=== PATIENT | male | born 1935 | race Caucasian/White ===

== ENCOUNTER 2016-09-10 20:57 | Inpatient (IN) | payer OTHER ==
[~2016-09-10] VITALS: Ht 172.7 cm; Wt 80.0 kg
[~2016-09-10 20:57] MED LIST: ASPI-435 PO; CRD2 PO; vitamin d3 PO
[2016-09-10] MEDS ORDERED: ACETAMINOPHEN 500 MG TAB PO ONE (21:04)
--- NOTE | 2016-09-10 21:45 | DIAGNOSTIC IMAGING REPORT ---
CHEST ONE VIEW PORTABLE HISTORY: flu like symptoms COMPARISON: None. FINDINGS: Linear densities at the left lung base. The lungs are otherwise clear. No pleural effusions. No pneumothorax. The heart is normal in size. IMPRESSION: Linear densities at the left lung base. This favors atelectasis. However, a pneumonia could also have a similar appearance. Electronically signed by: Quentin Mendoza M.D. 09/10/2016 9:44 PM Dictated Date/Time: 09/10/2016 9:42 PM
[2016-09-10] MEDS ORDERED: SODIUM CHLORIDE 0.9% 1000ML 1,000 ML IV STA (21:59)
[2016-09-10] MEDS ORDERED: LEVAQUIN 750MG / 150ML D5W IV STA (22:04)
[2016-09-10] MEDS ORDERED: OSELTAMIVIR PHOSPHATE 75 MG CAP PO STA (22:42)
[2016-09-10 22:44] LABS: COMPLETE YES; EOS % 0.5 %; HEMATOCRIT 34.6 % (42-52); IG% 0.3 %; LYMPH % 14.3 %; LYMPH ABS # 0.56 K/uL (1.2-3.4); MEAN CELL VOLUME 99.4 fL (80-100); MEAN CORPUSCULAR HEMOGLOBIN 34.8 pg (25-34); MEAN PLATELET VOLUME 11.2 fL (7.4-10.4); MONO % 13.3 %; NEUT % 71.6 %; PLATELET COUNT 117 K/uL (130-400); RED BLOOD COUNT 3.48 M/uL (4.7-6.1); WHITE BLOOD COUNT 3.91 K/uL (4.8-10.8)
[2016-09-10 23:00] LABS: BUN/CREATININE RATIO 14.7 (10-20); CALCIUM 7.7 mg/dl (8.5-10.1); CREATININE 1.3 mg/dl (0.60-1.40); POTASSIUM 3.8 mmol/L (3.5-5.1)
[2016-09-10 23:05] LABS: ALB/GLOB RATIO 1.1 (0.9-2)
[2016-09-10] MEDS ORDERED: DUTA0.5C PO (23:36)
[2016-09-10] MEDS ORDERED: ALFU10TA30 PO (23:36)
[2016-09-11] MEDS ORDERED: ALUMINUM/MAGNESIUM SUSP 30 ML UDC PO STA (01:12)
[2016-09-11] MEDS ORDERED: RANITIDINE HCL 150 MG TAB PO ONE ×2 (01:15→02:49)
[2016-09-11 01:59] LABS: PARTIAL THROMBOPLASTIN RATIO 1.2
[2016-09-11 02:01] LABS: MAGNESIUM 1.9 mg/dl (1.8-2.4); THYROID STIMULATING HORMONE 0.501 uIu/ml (0.300-4.500)
[2016-09-11] MEDS ORDERED: LACTATED RINGER'S 1000ML 1,000 ML IV ONE (02:30)
[2016-09-11] MEDS ORDERED: TRAMADOL HCL 50 MG TAB PO PRN (02:30)
[2016-09-11] MEDS ORDERED: BENZONATATE 100MG CAP PO PRN (02:30)
[2016-09-11] MEDS ORDERED: ALBUT/IPRATROP 3MG/0.5MG NEB 3 ML VIAL INH PRN (02:30)
[2016-09-11] MEDS ORDERED: ACETAMINOPHEN 325 MG TAB PO PRN (02:30)
[2016-09-11] MEDS ORDERED: ONDANSETRON INJ 2 MG/ML 2 ML VIAL IV PRN (02:30)
[2016-09-11] MEDS ORDERED: ALUMINUM/MAGNESIUM SUSP 30 ML UDC PO PRN (02:30)
[2016-09-11] MEDS ORDERED: PROMETHAZINE HCL INJ 12.5 MG in SODIUM CHLORIDE 0.9% 50ML 50 ML IV PRN (02:30)
[2016-09-11] MEDS ORDERED: MoRPHine SULFATE 4 MG/ML 1 ML CARP\\VIAL IV PRN (02:30)
--- NOTE | 2016-09-11 02:34 | EMERGENCY ROOM VISIT NOTE ---
History Report prepared by Josette: Reagan Melton Under the Supervision of: Dr. Ignacio Rawls M.D. First contact with patient: 21:22 Chief Complaint: FEVER Stated Complaint: FEVER,FEELING LOUSY History of Present Illness The patient is a 80 year old male who presents to the Emergency Room with complaints of a persistent dry cough starting 2 days ago. He reports muscle spasms in the back from coughing. He also complains of some difficulty breathing. The patient started having an intermittent fever yesterday. His highest temperature at home was 102 degrees Fahrenheit. He notes generalized body aches. About a week ago, the patient's brother in law was diagnosed with the flu. The patient has never been a smoker. He denies any history of pneumonia or lung disease. Pt denies LOC, headache, diaphoresis, visual changes , neck pain, chest pain, nausea, vomiting, abdominal pain, melena, hematochezia , urinary symptoms, numbness, weakness, lymphadenopathy, rash, or other complaints. Source of History: patient Onset: 2 days ago Position: other (global) Quality: other (dry cough) Timing: other (persistent) Associated Symptoms: + SOB, + fevers Review of Systems See HPI for pertinent positives and negatives. A total of ten systems were reviewed and were otherwise negative. Past Medical & Surgical Medical Problems: (1) Anemia (2) BPH (benign prostatic hyperplasia) (3) Laceration (4) MDS (myelodysplastic syndrome), low grade (5) Pneumonia Family History Patient reports no known family medical history. Social History Smoking Status: Never Smoker Marital Status: Occupation Status: retired Current/Historical Medications Scheduled Alfuzosin Hcl (Uroxatral), 10 MG PO QAM Aspirin (Aspirin 81), 81 MG PO QAM Doxazosin Mesylate (Doxazosin Mesylate), 2 MG PO QAM Dutasteride (Avodart), 0.5 MG PO QAM Allergies Coded Allergies: No Known Allergies (Unverified , 09/10/16) Physical Exam Vital Signs Date Time Temp Pulse Resp B/P Pulse Ox O2 Delivery O2 Flow Rate FiO2 09/11/16 02:16 64 09/11/16 01:14 65 20 146/79 94 Room Air 09/11/16 00:15 36.7 66 20 131/72 97 Nasal Cannula 3.0 09/10/16 22:41 37.8 76 128/66 96 Room Air 09/10/16 22:40 96 Room Air 09/10/16 22:24 77 09/10/16 22:15 95 Nasal Cannula 2.0 09/10/16 22:15 89 Room Air 09/10/16 21:00 38.7 83 20 145/73 93 Room Air Physical Exam GENERAL: Awake, alert, tired-appearing, in no distress HENT: Normocephalic, atraumatic. Oropharynx unremarkable. EYES: Normal conjunctiva. Sclera non-icteric. NECK: Supple. No nuchal rigidity. FROM. No JVD. RESPIRATORY: Clear to auscultation. CARDIAC: Regular rate, normal rhythm. Extremities warm and well perfused. Pulses equal. ABDOMEN: Soft, non-distended. No tenderness to palpation. No rebound or guarding. No masses. RECTAL: Deferred. MUSCULOSKELETAL: Chest examination reveals no tenderness. The back is symmetrical on inspection without obvious abnormality. There is no CVA tenderness to palpation. No joint edema. LOWER EXTREMITIES: Calves are equal size bilaterally and non-tender. No edema. No discoloration. NEURO: Normal sensorium. No sensory or motor deficits noted. SKIN: No rash or jaundice noted. Medical Decision & Procedures ER Provider Diagnostic Interpretation: X-ray: Per my interpretation, radiologist review. CHEST ONE VIEW PORTABLE HISTORY: flu like symptoms COMPARISON: None. FINDINGS: Linear densities at the left lung base. The lungs are otherwise clear. No pleural effusions. No pneumothorax. The heart is normal in size. IMPRESSION: Linear densities at the left lung base. This favors atelectasis. However, a pneumonia could also have a similar appearance. Electronically signed by: Quentin Mendoza M.D. 09/10/2016 9:44 PM Dictated Date/Time: 09/10/2016 9:42 PM Laboratory Results 09/10/16 22:15 Red Blood Count 3.48, Mean Corpuscular Volume 99.4, Mean Corpuscular Hemoglobin 34.8, Mean Corpuscular Hemoglobin Concent 35.0, Mean Platelet Volume 11.2, Neutrophils (%) (Auto) 71.6, Lymphocytes (%) (Auto) 14.3, Monocytes (%) (Auto) 13.3, Eosinophils (%) (Auto) 0.5, Basophils (%) (Auto) 0.0, Neutrophils # (Auto ) 2.80, Lymphocytes # (Auto) 0.56, Monocytes # (Auto) 0.52, Eosinophils # (Auto ) 0.02, Basophils # (Auto) 0.00 09/10/16 22:15 Test 09/10/16 21:34 09/10/16 22:15 09/11/16 01:47 Influenza Type A Antigen POS for Influ A (NEG) Influenza Type B Antigen Neg for Influ B (NEG) White Blood Count 3.91 K/uL (4.8-10.8) Red Blood Count 3.48 M/uL (4.7-6.1) Hemoglobin 12.1 g/dL (14.0-18.0) Hematocrit 34.6 % (42-52) Mean Corpuscular Volume 99.4 fL (80-100) Mean Corpuscular Hemoglobin 34.8 pg (25-34) Mean Corpuscular Hemoglobin Concent 35.0 g/dl (32-36) Platelet Count 117 K/uL (130-400) Mean Platelet Volume 11.2 fL (7.4-10.4) Neutrophils (%) (Auto) 71.6 % Lymphocytes (%) (Auto) 14.3 % Monocytes (%) (Auto) 13.3 % Eosinophils (%) (Auto) 0.5 % Basophils (%) (Auto) 0.0 % Neutrophils # (Auto) 2.80 K/uL (1.4-6.5) Lymphocytes # (Auto) 0.56 K/uL (1.2-3.4) Monocytes # (Auto) 0.52 K/uL (0.11-0.59) Eosinophils # (Auto) 0.02 K/uL (0-0.5) Basophils # (Auto) 0.00 K/uL (0-0.2) RDW Standard Deviation 47.3 fL (36.4-46.3) RDW Coefficient of Variation 13.1 % (11.5-14.5) Immature Granulocyte % (Auto) 0.3 % Immature Granulocyte # (Auto) 0.01 K/uL (0.00-0.02) Activated Partial Thromboplast Time 31.7 SECONDS (21.0-31.0) Partial Thromboplastin Ratio 1.2 Anion Gap 12.0 mmol/L (3-11) Est Creatinine Clear Calc Drug Dose 44.6 ml/min Estimated GFR () 60.1 Estimated GFR (Non- 51.9 BUN/Creatinine Ratio 14.7 (10-20) Calcium Level 7.7 mg/dl (8.5-10.1) Magnesium Level 1.9 mg/dl (1.8-2.4) Total Bilirubin 0.4 mg/dl (0.2-1) Aspartate Amino Transf (AST/SGOT) 37 U/L (15-37) Alanine Aminotransferase (ALT/SGPT) 35 U/L (12-78) Alkaline Phosphatase 144 U/L (45-117) Troponin I 0.022 ng/ml (0-0.045) Total Protein 6.0 gm/dl (6.4-8.2) Albumin 3.1 gm/dl (3.4-5.0) Globulin 2.9 gm/dl (2.5-4.0) Albumin/Globulin Ratio 1.1 (0.9-2) Thyroid Stimulating Hormone (TSH) 0.501 uIu/ml (0.300-4.500) Lactic Acid Level 0.9 mmol/L (0.4-2.0) Laboratory results reviewed by me Medications Administered Medications (Trade) Dose Ordered Sig/Jabier Route Start Time Stop Time Status Last Admin Dose Admin Acetaminophen 1000 mg 1,000 mg STK-MED ONCE PO 09/10/16 21:04 09/10/16 21:06 DC 09/10/16 21:04 1,000 MG Sodium Chloride (Nss 1000ml) 1,000 ml @ 125 mls/hr Q8H STAT IV 09/10/16 21:59 09/11/16 05:58 09/10/16 21:25 125 MLS/HR Levofloxacin (Levaquin / D5W) 750 mg NOW STAT IV 09/10/16 22:04 09/10/16 22:05 DC 09/10/16 22:33 750 MG Oseltamivir Phosphate (Tamiflu Cap) 75 mg NOW STAT PO 09/10/16 22:42 09/10/16 22:43 DC 09/10/16 22:42 75 MG Al Hydroxide/Mg Hydroxide (Maalox Susp) 30 ml NOW STAT PO 09/11/16 01:12 09/11/16 01:14 DC 09/11/16 01:12 30 ML Ranitidine HCl (zANTac TAB) 150 mg NOW ONCE PO 09/11/16 01:15 09/11/16 01:16 DC 09/11/16 01:15 150 MG ED Course 2121: The patient was evaluated in room A09B. A complete history and physical exam was performed. 2158: Sodium Chloride 1000 ml @ 125 mls/hr IV 2203: Levofloxacin 750 mg IV 2241: Tamiflu Cap 75 mg PO 2244: I reevaluated the patient who is resting comfortably. 0112: Maalox Susp 30 ml PO 0115: Ranitidine HCl 150 mg PO 0118: Upon reexamination, the patient was doing well. I discussed the test results and treatment plan with him. I discussed the patient's case with Dr. Javed, from [facility]. The patient will be evaluated for further management. Medical Decision Triage Nursing notes reviewed. The patient's presentation and history were concerning for respiratory symptoms. Etiologies such as influenza, pneumonia, COPD, reactive airway disease, CHF, cardiac ischemia, pulmonary embolism, pneumothorax, musculoskeletal, infections , gastrointestinal, as well as others were entertained. The patient was evaluated. He was mildly hypoxic on room air. He was doing better with supplemental oxygen and Tylenol. The patient had a chest x-ray was performed and there were some concerns about an early pneumonia in the left base. IV Levaquin was administered. His CBC revealed a mild anemia and leukopenia. Chemistry panel was unremarkable. Magnesium, LFTs were unremarkable. The patient had a positive influenza A screen. Tamiflu was ordered. Given the fact that he has a requirement for supplemental oxygen further evaluation and management was felt to be necessary in the hospital. Consultation was made with internal medicine. The patient was evaluated in the Emergency Room for further treatment. The chart was completed utilizing [employer] Speech voice recognition software. Grammatical errors, random word insertions, pronoun errors, and incomplete sentences are an occasional consequence of this system due to software limitations, ambient noise, and hardware issues. Any formal questions or concerns about the content, text, or information contained within the body of this dictation should be directly addressed to the physician for clarification. Consults Time Called: 0113 Consulting Physician: Dr. Javed, from [facility] Returned Call: 0118 I discussed the patient's case with Dr. Javed, from [facility]. Impression Primary Impression: Influenza Additional Impressions: Pneumonia Hypoxia Scribe Attestation The scribe's documentation has been prepared under my direction and personally reviewed by me in its entirety. I confirm that the note above accurately reflects all work, treatment, procedures, and medical decision making performed by me. Departure Information Dispostion Being Evaluated By Hospitalist Referrals Hilario Sigala M.D. (PCP) Patient Instructions My [facility] Problem Qualifiers
[2016-09-11 03:05] VITALS: O2SAT 95; Ht 172.7 cm; Wt 80.0 kg
--- NOTE | 2016-09-11 03:55 | HISTORY & PHYSICAL EXAMINATION ---
DATE OF ADMISSION: 09/11/2016 PRIMARY CARE DOCTOR: Dr. Hilario Sigala. CHIEF COMPLAINT: Feeling lousy and cough. HISTORY OF PRESENT ILLNESS: Medical history significant for myelodysplasia, chronic anemia (baseline hemoglobin 12-130, BPH Two days history of dry cough sx, feeling lousy. No chest pain, no shortness of breath. At the Emergency Room, transient hypoxemia 89% on room air. Px found to be flu positive. Patient received Tamiflu and Levaquin in the ER. MEDICAL HISTORY: As above. SURGERIES: Tonsillectomy and adenoidectomy. HOME MEDICATIONS: Include aspirin, Zantac prn, Avodart ALLERGIES: No known drug allergies. FAMILY HISTORY: Hypertension. PERSONAL SOCIAL HISTORY: Nonsmoker, no chronic intake. 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 REVIEW OF SYSTEMS: As per HPI, all other ROS negative. PHYSICAL EXAMINATION: VITAL SIGNS: Blood pressure was noted to be 128/60, pulse rate 76, RR 20 T 38 O2 sats 98% on room air. GENERAL: Noted to be comfortable, occasional coughing, no acute distress. SKIN: Pallor. HEENT: Pale palpebral conjunctivae. Dry mucosa. NECK: No JVD. supple CHEST: Clear to auscultation. HEART: Regular rate and rhythm. ABDOMEN: soft EXTREMITIES: No edema. no tenderness NEUROLOGIC: No gross focality. LABORATORIES: Hemoglobin 12.1, hematocrit 34.7, white cell count 2.9, platelets 117. Sodium 140, potassium 4 chloride 107, CO2 20 BUN 19, creatinine 1 glucose 108. IMAGING DATA: Chest x-ray showed a possible infiltrate L ASSESSMENT: 1. Community acquired pneumonia flu positive. No overt sepsis. 2. History of myelodysplasia. 3. Thrombocytopenia poss 2 to above/illness. PLAN: F Medical Levaquin. Tamiflu course. Follow platelets. Hold aspirin for now. PT/OT eval DVT prophylaxis, SCDs. RE Thrombocytopenia. Full code. MTDD
[2016-09-11 06:02] LABS: CALCIUM 7.7 mg/dl (8.5-10.1); CREATININE 1.1 mg/dl (0.60-1.40); POTASSIUM 3.7 mmol/L (3.5-5.1)
[2016-09-11 07:49] VITALS: BP 139/78; PULSE 67; TEMP 37.4; O2SAT 94
[2016-09-11 08:55] VITALS: O2SAT 94
[2016-09-11] MEDS ORDERED: LEVOFLOXACIN CONSULT ACTIVE PRN (09:00)
[2016-09-11] MEDS: DOXAZosin MESYLATE TAB 2 MG TAB PO SCH (09:48)
[2016-09-11] MEDS: ALFUZosin TAB 10 MG TAB PO SCH (09:49)
[2016-09-11] MEDS: GUAIFENESIN 600 MG TABCR PO SCH ×2 (09:49→20:10)
[2016-09-11] MEDS: OSELTAMIVIR PHOSPHATE SUSP 30 MG/5 ML UDP PO SCH ×2 (09:51→20:10)
--- NOTE | 2016-09-11 14:43 | Progress Note ---
Internal Med Progress Note Date of Service: Sep 11, 2016. Provider Documentation: SUBJECTIVE: Seen and examined at bedside. States feeling much better. Reports having dry cough which is improving. Denies any chest pain, SOB. Appetite has improved as well. OBJECTIVE: Vital Signs-as noted below Physical Exam: General Appearance:Moderately built and nourished, no apparent distress Head: normocephalic, Atraumatic Eyes: normal inspection, EOMI, PERRLA Neck: supple, Trachea midline Respiratory/Chest: Normal breath sounds, CTA, No accessory muscle use Cardiovascular: S1, S2, No murmur Abdomen/GI:Soft, Non tender, Bowel sounds present Extremities/Musculoskelatal:normal inspection, No edema Neurologic/Psych:AAOX3, grossly no focal neurological deficits Skin: normal color, warm Lab data as noted below. 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 Baseline platelets:115K Baseline Hb:12-13 Hold Aspirin for now DVT Px: SCDs CODE STATUS: FULL CODE DISPOSITION: Plan to discharge in next 48 hours if stable Vital Signs: Date Time Temp Pulse Resp B/P Pulse Ox O2 Delivery O2 Flow Rate FiO2 09/11/16 08:55 94 Room Air 09/11/16 07:49 37.4 67 18 139/78 94 Room Air 09/11/16 07:26 Room Air 09/11/16 03:05 95 Room Air 09/11/16 02:53 68 20 136/78 94 09/11/16 02:16 64 09/11/16 01:14 65 20 146/79 94 Room Air 09/11/16 00:15 36.7 66 20 131/72 97 Nasal Cannula 3.0 09/10/16 22:41 37.8 76 128/66 96 Room Air 09/10/16 22:40 96 Room Air 09/10/16 22:24 77 09/10/16 22:15 95 Nasal Cannula 2.0 09/10/16 22:15 89 Room Air 09/10/16 21:00 38.7 83 20 145/73 93 Room Air Lab Results: Results Past 24 Hours Test 09/10/16 21:34 09/10/16 22:15 09/11/16 01:47 09/11/16 04:50 Range/Units Influenza Type A Antigen POS for Influ A NEG Influenza Type B Antigen Neg for Influ B NEG White Blood Count 3.91 4.8-10.8 K/uL Red Blood Count 3.48 4.7-6.1 M/uL Hemoglobin 12.1 14.0-18.0 g/dL Hematocrit 34.6 42-52 % Mean Corpuscular Volume 99.4 80-100 fL Mean Corpuscular Hemoglobin 34.8 25-34 pg Mean Corpuscular Hemoglobin Concent 35.0 32-36 g/dl Platelet Count 117 130-400 K/uL Mean Platelet Volume 11.2 7.4-10.4 fL Neutrophils (%) (Auto) 71.6 % Lymphocytes (%) (Auto) 14.3 % Monocytes (%) (Auto) 13.3 % Eosinophils (%) (Auto) 0.5 % Basophils (%) (Auto) 0.0 % Neutrophils # (Auto) 2.80 1.4-6.5 K/uL Lymphocytes # (Auto) 0.56 1.2-3.4 K/uL Monocytes # (Auto) 0.52 0.11-0.59 K/uL Eosinophils # (Auto) 0.02 0-0.5 K/uL Basophils # (Auto) 0.00 0-0.2 K/uL RDW Standard Deviation 47.3 36.4-46.3 fL RDW Coefficient of Variation 13.1 11.5-14.5 % Immature Granulocyte % (Auto) 0.3 % Immature Granulocyte # (Auto) 0.01 0.00-0.02 K/uL Activated Partial Thromboplast Time 31.7 21.0-31.0 SECONDS Partial Thromboplastin Ratio 1.2 Sodium Level 142 142 136-145 mmol/L Potassium Level 3.8 3.7 3.5-5.1 mmol/L Chloride Level 107 107 98-107 mmol/L Carbon Dioxide Level 23 24 21-32 mmol/L Anion Gap 12.0 11.0 3-11 mmol/L Blood Urea Nitrogen 19 18 7-18 mg/dl Creatinine 1.30 1.10 0.60-1.40 mg/dl Est Creatinine Clear Calc Drug Dose 44.6 52.7 ml/min Estimated GFR () 60.1 73.6 Estimated GFR (Non- 51.9 63.5 BUN/Creatinine Ratio 14.7 16.0 10-20 Random Glucose 108 91 70-99 mg/dl Calcium Level 7.7 7.7 8.5-10.1 mg/dl Magnesium Level 1.9 1.8-2.4 mg/dl Total Bilirubin 0.4 0.2-1 mg/dl Aspartate Amino Transf (AST/SGOT) 37 15-37 U/L Alanine Aminotransferase (ALT/SGPT) 35 12-78 U/L Alkaline Phosphatase 144 45-117 U/L Troponin I 0.022 0-0.045 ng/ml Total Protein 6.0 6.4-8.2 gm/dl Albumin 3.1 3.4-5.0 gm/dl Globulin 2.9 2.5-4.0 gm/dl Albumin/Globulin Ratio 1.1 0.9-2 Thyroid Stimulating Hormone (TSH) 0.501 0.300-4.500 uIu/ml Lactic Acid Level 0.9 0.4-2.0 mmol/L Microbiology Results 09/10/16 Blood Culture, Received Pending 09/10/16 Blood Culture, Received Pending
[2016-09-11] MEDS ORDERED: SODIUM CHLORIDE 0.9% 1000ML 1,000 ML IV SCH (15:00)
[2016-09-11 16:00] VITALS: BP 129/68; PULSE 56; TEMP 37; O2SAT 95
[2016-09-11] MEDS ORDERED: LEVOFLOXACIN 750 MG TAB PO ONE (16:00)
[2016-09-11] MEDS: RANITIDINE HCL 150 MG TAB PO PRN (16:13)
[2016-09-11 23:02] VITALS: BP 159/75; PULSE 60; TEMP 37.2; O2SAT 95
[2016-09-12 06:30] LABS: BUN/CREATININE RATIO 18.4 (10-20); CALCIUM 7.9 mg/dl (8.5-10.1); POTASSIUM 3.6 mmol/L (3.5-5.1)
[2016-09-12 06:51] LABS: HEMATOCRIT 34.1 % (42-52); MEAN CELL VOLUME 98.6 fL (80-100); MEAN CORPUSCULAR HEMOGLOBIN 34.1 pg (25-34); MEAN CORPUSCULAR HGB CONC 34.6 g/dl (32-36); MEAN PLATELET VOLUME 11.8 fL (7.4-10.4); PLATELET COUNT 97 K/uL (130-400); RED BLOOD COUNT 3.46 M/uL (4.7-6.1)
[2016-09-12 07:01] LABS: BASO % 0.6 %; BASO ABS # 0.01 K/uL (0-0.2); COMPLETE YES; LARGE PLATELETS 1+; LYMPH % 32.8 %; LYMPH ABS # 0.59 K/uL (1.2-3.4); MONO % 26.1 %; NEUT % 40.5 %; PLT ESTIMATE DECREASED
[2016-09-12 08:10] VITALS: BP 137/74; PULSE 51; TEMP 36.6; O2SAT 92
[2016-09-12] MEDS: ALFUZosin TAB 10 MG TAB PO SCH (08:31)
[2016-09-12] MEDS: DOXAZosin MESYLATE TAB 2 MG TAB PO SCH (08:31)
[2016-09-12] MEDS: GUAIFENESIN 600 MG TABCR PO SCH ×2 (08:33→22:05)
[2016-09-12] MEDS: RANITIDINE HCL 150 MG TAB PO PRN (08:33)
[2016-09-12] MEDS: OSELTAMIVIR PHOSPHATE SUSP 30 MG/5 ML UDP PO SCH ×2 (08:35→22:05)
--- NOTE | 2016-09-12 10:16 | Progress Note ---
Internal Med Progress Note Date of Service: Sep 12, 2016. Provider Documentation: SUBJECTIVE: Seen and examined at bedside. Patient states he feels lot better. Denies any cough, SOB, chest pain. Appetite is back to baseline, denies nausea, vomiting. OBJECTIVE: Vital Signs-as noted below Physical Exam: General Appearance:Moderately built and nourished, no apparent distress Head: normocephalic, Atraumatic Eyes: normal inspection, EOMI, PERRLA Neck: supple, Trachea midline Respiratory/Chest: Normal breath sounds, CTA, No accessory muscle use Cardiovascular: S1, S2, No murmur Abdomen/GI:Soft, Non tender, Bowel sounds present Extremities/Musculoskelatal:normal inspection, No edema Neurologic/Psych:AAOX3, grossly no focal neurological deficits Skin: normal color, warm Lab data as noted below. ASSESSMENT & PLAN: COMMUNITY ACQUIRED PNEUMONIA INFLUENZA A POSITIVE Transient hypoxia while in ED, currently saturating well on RA CXR:Possible LLL pneumonia No signs of sepsis Continue PO Levaquin Blood cultures: no growth to date Continue Tamiflu Lactate levels:wnl Procalcitonin:pending Clinically improved H/O MYELODYSPLASIA: Pancytopenia secondary to infection and myelodysplasia Discussed with :Monitor for now Neutropenia precautions BPH: Stable Continue home meds CHRONIC ANEMIA/THROMBOCYTOPENIA: Secondary to myelodysplasia Baseline platelets:115K >> now 97K Baseline Hb:12-13 WBC: Decreased from 3.9 to 1.8 Hold Aspirin for now Discussed with :Monitor for now Neutropenia precautions DVT Px: SCDs CODE STATUS: FULL CODE DISPOSITION: Plan to discharge in next 24- 48 hours if stable Vital Signs: Date Time Temp Pulse Resp B/P Pulse Ox O2 Delivery O2 Flow Rate FiO2 09/12/16 08:30 Room Air 09/12/16 08:10 36.6 51 19 137/74 92 Room Air 09/11/16 23:50 Room Air 09/11/16 23:02 37.2 60 16 159/75 95 Room Air 09/11/16 20:00 Room Air 09/11/16 16:00 37.0 56 18 129/68 95 Room Air Lab Results: Results Past 24 Hours Test 09/12/16 05:10 09/12/16 08:54 Range/Units White Blood Count 1.80 4.8-10.8 K/uL Red Blood Count 3.46 4.7-6.1 M/uL Hemoglobin 11.8 14.0-18.0 g/dL Hematocrit 34.1 42-52 % Mean Corpuscular Volume 98.6 80-100 fL Mean Corpuscular Hemoglobin 34.1 25-34 pg Mean Corpuscular Hemoglobin Concent 34.6 32-36 g/dl Platelet Count 97 130-400 K/uL Mean Platelet Volume 11.8 7.4-10.4 fL Neutrophils (%) (Auto) 40.5 % Lymphocytes (%) (Auto) 32.8 % Monocytes (%) (Auto) 26.1 % Eosinophils (%) (Auto) 0.0 % Basophils (%) (Auto) 0.6 % Neutrophils # (Auto) 0.73 1.4-6.5 K/uL Lymphocytes # (Auto) 0.59 1.2-3.4 K/uL Monocytes # (Auto) 0.47 0.11-0.59 K/uL Eosinophils # (Auto) 0.00 0-0.5 K/uL Basophils # (Auto) 0.01 0-0.2 K/uL RDW Standard Deviation 46.1 36.4-46.3 fL RDW Coefficient of Variation 12.9 11.5-14.5 % Immature Granulocyte % (Auto) 0.0 % Immature Granulocyte # (Auto) 0.00 0.00-0.02 K/uL Platelet Estimate DECREASED Large Platelets 1+ Sodium Level 143 136-145 mmol/L Potassium Level 3.6 3.5-5.1 mmol/L Chloride Level 107 98-107 mmol/L Carbon Dioxide Level 25 21-32 mmol/L Anion Gap 11.0 3-11 mmol/L Blood Urea Nitrogen 18 7-18 mg/dl Creatinine 1.00 0.60-1.40 mg/dl Est Creatinine Clear Calc Drug Dose 57.9 ml/min Estimated GFR () 82.6 Estimated GFR (Non- 71.3 BUN/Creatinine Ratio 18.4 10-20 Random Glucose 80 70-99 mg/dl Calcium Level 7.9 8.5-10.1 mg/dl Lactic Acid Level 0.8 0.4-2.0 mmol/L Procalcitonin < 0.05 0-0.5 ng/mL
[2016-09-12] MEDS ORDERED: LEVOFLOXACIN 750 MG TAB PO SCH (11:00)
[2016-09-12] MEDS: LEVOFLOXACIN 750 MG TAB PO SCH (11:22)
[2016-09-12 15:44] VITALS: BP 147/67; PULSE 64; TEMP 36.9; O2SAT 96
[2016-09-12 23:12] VITALS: BP 127/63; PULSE 43; TEMP 36.9; O2SAT 97
[2016-09-13] MEDS: RANITIDINE HCL 150 MG TAB PO PRN (00:07)
[2016-09-13 07:15] LABS: HEMATOCRIT 35.1 % (42-52); MEAN CELL VOLUME 97.5 fL (80-100); MEAN CORPUSCULAR HEMOGLOBIN 34.4 pg (25-34); MEAN CORPUSCULAR HGB CONC 35.3 g/dl (32-36); MEAN PLATELET VOLUME 11.4 fL (7.4-10.4); PLATELET COUNT 102 K/uL (130-400)
[2016-09-13 07:27] LABS: BUN/CREATININE RATIO 15.5 (10-20); CALCIUM 8.1 mg/dl (8.5-10.1); CREATININE 1.2 mg/dl (0.60-1.40); POTASSIUM 3.7 mmol/L (3.5-5.1)
[2016-09-13 07:44] VITALS: BP 145/80; PULSE 50; TEMP 36.9; O2SAT 96
[2016-09-13 07:46] LABS: LARGE PLATELETS 1+; VACUOLIZATION 1+
[2016-09-13 07:48] LABS: COMPLETE YES; LYMPH ABS # 0.66 K/uL (1.2-3.4); LYMPHOCYTE % 34.5 %; NEUTROPHILS % 46.9 %
[2016-09-13 08:28] VITALS: O2SAT 96
[2016-09-13] MEDS: DOXAZosin MESYLATE TAB 2 MG TAB PO SCH (09:28)
[2016-09-13] MEDS: GUAIFENESIN 600 MG TABCR PO SCH (09:28)
[2016-09-13] MEDS: ALFUZosin TAB 10 MG TAB PO SCH (09:28)
[2016-09-13] MEDS: OSELTAMIVIR PHOSPHATE SUSP 30 MG/5 ML UDP PO SCH (09:32)
[2016-09-13] MEDS: LEVOFLOXACIN 750 MG TAB PO SCH (11:08)
[2016-09-13] MEDS ORDERED: LVQ750 PO (14:29)
[2016-09-13] MEDS ORDERED: TMFUDL30 PO (14:29)
--- NOTE | 2016-09-13 14:31 | Discharge Instructions ---
Discharge Instructions Admission Reason for Admission: Pneumonia Discharge Discharge Diagnosis / Problem: Influenza pneumonia Discharge Goals Goal(s): Improve disease control Activity Recommendations Activity Limitations: resume your previous activity . Instructions / Follow-Up Instructions / Follow-Up Please schedule follow up with your PCP and Geotechnical Intern. You should have a repeat CBC in [address] Suarez. Current Hospital Diet Patient's current hospital diet: AHA Diet (Heart Healthy) Discharge Diet Recommended Diet: AHA Diet (Heart Healthy) Pending Studies Studies pending at discharge: no Medical Emergencies . Who to Call and When: Medical Emergencies: If at any time you feel your situation is an emergency, please call 911 immediately. . Non-Emergent Contact Non-Emergency issues call your: Primary Care Provider, Oncologist . . "Provider Documentation" section prepared by Renae Avery. VTE Core Measure Inpt VTE Proph given/why not?: SCD's
[2016-09-13 14:48] VITALS: BP 145/80; PULSE 50; TEMP 36.9; O2SAT 96
--- NOTE | 2016-09-13 19:28 | Discharge Summary ---
Discharge Summary Admission Date: Sep 11, 2016 at 02:19 Discharge Date: Sep 13, 2016 Discharge Disposition: Home Principal Diagnosis: Influenza pneumonia Medication Reconciliation New Medications: Levofloxacin (Levofloxacin) 750 Mg Tab 750 MG PO DAILY@1100 for 2 Days, #2 TAB Oseltamivir Phosphate (Tamiflu) 6 Mg/Ml Delmy 30 MG PO BID for 3 Days Continued Medications: Alfuzosin Hcl (Uroxatral) 10 Mg Tab 10 MG PO QAM Aspirin (Aspirin 81) 81 Mg Tab 81 MG PO QAM Doxazosin Mesylate (Doxazosin Mesylate) 2 Mg Tab 2 MG PO QAM Dutasteride (Avodart) 0.5 Mg Cap 0.5 MG PO QAM Admission Information HPI (per Admitting provider): Medical history significant for myelodysplasia, chronic anemia (baseline hemoglobin 12-130, BPH Two days history of dry cough sx, feeling lousy. No chest pain, no shortness of breath. At the Emergency Room, transient hypoxemia 89% on room air. Px found to be flu positive. Patient received Tamiflu and Levaquin in the ER. Physical Exam (per Admitting): VITAL SIGNS: Blood pressure was noted to be 128/60, pulse rate 76, RR 20 T 38 O2 sats 98% on room air. GENERAL: Noted to be comfortable, occasional coughing, no acute distress. SKIN: Pallor. HEENT: Pale palpebral conjunctivae. Dry mucosa. NECK: No JVD. supple CHEST: Clear to auscultation. HEART: Regular rate and rhythm. ABDOMEN: soft EXTREMITIES: No edema. no tenderness NEUROLOGIC: No gross focality. Hospital Course Patient was admitted with influenza and possible pneumonia noted on CXR. Patient was started on levofloxacin and oseltamivir. Patient clinically improved. Patient was continued on his home medications. 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 Suarez. Patient deemed stable for discharge to follow up with PCP and Hematology. PE on discharge: General- awake; alert; NAD Eyes- EOMI; no scleral icterus Neck- no stridor; trachea midline Lungs- CTA bilaterally; no wheezes/crackles Heart- RRR; no m/r/g Abdomen- soft; NTND; nBS Back- no gross abnormalities Extremities- no c/c/e; no deformity Neuro- no gross focal deficits Skin- no appreciable rash . Total time spent on discharge = This includes examination of the patient, discharge planning, medication reconciliation, and communication with other providers. Discharge Instructions Discharge Instructions Admission Reason for Admission: Pneumonia Discharge Discharge Diagnosis / Problem: Influenza pneumonia Discharge Goals Goal(s): Improve disease control Activity Recommendations Activity Limitations: resume your previous activity . Instructions / Follow-Up Instructions / Follow-Up Please schedule follow up with your PCP and Concrete Paving Machine Operator. You should have a repeat CBC in [address] Suarez. Current Hospital Diet Patient's current hospital diet: AHA Diet (Heart Healthy) Discharge Diet Recommended Diet: AHA Diet (Heart Healthy) Pending Studies Studies pending at discharge: no Medical Emergencies . Who to Call and When: Medical Emergencies: If at any time you feel your situation is an emergency, please call 911 immediately. . Non-Emergent Contact Non-Emergency issues call your: Primary Care Provider, Oncologist Additional Copies To Hilario Sigala M.D.
[2017-01-05] MEDS ORDERED: RANI150T3 PO (08:18)
[2017-04-12] MEDS ORDERED: LEUP30IN3 IM (13:25)
[2017-04-12] MEDS ORDERED: MIRA1TAB3 PO (13:25)
[2017-04-12] MEDS ORDERED: lupron (13:25)
[2017-04-23] MEDS ORDERED: CIPR-255 PO (08:21)
[2017-04-23] MEDS ORDERED: PHEN-775 PO (08:21)
[2017-04-23] MEDS ORDERED: ACET-749 PO (08:21)
== END 2016-09-13 15:22 | disposition home or self-care (01) | DRG 195 ==
LOC: ENRESERVTM → ENRESERVDT → C.EDB 20:58 → C.MSW 09-11 02:19 → EDBEDREQ 09-11 02:48
PROVIDERS: ADMIT Internal Medicine; ATTEND Internal Medicine
DX: J11.00 Influenza due to unidentified influenza virus with unspecified type of pneumonia (principal); D46.9 Myelodysplastic syndrome, unspecified; R09.02 Hypoxemia; N40.0 Benign prostatic hyperplasia without lower urinary tract symptoms; D69.59 Other secondary thrombocytopenia; D63.8 Anemia in other chronic diseases classified elsewhere; Z79.82 Long term (current) use of aspirin; Z79.899 Other long term (current) drug therapy; Z82.49 Family history of ischemic heart disease and other diseases of the circulatory system

== ENCOUNTER → 2016-12-04 | Outpatient (CLI) | payer OTHER ==
[~2016-12-04] MED LIST changes: +ACET-749 PO; +ALFU10TA2 PO; +CIPR-255 PO; +DUTA0.5C PO; +LEUP30IN3 IM; +LVQ750 PO; +MIRA1TAB3 PO; +PHEN-775 PO; +RANI150T3 PO; +TMFUDL30 PO; +lupron; -vitamin d3 PO
== END | disposition home or self-care (01) ==
LOC: C.PATHSPEC 17:47
PROVIDERS: ATTEND Urology
DX: C61 Malignant neoplasm of prostate (principal)

== ENCOUNTER → 2016-12-21 | Outpatient (CLI) | payer OTHER ==
--- NOTE | 2016-12-21 11:04 | DIAGNOSTIC IMAGING REPORT ---
TESTICULAR ULTRASOUND CLINICAL HISTORY: Spermatocele COMPARISON STUDY: No previous studies for comparison. FINDINGS: The right testis measures 47 x 32 x 22 mm. The left testis measures 58 x 36 x 29 mm. No intratesticular masses are visualized. There is no evidence of testicular torsion. There are bilateral varicoceles. There is a large left-sided epididymal cyst/spermatocele measuring 8 cm in long axis. There is prominence of the left mediastinum testis. IMPRESSION: 1. No evidence of testicular torsion 2. No evidence of intratesticular mass 3. 8 x 4 x 5 cm left epididymal cyst/spermatocele 4. Bilateral varicoceles Electronically signed by: Thad Jeronimo M.D. 12/21/2016 11:02 AM Dictated Date/Time: 12/21/2016 11:01 AM
== END | disposition home or self-care (01) ==
LOC: C.ULTR 10:19
PROVIDERS: ATTEND Urology
DX: N43.41 Spermatocele of epididymis, single (principal); I86.1 Scrotal varices; N40.1 Benign prostatic hyperplasia with lower urinary tract symptoms; C61 Malignant neoplasm of prostate; R39.198 Other difficulties with micturition; Z85.828 Personal history of other malignant neoplasm of skin; Z82.49 Family history of ischemic heart disease and other diseases of the circulatory system; Z90.89 Acquired absence of other organs; Z79.82 Long term (current) use of aspirin; Z87.01 Personal history of pneumonia (recurrent)

== ENCOUNTER 2016-12-26 05:45 | Day surgery (SDC) | payer OTHER ==
[2016-12-21 11:14] VITALS: BMI 26.0
--- NOTE | 2016-12-21 11:51 | PAT Medication Instructions ---
Service Date December 21, 2016. Current Home Medication List Alfuzosin Hcl (Uroxatral), 10 MG PO QAM Doxazosin Mesylate (Doxazosin Mesylate), 2 MG PO QAM Dutasteride (Avodart), 0.5 MG PO QAM Medication Instructions For Your Scheduled Surgery - Take the following medications the morning of surgery with a sip of water: Alfuzosin Hcl (Uroxatral), 10 MG PO QAM Doxazosin Mesylate (Doxazosin Mesylate), 2 MG PO QAM Dutasteride (Avodart), 0.5 MG PO QAM If you have any questions please call us at [phone] or [phone] ( [place]) or [phone]
--- NOTE | 2016-12-21 12:32 | DIAGNOSTIC IMAGING REPORT ---
CHEST PREADMISSION(PA/LAT) CLINICAL HISTORY: Preoperative chest COMPARISON STUDY: 09/10/2016 FINDINGS: The cardiac and mediastinal contours are normal. There is no evidence of focal pulmonary consolidation. There is no evidence of failure. No pleural effusions are visualized.[ There is minor left basilar atelectasis/scarring. IMPRESSION: No active disease in the chest. Electronically signed by: Thad Jeronimo M.D. 12/21/2016 12:31 PM Dictated Date/Time: 12/21/2016 12:31 PM
[2016-12-21 12:39] LABS: URINE APPEARANCE CLEAR (CLEAR); URINE BILIRUBIN NEG (NEG); URINE COLOR YELLOW; URINE EPITHELIAL CELL AUTO 20-30 /lpf (0-5); URINE NITRITE NEG (NEG); URINE PH 6.5 (4.5-7.5); URINE SPECIFIC GRAVITY 1.018 (1.000-1.030); UROBILINOGEN NEG (NEG)
[2016-12-21 12:42] LABS: MANUAL MICROSCOPIC REQUIRED? NO; REVIEW REQ? NO
[2016-12-21 12:42] LABS: BASO % 0.9 %; BASO ABS # 0.04 K/uL (0-0.2); COMPLETE YES; EOS % 1.3 %; HEMATOCRIT 39.7 % (42-52); IG% 0.2 %; LYMPH % 18.7 %; LYMPH ABS # 0.83 K/uL (1.2-3.4); MEAN CELL VOLUME 100.5 fL (80-100); MEAN CORPUSCULAR HEMOGLOBIN 34.2 pg (25-34); MEAN PLATELET VOLUME 10.5 fL (7.4-10.4); MONO % 16.2 %; NEUT % 62.7 %; PLATELET COUNT 181 K/uL (130-400); RED BLOOD COUNT 3.95 M/uL (4.7-6.1); WHITE BLOOD COUNT 4.45 K/uL (4.8-10.8)
[2016-12-21 13:20] LABS: BUN/CREATININE RATIO 19.9 (10-20); CREATININE 0.99 mg/dl (0.60-1.40); POTASSIUM 4.1 mmol/L (3.5-5.1)
[2016-12-21 13:24] LABS: CALCIUM 9.1 mg/dl (8.5-10.1)
[~2016-12-26] VITALS: Ht 172.7 cm; Wt 79.6 kg
[~2016-12-26 05:45] MED LIST changes: -ACET-749 PO; -ASPI-435 PO; -CIPR-255 PO; -LEUP30IN3 IM; -LVQ750 PO; -MIRA1TAB3 PO; -PHEN-775 PO; -RANI150T3 PO; -TMFUDL30 PO; -lupron
[2016-12-26] MEDS ORDERED: LACTATED RINGER'S 1000ML 1,000 ML IV SCH (06:00)
[2016-12-26] MEDS ORDERED: CEFAZOLIN 2000 MG/60 ML D5W IV SCH (06:00)
[2016-12-26] MEDS ORDERED: DEXAMETHASONE SOD INJ 4 MG/ML VIAL ONE (06:17)
[2016-12-26] MEDS ORDERED: LIDOCAINE HCL 2% 2 ML VIAL (20MG/ML) ONE (06:17)
[2016-12-26] MEDS ORDERED: PROPOFOL IV EMULSION 10 MG/ML 20 ML VIAL IV ONE (06:17)
[2016-12-26] MEDS ORDERED: ONDANSETRON INJ 2 MG/ML 2 ML VIAL ONE (06:17)
[2016-12-26] MEDS ORDERED: FENTANYL CITRATE INJ 50 MCG/1 ML 2 ML VIAL ONE ×2 (06:18→06:19)
[2016-12-26 06:25] VITALS: BP 172/79; PULSE 59; TEMP 36.6; O2SAT 96; Ht 172.7 cm; Wt 79.6 kg
[2016-12-26] MEDS ORDERED: BUPIVACAINE 0.5 % 5 MG/1 ML MPF 30ML VIAL ONE (07:06)
--- NOTE | 2016-12-26 07:19 | History & Physical Bridge Note ---
H&P Re-Evaluation Bridge Note: I have examined the patient, reviewed the History & Physical and in the interval since the performance of the History & Physical I have noted the following changes of clinical significance: No changes noted
[2016-12-26] MEDS ORDERED: EpHEDrine SULFATE 50MG/5ML SYR ONE (07:52)
[2016-12-26] MEDS ORDERED: BACITRACIN OINT 15 GM TUBE ONE (08:13)
[2016-12-26] MEDS ORDERED: ATROPINE SULFATE 0.1 MG/ML 5ML SYR IV PRN (08:15)
[2016-12-26] MEDS ORDERED: NALOXONE HCL 0.4 MG/1 ML VIAL/CARP IV PRN (08:15)
[2016-12-26] MEDS ORDERED: FENTANYL CITRATE INJ 50 MCG/1 ML 2 ML VIAL IV PRN (08:15)
[2016-12-26] MEDS ORDERED: ONDANSETRON INJ 2 MG/ML 2 ML VIAL IV PRN (08:15)
[2016-12-26] MEDS ORDERED: HYDROmorphone INJ 2 MG/ML SYR/VIAL IV PRN (08:15)
[2016-12-26] MEDS ORDERED: EpHEDrine SULFATE INJ 50 MG/ML AMP IV PRN (08:15)
[2016-12-26] MEDS ORDERED: PHENYLEPHRINE 100MCG/ML 5ML SYR IV PRN (08:15)
[2016-12-26] MEDS ORDERED: MEPERIDINE HCL 25 MG/ML CARP IV PRN (08:15)
[2016-12-26] MEDS ORDERED: FLUMAZENIL 0.1 MG/1 ML 10 ML VIAL IV PRN (08:15)
[2016-12-26] MEDS ORDERED: LABETALOL HCL IV 5 MG/ML 20ML IV PRN (08:15)
--- NOTE | 2016-12-26 08:25 | [facility] Post Operative Brief Note ---
Immediate Operative Summary Operative Date December 26, 2016. Pre-Operative Diagnosis Left Spermatocele Post-Operative Diagnosis same Procedure(s) Performed Left Scrotal Spermatocelectomy Surgeon Dr. Demetrius Sebastian 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 Assistant Surgeon(s) none Estimated Blood Loss 5cc Findings Large left spermatocele. Specimens a. Left Spermatocele Drains brooks Anesthesia gen Complication(s) None Disposition Recovery Room / PACU (stable)
--- NOTE | 2016-12-26 08:26 | Discharge Instructions ---
Discharge Instructions Date of Service December 26, 2016. Admission Reason for Admission: Left Spermatocele Discharge Discharge Diagnosis / Problem: Left spermatocele Discharge Goals Goal(s): Decrease discomfort, Improve function, Increase independence, Improve disease control, Prevent Disease Progression Activity Recommendations Activity Limitations: per Instructions/Follow-up section Lifting Limitations: gradually increase as tolerated Exercise/Sports Limitations: gradually increase as tolerated May Resume Sexual Activity: when tolerated Shower/Bathe: tomorrow Driving or Machine Use: resume 1 day after discharge . Instructions / Follow-Up Instructions / Follow-Up Please come to Dr. Sebastian's office tomorrow to have your drain removed. Discharge Diet Recommended Diet: Regular Diet Procedures Procedures Performed: Left Scrotal Spermatocelectomy Pending Studies Studies pending at discharge: no Medical Emergencies . Who to Call and When: Medical Emergencies: If at any time you feel your situation is an emergency, please call 911 immediately. . Non-Emergent Contact Non-Emergency issues call your: Urologist Call Non-Emergent contact if: you have a fever, temperature is above 101.5, your pain is not controlled, your pain is worsening . . "Provider Documentation" section prepared by Quique Agustin. . VTE Core Measure Inpt VTE Proph given/why not?: Treatment not indicated
[2016-12-26] MEDS ORDERED: SODIUM CHLORIDE 0.9% 1000ML 1,000 ML IV SCH (08:27)
[2016-12-26] MEDS ORDERED: ACETAMINOPHEN 325 MG TAB PO PRN (08:30)
[2016-12-26] MEDS ORDERED: HYDROCODONE/ACETAMOPHEN 5/325MG TAB PO PRN ×2 (08:30)
--- NOTE | 2016-12-26 08:37 | Anesthesiology Progress Note ---
Anesthesia Post Op Note Date & Time December 26, 2016 at 08:37 Vital Signs Pain Intensity: 1 Vital Signs Past 12 Hours Date Time Temp Pulse Resp B/P Pulse Ox O2 Delivery O2 Flow Rate FiO2 12/26/16 08:31 59 16 12/26/16 08:31 59 16 147/74 100 12/26/16 08:28 150/76 12/26/16 08:21 36.2 63 16 148/79 100 Mask 10 12/26/16 06:25 36.6 59 18 172/79 96 Room Air Notes Mental Status: alert / awake / arousable, participated in evaluation Pt Amnestic to Procedure: Yes Nausea / Vomiting: adequately controlled Pain: adequately controlled Airway Patency, RR, SpO2: stable & adequate BP & HR: stable & adequate Hydration State: stable & adequate Anesthetic Complications: no major complications apparent
[2016-12-26 09:05] VITALS: BP 158/77; PULSE 61; TEMP 36.5; O2SAT 94
[2016-12-26 09:40] VITALS: BP 181/81; PULSE 68; O2SAT 95
[2016-12-26 10:10] VITALS: BP 139/71; PULSE 74; TEMP 36.6; O2SAT 96
--- NOTE | 2016-12-26 11:39 | OPERATIVE REPORT ---
DATE OF OPERATION: 12/26/2016 PREOPERATIVE DIAGNOSIS: Left spermatocele. POSTOPERATIVE DIAGNOSIS: Left spermatocele. PROCEDURE PERFORMED: Left spermatocelectomy. ANESTHESIA: General. ESTIMATED BLOOD LOSS: 5 mL. URINE OUTPUT: Not recorded. SPECIMENS: Left spermatocele for routine pathology. DRAINS: [place]. DESCRIPTION OF THE PROCEDURE: Steve Patel was identified in the preoperative holding area. Appropriate informed consents were reviewed and completed and the patient was transported to the operating suite. Upon arrival, he received appropriate preoperative antibiotics in the form of Ancef. Adequate general anesthesia was achieved and the patient was placed in supine position. Following sterile prep and drape, a midline incision was made in the scrotum. This extended for approximately 4 cm. I skeletonized through the dartos fascia until I exposed the tunica vaginalis. I split the tunica vaginalis without difficulty. There was essentially no hydrocele. I was then able to deliver the testis with the spermatocele through this incision. Inspection revealed a large clear appearing spermatocele with some of the cord structures splayed over the top of this including the epididymis. I was able to anatomically identify all the structures and preserve them. I skeletonized the spermatocele completely until I identified a small neck connecting it to the epididymis itself. At that area, I was able to ligate the communication utilizing a 3-0 Vicryl tie. I ligated the specimen side as well and divided between the 2 using Bovie electrocautery. The specimen was able to be extracted without drainage. I inspected the resection site and the full cord for hemostasis, which was excellent. I inspected dartos fascia and the internal aspect of the scrotum as well and this was also excellent. I placed a [place] drain through the most dependent portion of the scrotum and sutured in place utilizing a 3-0 chromic stitch. I then reapproximated dartos fascia after returning the testis to its normal position. I used 3-0 Chromic in vertical mattress fashion to reapproximate the midline rhaphe of our skin incision. I infiltrated the skin and the cord with 0.5% and the case was concluded. I dressed the wound with bacitracin, fluffs and a scrotal support. The patient was extubated and taken to the PACU in stable condition. I attest to the content of the Intraoperative Record and any orders documented therein. Any exceptio ns are noted below.
[2016-12-26] MEDS ORDERED: TAMSULOSIN HCL 0.4 MG CAP PO SCH (21:00)
[2017-01-05] MEDS ORDERED: RANI150T3 PO (08:18)
[2017-04-12] MEDS ORDERED: LEUP30IN3 IM (13:25)
[2017-04-12] MEDS ORDERED: MIRA1TAB3 PO (13:25)
[2017-04-12] MEDS ORDERED: lupron (13:25)
== END 2016-12-26 10:32 | disposition home or self-care (01) ==
LOC: C.ACU 05:45
PROVIDERS: ATTEND Urology
DX: N43.41 Spermatocele of epididymis, single (principal); N40.1 Benign prostatic hyperplasia with lower urinary tract symptoms; C61 Malignant neoplasm of prostate; R39.198 Other difficulties with micturition; Z85.828 Personal history of other malignant neoplasm of skin; Z82.49 Family history of ischemic heart disease and other diseases of the circulatory system; Z90.89 Acquired absence of other organs; Z79.82 Long term (current) use of aspirin; Z87.01 Personal history of pneumonia (recurrent)

== ENCOUNTER → 2017-01-15 | Outpatient (CLI) | payer OTHER ==
[~2017-01-15] MED LIST changes: +ACET-749 PO; +CIPR-255 PO; +LEUP30IN3 IM; +MIRA1TAB3 PO; +OPTIRAY 320 IV PRN; +PHEN-775 PO; +RANI150T3 PO; +lupron
--- NOTE | 2017-01-15 14:51 | DIAGNOSTIC IMAGING REPORT ---
ABDOMEN AND PELVIS CT WITH IV AND ORAL CONTRAST CT DOSE: 649.74 mGycm HISTORY: Prostate carcinoma PROSTATE CA TECHNIQUE: Multiaxial CT images of the abdomen and pelvis were performed following the use of intravenous and oral contrast. COMPARISON STUDY: None. FINDINGS: Interstitial infiltrative change left base. Right base is clear. Liver spleen and pancreas are uniform throughout. Minimal hyperplastic change of the adrenal glands. There is a 3 mm nonobstructing calcification upper pole right kidney. Mild renal cortical scarring is present bilaterally. Bowel pattern is nonobstructive. There is no significant abdominal pelvic or inguinal adenopathy. There is a calcification contained diverticulum of the right posterior lateral aspect of the bladder. Inguinal regions are unremarkable. No findings of mild chronic colonic diverticulosis. Bony structures show moderate degenerative change throughout. IMPRESSION: 1. Nonspecific infiltrative change left lung base. 2. Nonobstructing right renal calcification. 3. Bladder diverticulum. 4. 6.5 cm benign lipoma of the anterior left thigh 5. No evidence for metastatic change Electronically signed by: Nirav Irby M.D. 01/15/2017 2:50 PM Dictated Date/Time: 01/15/2017 2:42 PM
--- NOTE | 2017-01-15 15:30 | DIAGNOSTIC IMAGING REPORT ---
BONE SCAN WHOLE BODY CLINICAL HISTORY: Prostate carcinoma COMPARISON STUDY: CT scan dated 01/15/2017 FINDINGS: The patient was injected with 26.1 mCi of technetium 99m MDP. Three-hour delayed whole body images were acquired. There are foci of increased activity within the left wrist and both feet consistent with degenerative/arthritic etiology. There are no foci of increased activity viewed as suspicious for metastatic disease. IMPRESSION: No scintigraphic evidence of skeletal metastasis Electronically signed by: Thad Jeronimo M.D. 01/15/2017 3:29 PM Dictated Date/Time: 01/15/2017 3:28 PM
== END | disposition home or self-care (01) ==
LOC: C.NUCL 11:43
PROVIDERS: ATTEND Radiology Radiation Oncology
DX: C61 Malignant neoplasm of prostate (principal); R91.8 Other nonspecific abnormal finding of lung field; N20.0 Calculus of kidney; N32.3 Diverticulum of bladder; D17.24 Benign lipomatous neoplasm of skin and subcutaneous tissue of left leg

== ENCOUNTER → 2017-04-06 | Outpatient (CLI) | payer OTHER ==
[~2017-04-06] MED LIST changes: -ALFU10TA2 PO; +ALFU10TA30 PO; -OPTIRAY 320 IV PRN
== END | disposition home or self-care (01) ==
LOC: C.LABSPEC 14:32
PROVIDERS: ATTEND Urology
DX: N40.1 Benign prostatic hyperplasia with lower urinary tract symptoms (principal); C61 Malignant neoplasm of prostate

== ENCOUNTER → 2017-04-12 | Outpatient (CLI) | payer OTHER ==
[2017-04-12 14:52] LABS: ALT/SGPT 39 U/L (12-78); AST/SGOT 30 U/L (15-37); BLOOD UREA NITROGEN 20 mg/dl (7-18); BUN/CREATININE RATIO 16.8 (10-20); CALCIUM 8.8 mg/dl (8.5-10.1); CARBON DIOXIDE 29 mmol/L (21-32); CHLORIDE 108 mmol/L (98-107); GLUCOSE 85 mg/dl (70-99); SODIUM 142 mmol/L (136-145)
[2017-04-12 14:55] LABS: ALKALINE PHOSPHATASE 163 U/L (45-117)
== END | disposition home or self-care (01) ==
LOC: C.LAB 13:50
PROVIDERS: ATTEND Internal Medicine Hematology & Oncology
DX: D53.1 Other megaloblastic anemias, not elsewhere classified (principal); C61 Malignant neoplasm of prostate

== ENCOUNTER 2017-04-23 06:25 | Day surgery (SDC) | payer OTHER ==
[2017-04-12 13:03] VITALS: BMI 26.0
--- NOTE | 2017-04-12 13:43 | PAT Medication Instructions ---
Service Date Apr 12, 2017. Current Home Medication List Alfuzosin Hcl (Uroxatral), 10 MG PO QAM Leuprolide Acetate (Lupron Depot), 45 MG IM Q6MO Mirabegron (Myrbetriq Er), 50 MG PO QAM Ranitidine Hcl (Zantac), 1 TAB PO BID [lupron] Medication Instructions For Your Scheduled Surgery - Continue as directed: Leuprolide Acetate (Lupron Depot), 45 MG IM Q6MO (next dose not scheduled until after surgery) - Hold the following medications the morning of surgery: Alfuzosin Hcl (Uroxatral), 10 MG PO QAM Mirabegron (Myrbetriq Er), 50 MG PO QAM - Take the following medications the morning of surgery with a sip of water: Ranitidine Hcl (Zantac), 1 TAB PO BID - Take the following medications as scheduled the night before surgery: Ranitidine Hcl (Zantac), 1 TAB PO BID If you have any questions please call us at [phone] or [phone] or [phone]
[2017-04-12 14:46] LABS: BASO % 0.7 %; BASO ABS # 0.03 K/uL (0-0.2); COMPLETE YES; EOS % 1.5 %; HEMATOCRIT 38.4 % (42-52); IG% 0.2 %; LYMPH % 17.1 %; LYMPH ABS # 0.79 K/uL (1.2-3.4); MEAN CELL VOLUME 98.7 fL (80-100); MEAN CORPUSCULAR HEMOGLOBIN 33.7 pg (25-34); MEAN CORPUSCULAR HGB CONC 34.1 g/dl (32-36); MEAN PLATELET VOLUME 11.1 fL (7.4-10.4); MONO % 15.2 %; NEUT % 65.3 %; PLATELET COUNT 175 K/uL (130-400); RED BLOOD COUNT 3.89 M/uL (4.7-6.1); WHITE BLOOD COUNT 4.61 K/uL (4.8-10.8)
[~2017-04-23] VITALS: Ht 172.7 cm; Wt 79.5 kg
[~2017-04-23 06:25] MED LIST changes: -ACET-749 PO; -CIPR-255 PO; +CIPROFLOXACIN / D5W 400 MG IV SCH; -CRD2 PO; -DUTA0.5C PO; +LACTATED RINGER'S 1000ML 1,000 ML IV SCH; -PHEN-775 PO
[2017-04-23 06:51] VITALS: BP 171/89; PULSE 57; TEMP 36.8; O2SAT 95; Ht 172.7 cm; Wt 79.5 kg
[2017-04-23] MEDS ORDERED: FENTANYL CITRATE INJ 50 MCG/1 ML 2 ML VIAL ONE (06:51)
[2017-04-23] MEDS ORDERED: LIDOCAINE HCL 2% 2 ML VIAL (20MG/ML) ONE ×2 (06:51→09:46)
[2017-04-23] MEDS ORDERED: PROPOFOL IV EMULSION 10 MG/ML 20 ML VIAL IV ONE (06:51)
[2017-04-23] MEDS ORDERED: FENTANYL CITRATE INJ 50 MCG/1 ML 2 ML VIAL IV PRN (07:45)
[2017-04-23] MEDS ORDERED: ATROPINE SULFATE 0.1 MG/ML 5ML SYR IV PRN (07:45)
[2017-04-23] MEDS ORDERED: EpHEDrine SULFATE INJ 50 MG/ML AMP IV PRN (07:45)
[2017-04-23] MEDS ORDERED: ONDANSETRON INJ 2 MG/ML 2 ML VIAL IV PRN (07:45)
[2017-04-23] MEDS ORDERED: ACET-749 PO (08:21)
[2017-04-23] MEDS ORDERED: PHEN-775 PO (08:21)
[2017-04-23] MEDS ORDERED: CIPR-255 PO (08:21)
--- NOTE | 2017-04-23 08:24 | Discharge Instructions ---
Discharge Instructions Date of Service Apr 23, 2017. Admission Reason for Admission: Benign Prostatic Hyperplasia and Prostate Cancer Discharge Discharge Diagnosis / Problem: voiding dysfunction and prostate cancer Discharge Goals Goal(s): Decrease discomfort, Improve function, Increase independence, Improve disease control, Prevent Disease Progression Activity Recommendations Activity Limitations: resume your previous activity Exercise/Sports Limitations: gradually increase as tolerated May Resume Sexual Activity: when tolerated Shower/Bathe: no limitations Driving or Machine Use: resume 1 day after discharge . Instructions / Follow-Up Instructions / Follow-Up Please come to Dr. Sebastian's office tomorrow morning to have your catheter removed. Discharge Diet Recommended Diet: Regular Diet Pending Studies Studies pending at discharge: no Medical Emergencies . Who to Call and When: Medical Emergencies: If at any time you feel your situation is an emergency, please call 911 immediately. . Non-Emergent Contact Non-Emergency issues call your: Urologist Call Non-Emergent contact if: you have a fever, temperature is above 101.5, your pain is not controlled, your pain is worsening . . "Provider Documentation" section prepared by Quique Agustin. . VTE Core Measure Inpt VTE Proph given/why not?: Treatment not indicated [place] Drug Monitoring Program Search Results: patient reviewed within database, no issues identified
[2017-04-23] MEDS ORDERED: DEXAMETHASONE SOD INJ 4 MG/ML VIAL ONE (09:46)
[2017-04-23] MEDS ORDERED: ONDANSETRON INJ 2 MG/ML 2 ML VIAL ONE (09:46)
[2017-04-23] MEDS ORDERED: SODIUM CHLORIDE 0.9% 1000ML 1,000 ML IV SCH (10:11)
[2017-04-23] MEDS ORDERED: OXYCODONE/ACETAMINOPHEN 5-325 TAB PO PRN ×2 (10:15)
--- NOTE | 2017-04-23 10:18 | [facility] Operative Report ---
Operative Report Operative Date Apr 23, 2017. Pre-Operative Diagnosis Urinary stream slowing Neoplasm of prostate, malignant Post-Operative Diagnosis Urinary stream slowing Neoplasm of prostate, malignant Procedure(s) Performed Transuretheral Resection of the Prostate, Transrectal US; Placement of Gold Fiducial Markers Surgeon Dr. Demetrius Sebastian Health Care Analyst Surgeon(s) None Estimated Blood Loss 5 cc Findings Large, pedunculated intravesical median lobe Specimens None Drains 20 Liberian Sellers catheter Anesthesia Gen. Complication(s) None Disposition Recovery Room / PACU (stable) Indications The patient was identified in the preoperative holding area, appropriate informed consent reviewed and completed, and the patient was transported to the operating suite. Upon arrival, he received appropriate preoperative antibiotics in the form of ciprofloxacin. Adequate general anesthesia was achieved, and the patient was placed in dorsal lithotomy position where he was sterilely prepped and draped in standard fashion. I began the case by passing a 24 Liberian resectoscope with 30 lens and visual obturator. There was no evidence of stricture disease. Inspection of the prostate revealed notable lateral lobe hypertrophy and an impressive intravesical median lobe. Full inspection of the bladder was carried out utilizing a 30 and 70 lens. He was noted to have a posterior wall diverticulum just to the right of midline. Inspection of the diverticulum revealed no evidence of tumors, however he did have a small stone within the tic. Remainder of his bladder was free of tumors as well, but was moderately trabeculated. Ureteral orifices were identified posteriorly to the intravesical median lobe. Following my inspection, I exchanged the visual obturator for resecting element and button electrode. I begin by incising the bladder neck at 5 and 7:00 with care to avoid encroachment upon the ureteral orifices. I then proceeded to resect the intravesical median lobe entirely. I continually observed the UO was to ensure again no encroachment. After flattening intravesical median lobe and the bladder neck, I proceeded to slightly resect the lateral lobes. I used extreme caution to avoid over resection at the apex, as the patient is due to begin radiation treatments for prostate cancer in the near future and I would like him to maintain his continence. I ensured excellent hemostasis for concluding the cystoscopic portion of the case. I placed a 22 Liberian catheter without incident. Before reversing the patient from anesthesia, I passed a transrectal ultrasound probe. Inspection was carried out- but I did not perform a measurement. His intravesical median lobe was noted to be completely treated, and the Sellers balloon was easily visualized at the bladder neck. Following my inspection, I placed a single gold seed in the lateral portion of the right side of the prostate. I then proceeded to place 2 additional gold seeds on the left side of the prostate at the lateral most aspect, 1 near the base and one near the apex. After confirming excellent hemostasis and withdrew the transrectal ultrasound probe. The patient was subsequently extubated and taken to the PACU in stable condition. There were no complications. I attest to the content of the Intraoperative Record and any orders documented therein. Any exceptions are noted below.
--- NOTE | 2017-04-23 11:02 | Anesthesiology Progress Note ---
Anesthesia Post Op Note Date & Time Apr 23, 2017 at 11:02 Vital Signs Pain Intensity: 2 Vital Signs Past 12 Hours Date Time Temp Pulse Resp B/P (MAP) Pulse Ox O2 Delivery O2 Flow Rate FiO2 04/23/17 10:41 36.2 04/23/17 10:40 65 16 04/23/17 10:40 66 16 96 04/23/17 10:36 157/74 04/23/17 10:35 66 13 04/23/17 10:35 66 13 100 04/23/17 10:31 151/73 04/23/17 10:30 60 13 04/23/17 10:30 59 13 100 04/23/17 10:26 152/69 04/23/17 10:25 56 11 04/23/17 10:25 57 11 100 04/23/17 10:21 155/76 04/23/17 10:20 56 10 100 04/23/17 10:20 Room Air 04/23/17 10:20 56 10 04/23/17 10:16 157/75 04/23/17 10:15 64 13 04/23/17 10:15 65 13 100 04/23/17 10:05 36.7 77 16 181/96 100 Oxymask 10 04/23/17 06:51 36.8 57 18 171/89 (116) 95 Room Air Notes Mental Status: alert / awake / arousable, participated in evaluation Pt Amnestic to Procedure: Yes Nausea / Vomiting: adequately controlled Pain: adequately controlled Airway Patency, RR, SpO2: stable & adequate BP & HR: stable & adequate Hydration State: stable & adequate Anesthetic Complications: no major complications apparent
[2017-04-23 11:05] VITALS: BP 89/66; PULSE 72; TEMP 36.5; O2SAT 96
[2017-04-23 11:35] VITALS: BP 155/86; PULSE 67; O2SAT 95
[2017-04-23 12:05] VITALS: BP 160/88; PULSE 68; TEMP 36.6; O2SAT 96
== END 2017-04-23 12:08 | disposition home or self-care (01) ==
LOC: C.ACU 06:25
PROVIDERS: ATTEND Urology
DX: C61 Malignant neoplasm of prostate (principal); N40.1 Benign prostatic hyperplasia with lower urinary tract symptoms; N13.8 Other obstructive and reflux uropathy

== ENCOUNTER → 2017-06-25 | Outpatient (CLI) | payer OTHER ==
[~2017-06-25] MED LIST changes: +ACET-749 PO; -ALFU10TA30 PO; +CIPR-255 PO; -CIPROFLOXACIN / D5W 400 MG IV SCH; +GADAVIST IV PRN; -LACTATED RINGER'S 1000ML 1,000 ML IV SCH; -MIRA1TAB3 PO
--- NOTE | 2017-06-25 14:49 | DIAGNOSTIC IMAGING REPORT ---
PROSTATE MRI COMBO CLINICAL HISTORY: 81 years-old Male presenting with PROSTATE CA. PSA ng/mL. TECHNIQUE: Multisequence, multiplanar MR imaging of the prostate was performed before and after the administration of intravenous contrast. Additional postprocessing was performed on a separate [employer] workstation by the radiologist for 3-D volumetric segmentation of the prostate and contouring of region(s) of interest (JAKE) for targeting. IV contrast: None. COMPARISON: None. FINDINGS: Prostate: The prostate measures 3.9 x 3.8 x 5.6 cm (DynaCAD prostate boundary segmentation volume 34.87 mL). Mild changes of benign prostatic hyperplasia. Precontrast T1 weighted imaging demonstrates Seminal vesicles normal. No suspicious lesion is apparent in the transition or peripheral zones. Bladder: There is a 4.3 cm right-sided bladder diverticulum. Mild bladder wall thickening likely due to chronic outlet obstruction. Bowel: Visualized portion of the rectum normal. Peritoneum: Hydrogel is identified and located centrally between the prostate and rectum. This demonstrates a uniform AP diameter of 1.4 cm. This does not appear to extend into the wall of the rectum. Lymph nodes: No lymphadenopathy in the visualized portion of the pelvis. Vasculature: Iliac vessels patent. Osseous structures: There are few subcentimeter T2 hypointense foci within the visualized pubic and ischial bones. These demonstrate enhancement on the postcontrast sequences. The largest lesion is seen on axial T2 image 19 of 37 and measures 8 mm. These are suspicious for metastatic disease. IMPRESSION: 1. No suspicious lesions identified within the prostate gland. 2. There are few subcentimeter hypointense enhancing lesions within the visualized osseous structures. This is concerning for metastatic disease. 3. The Hydrogel is identified between the prostate and rectum with a uniform AP diameter of 1.4 cm. Electronically signed by: Quentin Mendoza M.D. 06/25/2017 2:48 PM Dictated Date/Time: 06/25/2017 2:18 PM
== END | disposition home or self-care (01) ==
LOC: C.MRIBC 09:40
PROVIDERS: ATTEND Physician Assistant Medical
DX: C61 Malignant neoplasm of prostate (principal)

== ENCOUNTER → 2017-07-16 | Outpatient (CLI) | payer OTHER ==
[~2017-07-16] MED LIST changes: +ASPI81TA28 PO; +COEN30CA8 PO; +DOCU-94 PO; -GADAVIST IV PRN; +VITA400C3 PO
[2017-07-16 11:03] LABS: ALT/SGPT 47 U/L (12-78); BASO % 1.5 %; BASO ABS # 0.05 K/uL (0-0.2); BLOOD UREA NITROGEN 22 mg/dl (7-18); BUN/CREATININE RATIO 20.9 (10-20); CALCIUM 8.9 mg/dl (8.5-10.1); CARBON DIOXIDE 28 mmol/L (21-32); CHLORIDE 107 mmol/L (98-107); COMPLETE YES; CREATININE 1.03 mg/dl (0.60-1.40); EOS % 6.9 %; GLUCOSE 91 mg/dl (70-99); LYMPH % 29.6 %; LYMPH ABS # 0.99 K/uL (1.2-3.4); MEAN CORPUSCULAR HEMOGLOBIN 34.1 pg (25-34); MEAN CORPUSCULAR HGB CONC 34.1 g/dl (32-36); MEAN PLATELET VOLUME 11.1 fL (7.4-10.4); MONO % 12.9 %; NEUT % 49.1 %; PLATELET COUNT 171 K/uL (130-400); POTASSIUM 3.5 mmol/L (3.5-5.1); SODIUM 141 mmol/L (136-145); WHITE BLOOD COUNT 3.34 K/uL (4.8-10.8)
[2017-07-16 11:06] LABS: ALB/GLOB RATIO 1.1 (0.9-2); ALKALINE PHOSPHATASE 181 U/L (45-117); AST/SGOT 37 U/L (15-37)
== END | disposition home or self-care (01) ==
LOC: C.LABBC 08:29
PROVIDERS: ATTEND Nurse Practitioner Family
DX: D53.1 Other megaloblastic anemias, not elsewhere classified (principal)

== ENCOUNTER → 2017-10-03 | Outpatient (CLI) | payer OTHER ==
[~2017-10-03] MED LIST changes: -ACET-749 PO; +ATEN-173 PO; -CIPR-255 PO; -lupron
[2017-10-03 10:39] LABS: BASO % 1.3 %; BASO ABS # 0.05 K/uL (0-0.2); EOS % 13.6 %; EOS ABS # 0.52 K/uL (0-0.5); HEMATOCRIT 36.4 % (42-52); HEMOGLOBIN 12.8 g/dL (14.0-18.0); IG# 0.01 K/uL (0.00-0.02); LYMPH % 12.3 %; LYMPH ABS # 0.47 K/uL (1.2-3.4); MEAN CELL VOLUME 99.5 fL (80-100); MEAN CORPUSCULAR HGB CONC 35.2 g/dl (32-36); MEAN PLATELET VOLUME 10.6 fL (7.4-10.4); MONO % 14.4 %; MONO ABS # 0.55 K/uL (0.11-0.59); NEUT % 58.1 %; NEUT ABS # 2.22 K/uL (1.4-6.5); PLATELET COUNT 156 K/uL (130-400); RED CELL DISTRIBUTION WIDTH SD 47.4 fL (36.4-46.3); WHITE BLOOD COUNT 3.82 K/uL (4.8-10.8)
[2017-10-03 10:56] LABS: ALBUMIN 3.3 gm/dl (3.4-5.0); ALT/SGPT 30 U/L (12-78); AST/SGOT 22 U/L (15-37); BLOOD UREA NITROGEN 17 mg/dl (7-18); CALCIUM 9.1 mg/dl (8.5-10.1); CARBON DIOXIDE 30 mmol/L (21-32); GLUCOSE 89 mg/dl (70-99); POTASSIUM 3.4 mmol/L (3.5-5.1); SODIUM 141 mmol/L (136-145)
[2017-10-03 10:58] LABS: ALKALINE PHOSPHATASE 131 U/L (45-117); TOTAL PROTEIN 6.3 gm/dl (6.4-8.2)
== END | disposition home or self-care (01) ==
LOC: C.LABBC 08:58
PROVIDERS: ATTEND Internal Medicine Hematology & Oncology
DX: D53.1 Other megaloblastic anemias, not elsewhere classified (principal); C61 Malignant neoplasm of prostate

== ENCOUNTER → 2017-10-10 | Outpatient (CLI) | payer OTHER ==
[2017-10-10 14:32] VITALS: BP 147/68; PULSE 93; TEMP 37; O2SAT 92
--- NOTE | 2017-10-10 16:01 | Radiation Oncology Follow-Up ---
Radiation Oncology Follow-Up Date of Visit Oct 10, 2017. Reason For Visit One-month follow-up Radiation Completion Date 09/12/17 Diagnosis (1) Prostate cancer Status: Acute Onset Date: 12/04/2016 Location: Left lobe of the prostate Histology Subtype: Adenocarcinoma Stage: IV Permanent Comment: Rising PSA. Pretreatment PSA 7.06 adjusted for finasteride Status post ultrasound-guided biopsies 12/04/2016 Adenocarcinoma of the prostate Dolores 4+3 and 4+4 Prostate volume 53.3 Prostate density 0.132 Hormonal suppression Status post TURP and placement of gold fiducial markers Status post placement of Space OAR Treatment planning MRI revealed suspicious lesions in the pubic and ischial bones. These areas were included in the treatment area. Status post completion of radiation therapy September 12, 2017. 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 Patient was ultimately referred to Dr. Sebastian from urology due to his urinary obstructive symptoms and palpable nodule on prostate examination. Dr. Sebastian repeated a rectal examination which revealed a well demarcated small hard nodule in the left mid prostate gland. Prior to this, the patient's most recent PSA was 3.53 on 07/[address]. Dr. Sebastian recommended a transrectal ultrasound-guided biopsy of the prostate gland. The patient underwent a transrectal ultrasound-guided biopsy of the prostate gland on 12/04/2016 which revealed a 53.3 cc prostate gland. Pathology revealed prostate cancer in 6/14 cores; the highest prostate score was Dolores 4+4 which was identified in 1 core. Perineural invasion was also identified in the pathology specimen. As an aside, the patient did undergo a spermatocelectomy by Dr. Sebastian on 12/26/2016 which revealed a benign cyst with spermatocele. Dr. Sebastian discuss treatment options including surgery, radiation therapy observation. Ultimately, the patient has elected to undergo radiation therapy. The patient spoke with his close friend, Dr. Óscar Bailon from radiation oncology in [place], [place]. Dr. Bailon referred the patient to us for consideration of treatment closer to his home and [place], [place]. We are now seeing the patient in consultation. Overall, the patient is doing relatively okay. He is currently on Avodart. His IPSS score today is 9/35. His EPIC QoL score is 8/60. He denies any history of inflammatory bowel disease, rectal hemorrhoids or TURP. Due to his urinary difficulties he elected to undergo a TURP. At the time of the procedure goal fiducial markers were placed. He then returned to our office and had placement of a Space OAR. He underwent radiation therapy with volumetric modulated arc therapy. He received 7740 cGy. This was completed September 12, 2017. Interim History He has been doing well over the past month. He has had steady improvement in his urinary symptoms. He is happy to report nocturia occurs only 3 times per night now. He completed an AUA score sheet and gave a score of 9. At the end of treatment is score has been 18. He also had dysuria and this has steadily improved and is nearly gone. He is having no difficulty with bowel habits. He completed and expanded prostate cancer index composite for clinical practice and gave a score of 0 of 12 and urinary incontinence symptoms. He gave a score of 5 of 12 and urinary irritation symptoms. He gave a score of 0 of 12 and bowel symptoms. He gave a score of 8 of 12 and sexual symptoms. He gives a score of 3 of 12 and hormonal vitality symptoms. His total was 16 of 60. He had a recheck PSA October 03, 2017. That was found to be 0.114. Allergies Coded Allergies: No Known Allergies (Unverified , 04/23/17) Home Medications Scheduled Aspirin (Aspirin Ec), 81 MG PO DAILY Atenolol (Tenormin), 25 MG PO DAILY Coenzyme Q10 (Ubidecarenone) (Coq-10), 1 CAP PO DAILY Docusate Sodium (Colace), 1 CAP PO BID Leuprolide Acetate (Lupron Depot), 45 MG IM Q6MO Ranitidine Hcl (Zantac), 1 TAB PO BID Vitamin E (Vitamin E 400 Iu), 400 INTER.UNIT PO DAILY Review of Systems Gastrointestinal: Symptoms: WNL Oral: Symptoms: No Problems Respiratory: Symptoms: WNL Urinary: Symptoms: Nocturia, Frequency Comments: Nocturia x 3-4, Dysuria improved, imcomplete bladder emptying, freq, see AU Skin: Symptoms: No Problems Physical Exam Vital Signs Date Time Temp Pulse Resp B/P (MAP) Pulse Ox O2 Delivery O2 Flow Rate FiO2 10/10/17 14:32 37.0 93 16 147/68 92 Fatigue: None General Appearance: no apparent distress Eyes: normal inspection, EOMI ENT: normal ENT inspection, hearing grossly normal Respiratory/Chest: lungs clear, no respiratory distress, no accessory muscle use Cardiovascular: regular rate, rhythm, no gallop, no murmur Abdomen: non tender, soft, no organomegaly Extremities: no pedal edema Neurologic/Psychiatric: no motor/sensory deficits, alert, normal mood/affect Skin: warm/dry Pain Management Patient Reports Pain: Yes Pain Management Plan He has chronic low back pain. He did not give his pain a level. Laboratory Laboratory Results: were reviewed Laboratory Comments: Reviewed in the interim history. Pathology Pathology Results: were reviewed, and pertinent findings noted in HPI Imaging Imaging Studies: were reviewed, and pertinent findings noted in HPI Assessment & Plan Plan: He was also seen by Dr. Pradhan. He will be seeing Dr. Sebastian on January. His PSA was reviewed. He will have a PSA prior to seeing Dr. Sebastian in January. He has been receiving Lupron 45 mg IM every 6 months. He was scheduled for a bone scan as well as pelvic MRI prior to his visit with our office in 6 months. An order was given for PSA prior to that visit also. He will continue follow-up with his primary care physician. We asked him to return to our office in 6 months. He may call our office if he has any questions or concerns in the interim. Assessment & Plan (Attending) I agree with note created by Yamilet Lincoln PA-C. I reviewed the patient's chart and information with her. I have examined and evaluated the patient. I reviewed relevant clinical information and answered the patient's and/or family' s questions. [employer] SAL[employer] REPRESENTATIVE Total Time In Follow-Up I spent 20 minutes speaking to the patient performing examination. I spent 15 minutes reviewing information and completing this note. [place] Total Time (Attending) In Follow-Up I spent 15 minutes examining and counseling the patient. [employer] REPRESENTATIVE Copy To Hilario Sigala M.D.; Demetrius Sebastian M.D.
== END | disposition home or self-care (01) ==
LOC: C.ONC 14:17
PROVIDERS: ATTEND Physician Assistant Medical
DX: Z08 Encounter for follow-up examination after completed treatment for malignant neoplasm (principal); Z92.3 Personal history of irradiation; Z85.46 Personal history of malignant neoplasm of prostate

== ENCOUNTER → 2017-12-13 | Outpatient (CLI) | payer OTHER ==
[~2017-12-13] MED LIST changes: -COEN30CA8 PO; +COEN75CA PO; -DOCU-94 PO; +LPT40 PO; +LSN5 PO; +OPTIRAY 320 IV PRN; +PLV75 PO
--- NOTE | 2017-12-13 17:01 | DIAGNOSTIC IMAGING REPORT ---
ABDOMEN AND PELVIS CT WITH IV AND ORAL CONTRAST CT DOSE: 392.70 mGy.cm HISTORY: Acute epigastric abdominal pain with history of prostate cancer. TECHNIQUE: Multiaxial CT images of the abdomen and pelvis were performed following the use of intravenous and oral contrast. A dose lowering technique was utilized adhering to the principles of ALARA. COMPARISON STUDY: CT abdomen and pelvis 01/15/2017, bone scan 01/15/2017. FINDINGS: The imaged inferior cardiac chambers are mildly enlarged with coronary arterial calcifications. Mild dependent subsegmental bibasilar atelectasis. Parenchymal calcifications are seen within the basal left lower lobe. There is no pneumatosis or pneumoperitoneum identified. The liver, spleen, and right adrenal gland are unremarkable. 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 There is moderate generalized pancreatic atrophy with calcification seen within the region of the mid pancreatic body. Gallbladder is mildly contracted. Mild cortical scarring and parenchymal thinning about the bilateral kidneys. Nonobstructing bilateral nephrolithiasis, most of which measure in the 3 mm range. Ill-defined 8 mm lesion of the medial aspect interpolar right kidney may reflect a renal cyst. No ureteral calculi on the left. There is mild right-sided hydroureteronephrosis secondary to a 6 x 4 x 5 mm calculus of the right ureterovesicular junction. Layering calculi are seen within a moderate sized right lateral bladder diverticulum measuring up to 4.2 x 3.4 cm. brachytherapy seeds of the prostate are noted with multiple phleboliths of the pelvis. Small fat filled left inguinal hernia. Moderate atherosclerosis of the aorta. No bulky adenopathy. No bowel obstruction or focal bowel wall thickening. Colonic diverticulosis without diverticulitis. Moderate stool volume suggests constipation. 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 Soft tissues are otherwise unremarkable. The bones appear intact and are moderately demineralized. Multilevel degenerative changes about the spine. IMPRESSION: 1. Mild right-sided hydroureteronephrosis secondary to an obstructing calculus of the right ureterovesicular junction measuring up to 6 mm. Multiple additional nonobstructing bilateral nephrolithiasis. Layering calculi are also noted within a moderate-sized urinary bladder diverticulum. 2. Suggested constipation. No bowel obstruction. 3. Additional findings as above. Electronically signed by: Eliud Linares M.D. 12/13/2017 5:00 PM Dictated Date/Time: 12/13/2017 4:49 PM
== END | disposition home or self-care (01) ==
LOC: C.CTS 14:11
PROVIDERS: ATTEND Internal Medicine Pulmonary Disease
DX: R10.13 Epigastric pain (principal); C61 Malignant neoplasm of prostate

== ENCOUNTER → 2017-12-25 | Outpatient (CLI) | payer OTHER ==
[~2017-12-25] MED LIST changes: +ATOR-26 PO; +CLOP1TAB15 PO; +COAL TAR TOP; +LISI10TA PO; +NAPR1TAB9 PO; -OPTIRAY 320 IV PRN; +SENNTAB23 PO; +VITA400C28 PO
--- NOTE | 2017-12-25 09:01 | DIAGNOSTIC IMAGING REPORT ---
[facility] CLINICAL HISTORY: Nephrolithiasis. FINDINGS: An AP supine abdominal radiograph is correlated with abdominal CT dated 12/13/2017. There is a nonobstructed abdominal bowel gas pattern. Moderate colonic fecal retention is observed. No evidence of intraperitoneal free air is seen on this supine image. There is no radiographic evidence of nephrolithiasis. Numerous phleboliths are seen in the pelvis. The skeletal structures are osteopenic. Moderate lumbosacral spondylosis is observed. Surgical clips are noted in the region of the prostate gland. IMPRESSION: 1. There is no radiographic evidence of nephrolithiasis. 2. Nonobstructed abdominal bowel gas pattern. Electronically signed by: Frantz Bloom M.D. 12/25/2017 8:59 AM Dictated Date/Time: 12/25/2017 8:58 AM
== END | disposition home or self-care (01) ==
LOC: C.RADBC 08:28
PROVIDERS: ATTEND Nurse Practitioner Family
DX: N20.0 Calculus of kidney (principal)

== ENCOUNTER 2019-05-16 10:14 | Inpatient (IN) ==
--- NOTE | 2019-05-16 11:20 | Emergency Department Note ---
Entered by Obdulio Young acting as a scribe for Zenon Kim DO History of Present Illness General Chief complaint: Hematuria Stated complaint: HEMATURIA Time Seen by Provider: 05/16/19 10:19 Source: patient Mode of arrival: ambulatory Limitations: no limitations History of Present Illness Onset (ago): hour(s) greater than 10 (16) Location: pelvis Pain Consistency: + other (episode) Maximum Pain Intensity: 7 Quality: + other (episode) Associated symptoms: + denies other symptoms (fever, chills, nausea, or diarrh ea) The patient is a 83 year old male who presents to the Emergency Room with co mplaints of an episode of hematuria that started yesterday evening 16 hours ago. The patient rates the pain as a 7/10. The patient states that he first noticed his symptoms when he was urinating and saw bright red blood. The patient reports that following this first instant, he woke up 15 times in the middle of the night where he had gross hematuria. The patient notes that the blood was discharged at 2ml at a time. The patient states that he has seen some improvements after urinating. The patient denies any fever, chills, nausea, or diarrhea. He reports that he has discomfort in his pelvis, and has a history of mini-strokes and prostate cancer. The patient also notes that he takes Plavix. Home Medications Home Medications Medication Instructions Recorded Confirmed Type hydrochlorothiazide 25 mg tablet 25 mg PO QAM 10/16/18 05/16/19 History lisinopril 40 mg tablet 40 mg PO QAM 10/16/18 05/16/19 History clopidogrel 75 mg PO QAM 05/16/19 05/16/19 History coal tar 1 applic TOPICAL TID 05/16/19 05/16/19 History leuprolide (6 month) [Lupron Depot 45 mg IM Q6M 05/16/19 05/16/19 History (6 Month)] ranitidine HCl [Zantac] 150 mg PO BID 05/16/19 05/16/19 History sulfamethoxazole-trimethoprim 1 tab PO Q12H #14 tab NS 05/16/19 Rx [Bactrim DS] vitamin E 400 unit PO QAM 05/16/19 05/16/19 History Allergies Allergy/AdvReac Type Severity Reaction Status Date / Time Beta-Blockers Allergy Unknown LOW HEART Verified 05/16/19 12:30 (Beta-Adrenergic Bloc RATE "FELT LOUSY" atorvastatin [From Lipitor] AdvReac Abdominal Verified 10/16/18 13:33 Pain Past Med/Surg History Medical History BPH (benign prostatic hyperplasia) (Chronic) MDS (myelodysplastic syndrome), low grade (Chronic) Prostate cancer (Chronic 12/04/16) "Status post TURP in 04/22, radiation in 09/23, Lupron Q6 months" On 10/10/17 15:55 Yamilet Lincoln wrote "Rising PSA. Pretreatment PSA 7.06 adjusted for finasteride Status post ultrasound-guided biopsies 12/04/2016 Adenocarcinoma of the prostate Dolores 4+3 and 4+4 Prostate volume 53.3 Prostate density 0.132 Hormonal suppression Status post TURP and placement of gold fiducial markers Status post placement of Space OAR Treatment planning MRI revealed suspicious lesions in the pubic and ischial bones. These areas were included in the treatment area. Status post completion of radiation therapy September 12, 2017. He received 7740 cGy" On 09/21/17 13:55 Yamilet Lincoln wrote "Rising PSA. Pretreatment PSA 7.06 adjusted for finasteride Status post ultrasound-guided biopsies 12/04/2016 Adenocarcinoma of the prostate Fowler 4+3 and 4+4 Prostate volume 53.3 Prostate density 0.132 Status post TURP and placement of gold fiducial markers Status post placement of Space OAR Status post completion of radiation therapy September 12, 2017. He received 7740 cGy" On 01/05/17 10:04 Yamilet Lincoln wrote "Rising PSA. Pretreatment PSA 7.06 adjusted for finasteride Status post ultrasound-guided biopsies 12/04/2016 Adenocarcinoma of the prostate Fowler 4+3 and 4+4 Prostate volume 53.3 Prostate density 0.132" On 01/05/17 10:01 Yamilet Lincoln wrote "Rising PSA. Pretreatment PSA 7.06 adjusted for finasteride Status post ultrasound-guided biopsies 12/26/2016 Adenocarcinoma of the prostate Dolores 4+3 and 4+4 Prostate volume 53.3 Prostate density 0.132" LUE weakness (Acute) Psoriasis (Chronic) GERD (gastroesophageal reflux disease) (Chronic) Kidney stone Hematuria (Acute) Right flank pain (Acute) Urethral spasm (Acute) Surgical History S/P tonsillectomy and adenoidectomy (Chronic) S/P orchiectomy (Chronic) S/P Mohs surgery for basal cell carcinoma (Chronic) Family History Other No significant family history Social History Preferred Language: Welsh Beliefs That Will Affect Care: None Feels Safe at Home: Yes Smoking Status: Never smoker Review of Systems See HPI for pertinent positives & negatives. and A total of 10 systems reviewed and were otherwise negative Physical Exam Vital Signs Vital Signs - 24 hr 05/16/19 10:19 05/16/19 11:47 Temperature 36.3 C L Temperature Source Oral Sepsis Recent Fever Within 48 Hours No Sepsis New/Unexplained Change in Mental Status No Sepsis Action Taken by Nursing No Action Required Pulse Rate 114 H Pulse Rate [Finger] 73 Respiratory Rate 18 20 Respiratory Effort / Characteristics Non-Labored Spontaneous Respiratory Depth Normal Respiratory Pattern Regular Blood Pressure 137/82 Blood Pressure [Right Arm] 115/63 Blood Pressure Mean 100 Blood Pressure Mean [Right Arm] 80 Blood Pressure Position Sitting Pulse Oximetry 99 96 Oxygen Delivery Method Room Air Room Air CONSTITUTIONAL/VITAL SIGNS: Reviewed / noted above. GENERAL: Non-toxic in appearance. INTEGUMENTARY: Warm, dry, and [place]. HEAD: Normocephalic. EYES: without scleral icterus or trauma. ENT/OROPHARYNX: clear and moist. LYMPHADENOPATHY/NECK: Is supple without lymphadenopathy or meningismus. RESPIRATORY: Lungs clear and equal. CARDIOVASCULAR: Regular rate and rhythm. GI/ABDOMEN: Tenderness over suprapubic area. EXTREMITIES: Warm and well perfused. BACK: No CVA tenderness. NEUROLOGICAL: Intact without focal deficits. PSYCHIATRIC: normal affect. MUSCULOSKELETAL: Normally developed with good muscle tone. Course 1039: The patient was evaluated in room A10. A complete history and physical exam was performed. 1213: Discussed the patient's case with Dr. Sebastian, [facility]. The patient will be evaluated for further treatment and disposition. 1236: Upon reevaluation, the patient was resting comfortably. I discussed findings and results with him. He verbalized agreement of the treatment plan. The patient was discharged home. Administered Medications Discontinued Medications Ceftriaxone Sodium (Rocephin) 1,000 mg in 50 mls @ 100 mls/hr IV NOW STA Stop: 05/16/19 12:41 Last Admin: 05/16/19 12:34 Dose: 100 mls/hr Documented by: [id number] Sodium Chloride (Nss 1000ml) 500 mls @ 999 mls/hr IV .Q31M ONE Stop: 05/16/19 12:44 Last Admin: 05/16/19 12:34 Dose: 999 mls/hr Documented by: [id number] Medical Decision Making Differential Diagnosis Differential diagnosis: Etiologies such as biliary colic, cholecystitis, hepatitis, pancreatitis, cardiac disease, pancreatitis, gastritis, peptic ulcer disease, appendicitis, cystitis, diverticulitis, mesenteric ischemia, inflammatory bowel disease, ileus, bowel obstruction, testicular torsion, aortic pathology, shingles, as well as others were considered. Medical Records Attestation: I reviewed the patient's medical records. Home Medications Current Medication List: was personally reviewed by me Laboratory Data Attestation: I reviewed the patient's lab results. Result diagrams: 05/16/19 11:19 05/16/19 11:19 Lab Results 05/16/19 05/16/19 05/16/19 Range/Units 11: 11:19 11:44 WBC 5.10 (4.8-10.8) K/uL RBC 3.42 L (4.7-6.1) M/uL Hgb 11.8 L (14.0-18.0) g/dL Hct 34.1 L (42-52) % MCV 99.7 (80-100) fL MCH 34.5 H (25-34) pg MCHC 34.6 (32-36) g/dL RDW Std Deviation 46.2 (36.4-46.3) fL RDW Coeff of Alyssa 12.6 (11.5-14.5) % Plt Count 163 (130-400) K/uL MPV 10.1 (7.4-10.4) fL Immature Gran % (Auto) 0.2 % Neut % (Auto) 75.1 % Lymph % (Auto) 10.4 % [place] % (Auto) 12.5 % Eos % (Auto) 1.4 % Baso % (Auto) 0.4 % Immature Gran # (Auto) 0.01 (0.00-0.02) K/uL Neut # (Auto) 3.83 (1.4-6.5) K/uL Lymph # (Auto) 0.53 L (1.2-3.4) K/uL [place] # (Auto) 0.64 H (0.11-0.59) K/uL Eos # (Auto) 0.07 (0-0.5) K/uL Baso # (Auto) 0.02 (0-0.2) K/uL Sodium 142 (136-145) mmol/L Potassium 3.4 L (3.5-5.1) mmol/L Chloride 108 H (98-107) mmol/L Carbon Dioxide 27 (21-32) mmol/L Anion Gap 7.0 (3-11) BUN 29 H (7-18) mg/dl Creatinine 1.30 (0.6-1.4) mg/dl Est Cr Clr Drug Dosing 42.4 ml/min Est GFR ( Amer) 58.9 Est GFR (Non-Af Amer) 50.8 BUN/Creatinine Ratio 22.2 H (10-20) Glucose 143 H (70-99) mg/dl Calcium 9.1 (8.5-10.1) mg/dl Total Bilirubin 0.5 (0.2-1) mg/dl AST 24 (15-37) U/L ALT 26 (12-78) U/L Alkaline Phosphatase 143 H (45-117) U/L Total Protein 6.6 (6.4-8.2) gm/dl Albumin 3.5 (3.4-5.0) gm/dl Globulin 3.1 (2.5-4.0) gm/dl Albumin/Globulin Ratio 1.1 (0.9-2) Urine Color Red Urine Appearance Cloudy A (Clear) Urine pH 7.0 (4.5-7.5) Ur Specific [place] 1.020 (1.000-1.030) Urine Protein 3+ H (Negative) Urine Glucose (UA) 1+ H (Negative) Urine Ketones Negative (Negative) Urine Blood 3+ H (Negative) Urine Nitrite Positive A (Negative) Urine Bilirubin 1+ H (Negative) Urine Urobilinogen Positive H (Negative) Ur Leukocyte Esterase Negative (Negative) Urine RBC >30 H (0-4) /hpf Urine WBC 5-10 H (0-5) /hpf Ur Epithelial Cells 0-5 (0-5) /lpf Urine Bacteria Negative (Negative) Imaging Data Radiologist's Impression: Radiology results as stated below per my review and the radiologist's interpretation: CT abd pelvis wo con CLINICAL HISTORY: 83 years-old Male presenting with Hematuria. TECHNIQUE: Multidetector CT of the abdomen and pelvis was performed without the use of intravenous contrast. IV contrast: None. One or more dose lowering techniques were used consistent with the principles of ALARA (as low as reasonably achievable), including automatic exposure control, mA or kV adjustment to individual patient size, and/or use of iterative reconstruction. COMPARISON: 12/13/2017. CT DOSE (mGy.cm): The estimated cumulative dose is 406.65 mGy.cm. FINDINGS: Safe Deposit Clerk topogram: Unremarkable. Lung bases: Normal heart size. Coronary artery and aortic valve calcification. No pericardial or pleural effusion. Minimal dependent changes likely atelectasis. Liver: Normal morphology. Normal density. Mildly nodular contour of the liver. Biliary: No gross biliary ductal dilatation allowing for noncontrast technique. Normal gallbladder. Pancreas: Moderate parenchymal atrophy. Spleen: Normal noncontrast appearance. Adrenal glands: Normal noncontrast appearance. Kidneys and ureters: Mild cortical atrophy may be present. Otherwise normal noncontrast appearance of the renal parenchyma. Nonobstructing 3 mm calculus at the lower pole the left kidney. No hydroureteronephrosis. Ureters nondistended. Bladder: Bladder contains high density material without a recorded recent history of contrast administration. This may represent blood products. Intraluminal gas is also noted. Prominent duodenal diverticulum in the region of the right ureterovesical junction. A Sellers catheter is in place with only partial decompression of the bladder lumen. Pelvic organs: Normal noncontrast appearance. Fiducial markers noted in the prostate, which may indicate prior radiation treatment. Bowel: Mild diverticulosis of the proximal to mid sigmoid colon without wall thickening or pericolonic inflammatory change. The appendix is normal. No bowel obstruction. Peritoneal cavity: No free fluid or intraperitoneal gas. Trace fat infiltration in the region of the rectal prostatic recess may also relate to prior radiation treatment. Lymph nodes: No gross lymphadenopathy allowing for noncontrast technique. Vasculature: Atherosclerosis of the normal caliber abdominal aorta. Abdominal wall: Changes in the inguinal regions may relate to prior bilateral inguinal hernia repairs. Musculoskeletal: Degenerative changes of the spine. 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 No destructive osseous lesion. IMPRESSION: 1. Extensive presumably blood products in the urinary bladder, which is only partially decompressed despite the presence of the Sellers catheter. Underlying lo wer abnormality may be present, incompletely assessed on this noncontrast exam. Cystoscopy could be considered as an underlying neoplasm cannot be excluded. 2. Nonobstructing 3 mm left renal calculus. No evidence of a recently passed calculus. 3. Suspected post radiation changes of the prostate, which may indicate a history of prostate cancer. 4. Additional chronic findings as above. Electronically signed by: Gautam Sanchez M.D. 05/16/2019 11:52 AM Blood Pressure Blood Pressure Findings: Elevated blood pressure Blood Pressure Disposition: did not require urgent referral MDM Narrative This is a 83-year-old male who presents to the ED with a chief complaint of suprapubic abdominal discomfort that started around 5:30 PM yesterday. He also noticed hematuria at that time. He has had increasing pain since then. He feels like his pain is relieved when he urinates a small amount. 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 He reports a history of prostate adenocarcinoma. He is taking Lupron for this. The patient has not had hematuria in the past. He denies any lightheadedness or dizziness or other symptoms. He is requesting a Sellers catheter to alleviate his symptoms. His blood pressure is normal. His heart rate was 114. He is afebrile. Exam reveals some suprapubic tenderness. A Sellers catheter was placed and this improved the patient's symptoms. He did d rain hematuria. A CBC was unremarkable as was a complete metabolic panel. BUN is 29. Urine reveals some findings suggesting of possible urinary tract infection. A CT scan of the abdomen pelvis reveals extensive blood products in the bladder only partially decompressed despite Sellers catheter. I spoke with Elena from Dr. Sebastian's office. She is the nurse practitioner. She advised they will follow-up with the patient on Sunday of next week. We will start antibiotics and leave the Sellers catheter in place. The patient will return for any issues. He will be discharged on Bactrim. A dose of IV Rocephin and 500 cc normal saline bolus was administered here. Impression & Plan Gross hematuria, Prostate cancer, Abdominal pain, suprapubic Discharge Plan Visit Data Chief Complaint: Hematuria Stated Complaint: HEMATURIA ED Provider: Zenon Kim ED Midlevel Provider: Pk Borrero Discharge Problem: Gross hematuria, Prostate cancer, Abdominal pain, suprapubic Patient Disposition: Home - Self-Care Condition: Good Discharge Instructions Uvaldo/Other Patient Handouts: Catheter Indwelling Urinary Dc Activity Restrictions/Additional Instructions: Follow-up with Dr. Sebastian's office next week. If they do not contact you by Sunday, call their office. Sellers catheter to remain in place. Bactrim as prescribed. Return for any concerns or worsening. Forms Stand Alone Forms: My [facility], Important Visit Information Prescriptions Prescriptions: New sulfamethoxazole-trimethoprim [Bactrim DS] 800-160 mg tablet 1 tab PO Q12H Qty: 14 RF: 0 No Action lisinopril 40 mg tablet 40 mg PO QAM RF: 0 hydrochlorothiazide 25 mg tablet 25 mg PO QAM RF: 0 clopidogrel 75 mg tablet 75 mg PO QAM RF: 0 ranitidine HCl [Zantac] 150 mg Tablet 150 mg PO BID RF: 0 vitamin E 400 unit Capsule 400 unit PO QAM RF: 0 coal tar 2 % Ointment 1 applic TOPICAL TID RF: 0 Lupron Depot (6 Month) 45 mg Syringe Kit 45 mg IM Q6M RF: 0 Referrals Referrals: Hilario Sigala MD [Primary Care Provider] - The scribe's documentation has been prepared under my direction and personally reviewed by me in its entirety. I confirm that the note above accurately reflects all work, treatment, procedures, and medical decision making performed by me.
--- NOTE | 2019-05-16 11:21 | Emergency Department Note ---
ED Visit Note This patient was seen in concert with Dr. Kim and we discussed and agreed upon the history, physical, assessment, and plan. See attending's note for details. . Resident Activity Tracking Resident Involvement: Resident Care Provided Care Provided: Adult ED
[2019-05-16 11:29] LABS: Basophils # (auto) 0.02 K/uL (0-0.2); Basophils % (auto) 0.4 %; Eosinophils # (auto) 0.07 K/uL (0-0.5); Eosinophils % (auto) 1.4 %; Hematocrit (blood only) 34.1 % (42-52); Hemoglobin 11.8 g/dL (14.0-18.0); Immature Granulocytes # (auto) 0.01 K/uL (0.00-0.02); Immature Granulocytes % (auto) 0.2 %; Lymphocytes # (auto) 0.53 K/uL (1.2-3.4); Lymphocytes % (auto) 10.4 %; Mean Corpuscular Hemoglobin 34.5 pg (25-34); Mean Corpuscular Hgb Conc 34.6 g/dL (32-36); Mean Corpuscular Volume 99.7 fL (80-100); Mean Platelet Volume 10.1 fL (7.4-10.4); Monocytes # (auto) 0.64 K/uL (0.11-0.59); Monocytes % (auto) 12.5 %; Neutrophils # (auto) 3.83 K/uL (1.4-6.5); Neutrophils % (auto) 75.1 %; Platelet Count 163 K/uL (130-400); RDW Coefficient of Variation 12.6 % (11.5-14.5); RDW Standard Deviation 46.2 fL (36.4-46.3); Red Blood Count 3.42 M/uL (4.7-6.1)
[2019-05-16 11:52] LABS: Albumin Level 3.5 gm/dl (3.4-5.0); BUN Creatinine Ratio 22.2 (10-20); Calcium 9.1 mg/dl (8.5-10.1); Creatinine Clr Calc Pharmacy 42.4 ml/min; Est GFR (African American) 58.9; Est GFR (Non-African American) 50.8; Potassium 3.4 mmol/L (3.5-5.1)
--- NOTE | 2019-05-16 11:53 | CT Scan Report ---
CT abd pelvis wo con CLINICAL HISTORY: 83 years-old Male presenting with Hematuria. TECHNIQUE: Multidetector CT of the abdomen and pelvis was performed without the use of intravenous co ntrast. IV contrast: None. One or more dose lowering techniques were used consistent with the princip les of ALARA (as low as reasonably achievable), including automatic exposure control, mA or kV adjust ment to individual patient size, and/or use of iterative reconstruction. COMPARISON: 12/13/2017. CT DOSE (mGy.cm): The estimated cumulative dose is 406.65 mGy.cm. FINDINGS: Cloth Examiner Machine topogram: Unremarkable. Lung bases: Normal heart size. Coronary artery and aortic valve calcification. No pericardial or pleu ral effusion. Minimal dependent changes likely atelectasis. Liver: Normal morphology. Normal density. Mildly nodular contour of the liver. Biliary: No gross biliary ductal dilatation allowing for noncontrast technique. Normal gallbladder. Pancreas: Moderate parenchymal atrophy. Spleen: Normal noncontrast appearance. Adrenal glands: Normal noncontrast appearance. Kidneys and ureters: Mild cortical atrophy may be present. Otherwise normal noncontrast appearance of the renal parenchyma. Nonobstructing 3 mm calculus at the lower pole the left kidney. No hydroureter onephrosis. Ureters nondistended. Bladder: Bladder contains high density material without a recorded recent history of contrast adminis tration. This may represent blood products. Intraluminal gas is also noted. Prominent duodenal divert iculum in the region of the right ureterovesical junction. A Sellers catheter is in place with only par tial decompression of the bladder lumen. Pelvic organs: Normal noncontrast appearance. Fiducial markers noted in the prostate, which may indic ate prior radiation treatment. Bowel: Mild diverticulosis of the proximal to mid sigmoid colon without wall thickening or pericoloni c inflammatory change. The appendix is normal. No bowel obstruction. Peritoneal cavity: No free fluid or intraperitoneal gas. Trace fat infiltration in the region of the rectal prostatic recess may also relate to prior radiation treatment. Lymph nodes: No gross lymphadenopathy allowing for noncontrast technique. Vasculature: Atherosclerosis of the normal caliber abdominal aorta. Abdominal wall: Changes in the inguinal regions may relate to prior bilateral inguinal hernia repairs . Musculoskeletal: Degenerative changes of the spine. Incidental note made of an intramuscular lipoma i n the left iliopsoas. No destructive osseous lesion. IMPRESSION: 1. Extensive presumably blood products in the urinary bladder, which is only partially decompressed despite the presence of the Sellers catheter. Underlying lower abnormality may be present, incompletely assessed on this noncontrast exam. Cystoscopy could be considered as an underlying neoplasm cannot b e excluded. 2. Nonobstructing 3 mm left renal calculus. No evidence of a recently passed calculus. 3. Suspected post radiation changes of the prostate, which may indicate a history of prostate cancer . 4. Additional chronic findings as above. Electronically signed by: Gautam Sanchez M.D. 05/16/2019 11:52 AM
[2019-05-16 11:54] LABS: Albumin Globulin Ratio 1.1 (0.9-2); Bilirubin,Total 0.5 mg/dl (0.2-1); Globulin 3.1 gm/dl (2.5-4.0); Total Protein 6.6 gm/dl (6.4-8.2)
[2019-05-16 11:59] LABS: Appearance Urine Cloudy (Clear); Blood Urine 3+ (Negative); Color Urine Red; Glucose Urine UA 1+ (Negative); Ketones Urine Negative (Negative); Leukocyte Esterase Urine Negative (Negative); Nitrite Urine Positive (Negative); Protein Urine 3+ (Negative); Urobilinogen Urine Positive (Negative)
[2019-05-16 12:00] LABS: Bilirubin Urine 1+ (Negative)
[2019-05-16 12:01] LABS: Ictotest Urine Positive (Negative)
[2019-05-16 12:06] LABS: Bacteria Urine Negative (Negative); Epithelial Cell Urine 0-5 /lpf (0-5); RBC Urine >30 /hpf (0-4)
[2019-05-16] MEDS ORDERED: cefTRIAXone SODIUM 1,000 MG/50 ML BAG IV STA (12:12)
[2019-05-16] MEDS ORDERED: SODIUM CHLORIDE 0.9% 1000ML 500 ML IV ONE (12:14)
--- NOTE | 2019-05-16 12:51 | Pharmacy Report ---
ED Pharmacist Progress Note - ED Pharmacist Progress Note Date of Service:: May 16, 2019 Notes:: Received call from [facility] about prescription transmitted from Dr Lezama- it was transmitted as no substitution for Bactrim DS tablets. Discussed with Dr. Lezama- this was in error, medication can be substituted with generic. Gave this information verbally to pharmacist.
--- NOTE | 2019-05-16 16:20 | Urology Consultation ---
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 He does not have hydronephrosis He is hemodynamically stable and comfortable at present Allergies Allergy/AdvReac Type Severity Reaction Status Date / Time Beta-Blockers Allergy Unknown LOW HEART Verified 05/16/19 12:30 (Beta-Adrenergic Bloc RATE "FELT LOUSY" atorvastatin [From Lipitor] AdvReac Abdominal Verified 10/16/18 13:33 Pain Home Medications Home Medications Medication Instructions Recorded Confirmed Type hydrochlorothiazide 25 mg tablet 25 mg PO QAM 10/16/18 05/16/19 History lisinopril 40 mg tablet 40 mg PO QAM 10/16/18 05/16/19 History clopidogrel 75 mg PO QAM 05/16/19 05/16/19 History coal tar 1 applic TOPICAL TID 05/16/19 05/16/19 History leuprolide (6 month) [Lupron Depot 45 mg IM Q6M 05/16/19 05/16/19 History (6 Month)] ranitidine HCl [Zantac] 150 mg PO BID 05/16/19 05/16/19 History vitamin E 400 unit PO QAM 05/16/19 05/16/19 History Patient History Medical History HTN (hypertension) (Chronic) History of CVA (cerebrovascular accident) (Chronic) BPH (benign prostatic hyperplasia) (Chronic) MDS (myelodysplastic syndrome), low grade (Chronic) Prostate cancer (Chronic 12/04/16) "Status post TURP in 04/22, radiation in 09/23, Lupron Q6 months" On 10/10/17 15:55 Yamilet Lincoln wrote "Rising PSA. Pretreatment PSA 7.06 adjusted for finasteride Status post ultrasound-guided biopsies 12/04/2016 Adenocarcinoma of the prostate [place] 4+3 and 4+4 Prostate volume 53.3 Prostate density 0.132 Hormonal suppression Status post TURP and placement of gold fiducial markers Status post placement of Space OAR Treatment planning MRI revealed suspicious lesions in the pubic and ischial bones. These areas were included in the treatment area. Status post completion of radiation therapy September 12, 2017. He received 7740 cGy" On 09/21/17 13:55 Yamilet iLncoln wrote "Rising PSA. Pretreatment PSA 7.06 adjusted for finasteride Status post ultrasound-guided biopsies 12/04/2016 Adenocarcinoma of the prostate [place] 4+3 and 4+4 Prostate volume 53.3 Prostate density 0.132 Status post TURP and placement of gold fiducial markers Status post placement of Space OAR Status post completion of radiation therapy September 12, 2017. He received 7740 cGy" On 01/05/17 10:04 Yamilet Lincoln wrote "Rising PSA. Pretreatment PSA 7.06 adjusted for finasteride Status post ultrasound-guided biopsies 12/04/2016 Adenocarcinoma of the prostate [place] 4+3 and 4+4 Prostate volume 53.3 Prostate density 0.132" On 01/05/17 10:01 Yamilet Lincoln wrote "Rising PSA. Pretreatment PSA 7.06 adjusted for finasteride Status post ultrasound-guided biopsies 12/26/2016 Adenocarcinoma of the prostate [place] 4+3 and 4+4 Prostate volume 53.3 Prostate density 0.132" Psoriasis (Chronic) GERD (gastroesophageal reflux disease) (Chronic) Kidney stone (Resolved) Surgical History S/P tonsillectomy and adenoidectomy (Chronic) S/P orchiectomy (Chronic) S/P Mohs surgery for basal cell carcinoma (Chronic) Family History Other No significant family history Social History Preferred Language: Macedonian Beliefs That Will Affect Care: None Feels Safe at Home: Yes Smoking Status: Never smoker Review of Systems Review of Systems: All systems reviewed & are unremarkable except as noted in HPI & below Physical Exam Physical Exam: Sellers catheter in placesignificant blood within the urine and some clot within the catheter tubing and bag Constitutional: well developed and well nourished Neck: neck nontender Respiratory: normal respiratory effort; no respiratory distress and does not use accessory muscles Cardiovascular: Rate/Rhythm: regular rate Vessels: radial pulses present Extremities: no edema Gastrointestinal (Abdomen): Inspection/Auscultation: abdomen normal to inspection Percussion/Palpation: abdomen soft; abdomen nontender and no guarding Musculoskeletal: Head/Neck/Chest: normocephalic and head atraumatic Extremities: extremities normal to inspection Skin: no rashes and no lesions Trauma: no evidence of skin trauma Neurologic: awake; not obtunded Speech / Cognition: normal speech Motor/Sensory: no tremor Psychiatric: Orientation: alert and oriented x 3 Genitourinary: no CVA tenderness Lymphatic: no lymphadenopathy Results & Data Vital Signs (Past 12 Hours) Vital Signs Temp Pulse Pulse Resp BP BP Pulse Ox 05/16/19 14:05 78 20 122/68 98 05/16/19 11:47 73 20 115/63 96 05/16/19 10:19 36.3 C L 114 H 18 137/82 99 PG Care Time/CCT Total # of Minutes Spent Total Time Spent with Patient: Total time spent is greater than 50% in coordination of care (as documented) at patient's floor/unit and/or counseling patient:
--- NOTE | 2019-05-16 16:29 | History & Physical Report ---
Date of Service May 16, 2019 Assessment & Plan (1) Hematuria: (2) Possible urinary tract infection: (3) Prostate cancer: -Admit to [facility] -Patient presenting from home with reports of hematuria, difficulty urinating, and suprapubic pain -History of prostate cancer S/P TURP and radiation -Sellers catheter placed in the ED draining grossly bloody urine and requiring manual irrigation -CT ABD/pelvis showing extensive blood product within the bladder -On Plavix for history of CVA 10/2017 -Hgb stable at 11.8; will recheck later this evening -UA suggest possible UTI, received IV ceftriaxone the ED, will continue; does not appear septic -IVF -Urology consulted, patient will be going to OR for cystoscopy and clot removal this evening (4) History of CVA (cerebrovascular accident): -10/2017, on Plavix -Holding Plavix as above -Patient requesting neurology consult for long-term plan of antiplatelet (5) HTN (hypertension): -BP controlled, continue lisinopril -will hold HCTZ while receiving IVF for hematuria/possible UTI (6) GERD (gastroesophageal reflux disease): -Continue H2 anuel (7) DVT prophylaxis: -SCDs due to hematuria History of Present Illness Chief Complaint: Hematuria, suprapubic pain Primary Care Provider: Hilario Sigala MD 83-year-old male who presents the ED for evaluation of hematuria and suprapubic pain. Patient reports that last evening he developed painless hematuria. It progressively got worse throughout the night and he started to pass clots. He then developed difficulty urinating and suprapubic pain. Patient reports he otherwise has been feeling well recently. No urinary symptoms leading up to the hematuria last evening. Denies fevers and chills. No chest pain or shortness of breath. Denies lightheadedness, dizziness, diaphoresis, syncopal events. No abdominal pain, nausea, vomiting, diarrhea. In the ED, Sellers catheter was placed and began draining grossly bloody urine with clots which required manual irrigation. UA suggest possible UTI. Hgb is stable at 11.8. Patient is hemodynamically stable. Patient was given IVF and IV ceftriaxone. Allergies Allergy/AdvReac Type Severity Reaction Status Date / Time Beta-Blockers Allergy Unknown LOW HEART Verified 05/16/19 12:30 (Beta-Adrenergic Bloc RATE "FELT LOUSY" atorvastatin [From Lipitor] AdvReac Abdominal Verified 10/16/18 13:33 Pain Home Medications Home Medications Medication Instructions Recorded Confirmed Type hydrochlorothiazide 25 mg tablet 25 mg PO QAM 10/16/18 05/16/19 History lisinopril 40 mg tablet 40 mg PO QAM 10/16/18 05/16/19 History clopidogrel 75 mg PO QAM 05/16/19 05/16/19 History coal tar 1 applic TOPICAL TID 05/16/19 05/16/19 History leuprolide (6 month) [Lupron Depot 45 mg IM Q6M 05/16/19 05/16/19 History (6 Month)] ranitidine HCl [Zantac] 150 mg PO BID 05/16/19 05/16/19 History vitamin E 400 unit PO QAM 05/16/19 05/16/19 History Past Med/Surg History Medical History HTN (hypertension) (Chronic) History of CVA (cerebrovascular accident) (Chronic) BPH (benign prostatic hyperplasia) (Chronic) MDS (myelodysplastic syndrome), low grade (Chronic) Prostate cancer (Chronic 12/04/16) "Status post TURP in 04/22, radiation in 09/23, Lupron Q6 months" On 10/10/17 15:55 Yamilet Lincoln wrote "Rising PSA. Pretreatment PSA 7.06 adjusted for finasteride Status post ultrasound-guided biopsies 12/04/2016 Adenocarcinoma of the prostate [place] 4+3 and 4+4 Prostate volume 53.3 Prostate density 0.132 Hormonal suppression Status post TURP and placement of gold fiducial markers Status post placement of Space OAR Treatment planning MRI revealed suspicious lesions in the pubic and ischial bones. These areas were included in the treatment area. Status post completion of radiation therapy September 12, 2017. He received 7740 cGy" On 09/21/17 13:55 Yamilet Lincoln wrote "Rising PSA. Pretreatment PSA 7.06 adjusted for finasteride Status post ultrasound-guided biopsies 12/04/2016 Adenocarcinoma of the prostate [place] 4+3 and 4+4 Prostate volume 53.3 Prostate density 0.132 Status post TURP and placement of gold fiducial markers Status post placement of Space OAR Status post completion of radiation therapy September 12, 2017. He received 7740 cGy" On 01/05/17 10:04 Yamilet Lincoln wrote "Rising PSA. Pretreatment PSA 7.06 adjusted for finasteride Status post ultrasound-guided biopsies 12/04/2016 Adenocarcinoma of the prostate [place] 4+3 and 4+4 Prostate volume 53.3 Prostate density 0.132" On 01/05/17 10:01 Yamilet Lincoln wrote "Rising PSA. Pretreatment PSA 7.06 adjusted for finasteride Status post ultrasound-guided biopsies 12/26/2016 Adenocarcinoma of the prostate [place] 4+3 and 4+4 Prostate volume 53.3 Prostate density 0.132" Psoriasis (Chronic) GERD (gastroesophageal reflux disease) (Chronic) Kidney stone (Resolved) Surgical History S/P TURP (Chronic) S/P tonsillectomy and adenoidectomy (Chronic) S/P orchiectomy (Chronic) S/P Mohs surgery for basal cell carcinoma (Chronic) H/O hernia repair Family History Other Heart disease Hypertension Stroke Social History Preferred Language: Gibraltarian 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 Ability: Effective 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 Beliefs That Will Affect Care: None Current Living Situation: Spouse Feels Safe at Home: Yes Smoking Status: Never smoker Hx Alcohol Use: Yes Alcohol Intake Frequency: Rarely Hx Substance Use: No Review of Systems Review of Systems: ROS per HPI, all other systems reviewed and negative Physical Exam Constitutional: WD/WN, vitals as above Eyes: PERRL, conjunctivae normal, anicteric sclerae ENMT: external ear and nose normal, oropharynx normal Respiratory: normal respiratory effort, lungs clear to auscultation Cardiovascular: Rate/Rhythm: regular rate and regular rhythm Vessels: normal peripheral pulses Extremities: no edema Gastrointestinal (Abdomen): normal bowel sounds, soft, nontender, no hepatosplenomegaly Musculoskeletal: no cyanosis or clubbing, extremities motor strength 5/5 Skin: no rashes, warm and dry Neurologic: PERRL, EOMI, accommodation nl, no face palsy, no dysarthria Genitourinary: Sellers in place draining grossly bloody urine Results & Data Vital Signs (Past 12 Hours) Vital Signs Temp Pulse Pulse Resp BP BP Pulse Ox 05/16/19 14:05 78 20 122/68 98 05/16/19 11:47 73 20 115/63 96 05/16/19 10: 36.3 C L 114 H 18 137/82 99 Laboratory Results Short CBC 05/16/19 05/16/19 Range/Units 11:19 11:19 WBC 5.10 (4.8-10.8) K/uL Hgb 11.8 L (14.0-18.0) g/dL Hct 34.1 L (42-52) % Plt Count 163 (130-400) K/uL Creatinine 1.30 (0.6-1.4) mg/dl BMP 05/16/19 11:19 Sodium 142 Potassium 3.4 L Chloride 108 H Carbon Dioxide 27 BUN 29 H Creatinine 1.30 Glucose 143 H Calcium 9.1 Liver Function 05/16/19 Range/Units 11:19 Total Bilirubin 0.5 (0.2-1) mg/dl AST 24 (15-37) U/L ALT 26 (12-78) U/L Alkaline Phosphatase 143 H (45-117) U/L Albumin 3.5 (3.4-5.0) gm/dl Urine 05/16/19 Range/Units 11:44 Urine Color Red Urine Appearance Cloudy A (Clear) Urine pH 7.0 (4.5-7.5) Ur Specific [place] 1.020 (1.000-1.030) Urine Protein 3+ H (Negative) Urine Glucose (UA) 1+ H (Negative) Diagnostic Findings CT ABD/PELVIS IMPRESSION: 1. Extensive presumably blood products in the urinary bladder, which is only partially decompressed despite the presence of the Sellers catheter. Underlying lower abnormality may be present, incompletely assessed on this noncontrast exam. Cystoscopy could be considered as an underlying neoplasm cannot be excluded. 2. Nonobstructing 3 mm left renal calculus. No evidence of a recently passed calculus. 3. Suspected post radiation changes of the prostate, which may indicate a history of prostate cancer. 4. Additional chronic findings as above. Code Status & VTE Plan Code Status Patient is a full code as per my discussion with him. VTE Prophylaxis Plan VTE Prophylaxis will be ordered: Yes Supervising Physician Co-Signing Physician Notes Pending addendum The patient was seen and examined in the emergency room He has history of prostate cancer status post TURP and finished an ongoing chemo treatment in September 2017 and has been on Lupron Has been complaining of painless hematuria with passage of clot for the last 2 to Denies any fever and/or chills. No abdominal pain nausea and vomiting Denies any chest pain and/or palpitation On examination No apparent distress at rest Chest-clear to auscultate bilaterall Heart-S1-S2, regular, no murmur appreciated Abdomen-soft, mildly tender in the epigastrium. 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
[2019-05-16] MEDS ORDERED: POTASSIUM CHLORIDE 20 MEQ TABCR PO STA (16:54)
[2019-05-16] MEDS ORDERED: MoRPHine SULFATE 4 MG/ML 1 ML CARP\\VIAL IV PRN (16:54)
[2019-05-16] MEDS ORDERED: ACETAMINOPHEN 325 MG TAB PO PRN (16:54)
[2019-05-16] MEDS: SODIUM CHLORIDE 0.9% 1000ML 1,000 ML IV SCH (18:08)
[2019-05-16 19:19] LABS: Hematocrit (blood only) 32.2 % (42-52); Hemoglobin 11.1 g/dL (14.0-18.0)
--- NOTE | 2019-05-16 20:00 | Anesthesiology Consultation ---
Date of Service May 16, 2019 Assessment & Plan (1) Encounter for pre-operative examination: Chart Review Chart Review: Acceptable Risk for Surgery and Patient NOT seen in Pre Admission Testing Consults Requested none Proposed Anesthesia Risk / Benefits Reviewed With: PT / POA / Parent / Guardian, Accepts Plan and Informed Consent Obtained Additional Notes Hx of prostate cancer and stroke back in 10/2017 for which patient is taking plavix, presented with hematuria and difficulty urinating and scheduled for cysto and clot evacuation in operating room. History Surgery Operation Date: 05/16/19 14:35 Proposed Procedures p Cystoscopy Clot Evacuation - Quique Sebastian MD Height/Weight Height: 5 ft 8 in Weight: 77.9 kg Allergies Allergy/AdvReac Type Severity Reaction Status Date / Time Beta-Blockers Allergy Unknown LOW HEART Verified 05/16/19 12:30 (Beta-Adrenergic Bloc RATE "FELT LOUSY" atorvastatin [From Lipitor] AdvReac Abdominal Verified 10/16/18 13:33 Pain Medications Home Medications Medication Instructions Recorded Confirmed Last Taken hydrochlorothiazide 25 mg tablet 25 mg PO QAM 10/16/18 05/16/19 05/16/19 lisinopril 40 mg tablet 40 mg PO QAM 10/16/18 05/16/19 05/16/19 clopidogrel 75 mg PO QAM 05/16/19 05/16/19 05/15/19 coal tar 1 applic TOPICAL TID 05/16/19 05/16/19 05/16/19 leuprolide (6 month) [Lupron Depot 45 mg IM Q6M 05/16/19 05/16/19 Unknown (6 Month)] ranitidine HCl [Zantac] 150 mg PO BID 05/16/19 05/16/19 05/16/19 vitamin E 400 unit PO QAM 05/16/19 05/16/19 05/16/19 Active Medications Generic Name Dose Route Start Last Admin Trade Name Freq PRN Reason Stop Dose Admin Sodium Chloride 1,000 mls @ 80 mls/hr 05/16/19 16:54 05/16/19 18:08 Nss 1000ml IV 06/15/19 16:53 80 mls/hr .[id number] NICK Administration Ranitidine HCl 150 mg 05/16/19 21:00 05/16/19 20:10 Zantac PO 06/15/19 20:59 150 mg BID NICK Administration NPO Date Last Intake of Fluids: 05/16/19 Time Last Intake of Fluids: 12:00 Date Last Intake of Solids: 05/16/19 Time Last Intake of Solids: 12:00 Past Medical History Medical History HTN (hypertension) (Chronic) 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 Pretreatment PSA 7.06 adjusted for finasteride Status post ultrasound-guided biopsies 12/04/2016 Adenocarcinoma of the prostate [place] 4+3 and 4+4 Prostate volume 53.3 Prostate density 0.132 Hormonal suppression Status post TURP and placement of gold fiducial markers Status post placement of Space OAR Treatment planning MRI revealed suspicious lesions in the pubic and ischial bones. These areas were included in the treatment area. Status post completion of radiation therapy September 12, 2017. He received 7740 cGy" On 09/21/17 13:55 Yamilet Lincoln wrote "Rising PSA. Pretreatment PSA 7.06 adjusted for finasteride Status post ultrasound-guided biopsies 12/04/2016 Adenocarcinoma of the prostate [place] 4+3 and 4+4 Prostate volume 53.3 Prostate density 0.132 Status post TURP and placement of gold fiducial markers Status post placement of Space OAR Status post completion of radiation therapy September 12, 2017. He received 7740 cGy" On 01/05/17 10:04 Yamilet Lincoln wrote "Rising PSA. Pretreatment PSA 7.06 adjusted for finasteride Status post ultrasound-guided biopsies 12/04/2016 Adenocarcinoma of the prostate [place] 4+3 and 4+4 Prostate volume 53.3 Prostate density 0.132" On 01/05/17 10:01 Yamilet Lincoln wrote "Rising PSA. Pretreatment PSA 7.06 adjusted for finasteride Status post ultrasound-guided biopsies 12/26/2016 Adenocarcinoma of the prostate [place] 4+3 and 4+4 Prostate volume 53.3 Prostate density 0.132" Psoriasis (Chronic) GERD (gastroesophageal reflux disease) (Chronic) Kidney stone (Resolved) Past Family History Family History Other Heart disease Hypertension Stroke Past Surgical History Surgical History S/P TURP (Chronic) S/P tonsillectomy and adenoidectomy (Chronic) S/P orchiectomy (Chronic) S/P Mohs surgery for basal cell carcinoma (Chronic) H/O hernia repair Social History Smoking Status: Never smoker Do You Dip or Chew Tobacco: No Hx Alcohol Use: Yes alcohol intake frequency: holidays/special occasions only Hx Substance Use: No substance use type: does not use Physical Exam Vital Signs Last Vital Signs Temp 36.7 C 05/16/19 16:40 Pulse 66 05/16/19 16:40 Resp 15 05/16/19 16:40 BP 157/78 H 05/16/19 16:40 Pulse Ox 97 05/16/19 16:40 Testing Laboratory Results 05/16/19 18:56 05/16/19 11:19 Urine Color Red 05/16/19 11:44 Urine Appearance Cloudy (Clear) A 05/16/19 11:44 Urine pH 7.0 (4.5-7.5) 05/16/19 11:44 Ur Specific [place] 1.020 (1.000-1.030) 05/16/19 11:44 Urine Protein 3+ (Negative) H 05/16/19 11:44 Urine Glucose (UA) 1+ (Negative) H 05/16/19 11:44 Urine Ketones Negative (Negative) 05/16/19 11:44 Urine Nitrite Positive (Negative) A 05/16/19 11:44 Ur Leukocyte Esterase Negative (Negative) 05/16/19 11:44 Urine RBC >30 /hpf (0-4) H 05/16/19 11:44 Urine WBC 5-10 /hpf (0-5) H 05/16/19 11:44 Ur Epithelial Cells 0-5 /lpf (0-5) 05/16/19 11:44 Electrocardiogram Date: 05/16/19 Findings: + NSR @ (72) Left axis deviation, Incomplete right bundle branch block, Prolonged QT, When compared with ECG of 26-OCT-2017 09:50, No significant change was found Echocardiogram Date: 10/29/17 EF: 60-65% LV Function: normal RWMA: + none Other Findings: + LVH (mild, concentric) Valvular Disease: + no significant valvular disease
[2019-05-16] MEDS ORDERED: LIDOCAINE HCL 2% 2 ML VIAL/AMP(20MG/ML) INFIL ONE (20:24)
[2019-05-16] MEDS ORDERED: ONDANSETRON INJ 2 MG/ML 2 ML VIAL ONE (20:24)
[2019-05-16] MEDS ORDERED: fentaNYL citrate 100 MCG/2 ML VIAL ONE ×2 (20:24→21:19)
[2019-05-16] MEDS ORDERED: PROPOFOL IV EMULSION 10 MG/ML 20 ML VIAL IV ONE (20:24)
[2019-05-16] MEDS ORDERED: MIDAZOLAM HCL 1 MG/ML 2ML VIAL ONE (20:24)
[2019-05-16] MEDS ORDERED: fentaNYL citrate 100 MCG/2 ML VIAL IV PRN (20:48)
[2019-05-16] MEDS ORDERED: MoRPHine SULFATE 10 MG/ML CARP/VIAL IV PRN (20:48)
[2019-05-16] MEDS ORDERED: ONDANSETRON INJ 2 MG/ML 2 ML VIAL IV PRN (20:48)
[2019-05-16] MEDS ORDERED: ePHEDrine sulfate 50 MG/ML AMP IV PRN (20:48)
[2019-05-16] MEDS ORDERED: MEPERIDINE HCL 25 MG/ML CARP IV PRN (20:48)
[2019-05-16] MEDS ORDERED: ATROPINE SULFATE 0.1 MG/ML 10ML SYR IV PRN (20:48)
[2019-05-16] MEDS ORDERED: PHENYLEPHRINE HCL 10 MG/ML VIAL ONE (21:19)
[2019-05-16] MEDS ORDERED: ePHEDrine sulfate 50 MG/ML AMP ONE (21:33)
--- NOTE | 2019-05-16 22:10 | Operative Report ---
PG Post Operative Report Pre & Post Diagnosis Operation Date: 05/16/19 14:35 Pre-Op Diagnosis: HEMATURIA Post-Op Diagnosis: HEMATURIA I identified the patient and participated in the time-out.: Yes Procedure Operation Date: 05/16/19 14:35 Actual Procedures p Cystoscopy, Clot Evacuation, Fulguration. - Quique Sebastian MD Surgeon Demetrius Sebastian MD [employer] Book Author none Estimated Blood Loss 0 Findings Consistent with Post-Op Diagnosis Specimens none Description of Procedure The patient was identified in the preopertive holding area, appropriate informed consents were reviewed and completed and the patient was transferred to the operative suite. Upon arrival, appropriate antibiotics and anesthesia were administered and the patient was placed in dorsal lithotomy position and prepped and draped in sterile fashion. To begin the case I passed a 27 Maltese resectoscope with 30 degree lens and visual obturator. Inspection of the urethra revealed no abnormalities. His prostate is status post TURP and has a white firm appearance consistent with radiation. There was no active bleeding from the prostate. His bladder neck and prostatic fossa were open and patent. Inspection of the bladder medially revealed clot filling the entire lumen of the bladder. After advancing the scope into the bladder I withdrew the visual obturator and lens and attached and instrument Alee syringe. I was able to irrigate about 500 cc of formed clot out of the bladder at that time. I then reinserted the scope and inspected. There is still some residual clot in the dependent portion of the bladder. I additionally could identify irritated areas of the bladder wall. I continued to irrigate the remainder of the clot out of the bladder until I could fully inspect. Inspection of the irritated areas revealed mild irritation at most, most consistent with prior radiation and catheter related irritation now. There is no significant active bleeding from large vessels. There were numerous small capillary vessels bruising around the bladder neck. I passed a loop electrode and cauterized these areas. There was excellent hemostasis at that point. Before concluding the cystoscopy, I turned my attention to the right sided diverticulum. I inspected the diverticulum and found that it was filled with clot. I cautiously and gradually irrigated all of the clot out of the diverticulum. There was approximately 100 cc of clot within this tic. Inspection of the mucosa of the tic revealed mild irritation and edema of the posterior wall of the diverticular neck, but no tumors or other abnormalities within the diverticulum. Continued observation at that time to ensure excellent hemostasis. I felt very comfortable concluding the case at that point. I withdrew my scope and inserted a three-way Sellers catheter. Urine was draining clear, but I did begin slow CBI as a precaution against re-formation of clot in the event of any additional bleeding that occurs overnight. He was extubated and taken to the PACU in stable condition. There were no complications. I attest to the content of the Intraoperative Record and any orders documented therein. Any exceptions are noted below.
[2019-05-16] MEDS ORDERED: BELLADONNA/OPIUM SUPP 60 MG SUPP PR ONE ×2 (22:38)
--- NOTE | 2019-05-16 22:43 | Anesthesiology Progress Note ---
Date of Service May 16, 2019 Anesthesia Post Procedure Vital Signs Vital Signs: Temp Pulse Pulse Pulse Resp BP BP 05/16/19 22:15 35.9 C L 91 H 24 168/73 H 05/16/19 22:05 35.9 C L 95 H 13 169/85 H 05/16/19 21:56 35.9 C L 98 H 18 179/89 H 05/16/19 16:40 36.7 C 66 15 157/78 H 05/16/19 16:25 71 20 145/79 H 05/16/19 14:05 78 20 122/68 05/16/19 11:47 73 20 115/63 05/16/19 10:19 36.3 C L 114 H 18 137/82 Pulse Ox 05/16/19 22:15 100 05/16/19 22:05 100 05/16/19 21:56 100 05/16/19 16:40 97 05/16/19 16:25 98 05/16/19 14:05 98 05/16/19 11:47 96 05/16/19 10:19 99 Pain Intensity Penis: Pain Intensity: 2 Lower Abdomen: Pain Intensity: 2 Transfer of Care Handoff Completed per policy Notes Mental Status: alert / awake / arousable and participated in evaluation Patient Amnestic to Procedure: Yes Nausea / Vomiting: adequately controlled Pain: adequately controlled Airway Patency, RR, SpO2: stable & adequate BP & HR: stable & adequate Hydration State: stable & adequate Anesthetic Complications: no major complications apparent and Pt Satisfied with anesthetic care Notes: Pt with significant bladder spasm/irritation. Given belladona suppository prior to leaving PACU.
[2019-05-16] MEDS ORDERED: BELLADONNA/OPIUM SUPP 60 MG SUPP PR PRN (22:48)
[2019-05-16] MEDS ORDERED: PHENAZOPYRIDINE HCL 200 MG TAB PO STA (22:48)
[2019-05-17] MEDS: SODIUM CHLORIDE 0.9% 1000ML 1,000 ML IV SCH (04:28)
[2019-05-17 05:24] LABS: Hematocrit (blood only) 30.5 % (42-52); Hemoglobin 10.3 g/dL (14.0-18.0); Mean Corpuscular Hemoglobin 34.2 pg (25-34); Mean Corpuscular Hgb Conc 33.8 g/dL (32-36); Mean Corpuscular Volume 101.3 fL (80-100); Mean Platelet Volume 10.2 fL (7.4-10.4); Platelet Count 141 K/uL (130-400); RDW Coefficient of Variation 12.7 % (11.5-14.5); RDW Standard Deviation 46.7 fL (36.4-46.3); Red Blood Count 3.01 M/uL (4.7-6.1)
[2019-05-17 05:50] LABS: BUN Creatinine Ratio 18.7 (10-20); Est GFR (African American) 75.4; Potassium 3.9 mmol/L (3.5-5.1)
[2019-05-17] MEDS ORDERED: lisinopriL 40 MG TAB PO SCH (09:00)
[2019-05-17] MEDS ORDERED: TOCOPHERYL, DL-ALPHA 400 UNITS CAP PO SCH (09:00)
--- NOTE | 2019-05-17 09:25 | Neurology Consultation ---
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 Neurology consulted for recommendations regarding antiplatelet agent for secondary stroke prevention. Discussed with patient this morning. Recommend holding PLavix for 7- days then restarting. If hematuria persist may considering switching PLavix to A SA 81 mg daily. Patient agreed to plan of care and had no further questions or concerns at this time. (2) Hematuria: History of Present Illness Attending Physician: Gallo Brown MD Allergies Allergy/AdvReac Type Severity Reaction Status Date / Time Beta-Blockers Allergy Unknown LOW HEART Verified 05/16/19 12:30 (Beta-Adrenergic Bloc RATE "FELT LOUSY" atorvastatin [From Lipitor] AdvReac Abdominal Verified 10/16/18 13:33 Pain Home Medications Home Medications Medication Instructions Recorded Confirmed Type hydrochlorothiazide 25 mg tablet 25 mg PO QAM 10/16/18 05/16/19 History lisinopril 40 mg tablet 40 mg PO QAM 10/16/18 05/16/19 History clopidogrel 75 mg PO QAM 05/16/19 05/16/19 History coal tar 1 applic TOPICAL TID 05/16/19 05/16/19 History leuprolide (6 month) [Lupron Depot 45 mg IM Q6M 05/16/19 05/16/19 History (6 Month)] ranitidine HCl [Zantac] 150 mg PO BID 05/16/19 05/16/19 History vitamin E 400 unit PO QAM 05/16/19 05/16/19 History cefdinir 300 mg PO BID 5 Days #10 cap 05/17/19 Rx Patient History Medical History HTN (hypertension) (Chronic) 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 Pretreatment PSA 7.06 adjusted for finasteride Status post ultrasound-guided biopsies 12/04/2016 Adenocarcinoma of the prostate [place] 4+3 and 4+4 Prostate volume 53.3 Prostate density 0.132 Hormonal suppression Status post TURP and placement of gold fiducial markers Status post placement of Space OAR Treatment planning MRI revealed suspicious lesions in the pubic and ischial bones. These areas were included in the treatment area. Status post completion of radiation therapy September 12, 2017. He received 7740 cGy" On 09/21/17 13:55 Yamilet Lincoln wrote "Rising PSA. Pretreatment PSA 7.06 adjusted for finasteride Status post ultrasound-guided biopsies 12/04/2016 Adenocarcinoma of the prostate [place] 4+3 and 4+4 Prostate volume 53.3 Prostate density 0.132 Status post TURP and placement of gold fiducial markers Status post placement of Space OAR Status post completion of radiation therapy September 12, 2017. He received 7740 cGy" On 01/05/17 10:04 Yamilet Lincoln wrote "Rising PSA. Pretreatment PSA 7.06 adjusted for finasteride Status post ultrasound-guided biopsies 12/04/2016 Adenocarcinoma of the prostate [place] 4+3 and 4+4 Prostate volume 53.3 Prostate density 0.132" On 01/05/17 10:01 Yamilet Lincoln wrote "Rising PSA. Pretreatment PSA 7.06 adjusted for finasteride Status post ultrasound-guided biopsies 12/26/2016 Adenocarcinoma of the prostate [place] 4+3 and 4+4 Prostate volume 53.3 Prostate density 0.132" Psoriasis (Chronic) GERD (gastroesophageal reflux disease) (Chronic) Kidney stone (Resolved) Surgical History S/P TURP (Chronic) S/P tonsillectomy and adenoidectomy (Chronic) S/P orchiectomy (Chronic) S/P Mohs surgery for basal cell carcinoma (Chronic) H/O hernia repair Family History Other Heart disease Hypertension Stroke Social History Preferred Language: [place] Irish 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 Ability: Effective Sled Maker Required: No Beliefs That Will Affect Care: None Current Living Situation: Spouse Feels Safe at Home: Yes Smoking Status: Never smoker Hx Alcohol Use: Yes Alcohol Intake Frequency: Rarely Hx Substance Use: No Physical Exam Physical Exam: EXAM: Constitutional: appearance normally developed, well nourished and non-obese Head and Face: normocephalic and atraumatic Eyes: normal lids, normal conjunctiva Neck: supple Respiratory: normal effort Abdomen: non distended Skin: no rashes, lesions, or ulcers noted Psychiatric: normal judgement and insight, normal mood and normal affect NEUROLOGIC EXAMINATION: Appearance: no acute distress Orientation: awake, alert and oriented x 3 Mental Status: alert Memory: Good Attention: normal Knowledge: appropriate Language: no aphasia Speech: no dysarthria Cranial Nerves: CN 2 - no visual defect on confrontation and pupils round, equal CN 3, 4, 6 - extra-ocular movements intact CN 5 - facial sensation intact CN 7 - no facial asymmetry CN 8 - intact hearing CN 9, 10 - palate symmetric CN 11 - good shoulder shrug CN 12 - tongue midline Gait: stable, no ataxia Coordination: no tremor or dyskinesias Sensory: intact to light touch Muscle Tone: normal Muscle exam: Moving all 4 extremities symmetrically against gravity Results & Data Vital Signs (Past 12 Hours) Vital Signs Temp Pulse Pulse Pulse Pulse Resp BP 05/17/19 07:39 36.7 C 60 17 115/67 05/17/19 05:31 37.0 C 72 16 125/71 05/17/19 01:50 36.9 C 83 16 113/60 05/17/19 00:50 36.7 C 77 16 149/80 H 05/16/19 23:50 36.7 C 86 16 156/79 H 05/16/19 23:20 36.7 C 84 16 144/80 H 05/16/19 22:51 36.9 C 97 H 14 161/79 H 05/16/19 22:45 36.4 C L 96 H 15 05/16/19 22:35 35.9 C L 95 H 13 05/16/19 22:25 35.9 C L 95 H 20 05/16/19 22:15 35.9 C L 91 H 24 05/16/19 22:05 35.9 C L 95 H 13 05/16/19 21:56 35.9 C L 98 H 18 BP Pulse Ox 05/17/19 07:39 99 05/17/19 05:31 94 05/17/19 01:50 98 05/17/19 00:50 99 05/16/19 23:50 97 05/16/19 23:20 94 05/16/19 22:51 96 05/16/19 22:45 167/92 H 96 05/16/19 22:35 173/83 H 93 05/16/19 22:25 167/81 H 94 05/16/19 22:15 168/73 H 100 05/16/19 22:05 169/85 H 100 05/16/19 21:56 179/89 H 100
--- NOTE | 2019-05-17 09:41 | Urology Progress Note ---
Date of Service May 17, 2019 Assessment & Plan (1) Hematuria: POD #1 s/p clot evac and fulguration urine clear CBI clamped prior to my arrival today d/c oseguera if urine remains clear, start plavix again tomorrow ok for DC home from a standpoint (presuming resumption of normal voiding a fter cath pull) will need abx coverage for presumed UTI Subjective expected bladder discomfort overnight, no other subjective complaints no hematuria no issues with extremely slow CBI (clamped when I arrived this AM) tolerating a diet Physical Exam Physical Exam: NAD AAOx3 no resp distress urine clear CBI clamped Results & Data Vital Signs (Past 12 Hours) Vital Signs Temp Pulse Pulse Pulse Pulse Resp BP 05/17/19 07:39 36.7 C 60 17 115/67 05/17/19 05:31 37.0 C 72 16 125/71 05/17/19 01:50 36.9 C 83 16 113/60 05/17/19 00:50 36.7 C 77 16 149/80 H 05/16/19 23:50 36.7 C 86 16 156/79 H 05/16/19 23:20 36.7 C 84 16 144/80 H 05/16/19 22:51 36.9 C 97 H 14 161/79 H 05/16/19 22:45 36.4 C L 96 H 15 05/16/19 22:35 35.9 C L 95 H 13 05/16/19 22:25 35.9 C L 95 H 20 05/16/19 22:15 35.9 C L 91 H 24 05/16/19 22:05 35.9 C L 95 H 13 05/16/19 21:56 35.9 C L 98 H 18 BP Pulse Ox 05/17/19 07:39 99 05/17/19 05:31 94 05/17/19 01:50 98 05/17/19 00:50 99 05/16/19 23:50 97 05/16/19 23:20 94 05/16/19 22:51 96 05/16/19 22:45 167/92 H 96 05/16/19 22:35 173/83 H 93 05/16/19 22:25 167/81 H 94 05/16/19 22:15 168/73 H 100 05/16/19 22:05 169/85 H 100 05/16/19 21:56 179/89 H 100 PG Care Time/CCT Total # of Minutes Spent Total Time Spent with Patient: Total time spent is greater than 50% in coordination of care (as documented) at patient's floor/unit and/or counseling patient:
--- NOTE | 2019-05-17 09:42 | Anesthesiology Progress Note ---
Date of Service May 17, 2019 Anesthesia Post Procedure Vital Signs Vital Signs: Temp Pulse Pulse Pulse Pulse Pulse Resp 05/17/19 07:39 36.7 C 60 17 05/17/19 05:31 37.0 C 72 16 05/17/19 01:50 36.9 C 83 16 05/17/19 00:50 36.7 C 77 16 05/16/19 23:50 36.7 C 86 16 05/16/19 23:20 36.7 C 84 16 05/16/19 22:51 36.9 C 97 H 14 05/16/19 22:45 36.4 C L 96 H 15 05/16/19 22:35 35.9 C L 95 H 13 05/16/19 22:25 35.9 C L 95 H 20 05/16/19 22:15 35.9 C L 91 H 24 05/16/19 22:05 35.9 C L 95 H 13 05/16/19 21:56 35.9 C L 98 H 18 05/16/19 16:40 36.7 C 66 15 05/16/19 16:25 71 20 05/16/19 14:05 78 20 05/16/19 11:47 73 20 05/16/19 10:19 36.3 C L 114 H 18 BP BP BP Pulse Ox 05/17/19 07:39 115/67 99 05/17/19 05:31 125/71 94 05/17/19 01:50 113/60 98 05/17/19 00:50 149/80 H 99 05/16/19 23:50 156/79 H 97 05/16/19 23:20 144/80 H 94 05/16/19 22:51 161/79 H 96 05/16/19 22:45 167/92 H 96 05/16/19 22:35 173/83 H 93 05/16/19 22:25 167/81 H 94 05/16/19 22:15 168/73 H 100 05/16/19 22:05 169/85 H 100 05/16/19 21:56 179/89 H 100 05/16/19 16:40 157/78 H 97 05/16/19 16:25 145/79 H 98 05/16/19 14:05 122/68 98 05/16/19 11:47 115/63 96 05/16/19 10:19 137/82 99 Pain Intensity Penis: Pain Intensity: 0 Lower Abdomen: Pain Intensity: 0 Notes Mental Status: alert / awake / arousable and participated in evaluation Patient Amnestic to Procedure: Yes Nausea / Vomiting: adequately controlled Pain: adequately controlled Airway Patency, RR, SpO2: stable & adequate BP & HR: stable & adequate Hydration State: stable & adequate Anesthetic Complications: no major complications apparent
--- NOTE | 2019-05-17 10:56 | Hospitalist Progress Note ---
Date of Service May 17, 2019 Assessment & Plan (1) Hematuria: (2) Possible urinary tract infection: (3) Prostate cancer: Hematuria DD: Possible Radiation cystitis Possible UTI H/O Prostate Cancer S/P TURP & Radiation in 2018 --CT ABD:Extensive presumably blood products in the urinary bladder, which is only partially decompressed despite the presence of the Sellers catheter. Underlying lower abnormality may be present, incompletely assessed on this noncontrast exam. Cystoscopy could be considered as an underlying neoplasm cannot be excluded. Nonobstructing 3 mm left renal calculus. No evidence of a recently passed calculus. Suspected post radiation changes of the prostate, wh ich may indicate a history of prostate cancer. --S/P cystoscopy, clot evacuation, fulguration POD # 1 --Continuous bladder irrigation clamped --Urine Cx:pending --Received IV fluids --Continue IV Ceftriaxone Day #2 -- Plan to resume Plavix tomorrow if no recurrence of bleeding --Plan to discharge on oral antibiotic for presumed UTI --Needs follow up with Urology upon discharge --Voiding trial prior to discharge --Appreciate Urology help --Continue Lupron (4) History of CVA (cerebrovascular accident): -10/2017, on Plavix -Plan to resume Plavix tomorrow if no recurrence of bleeding --Neurology consulted for Input (5) HTN (hypertension): -Stable -continue lisinopril -Hold HCTZ today (6) GERD (gastroesophageal reflux disease): -Continue Ranitidine (7) DVT prophylaxis: -SCDs Re:hematuria Disposition: Plan to discharge home today Subjective Patient is seen and examined at bedside Doing much better today Denies any hematuria Discontinued Sellers catheter Patient is eager to get discharged Denies any chest pain, shortness of breath, dizziness, nausea, abdominal pain No other complaints Review of Systems Review of Systems: All systems reviewed & are unremarkable except as noted in HPI & below Physical Exam Physical Exam: Physical Exam: Vitals signs as noted above General Appearance:Moderately built and nourished, no apparent distress Head: normocephalic, Atraumatic Eyes: normal inspection, EOMI Neck: supple, Trachea midline Respiratory/Chest: Normal breath sounds, CTA Cardiovascular: S1, S2, No murmur Abdomen/GI:Soft, Non tender, Bowel sounds present Extremities/Musculoskelatal:normal inspection, no edema Neurologic/Psych:AAOX3, grossly no focal neurological deficits Skin: normal color, warm Results & Data Vital Signs (Past 12 Hours) Vital Signs Temp Pulse Pulse Resp BP Pulse Ox 05/17/19 07:39 36.7 C 60 17 115/67 99 05/17/19 05:31 37.0 C 72 16 125/71 94 05/17/19 01:50 36.9 C 83 16 113/60 98 05/17/19 00:50 36.7 C 77 16 149/80 H 99 05/16/19 23:50 36.7 C 86 16 156/79 H 97 05/16/19 23:20 36.7 C 84 16 144/80 H 94 Laboratory Results Short CBC 05/16/19 05/16/19 05/17/19 Range/Units 11:19 18:56 04:49 WBC 5.10 6.30 (4.8-10.8) K/uL Hgb 11.8 L 11.1 L 10.3 L (14.0-18.0) g/dL Hct 34.1 L 32.2 L 30.5 L (42-52) % Plt Count 163 141 (130-400) K/uL BMP 05/16/19 05/17/19 11:19 04:49 Sodium 142 143 Potassium 3.4 L 3.9 Chloride 108 H 111 H Carbon Dioxide 27 29 BUN 29 H 20 H Creatinine 1.30 1.06 Glucose 143 H 99 Calcium 9.1 8.0 L Liver Function 05/16/19 Range/Units 11:19 Total Bilirubin 0.5 (0.2-1) mg/dl AST 24 (15-37) U/L ALT 26 (12-78) U/L Alkaline Phosphatase 143 H (45-117) U/L Albumin 3.5 (3.4-5.0) gm/dl Urine 05/16/19 Range/Units 11:44 Urine Color Red Urine Appearance Cloudy A (Clear) Urine pH 7.0 (4.5-7.5) Ur Specific [place] 1.020 (1.000-1.030) Urine Protein 3+ H (Negative) Urine Glucose (UA) 1+ H (Negative)
[2019-05-17] MEDS ORDERED: cefTRIAXone SODIUM 1,000 MG in DEXTROSE 5% 50 ML IV SCH (12:00)
--- NOTE | 2019-05-17 13:27 | Discharge Summary ---
Date of Service May 17, 2019 Admission HPI Per Admitting Provider 83-year-old male who presents the ED for evaluation of hematuria and suprapubic pain. Patient reports that last evening he developed painless hematuria. It progressively got worse throughout the night and he started to pass clots. He then developed difficulty urinating and suprapubic pain. Patient reports he otherwise has been feeling well recently. No urinary symptoms leading up to the hematuria last evening. Denies fevers and chills. No chest pain or shortness of breath. Denies lightheadedness, dizziness, diaphoresis, syncopal events. No abdominal pain, nausea, vomiting, diarrhea. In the ED, Sellers catheter was placed and began draining grossly bloody urine with clots which required manual irrigation. UA suggest possible UTI. Hgb is stable at 11.8. Patient is hemodynamically stable. Patient was given IVF and IV ceftriaxone. Admission Exam Per Admitting Provider Constitutional: WD/WN, vitals as above Eyes: PERRL, conjunctivae normal, anicteric sclerae ENMT: external ear and nose normal, oropharynx normal Respiratory: normal respiratory effort, lungs clear to auscultation Cardiovascular: Rate/Rhythm: regular rate and regular rhythm Vessels: normal peripheral pulses Extremities: no edema Gastrointestinal (Abdomen): normal bowel sounds, soft, nontender, no hepatosplenomegaly Musculoskeletal: no cyanosis or clubbing, extremities motor strength 5/5 Skin: no rashes, warm and dry Neurologic: PERRL, EOMI, accommodation nl, no face palsy, no dysarthria Genitourinary: Sellers in place draining grossly bloody urine Principal Diagnosis Hematuria Presumed urinary tract infection Discharge Data Allergies Allergy/AdvReac Type Severity Reaction Status Date / Time Beta-Blockers Allergy Unknown LOW HEART Verified 05/16/19 12:30 (Beta-Adrenergic Bloc RATE "FELT LOUSY" atorvastatin [From Lipitor] AdvReac Abdominal Verified 10/16/18 13:33 Pain Consultations 05/16/19 14:57 ED Decision to Admit Stat 05/16/19 16:54 Consult Neurology Routine Consult Urology Routine Procedures Performed Operation Date: 05/16/19 14:35 Actual Procedures p Cystoscopy, Clot Evacuation, Fulguration. - Quique Sebastian MD CT ABD: 1. Extensive presumably blood products in the urinary bladder, which is only partially decompressed despite the presence of the Sellers catheter. Underlying lower abnormality may be present, incompletely assessed on this noncontrast exam. Cystoscopy could be considered as an underlying neoplasm cannot be excluded. 2. Nonobstructing 3 mm left renal calculus. No evidence of a recently passed calculus. 3. Suspected post radiation changes of the prostate, which may indicate a history of prostate cancer. 4. Additional chronic findings as above. Ordered Studies 05/16/19 11:04 CT abd pelvis wo con Stat Hospital Course (1) Hematuria: (2) Possible urinary tract infection: (3) Prostate cancer: Hematuria DD: Possible Radiation cystitis Possible UTI H/O Prostate Cancer S/P TURP & Radiation in 2018 --CT ABD:Extensive presumably blood products in the urinary bladder, which is only partially decompressed despite the presence of the Sellers catheter. Underlying lower abnormality may be present, incompletely assessed on this noncontrast exam. Cystoscopy could be considered as an underlying neoplasm cannot be excluded. Nonobstructing 3 mm left renal calculus. No evidence of a recently passed calculus. Suspected post radiation changes of the prostate, which may indicate a history of prostate cancer. --S/P cystoscopy, clot evacuation, fulguration POD # 1 --Continuous bladder irrigation clamped --Urine Cx:pending --Received IV fluids --Continue IV Ceftriaxone Day #2 -- Plan to resume Plavix tomorrow if no recurrence of bleeding --Plan to discharge on oral antibiotic for presumed UTI --Needs follow up with Urology upon discharge --Voiding trial prior to discharge --Appreciate Urology help --Continue Lupron (4) History of CVA (cerebrovascular accident): -10/2017, on Plavix -Plan to resume Plavix tomorrow if no recurrence of bleeding --Neurology consulted for Input (5) HTN (hypertension): -Stable -continue lisinopril -Hold HCTZ today (6) GERD (gastroesophageal reflux disease): -Continue Ranitidine (7) DVT prophylaxis: -SCDs Re:hematuria Disposition: Plan to discharge home today Total Time Total Time Spent Total Time Spent (In Minutes): 39 minutes Total Time Includes: Examination of the Patient, Discharge Planning, Medication Reconciliation, 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 With Other Providers and Other Discharge Plan Discharge Items Patient Disposition: Home - Self-Care Reason For Visit: HEMATURIA Discharge Diagnosis: Hematuria Presumed urinary tract infection Condition on Discharge: Good Activity: Resume your previous activity Exercise/Sports: Gradually increase as tolerated Non-emergency contact: Primary Care Provider and Urologist Call non-emergency contact if: you have any medication questions, your symptoms worsen, your pain is not controlled, your pain is worsening, your pain is unusual for you, your pain is concerning for you and you have a fever Follow-up/Referrals: Hilario Sigala MD [Primary Care Provider] - Diet: Heart Healthy Addtl Attending Provider Instructions: Follow-up with your primary care physician Dr. Hilario Sigala in 1 week as advised Follow-up with your urologist Dr. Sebastian as recommended by your urologist Continue antibiotic as prescribed--further recommendations as per your primary care physician based on your urine cultures Your urine culture is currently pending at the time of discharge. Please follow-up with your primary care physician for results. Start taking Plavix on May 18, 2019 if no recurrence of bleeding. Seek immediate medical attention if your symptoms reoccur or worsen Pending Studies at Discharge: Yes (Urine culture) Stand-Alone Forms: My [facility] Medications and DC Order Prescriptions: New cefdinir 300 mg capsule 300 mg PO BID 5 Days Qty: 10 RF: 0 Continued lisinopril 40 mg tablet 40 mg PO QAM RF: 0 hydrochlorothiazide 25 mg tablet 25 mg PO QAM RF: 0 clopidogrel 75 mg tablet 75 mg PO QAM RF: 0 ranitidine HCl [Zantac] 150 mg Tablet 150 mg PO BID RF: 0 vitamin E 400 unit Capsule 400 unit PO QAM RF: 0 coal tar 2 % Ointment 1 applic TOPICAL TID RF: 0 Lupron Depot (6 Month) 45 mg Syringe Kit 45 mg IM Q6M RF: 0 Discharge Orders: Discharge Order (Routine); Ordered 05/17/19 Ordered By: Gallo Bailon/Other Patient Handouts: Hematuria Admission Data Admit Date/Time: 05/16/19 15:33 Attending Provider: Gallo Brown Admit Provider: Yareli Villegas Primary Care Provider: Hilario Sigala Other Providers: Yareli Villegas ; Dangelo Woodard ; Quique Sebastian Other Interventions: Discharge Summary Assessment (RN) Last Done: 05/17/19 14:13 DC Date/Time DO NOT enter until pt leaves facility: 05/17/19 15:06
== END 2019-05-17 15:06 | disposition home or self-care (01) | DRG 670 ==
LOC: ED 10:14 → 3W 15:33 → SUATTDRO 15:33 → 3W 16:20

== ENCOUNTER 2024-07-24 10:16 | Inpatient (IN) ==
--- NOTE | 2024-07-24 10:50 | Emergency Department Note ---
Impression & Plan Closed hip fracture, Fall, Acute hypokalemia ED Provider Note NAME: CHRISTY STOREY AGE: 88 SEX: M : 1935 ARRIVES VIA: Walk-In INFORMANT: Patient ED PROVIDER(S): Cj Lorenzana DO CHIEF COMPLAINT: Fall HPI: Patient is an 88-year-old male who presents to the ER with a past medical history of CKD, hematuria, BPH, CVA, GERD on Plavix who presents to the ER as he was walking up the steps and lost his balance and fell onto his left hip. He is complaining of left hip pain. He denies hitting his head. No head or neck pain. No chest pain or shortness of breath. No belly pain. No weakness or numbness in the arms or legs. who is present at bedside provides additional history and notes that he does take Plavix but no other blood thinners. He has been unable to walk following the fall. ADDITIONAL HISTORY OBTAINED: Per HPI Chronic Medical/Social Conditions Affecting Care: Per HPI PAST MEDICAL HISTORY:See Below PAST SURGICAL HISTORY:See Below FAMILY HISTORY:See Below SOCIAL HISTORY:See Below HOME MEDICATIONS:See Below ALLERGIES:See Below VITALS:See Below PHYSICAL EXAMINATION: GENERAL: alert, well appearing, well nourished, no distress, non-toxic HEAD: normal cephalic, atraumatic EYE EXAM: normal conjunctiva, PERRL and EOM's grossly intact OROPHARYNX: no exudate, no erythema, lips, buccal mucosa, and tongue normal and mucous membranes are moist NECK: supple, no nuchal rigidity, no adenopathy, non-tender CHEST: stable to compression anteriorly and posteriorly LUNGS: clear to auscultation. Normal chest wall mechanics HEART: no murmurs, S1 normal and S2 normal ABDOMEN: abdomen soft, non-tender, normo-active bowel sounds, no masses, no rebound or guarding. PELVIS: stable to compression anteriorly and posteriorly BACK: Back is symmetrical on inspection and there is no deformity, no midline tenderness, no CVA tenderness. UPPER EXTREMITIES: full active and passive range of motion of all joints without tenderness to palpation LOWER EXTREMITIES: full active and passive range of motion of all joints without tenderness to palpation NEURO EXAM: Normal sensorium, cranial nerves II-XII grossly intact, normal speech, no gross weakness of arms, no gross weakness of legs. GCS: 15. MEDICAL DECISION MAKING: Patient is an 88-year-old male who presents ER for the below stated complaint. IV was established and blood work was obtained. Labs show mild leukopenia at 4000. No significant anemia. BMP with mild hypokalemia 3.3. LFTs bilirubin was unremarkable. X-ray of the hip and pelvis shows a left hip fracture. Patient was updated bedside. Given IV morphine. Discussed case with the hospitalist for further evaluation management treatment. Consults/Care Managements Discussions: Per MDM Triage Nursing notes reviewed. Limited review of prior medical records performed Vital Signs: reviewed and remarkable for no significant abnormalities Differential diagnosis: Differential diagnoses include major intracranial, cervical, spinal, thoracic, abdominal, pelvic and neurologic injury. Fracture, contusion, sprain, strain, laceration, abrasions included as well. ER treatment provided: See below Diagnostics interpreted by me include EKG and cardiac monitoring as listed below: -Cardiac Monitoring: An order was placed for continuous cardiac monitoring. The monitor shows a rate of 70 with sinus rhythm. -ECG: none -Laboratory studies:Interpreted by me as stated above in MDM and shown below. Imaging studies: Xrays: As interpreted by me: X-rays of the hip and pelvis showed left hip fracture. CTs show: none Procedures:none Critical Care: None Past Med/Surg History Problem List Acute hypokalemia (Acute) Fall (Acute) Closed hip fracture (Acute) Elevated alkaline phosphatase level Anemia Hip fracture Hypokalemia Hypothyroidism Prostate cancer (Chronic) Pain of right hip Tear of right gluteus medius tendon Chronic kidney disease (CKD), stage III (moderate) Dyslipidemia Fatigue Basal cell carcinoma of face (Acute) Benign prostatic hyperplasia with urinary obstruction (Acute) Nocturia (Acute) Nodular prostate with urinary obstruction (Acute) Urinary stream slowing (Acute) Hematuria DVT prophylaxis Possible urinary tract infection S/P TURP (Chronic) HTN (hypertension) (Chronic) History of CVA (cerebrovascular accident) (Chronic) 2018 - residual left hand weakness BPH (benign prostatic hyperplasia) (Chronic) MDS (myelodysplastic syndrome), low grade (Chronic) Prostate cancer (Chronic 12/04/16) Psoriasis (Chronic) GERD (gastroesophageal reflux disease) (Chronic) S/P Mohs surgery for basal cell carcinoma (Chronic) Surgical History H/O hernia repair S/P tonsillectomy and adenoidectomy Family History Father Myocardial infarction Heart disease Sister Heart disease Grandfather (Paternal) Prostate cancer Other Hypertension Stroke Denies family history of Ovarian cancer Breast cancer Colorectal cancer Social History Smoking Status: Never smoker Second Hand Exposure: No; Do You Dip or Chew Tobacco: No; Hx Alcohol Use: Yes Hx Substance Use: No Preferred Language: Danish 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 Ability: Effective Adon Required: No Beliefs That Will Affect Care: None marital status: Current Living Situation: Spouse current occupational status: retired How many Children do You have: 0 Feels Safe at Home: Yes Childhood Exposure to Second-Hand Smoke: No Diet: regular during the past year weight has: remained stable Dental Care, Regularly: Yes Physical Activity Frequency: Daily Physical Activity Frequency Comment: walking Seatbelt Use: always Sunscreen Use: No Assistive Devices: None Allergies Allergies Allergy/AdvReac Type Severity Reaction Status Date / Time Beta-Blockers Allergy Unknown LOW HEART Verified 06/03/24 13:15 (Beta-Adrenergic Bloc RATE "FELT LOUSY" atorvastatin [From Lipitor] AdvReac Abdominal Verified 06/03/24 13:15 Pain Home Meds Home Medications Medication Instructions Recorded Confirmed vitamin E 268 mg (400 unit) capsule 400 unit PO DAILY 01/14/20 07/24/24 coal tar 2 % topical ointment 1 applic topical TID 11/09/22 07/24/24 famotidine 20 mg tablet 20 mg PO BID 11/09/22 07/24/24 Previous Rx's Medication Instructions Recorded cholecalciferol (vitamin D3) 50 50 mcg PO DAILY #30 caps 11/01/21 mcg (2,000 unit) capsule cyanocobalamin (vitamin B-12) 1,000 mcg PO DAILY #30 caps 11/01/21 1,000 mcg capsule clopidogrel 75 mg tablet (Plavix) 75 mg PO DAILY #90 tabs 11/05/23 levothyroxine 75 mcg tablet 75 mcg PO DAILY 90 days #90 tabs 11/16/23 hydrochlorothiazide 25 mg tablet 25 mg PO DAILY #90 tabs 01/01/24 potassium citrate 10 mEq (1,080 10 meq PO DAILY #90 tabs 04/21/24 mg) tablet,extended release Results & Data (ED) Vital Signs Vital Signs - 24 hr 07/24/24 10:21 07/24/24 11:00 07/24/24 11:04 Temperature 36.4 C L Temperature Source Temporal Artery Scan Pulse Rate 72 80 72 Pulse Rate [Right Finger] Pulse Rhythm Regular Respiratory Rate 20 14 12 Respiratory Effort / Characteristics Non-Labored Spontaneous Respiratory Depth Normal Respiratory Pattern Regular Blood Pressure 118/66 130/76 Blood Pressure [Right Arm] Blood Pressure Mean 83 87 Blood Pressure Mean [Right Arm] Pulse Oximetry 97 96 98 Oxygen Delivery Method Room Air Room Air Sepsis Recent Fever Within 48 Hours No Sepsis New/Unexplained Change in Mental Status N/A Sepsis Action Taken by Nursing No Action Required 07/24/24 11:30 07/24/24 12:03 07/24/24 12:04 Temperature Temperature Source Pulse Rate 68 78 Pulse Rate [Right Finger] 78 Pulse Rhythm Respiratory Rate 15 20 Respiratory Effort / Characteristics Non-Labored Spontaneous Respiratory Depth Normal Respiratory Pattern Regular Blood Pressure 124/76 Blood Pressure [Right Arm] 144/83 H Blood Pressure Mean 92 Blood Pressure Mean [Right Arm] 103 Pulse Oximetry 90 95 Oxygen Delivery Method Room Air Sepsis Recent Fever Within 48 Hours Sepsis New/Unexplained Change in Mental Status Sepsis Action Taken by Nursing Laboratory Data 07/24/24 11:07 07/24/24 11:07 Lab Results 07/24/24 Range/Units 11:07 WBC 4.03 L (4.8-10.8) K/ul RBC 3.69 L (4.70-6.10) M/uL Hgb 13.0 L (14.0-18.0) g/dl Hct 37.7 L (42.0-52.0) % MCV 102.2 H (80.0-100.0) fL MCH 35.2 H (25.0-34.0) pg MCHC 34.5 (32.0-36.0) g/dL RDW Std Deviation 46.3 (36.4-46.3) fL RDW Coeff of Alyssa 12.2 (11.5-14.5) % Plt Count 185 (130-400) K/uL MPV 10.5 (9.4-12.4) fL Immature Gran % (Auto) 0.5 % Neut % (Auto) 77.2 % Lymph % (Auto) 7.7 % T[place]air % (Auto) 10.4 % Eos % (Auto) 3.2 % Baso % (Auto) 1.0 % Neut # (Auto) 3.11 (1.40-6.50) K/uL Lymph # (Auto) 0.31 L (1.20-3.40) K/uL [place] # (Auto) 0.42 (0.11-0.59) K/uL Eos # (Auto) 0.13 (0.00-0.50) K/uL Baso # (Auto) 0.04 (0.00-0.20) K/uL Immature Gran # (Auto) 0.02 (0.01-0.20) K/uL Sodium 142 (136-145) mmol/L Potassium 3.3 L (3.5-5.1) mmol/L Chloride 105 (98-107) mmol/L Carbon Dioxide 30 (21-32) mmol/L Anion Gap 7 (3-11) BUN 30 H (6-23) mg/dl Creatinine 1.25 (0.6-1.4) mg/dl Est Cr Clr Drug Dosing 42.3 ml/min eGFR 55.73 BUN/Creatinine Ratio 24.0 H (10-20) Glucose 116 H (70-99(Fasting)) mg/dl Calcium 9.2 (8.6-10.3) mg/dl Total Bilirubin 0.7 (0.2-1.0) mg/dl AST 23 (13-39) U/L ALT 22 (7-52) U/L Alkaline Phosphatase 125 H (34-104) U/L Total Protein 6.2 (6.0-8.3) gm/dl Albumin 4.1 (3.4-5.0) gm/dl Globulin 2.1 L (2.5-4.0) gm/dl Albumin/Globulin Ratio 2.0 (0.9-2) Administered Medications Discontinued Medications Morphine Sulfate (Morphine Sulfate 2 Mg/Ml Carp) 2 mg IV NOW STA Stop: 07/24/24 11:46 Last Admin: 07/24/24 12:06 Dose: 2 mg Documented By: NRB Imaging Data Radiologist's Impression: Hip/Pelvis X-Ray 07/24/24 10:47 XR hip LT 2V w pelvis HISTORY: 88 years-old Male l hip pain cant walk s/p fall acute left hip pain status post fall COMPARISON: CT abdomen and pelvis 01/26/2024 TECHNIQUE: AP view of the pelvis with 2 views of the left hip FINDINGS: Demineralized appearance of the bones. Moderate osteoarthritis of the hips. Brachytherapy seeds of the prostate. Pelvic basin phleboliths. There is an acute impacted transcervical/basicervical left femoral neck fracture without significant displacement. No dislocation. Mild lateral hip soft tissue swelling. IMPRESSION: Acute and impacted left femoral neck fracture. ACT 112: Negative or not required by law. The above report was generated using voice recognition software. It may contain grammatical, syntax or spelling errors. Electronically signed by: Talib Linares M.D. 07/24/2024 11:29 AM Discharge Plan Visit Data Chief Complaint: Fall Stated Complaint: FALL, L HIP PAIN ED Provider: Cj Lorenzana Discharge Problem: Closed hip fracture, Fall, Acute hypokalemia Discharge Instructions Interventions: ED Discharge Assessment Last Done: 07/24/24 13:52 Discharge Problem: Closed hip fracture Qualifiers: Encounter type: initial encounter Laterality: left Qualified Code(s): S72.002A - Fracture of unspecified part of neck of left femur, initial encounter for closed fracture Fall Qualifiers: Encounter type: initial encounter Qualified Code(s): W19.XXXA - Unspecified fall, initial encounter
--- NOTE | 2024-07-24 11:30 | XRay Report ---
XR hip LT 2V w pelvis HISTORY: 88 years-old Male l hip pain cant walk s/p fall acute left hip pain status post fall COMPARISON: CT abdomen and pelvis 01/26/2024 TECHNIQUE: AP view of the pelvis with 2 views of the left hip FINDINGS: Demineralized appearance of the bones. Moderate osteoarthritis of the hips. Brachytherapy seeds of th e prostate. Pelvic basin phleboliths. There is an acute impacted transcervical/basicervical left femo ral neck fracture without significant displacement. No dislocation. Mild lateral hip soft tissue swel ling. IMPRESSION: Acute and impacted left femoral neck fracture. ACT 112: Negative or not required by law. The above report was generated using voice recognition software. It may contain grammatical, syntax o r spelling errors. Electronically signed by: Talib Linares M.D. 07/24/2024 11:29 AM
[2024-07-24 11:36] LABS: Basophils # (auto) 0.04 K/uL (0.00-0.20); Eosinophils # (auto) 0.13 K/uL (0.00-0.50); Eosinophils % (auto) 3.2 %; Hematocrit (blood only) 37.7 % (42.0-52.0); Immature Granulocytes # (auto) 0.02 K/uL (0.01-0.20); Immature Granulocytes % (auto) 0.5 %; Lymphocytes # (auto) 0.31 K/uL (1.20-3.40); Lymphocytes % (auto) 7.7 %; Mean Corpuscular Hemoglobin 35.2 pg (25.0-34.0); Mean Corpuscular Hgb Conc 34.5 g/dL (32.0-36.0); Mean Corpuscular Volume 102.2 fL (80.0-100.0); Mean Platelet Volume 10.5 fL (9.4-12.4); Monocytes # (auto) 0.42 K/uL (0.11-0.59); Monocytes % (auto) 10.4 %; Neutrophils # (auto) 3.11 K/uL (1.40-6.50); Neutrophils % (auto) 77.2 %; Platelet Count 185 K/uL (130-400); RDW Coefficient of Variation 12.2 % (11.5-14.5); RDW Standard Deviation 46.3 fL (36.4-46.3); Red Blood Count 3.69 M/uL (4.70-6.10); White Blood Count 4.03 K/ul (4.8-10.8)
[2024-07-24 11:45] LABS: Albumin Level 4.1 gm/dl (3.4-5.0); Bilirubin,Total 0.7 mg/dl (0.2-1.0); Calcium 9.2 mg/dl (8.6-10.3); Creatinine Clr Calc Pharmacy 42.3 ml/min; Globulin 2.1 gm/dl (2.5-4.0); Potassium 3.3 mmol/L (3.5-5.1); Total Protein 6.2 gm/dl (6.0-8.3)
--- NOTE | 2024-07-24 12:00 | History & Physical Report ---
Date of Service July 24, 2024 Assessment & Plan (1) Hip fracture: Plan: s/p mechanical fall at home Hip and pelvis XR showing acute and impacted left femoral neck fracture hemodynamically and neurovascularly intact Pain adequately controlled patient is on Plavix for history of CVA without visual deficits, took this a.m. 07/24; will hold Plavix, defer to orthopedics team for when to resume orthopedics consulted Patient had breakfast morning of 07/24 at 0930, will keep n.p.o. for now until evaluated by orthopedics Sellers ordered Tylenol + morphine for breakthrough pain control likely to need PT/OT evals postoperatively fall precautions Pre-op: Patient is medically cleared for surgery from Hospitalist standpoint type and screen ordered EKG ordered - personally reviewed, sinus rhythm with first-degree AV block, RBBB Revised cardiac risk index = 6% - No history of CHF or NH, denies history of stent placement - typically able to play up to 15 minutes at 100 steps per minute without chest pain or limiting symptoms - CVA as above, chronic balance issues (2) Hypokalemia: Plan: known history of hypokalemia on hydrochlorothiazide Takes 10 mEq of potassium daily, took this a.m. 07/24 K+ 3.3 on admission With n.p.o. status, will defer p.o. potassium repletion at 60 mEq p.o. until this evening if surgery completed today if no surgical intervention today 07/24, will order p.o. supplement Continue home supplement of 10 mEq daily add MG to am labs and trend BMP (3) History of CVA (cerebrovascular accident): Plan: history of CVA in 2018 on Plavix, without residual deficits Holding Plavix as above Did take Plavix a.m. of 07/24 (4) MDS (myelodysplastic syndrome), low grade: Plan: known history of MDS, low-grade Hgb 13.0, stable platelet count is not suppressed trend CBC with operative management (5) Benign prostatic hyperplasia with urinary obstruction: Plan: History of BPH Sellers catheter as above with hip fracture and likely to have operative management (6) Elevated alkaline phosphatase level: Plan: Known and documented chronically elevated alkaline phosphatase level Currently 125, appears baseline Stable Plan Chronic stable diagnoses: GERDcontinue famotidine Hypothyroidismcontinue levothyroxine HTNcontinue hydrochlorothiazide B12 deficiencycontinue home supplement VTE ppx: SCDs, defer chemical PPx at this time given likely operative management, defer to orthopedics team Diet: NPO, If no surgical intervention 07/24, can advance diet to regular and n.p.o. 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 He presents today after a fall resulting in a left femoral neck fracture. He stated he was on his porch getting his milk that was delivered and believes he tripped over a step. He does remember falling. He stated he has chronic balance issues. He denies loss of consciousness or head strike. He denies dizziness, lightheadedness, chest pain prior to the fall. His at bedside noted that he has fallen 5 times this year. He had home PT services over the summer which seemed to help, but he has not been doing his exercises for the past few days. He did take his Plavix this morning, along with all his other home medications. He last ate breakfast at 930 this morning, no oral intake since. He states that his pain is currently a 3/10, was receiving morphine on exam. He denies past history of DVT, PE, NH, heart failure, stent placement. He does not have any residual deficits after his CVA in 2018. He does not use nicotine products for frequently drink alcohol. He wishes to be full code at this time. He was on 2 L O2 via nasal cannula on exam, stated he sometimes gets hypoxic when sleeping, denies history of sleep apnea or snoring. Has never had a formal sleep study. May benefit from this in the outpatient setting. Denies shortness of breath. Does not use oxygen at baseline. Allergies Allergy/AdvReac Type Severity Reaction Status Date / Time Beta-Blockers Allergy Unknown LOW HEART Verified 06/03/24 13:15 (Beta-Adrenergic Bloc RATE "FELT LOUSY" atorvastatin [From Lipitor] AdvReac Abdominal Verified 06/03/24 13:15 Pain Home Medications Medication Instructions Recorded Confirmed Type vitamin E 268 mg (400 unit) capsule 400 unit PO DAILY 01/14/20 07/24/24 History cholecalciferol (vitamin D3) 50 50 mcg PO DAILY #30 caps 11/01/21 07/24/24 Rx mcg (2,000 unit) capsule cyanocobalamin (vitamin B-12) 1,000 mcg PO DAILY #30 caps 11/01/21 07/24/24 Rx 1,000 mcg capsule coal tar 2 % topical ointment 1 applic topical TID 11/09/22 07/24/24 History famotidine 20 mg tablet 20 mg PO BID 11/09/22 07/24/24 History clopidogrel 75 mg tablet (Plavix) 75 mg PO DAILY #90 tabs 11/05/23 07/24/24 Rx levothyroxine 75 mcg tablet 75 mcg PO DAILY 90 days #90 tabs 11/16/23 07/24/24 Rx hydrochlorothiazide 25 mg tablet 25 mg PO DAILY #90 tabs 01/01/24 07/24/24 Rx potassium citrate 10 mEq (1,080 10 meq PO DAILY #90 tabs 04/21/24 07/24/24 Rx mg) tablet,extended release Past Med/Surg History Problem List Elevated alkaline phosphatase level Anemia Hip fracture Hypokalemia Hypothyroidism Prostate cancer (Chronic) Pain of right hip Tear of right gluteus medius tendon Chronic kidney disease (CKD), stage III (moderate) Dyslipidemia Fatigue Basal cell carcinoma of face (Acute) Benign prostatic hyperplasia with urinary obstruction (Acute) Nocturia (Acute) Nodular prostate with urinary obstruction (Acute) Urinary stream slowing (Acute) Hematuria DVT prophylaxis Possible urinary tract infection S/P TURP (Chronic) HTN (hypertension) (Chronic) History of CVA (cerebrovascular accident) (Chronic) 2018 - residual left hand weakness BPH (benign prostatic hyperplasia) (Chronic) MDS (myelodysplastic syndrome), low grade (Chronic) Prostate cancer (Chronic 12/04/16) Psoriasis (Chronic) GERD (gastroesophageal reflux disease) (Chronic) S/P Mohs surgery for basal cell carcinoma (Chronic) Surgical History H/O hernia repair S/P tonsillectomy and adenoidectomy Family History Father Myocardial infarction Heart disease Sister Heart disease Grandfather (Paternal) Prostate cancer Other Hypertension Stroke Denies family history of Ovarian cancer Breast cancer Colorectal cancer Social History Smoking Status: Never smoker Second Hand Exposure: No; Do You Dip or Chew Tobacco: No; Hx Alcohol Use: Yes Hx Substance Use: No Preferred Language: Yi 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 Ability: Effective Treasury Consultant Required: No Beliefs That Will Affect Care: None marital status: Current Living Situation: Spouse current occupational status: retired How many Children do You have: 0 Feels Safe at Home: Yes Childhood Exposure to Second-Hand Smoke: No Diet: regular during the past year weight has: remained stable Dental Care, Regularly: Yes Physical Activity Frequency: Daily Physical Activity Frequency Comment: walking Seatbelt Use: always Sunscreen Use: No Assistive Devices: None Review of Systems Review of Systems: see HPI Physical Exam Physical Exam: The patient is awake, alert and oriented 3, well developed and well nourished, normocephalic and atraumatic, in no acute distress. Non-toxic appearing. HEENT- EOMI, mucous membranes moist. Hearing grossly intact. Heart-normal S1 and S2. No murmurs, rubs or gallops. Lungs-clear bilaterally, no respiratory distress, no accessory muscle use. 2L O2 via NC. Abdomen-normal bowel sounds and soft. No ascites noted. Non-tender. Extremities- no clubbing, cyanosis, or edema. Rheumatologic-decreased range of motion. Psychiatric-normal affect. Cardiovascular: Vessels: posterior tibial pulses present and dorsalis pedis pulses present Musculoskeletal: no cyanosis or clubbing, extremities motor strength 5/5 Neurologic: Motor/Sensory: no sensory deficit Results & Data Results & Data Vital Signs (Past 12 Hours) Vital Signs Temp Pulse Resp BP Pulse Ox O2 Del Method 07/24/24 11:04 72 12 98 Room Air 07/24/24 11:00 80 14 130/76 96 07/24/24 10:21 36.4 C L 72 20 118/66 97 Room Air Laboratory Results Reviewed CBC and CMP Diagnostic Findings reviewed hip/pelvis XR Medications Administered 2 Mg morphine IV ECG Additional Comments: ordered on admission Code Status & VTE Plan Code Status full code VTE Prophylaxis Plan VTE Prophylaxis will be ordered: Yes Supervising Physician Co-Signing Physician Notes Patient seen and examined, chart reviewed, case discussed with Ciera Rios PA-C and I agree with the assessment and plan as above except as otherwise noted Labs and images reviewed 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 Subsequently found to have a left hip fracture on imaging. Patient is not on anticoagulants. He does take Plavix. Hemoglobin is 13. Creatinine is with a baseline of around 1.21.4, creatinine on admission is 1.25. No head strike. He is normotensive and is not tachycardic. Fall mechani cecille in nature. He was recommended for admission. Ortho consulted at time of admission. At bedside Steve is seen with his present. He reports he was carrying milk in and fell suddenly due to poor balance. He reports he did not lose consciousness, did not have any lightheadedness or dizziness, and did not hit his head but immediately fell and landed on his left hip and had pain and inability to bear weight after this. He did have some breakfast shortly after this but due to continued severe pain then came to the ER. Pain is 3/10 at bedside assessment, received morphine just shortly prior to this. Left hip is internally rotated, knee in the flexed position. PT pulses intact bilaterally. Ankle dorsiflexion/plantarflexion is intact bilaterally without asymmetry. Sensation of soft touch is intact bilaterally. Hip x-ray confirms an acute impacted transcervical/basocervical femoral neck fracture without displacement. Left hip fracture Mechanical fall Orthopedics consulted. Patient had breakfast morning of 07/21 @ N.p.o., if no intervention anticipated today --> NPO at 0000. Patient is on Plavix for history of CVA without focal residual deficits. This is held in anticipation of operative repair - Sellers ordered - Type and screen ordered - Tylenol + breakthrough morphine for pain control. Pain adequately controlled at time of admission Perioperative risk review: No history of CHF or history of cardiac ischemia. Patient is typically able to complete 10-15 minutes at a 100 step per minute paced on the treadmill with no anginal or limiting symptoms prior to this. Patient does have a history of CVA without focal strength or sensory deficits. Does have some chronic balance issues. No preoperative treatment with diabetes Patient does not have a preoperative creatinine greater than 2 RCRI 1 additional point, approximate 6% risk of perioperative cardiac event. No further modifiable risk factors at time of admission. Recommend proceeding to surgery if/as indicated is a RCRI 6% risk. EKG ordered History of MDS Hemoglobin stable and at upper limits of his normal baseline, 13.0 on admission. Platelet count is not suppressed, 185. With management of chronic medical issues as above. PG Care Time/CCT Total # of Minutes Spent Total Time Spent with Patient: Total time spent is greater than 50% in coordination of care (as documented) at patient's floor/unit and/or counseling patient: Coding Level of Care Code 39262 INT INP/OBS CARE MIN Diagnoses Hip fracture S72.009A Hypokalemia E87.6 History of CVA (cerebrovascular accident) Z86.73 MDS (myelodysplastic syndrome), low grade D46.20 Benign prostatic hyperplasia with urinary obstruction N40.1; N13.8 Elevated alkaline phosphatase level R74.8
[2024-07-24] MEDS: MoRPHine SULFATE 2 MG/ML CARP IV STA (12:06)
[2024-07-24] MEDS ORDERED: TRANEXAMIC ACID / 0.7% NACL 1,000 MG/100 ML BAG IV ONE (13:00)
[2024-07-24] MEDS ORDERED: ceFAZolin 2000MG 2,000 MG/15 ML SYR IV ONE (13:00)
[2024-07-24] MEDS ORDERED: ACETAMINOPHEN 1,000 MG/100 ML VIAL IV PRN (13:51)
[2024-07-24] MEDS ORDERED: MoRPHine SULFATE 2 MG/ML CARP IV PRN (13:51)
[2024-07-24] MEDS ORDERED: ONDANSETRON INJ 2 MG/ML 2 ML VIAL IV PRN ×3 (13:51→19:34)
--- NOTE | 2024-07-24 16:22 | Anesthesiology Consultation ---
Date of Service July 24, 2024 Assessment & Plan (1) Encounter for pre-operative examination: Chart Review Chart Review: Acceptable Risk for Surgery and Patient NOT seen in Pre Admission Testing Consults Requested none History Surgery Operation Date: 07/24/24 08:20 Proposed Procedures p Left Hip Pinning and Cannulated Screws - Alvaro Marley Hansen MD Height/Weight Height: 5 ft 7 in Weight: 80.4 kg Allergies Allergy/AdvReac Type Severity Reaction Status Date / Time Beta-Blockers Allergy Unknown LOW HEART Verified 06/03/24 13:15 (Beta-Adrenergic Bloc RATE "FELT LOUSY" atorvastatin [From Lipitor] AdvReac Abdominal Verified 06/03/24 13:15 Pain Medications Home Medications Medication Instructions Recorded Confirmed Last Taken vitamin E 268 mg (400 unit) capsule 400 unit PO DAILY 01/14/20 07/24/24 Unknown cholecalciferol (vitamin D3) 50 50 mcg PO DAILY #30 caps 11/01/21 07/24/24 Unknown mcg (2,000 unit) capsule cyanocobalamin (vitamin B-12) 1,000 mcg PO DAILY #30 caps 11/01/21 07/24/24 Unknown 1,000 mcg capsule coal tar 2 % topical ointment 1 applic topical TID 11/09/22 07/24/24 Unknown famotidine 20 mg tablet 20 mg PO BID 11/09/22 07/24/24 Unknown clopidogrel 75 mg tablet (Plavix) 75 mg PO DAILY #90 tabs 11/05/23 07/24/24 Unknown levothyroxine 75 mcg tablet 75 mcg PO DAILY 90 days #90 tabs 11/16/23 07/24/24 Unknown hydrochlorothiazide 25 mg tablet 25 mg PO DAILY #90 tabs 01/01/24 07/24/24 Unknown potassium citrate 10 mEq (1,080 10 meq PO DAILY #90 tabs 04/21/24 07/24/24 Unknown mg) tablet,extended release Past Medical History Medical History (Updated 07/24/24 @ 16:51 by Hernán Mai MD) Encounter for pre-operative examination Acute hypokalemia Fall Closed hip fracture Elevated alkaline phosphatase level Anemia Hypothyroidism Prostate cancer Chronic kidney disease (CKD), stage III (moderate) HTN (hypertension) 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 GERD (gastroesophageal reflux disease) MDS (myelodysplastic syndrome), low grade Past Family History Family History Father Myocardial infarction Heart disease Sister Heart disease Grandfather (Paternal) Prostate cancer Other Hypertension Stroke Denies family history of Ovarian cancer Breast cancer Colorectal cancer Past Surgical History Surgical History (Updated 07/24/24 @ 16:51 by Hernán Mai MD) S/P TURP S/P Mohs surgery for basal cell carcinoma H/O hernia repair S/P tonsillectomy and adenoidectomy Social History Smoking Status: Never smoker Do You Dip or Chew Tobacco: No Hx Alcohol Use: Yes alcohol intake frequency: holidays/special occasions only Hx Substance Use: No substance use type: does not use Physical Exam Vital Signs Last Vital Signs Temp 36.4 C L 07/24/24 10:21 Pulse 67 07/24/24 14:56 Resp 15 07/24/24 14:30 BP 120/65 07/24/24 14:30 Pulse Ox 95 07/24/24 12:04 O2 Del Method Room Air 07/24/24 12:04 Testing Laboratory Results 07/24/24 11:07 07/24/24 11:07 Blood Type O Positive 07/24/24 12:58 Antibody Screen NEGATIVE 07/24/24 12:58 Electrocardiogram Date: 07/24/24 Findings: + NSR @ and + RBBB septal infarct, first degree AV block
--- NOTE | 2024-07-24 16:26 | Orthopedic Consultation ---
Date of Consultation July 24, 2024 Assessment & Plan (1) Closed hip fracture: IMPRESSION: Left femoral neck fracture, closed, nondisplaced, valgus impacted. PLAN: The patient is a 88 year old male who sustained a Traumatic Osteoporotic fracture of left femoral neck in setting of ground level fall. After orthopedic consult discussing the patients treatment options of conservative versus surgical intervention, the patient agreed for a planned hemiarthroplasty. Since the patient was ambulatory prior to the injury and to avoid the risks of bed sores, pulmonary complications, and to give the patient the best chance for ambulation, I recommended surgery. The patient understands the risks of reid rgery, which include but are not limited to: bleeding, infection, re-operation, damage to nerves and arteries, continued pain, failure of the hardware, fracture, DVT, OR, stroke, and . In addition, the patient is aware of the 20-30% morbidity associated with hip fracture for up to 1 year following a hip fracture. The patient understands all of these instructions and explanations, all of their questions have been satisfactorily addressed. The patient has elected to proceed with surgery and the informed consent was signed. Continue pain control. Has been n.p.o. since 930 this a.m. The patient will be admitted to the Hospitalist service and placed on the add-on list for later today and plan to proceed with surgery as he is medically cleared. Present on Admission?: Yes History of Present Illness Reason for Consultation: Left hip fracture Requesting Physician: Abrahan Hansen MD Attending Physician: Gautam Licona MD History of Present Illness Steve is an 88-year-old male retired [employer] with a past medical history of hypertension, CVA, BPH, low-grade MDS, BCC s/p Mohs surgery, CKD 3, hypothyroidism who sustained a ground-level fall after loosing his balance earlier today and presented with left hip pain and inability to bear weight. Subsequently found to have a left hip fracture on imaging. Patient is an a mbulator. Patient is on Plavix. I was consulted for further evaluation and treatment of his left hip fracture. Denies any other injuries or LOC. Allergies Allergy/AdvReac Type Severity Reaction Status Date / Time Beta-Blockers Allergy Unknown LOW HEART Verified 06/03/24 13:15 (Beta-Adrenergic Bloc RATE "FELT LOUSY" atorvastatin [From Lipitor] AdvReac Abdominal Verified 06/03/24 13:15 Pain Home Medications Medication Instructions Recorded Confirmed Type vitamin E 268 mg (400 unit) capsule 400 unit PO DAILY 01/14/20 07/24/24 History cholecalciferol (vitamin D3) 50 50 mcg PO DAILY #30 caps 11/01/21 07/24/24 Rx mcg (2,000 unit) capsule cyanocobalamin (vitamin B-12) 1,000 mcg PO DAILY #30 caps 11/01/21 07/24/24 Rx 1,000 mcg capsule coal tar 2 % topical ointment 1 applic topical TID 11/09/22 07/24/24 History famotidine 20 mg tablet 20 mg PO BID 11/09/22 07/24/24 History clopidogrel 75 mg tablet (Plavix) 75 mg PO DAILY #90 tabs 11/05/23 07/24/24 Rx levothyroxine 75 mcg tablet 75 mcg PO DAILY 90 days #90 tabs 11/16/23 07/24/24 Rx hydrochlorothiazide 25 mg tablet 25 mg PO DAILY #90 tabs 01/01/24 07/24/24 Rx potassium citrate 10 mEq (1,080 10 meq PO DAILY #90 tabs 04/21/24 07/24/24 Rx mg) tablet,extended release Patient History Surgical History H/O hernia repair S/P tonsillectomy and adenoidectomy Family History Father Myocardial infarction Heart disease Sister Heart disease Grandfather (Paternal) Prostate cancer Other Hypertension Stroke Denies family history of Ovarian cancer Breast cancer Colorectal cancer Social History Smoking Status: Never smoker Second Hand Exposure: No; Do You Dip or Chew Tobacco: No; Hx Alcohol Use: Yes Hx Substance Use: No Preferred Language: Spanish 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 Ability: Effective Bushwalking Guide Required: No Beliefs That Will Affect Care: None marital status: Current Living Situation: Spouse current occupational status: retired How many Children do You have: 0 Feels Safe at Home: Yes Childhood Exposure to Second-Hand Smoke: No Diet: regular during the past year weight has: remained stable Dental Care, Regularly: Yes Physical Activity Frequency: Daily Physical Activity Frequency Comment: walking Seatbelt Use: always Sunscreen Use: No Assistive Devices: None Review of Systems Review of Systems: All systems reviewed & are unremarkable except as noted in HPI & below Physical Exam Physical Exam: LLE: Sensation to light touch intact distally. 2+ DP pulse. able to wiggle toes and ankle up and down. ++ pain with log roll hip. + tenderness to palpation lateral aspect of his hip. No significant shortening. Results & Data Vital Signs (Past 12 Hours) Vital Signs Temp Pulse Pulse Resp BP BP Pulse Ox 07/24/24 14:56 67 07/24/24 14:30 66 15 120/65 07/24/24 14:00 79 21 114/67 07/24/24 13:30 77 15 140/84 07/24/24 12:04 78 20 144/83 H 95 07/24/24 12:03 78 07/24/24 11:30 68 15 124/76 90 07/24/24 11:04 72 12 98 07/24/24 11:00 80 14 130/76 96 07/24/24 10:21 36.4 C L 72 20 118/66 97 O2 Del Method 07/24/24 14:56 07/24/24 14:30 07/24/24 14:00 07/24/24 13:30 07/24/24 12:04 Room Air 07/24/24 12:03 07/24/24 11:30 07/24/24 11:04 Room Air 07/24/24 11:00 07/24/24 10:21 Room Air Laboratory Results Laboratory Results WBC 4.03 K/ul (4.8-10.8) L 07/24/24 11:07 RBC 3.69 M/uL (4.70-6.10) L 07/24/24 11:07 Hgb 13.0 g/dl (14.0-18.0) L 07/24/24 11:07 Hct 37.7 % (42.0-52.0) L 07/24/24 11:07 MCV 102.2 fL (80.0-100.0) H 07/24/24 11:07 MCH 35.2 pg (25.0-34.0) H 07/24/24 11:07 MCHC 34.5 g/dL (32.0-36.0) 07/24/24 11:07 RDW Std Deviation 46.3 fL (36.4-46.3) 07/24/24 11:07 RDW Coeff of Alyssa 12.2 % (11.5-14.5) 07/24/24 11:07 Plt Count 185 K/uL (130-400) 07/24/24 11:07 MPV 10.5 fL (9.4-12.4) 07/24/24 11:07 Immature Gran % (Auto) 0.5 % 07/24/24 11:07 Neut % (Auto) 77.2 % 07/24/24 11:07 Lymph % (Auto) 7.7 % 07/24/24 11:07 [place] % (Auto) 10.4 % 07/24/24 11:07 Eos % (Auto) 3.2 % 07/24/24 11:07 Baso % (Auto) 1.0 % 07/24/24 11:07 Neut # (Auto) 3.11 K/uL (1.40-6.50) 07/24/24 11:07 Lymph # (Auto) 0.31 K/uL (1.20-3.40) L 07/24/24 11:07 [place] # (Auto) 0.42 K/uL (0.11-0.59) 07/24/24 11:07 Eos # (Auto) 0.13 K/uL (0.00-0.50) 07/24/24 11:07 Baso # (Auto) 0.04 K/uL (0.00-0.20) 07/24/24 11:07 Immature Gran # (Auto) 0.02 K/uL (0.01-0.20) 07/24/24 11:07 Sodium 142 mmol/L (136-145) 07/24/24 11:07 Potassium 3.3 mmol/L (3.5-5.1) L 07/24/24 11:07 Chloride 105 mmol/L (98-107) 07/24/24 11:07 Carbon Dioxide 30 mmol/L (21-32) 07/24/24 11:07 Anion Gap 7 (3-11) 07/24/24 11:07 BUN 30 mg/dl (6-23) H 07/24/24 11:07 Creatinine 1.25 mg/dl (0.6-1.4) 07/24/24 11:07 Est Cr Clr Drug Dosing 42.3 ml/min 07/24/24 11:07 eGFR 55.73 07/24/24 11:07 BUN/Creatinine Ratio 24.0 (10-20) H 07/24/24 11:07 Glucose 116 mg/dl (70-99(Fasting)) H 07/24/24 11:07 Calcium 9.2 mg/dl (8.6-10.3) 07/24/24 11:07 Total Bilirubin 0.7 mg/dl (0.2-1.0) 07/24/24 11:07 AST 23 U/L (13-39) 07/24/24 11:07 ALT 22 U/L (7-52) 07/24/24 11:07 Alkaline Phosphatase 125 U/L (34-104) H 07/24/24 11:07 Total Protein 6.2 gm/dl (6.0-8.3) 07/24/24 11:07 Albumin 4.1 gm/dl (3.4-5.0) 07/24/24 11:07 Globulin 2.1 gm/dl (2.5-4.0) L 07/24/24 11:07 Albumin/Globulin Ratio 2.0 (0.9-2) 07/24/24 11:07 Blood Type O Positive 07/24/24 12:58 Antibody Screen NEGATIVE 07/24/24 12:58 Impressions Hip/Pelvis X-Ray 07/24/24 10:47 XR hip LT 2V w pelvis HISTORY: 88 years-old Male l hip pain cant walk s/p fall acute left hip pain status post fall COMPARISON: CT abdomen and pelvis 01/26/2024 TECHNIQUE: AP view of the pelvis with 2 views of the left hip FINDINGS: Demineralized appearance of the bones. Moderate osteoarthritis of the hips. Brachytherapy seeds of the prostate. Pelvic basin phleboliths. There is an acute impacted transcervical/basicervical left femoral neck fracture without significant displacement. No dislocation. Mild lateral hip soft tissue swelling. IMPRESSION: Acute and impacted left femoral neck fracture. ACT 112: Negative or not required by law. The above report was generated using voice recognition software. It may contain grammatical, syntax or spelling errors. Electronically signed by: Talib Linares M.D. 07/24/2024 11:29 AM (1) Closed hip fracture Encounter type: initial encounter Laterality: left Qualified Code(s): S72.002A - Fracture of unspecified part of neck of left femur, initial encounter for closed fracture
[2024-07-24] MEDS ORDERED: ePHEDrine sulfate 50 MG/ML AMP IV PRN (16:51)
[2024-07-24] MEDS ORDERED: ATROPINE SULFATE 0.1 MG/ML 10ML SYR IV PRN (16:51)
[2024-07-24] MEDS ORDERED: fentaNYL citrate PF 100 MCG/2 ML VIAL IV PRN (16:51)
[2024-07-24] MEDS ORDERED: LIDOCAINE 2% 20 MG/ML 5 ML SYR IV ONE (16:59)
[2024-07-24] MEDS ORDERED: ROCURONIUM BROMIDE 10 MG/ML 5 ML VIAL IV ONE (16:59)
[2024-07-24] MEDS ORDERED: PROPOFOL IV EMULSION 10 MG/ML 20 ML VIAL IV ONE ×2 (16:59→17:00)
[2024-07-24] MEDS ORDERED: ONDANSETRON INJ 2 MG/ML 2 ML VIAL ONE (16:59)
[2024-07-24] MEDS ORDERED: DEXAMETHASONE SOD INJ 4 MG/ML VIAL ONE (16:59)
[2024-07-24] MEDS ORDERED: fentaNYL citrate PF 100 MCG/2 ML VIAL ONE ×2 (17:00→18:20)
[2024-07-24] MEDS ORDERED: ePHEDrine sulfate 50 MG/ML AMP ONE ×2 (17:06)
[2024-07-24] MEDS: ceFAZolin 2000MG 2,000 MG/15 ML SYR IV SCH (17:25)
[2024-07-24] MEDS: TRANEXAMIC ACID / 0.7% NACL 1,000 MG/100 ML BAG IV SCH (17:40)
[2024-07-24] MEDS ORDERED: PHENYLEPHRINE HCL 10 MG/ML VIAL ONE (18:28)
[2024-07-24] MEDS ORDERED: SUGAMMADEX SODIUM 200 MG/2 ML VIAL IV ONE (18:58)
--- NOTE | 2024-07-24 19:03 | Post Operative Brief Note ---
Immediate Post Op Note Date of Surgery July 24, 2024 Pre & Post Diagnosis Operation Date: 07/24/24 08:20 Pre-Op Diagnosis: Left femoral neck fracture Post-Op Diagnosis: Left femoral neck fracture I identified the patient and participated in the time-out.: Yes Procedure Operation Date: 07/24/24 08:20 Actual Procedures p ORIF Left Hip fracture (Left) - Alvaro Hansen MD Surgeon Alvaro Hansen MD Plaster Mixer Sophie Gaspar DO Estimated Blood Loss 40 Findings Consistent with Post-Op Diagnosis Fluids 500 cc Drains Sellers Catheter (patient had prior to entry into operating room) Anesthesia Type General Complications none
[2024-07-24] MEDS: LIDOCAINE 1%/EPINEPHRINE 1:100,000 50 ML VIAL ONE (19:04)
[2024-07-24] MEDS: BUPIVACAINE/EPINEPHRINE 0.25% 1:200,000 30 ML VIAL ONE (19:06)
--- NOTE | 2024-07-24 19:08 | Operative Report ---
Post Operative Report Pre & Post Diagnosis Operation Date: 07/24/24 08:20 Pre-Op Diagnosis: Left femoral neck fracture Post-Op Diagnosis: Left femoral neck fracture I identified the patient and participated in the time-out.: Yes Procedure Operation Date: 07/24/24 08:20 Actual Procedures p Open reduction internal fixation left hip(Left) - Alvaro Hansen MD Surgeon Alvaro Hansen MD Culinary Arts Instructor Sophie Gaspar DO Estimated Blood Loss 40 Findings See Below Valgus impacted left femoral neck fracture Fluids 500 cc Specimens n/a Drains Sellers Anesthesia Type General Complications none Indications The patient is a 88 year old male who sustained a left hip fracture following a ground level fall. Their treatment options of conservative versus surgical intervention were discussed. Since the patient was an ambulatory prior to their injury and to avoid the risks of bed sores, pulmonary complications, and to give them the best chance for ambulation, I recommended surgery. The patient and their family understands the risks of surgery, which include but are not limited to: bleeding, infection, re-operation, damage to nerves and arteries, continued pain, failure of the hardware, mal-union, non-union, DVT, and . Due to their medical problems the patient and their family understand that the patient is a high risk candidate for surgery. In addition the patient is aware of the 20-30% morbidity associated with hip fracture for up to 1 year following a hip fracture. The patient understands all of these instructions and explanations, all of their questions have been satisfactorily addressed. The patient has elected to proceed with surgery and the informed consent was signed. Description of Procedure IMPLANTS: 1) FNS Plate 1 hole (SYNTHES). 2) [place] FNS 90 mm (SYNTHES) 3) Anti-rotation screw 90 mm (SYNTHES) 4) 5.0 Ti Locking screw 48 mm (SYNTHES) Procedure The patient was taken to the Operating Room and placed in the supine position on the fracture table after general anesthesia was administered. A multidisciplinary time-out was performed identifying my initials on the left lower limb as the correct and operative limb. Prior to the incision being made, 2 g intravenous Ancef was given. Fluoroscopy was brought in to ensure adequate x-rays images could be obtained. No reduction was necessary as the femoral neck fracture was non-displaced and remained in its alignment with placement of the patient on the fracture table. Once this was confirmed with Fluro, the left lower extremity was prepped in the standard fashion. The trochanter was marked as was the planned incision. The incision was injected with a 50:50 mixture of 1% Lidocaine with epinephrine and 0.5% Marcaine plain for a total of 15cc. The planned incision was carried down through the Tensor Fascia Barbara to expose the greater trochanter and the starting position. Using Fluro a starting guide wire was placed proximal to the lesser trochanter a nd centered along the femoral neck. This was measured and the cannulated drill was used in the standard fashion. The [place] and plate were then inserted over the guide wire in the standard fashion. The anti-rotation screw was prepped with the aiming guide using the appropriate drill in the standard fashion followed by placement of the anti-rotation screw. Then using the aiming guide the distal locking screw was prepped with the aiming guide using the appropriate drill in the standard fashion followed by placement of the locking screw. Final x-rays were obtained showing anatomic alignment with fracture and hardware in good position, TAD less than 25 mm. The wounds were copiously irrigated. The Tensor Fascia Barbara was closed with 0 Vicryl. The subcutaneous tissue was closed with 3-0 Vicryl. The skin was closed with ZipLine and shield. The incision was covered with 4x4s, ABD, and foam tape. The patient was transfer to their hospital bed and taken to the PACU in stable condition. The sponge and needle counts were correct. Post-op Instructions: The patient was re-admitted to Hospitalist service. The patient will be WBAT with a walker. The patient will be seen by PT/OT. Their labs will be checked in the am. Will re-start Plavix. DVT prophylaxis will include 81 mg ASA BID for 6 weeks, TEDs for 3 weeks, SCDs while in the hospital. I attest to the content of the Intraoperative Record and any orders documented therein. Any exceptions are noted below.
[2024-07-24] MEDS ORDERED: oxyCODONE HCL IR 5 MG TAB (IMMEDIATE RELEASE) PO PRN (19:34)
[2024-07-24] MEDS ORDERED: NALOXONE HCL 0.4 MG/1 ML VIAL/CARP IV PRN (19:34)
[2024-07-24] MEDS ORDERED: MAGNESIUM HYDROXIDE SUSP 30 ML UDC PO PRN (19:34)
[2024-07-24] MEDS ORDERED: bisacodyL 10 MG SUPP PR PRN (19:34)
--- NOTE | 2024-07-24 19:42 | Operative Report ---
Post Operative Report Pre & Post Diagnosis Operation Date: 07/24/24 08:20 Pre-Op Diagnosis: Left femoral neck fracture Post-Op Diagnosis: Left femoral neck fracture I identified the patient and participated in the time-out.: Yes Procedure Operation Date: 07/24/24 08:20 Actual Procedures p Open reduction internal fixation left hip(Left) - Alvaro Hansen MD Surgeon Alvaro Hansen MD Armature Tester Sophie Gaspar DO Estimated Blood Loss 40 Findings Consistent with Post-Op Diagnosis Specimens None Description of Procedure Patient was brought to the operative suite where he underwent anesthesia. The left lower extremity was prepped and draped in the usual sterile fashion. A surgical timeout was performed. The patient underwent a left femoral neck fracture open reduction internal fixation, please see Dr. Hansen's operative report for full details. I was present and assisted with surgical approach, hemostasis, soft tissue handling, limb positioning, patient positioning, hardware placement, wound closure, postoperative dressing placement. The patient was awakened and taken to the recovery room in satisfactory condition. I attest to the content of the Intraoperative Record and any orders documented therein. Any exceptions are noted below.
[2024-07-24] MEDS: POTASSIUM CHLORIDE CRTAB 20 MEQ TABCR PO ONE (20:45)
--- NOTE | 2024-07-24 22:14 | Anesthesiology Progress Note ---
Date of Service July 24, 2024 Anesthesia Post Procedure Vital Signs Vital Signs: Temp Pulse Pulse Pulse Resp BP BP 07/24/24 21:20 36.7 C 86 16 111/64 07/24/24 20:57 36.5 C 87 16 122/76 07/24/24 20:23 36.6 C 22 133/80 07/24/24 20:00 36.7 C 80 22 132/65 07/24/24 19:50 85 19 110/63 07/24/24 19:40 82 15 93/64 L 07/24/24 19:33 36.0 C L 84 15 113/56 L 07/24/24 16:41 37.0 C 85 17 139/70 07/24/24 14:56 67 07/24/24 14:30 66 15 120/65 07/24/24 14:00 79 21 114/67 07/24/24 13:30 77 15 140/84 07/24/24 12:04 78 20 144/83 H 07/24/24 12:03 78 07/24/24 11:30 68 15 124/76 07/24/24 11:04 72 12 07/24/24 11:00 80 14 130/76 07/24/24 10:21 36.4 C L 72 20 118/66 Pulse Ox O2 Del Method O2 Flow Rate 07/24/24 21:20 93 Nasal Cannula 2 07/24/24 20:57 91 Nasal Cannula 2 07/24/24 20:23 92 Nasal Cannula 2 07/24/24 20:00 94 Nasal Cannula 4 07/24/24 19:50 93 Nasal Cannula 4 07/24/24 19:40 92 Nasal Cannula 4 07/24/24 19:33 98 Oxymask 10 07/24/24 16:41 94 Nasal Cannula 2 07/24/24 14:56 07/24/24 14:30 07/24/24 14:00 07/24/24 13:30 07/24/24 12:04 95 Room Air 07/24/24 12:03 07/24/24 11:30 90 07/24/24 11:04 98 Room Air 07/24/24 11:00 96 07/24/24 10:21 97 Room Air Pain Intensity Left Hip: Pain Intensity: 4 Transfer of Care Handoff Completed per policy Notes Mental Status: alert / awake / arousable and participated in evaluation Patient Amnestic to Procedure: Yes Nausea / Vomiting: adequately controlled Pain: adequately controlled Airway Patency, RR, SpO2: stable & adequate BP & HR: stable & adequate Hydration State: stable & adequate Anesthetic Complications: no major complications apparent and Pt Satisfied with anesthetic care
[2024-07-24] MEDS: ACETAMINOPHEN 500 MG TAB PO SCH (22:28)
[2024-07-24] MEDS: FAMOTIDINE 20 MG TAB PO SCH (22:29)
[2024-07-25] MEDS: ceFAZolin 2000MG 2,000 MG/15 ML SYR IV SCH (00:51)
--- NOTE | 2024-07-25 01:56 | XRay Report ---
Exam(s): XR LEFT HIP EXAM: XR Left Hip , 2 Views CLINICAL HISTORY: Reason for exam: Post-Operative implant position. TECHNIQUE: Two views of the left hip COMPARISON: No relevant prior studies available. FINDINGS: Bones/joints: There are postoperative changes involving the proximal femur. No acute fracture. No dislocation. Soft tissues: There is subcutaneous emphysema. IMPRESSION: Postoperative changes. Subcutaneous emphysema. Electronically signed by: Dalton Cintron MD 07/25/24 01:55 AM
--- NOTE | 2024-07-25 02:44 | Electrocardiogram Report ---
Test Reason : Blood Pressure : */* mmHG Vent. Rate : 77 BPM Atrial Rate : 77 BPM P-R Int : 226 ms QRS Dur : 108 ms QT Int : 404 ms P-R-T Axes : 52 217 70 degrees QTcB Int : 457 ms Sinus rhythm with 1st degree A-V block Incomplete right bundle branch block Septal infarct , age undetermined Abnormal ECG When compared with ECG of 14-Jan-2020 15:58, Incomplete right bundle branch block is now Present Septal infarct is now Present Confirmed by Sarabjit Yepez ([id number]) on 07/25/2024 2:44:10 AM Referred By: REFERRED SELF Confirmed By: Sarabjit Yepez
[2024-07-25] MEDS: LEVOTHYROXINE SODIUM 75 MCG TABLET PO SCH (05:34)
--- NOTE | 2024-07-25 07:45 | Fluoroscopy Report ---
FL hip LT 2-3V CLINICAL HISTORY: LEFT HIP TECHNIQUE: 2 views were obtained with the C-arm in the OR with the above procedure. Total fluoroscopy time was 43.9 seconds. Radiation dose was 20 point mGy. Comparison: Comparison is made to hip radiograph 07/24/2024 FINDINGS/IMPRESSION: Intraoperative images were obtained of left hip pinning and cannulated screw tanya cement. Please correlate with intraoperative fluoroscopy and operative report. ACT 112: Negative or not required by law. Electronically signed by: Juan Hernandez M.D. 07/25/2024 7:42 AM
[2024-07-25 08:21] LABS: Calcium 8.5 mg/dl (8.6-10.3); Magnesium 1.7 mg/dl (1.7-2.4); Potassium 4.3 mmol/L (3.5-5.1)
[2024-07-25 08:35] LABS: Basophils # (auto) 0.02 K/uL (0.00-0.20); Basophils % (auto) 0.2 %; Eosinophils # (auto) 0.01 K/uL (0.00-0.50); Eosinophils % (auto) 0.1 %; Hematocrit (blood only) 32.7 % (42.0-52.0); Hemoglobin 11.4 g/dl (14.0-18.0); Immature Granulocytes # (auto) 0.03 K/uL (0.01-0.20); Immature Granulocytes % (auto) 0.3 %; Lymphocytes # (auto) 0.37 K/uL (1.20-3.40); Lymphocytes % (auto) 4.1 %; Mean Corpuscular Hemoglobin 35.2 pg (25.0-34.0); Mean Corpuscular Hgb Conc 34.9 g/dL (32.0-36.0); Mean Corpuscular Volume 100.9 fL (80.0-100.0); Mean Platelet Volume 10.8 fL (9.4-12.4); Monocytes # (auto) 0.84 K/uL (0.11-0.59); Monocytes % (auto) 9.3 %; Neutrophils # (auto) 7.72 K/uL (1.40-6.50); Platelet Count 176 K/uL (130-400); RDW Standard Deviation 44.9 fL (36.4-46.3); Red Blood Count 3.24 M/uL (4.70-6.10); White Blood Count 8.99 K/ul (4.8-10.8)
[2024-07-25] MEDS: CYANOCOBALAMIN (B-12) 500 MCG TABLET PO SCH (09:39)
[2024-07-25] MEDS: hydroCHLOROthiazide 25 MG TAB PO SCH (09:40)
--- NOTE | 2024-07-25 09:45 | Orthopedic Progress Note ---
Date of Service July 25, 2024 Assessment & Plan (1) Status post open reduction and internal fixation (ORIF) of fracture: Plan: Post op day #1 s/p ORIF left femoral neck fracture Doing very well today. Neurovascularly intact. Mild anemia hemoglobin 11.4 secondary to acute blood loss from surgery yesterday. Postop x-ray shows expected findings. Patient will participate with PT and OT today. He can be weightbearing as tolerated with a walker. Discharge planning Case management reviewed - likely home health services Pain management DVT prophylaxis with TEDs, foot pumps, aspirin and plavix Follow up appointment listed in discharge tab (2) Closed hip fracture: Admission and Anticipated Discharge Date Admission Date: July 24, 2024 Subjective Patient seen in bed this morning. He is doing well. He does not have any pain in the left hip or leg at rest. Enjoyed his breakfast. Denies any numbness or tingling in his toes and can move his toes and ankle. He has not been up with PT or OT yet. He is hopeful to get things moving today. Lives at home with his capable . Denies any chest pain, shortness of breath, nausea, vomiting, calf pain. Physical Exam Constitutional: Resting comfortably in bed no distress. Pleasant Cardiovascular: DP pulses 1+ bilaterally. PT pulses 2+ bilaterally Musculoskeletal: Left lower extremity: Dressing in place over the left lateral hip. Underlying dressing is dry. Minimal ecchymosis posterior to the left hip incision. Soft tissue without induration. Strength 5/5 with ankle plantarflexion dorsiflexion, inversion and eversion. Moves all toes without difficulty. Passive range of motion of the hip and knee without tenderness. No calf tenderness or swelling. Neurologic: No sensory deficits in bilateral toes to light touch. Results & Data Vital Signs (Past 12 Hours) Vital Signs Temp Pulse Pulse Resp BP Pulse Ox O2 Del Method 07/25/24 08:00 97.9 F 82 18 112/64 94 Room Air 07/25/24 07:40 Room Air 07/25/24 07:15 98.1 F 76 16 107/66 94 Room Air 07/25/24 05:31 98.6 F 86 18 109/61 94 Nasal Cannula 07/24/24 23:15 98.1 F 90 15 107/64 92 Nasal Cannula 07/24/24 22:17 98.1 F 89 16 109/64 94 Room Air O2 Flow Rate 07/25/24 08:00 07/25/24 07:40 07/25/24 07:15 07/25/24 05:31 2 07/24/24 23:15 2 07/24/24 22:17 2 Diagnostic Findings Hip X-Ray 07/24/24 19:31 Exam(s): XR LEFT HIP EXAM: XR Left Hip , 2 Views CLINICAL HISTORY: Reason for exam: Post-Operative implant position. TECHNIQUE: Two views of the left hip COMPARISON: No relevant prior studies available. FINDINGS: Bones/joints: There are postoperative changes involving the proximal femur. No acute fracture. No dislocation. Soft tissues: There is subcutaneous emphysema. IMPRESSION: Postoperative changes. Subcutaneous emphysema. Electronically signed by: Dalton Cintron MD 07/25/24 01:55 AM (2) Closed hip fracture Encounter type: initial encounter Laterality: left Qualified Code(s): S72.002A - Fracture of unspecified part of neck of left femur, initial encounter for closed fracture
[2024-07-25] MEDS: ASPIRIN 81 MG ECTAB PO SCH (10:55)
[2024-07-25] MEDS: POTASSIUM CITRATE 10 MEQ TAB PO SCH (10:55)
[2024-07-25] MEDS: CLOPIDOGREL BISULFATE 75 MG TAB PO SCH (10:55)
--- NOTE | 2024-07-25 12:13 | Hospitalist Progress Note ---
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 Hansen 07/24 - ASA BID x 6 weeks for DVT proh, TEDs - okay to resume plavix PT/OT - pending, pt hoping to go home with home health (2) Hypokalemia: Plan: known history of hypokalemia on hydrochlorothiazide K 3.3 on admission Recieved PO supplementation, now replete (3) History of CVA (cerebrovascular accident): Plan: history of CVA in 2018 on Plavix, without residual deficits okay to continue plavix (4) Elevated alkaline phosphatase level: Plan: Known and documented chronically elevated alkaline phosphatase level Currently 125, appears baseline Stable Plan Chronic stable diagnoses: GERDcontinue famotidine Hypothyroidismcontinue levothyroxine HTNcontinue hydrochlorothiazide B12 deficiencycontinue home supplement MDS VTE ppx: SCDs, TEDs, ASA BID per ortho Dispo: continued inpatient stay, hopeful for discharge tomorrow if pt able to tolerate stairs Admission and Anticipated Discharge Date Admission Date: July 24, 2024 Supervising Physician Co-Signing Physician Notes Attending Attestation - Chart reviewed, care plan d/w SARA Espinosa. I agree w/ the taylor components of her documentation. Dionicio Bundy MD Subjective Patient seen sitting up in the chair. worked with therapy and did well. Hoping that he will be able to go home and not need rehab pain is well controlled passing gas since surgery lives with - one stair to entry Review of Systems Review of Systems: All systems reviewed & are unremarkable except as noted in Subjective Physical Exam Physical Exam: .General: NAD, VS as above, sitting up in the chair, pleasant Resp: normal respiratory effort, lungs clear to auscultation CV: RRR, no murmur, Abd: normal bowel sounds, non tender, no hepatosplenomegaly Extremities: Moves all extremities, justin hose in place. left hip dressing c/d/i Neuro: A&O x3, Skin: intact, no lesions noted Results & Data Results & Data Vital Signs (Past 12 Hours) Vital Signs Temp Pulse Pulse Resp BP Pulse Ox O2 Del Method 07/25/24 11:16 98.4 F 78 17 105/64 95 Room Air 07/25/24 08:00 97.9 F 82 18 112/64 94 Room Air 07/25/24 07:40 Room Air 07/25/24 07:15 98.1 F 76 16 107/66 94 Room Air 07/25/24 05:31 98.6 F 86 18 109/61 94 Nasal Cannula O2 Flow Rate 07/25/24 11:16 07/25/24 08:00 07/25/24 07:40 07/25/24 07:15 07/25/24 05:31 2 Laboratory Results Cbc and chemistry reviewed Diagnostic Findings xray reviewed PG Care Time/CCT Total # of Minutes Spent Total Time Spent with Patient: Total time spent is greater than 50% in coordination of care (as documented) at patient's floor/unit and/or counseling patient: Coding Level of Care Code 62217 SUB INP/OBS CARE 3/50MIN Diagnoses Hip fracture S72.009A Hypokalemia E87.6 History of CVA (cerebrovascular accident) Z86.73 Elevated alkaline phosphatase level R74.8
[2024-07-25] MEDS: DOCUSATE SODIUM 100 MG CAP PO PRN (20:07)
[2024-07-26 07:20] VITALS: BP 123/73; PULSE 76; RESP 16; TEMP 98.4; O2SAT 93
--- NOTE | 2024-07-26 09:23 | Orthopedic Progress Note ---
Date of Service July 26, 2024 Assessment & Plan (1) Status post open reduction and internal fixation (ORIF) of fracture: Plan: Post op day #2 s/p ORIF left femoral neck fracture Dressing was changed to a Silverlon dressing. This may remain in place. He may shower over it. Doing very well today. Neurovascularly intact. Patient will participate with PT and OT today. He is weightbearing as tolerated with a walker. Discharge to home today after PT/OT, with home health starting on Sunday Prescription for oxycodone was sent to his pharmacy. DVT prophylaxis with TEDs, baby aspirin and continue his plavix Weight-bear as tolerated using his walker. Follow up appointment listed in discharge tab The patient was seen in conjunction with Dr. Hansen, who also evaluated the patient. Admission and Anticipated Discharge Date Admission Date: July 24, 2024 Subjective This 88-year-old male is seen today in his room. He is 2 days status post left hip ORIF with cannulated screws. He states he is doing well. He would like to go home today. He feels he can manage at home. He denies any chest pain, shortness of breath, nausea, vomiting, or abdominal pain. He states he did not sleep well because of the disturbances in the hallway. Home health has already been set up for Sunday. He states he has no pain when sitting. His only discomfort is when standing or moving. Lives with his - one stair to entry Physical Exam Physical Exam: General: Well-developed, well-nourished, elderly male, in no acute distress. Sitting on the side of his bed. Alert and oriented. Skin: Warm dry with good turgor. No rashes. Mild ecchymosis has developed over the left hip. Postsurgical dressings are in place. Upon removal, Zipline is in place. There is no drainage on his dressings. No active drainage from the wound. Musculoskeletal: Left knee evaluation reveals intact motor function to the hip, knee, ankle, and toes. He was able to actively flex his hip. He stands at bedside without assistance or difficulty. Neurologic: Gross sensation is intact across the left leg by soft touch. Peripheral pulses are 2+. Results & Data Vital Signs (Past 12 Hours) Vital Signs Temp Pulse Resp BP Pulse Ox O2 Del Method 07/26/24 07:17 36.9 C 76 16 123/73 93 Room Air
--- NOTE | 2024-07-26 10:16 | Discharge Summary ---
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 Hansen 07/24 - ASA BID x4 weeks for DVT proh, TEDs - okay to resume plavix PPI added for GI proh with increase in ASA for 4 weeks PT/OT -recommend home with home health, arranged for start date 07/28 (2) Hypokalemia: known history of hypokalemia on hydrochlorothiazide K 3.3 on admission Received PO supplementation, now replete rx given for 20meq x 5 days - defer manager terminal change in management to PCP (3) History of CVA (cerebrovascular accident): history of CVA in 2018 on Plavix, without residual deficits okay to continue plavix (4) Elevated alkaline phosphatase level: Known and documented chronically elevated alkaline phosphatase level Currently 125, appears baseline Stable Plan Chronic stable diagnoses: GERDcontinue famotidine Hypothyroidismcontinue levothyroxine HTNcontinue hydrochlorothiazide B12 deficiencycontinue home supplement MDS Dispo: discharge to home with home health Notes For Next Care Provider pt worried about potassium levels and believes he needs higher daily supplementation Medication Changes From Visit PPI x 4 weeks while ASA is increased Admission HPI Per Admitting Provider 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 He presents today after a fall resulting in a left femoral neck fracture. He stated he was on his porch getting his milk that was delivered and believes he tripped over a step. He does remember falling. He stated he has chronic balance issues. He denies loss of consciousness or head strike. He denies dizziness, lightheadedness, chest pain prior to the fall. His at bedside noted that he has fallen 5 times this year. He had home PT services over the summer which seemed to help, but he has not been doing his exercises for the past few days. He did take his Plavix this morning, along with all his other home medications. He last ate breakfast at 930 this morning, no oral intake since. He states that his pain is currently a 3/10, was receiving morphine on exam. He denies past history of DVT, PE, [place], heart failure, stent placement. He does not have any residual deficits after his CVA in 2018. He does not use nicotine products for frequently drink alcohol. He wishes to be full code at this time. He was on 2 L O2 via nasal cannula on exam, stated he sometimes gets hypoxic when sleeping, denies history of sleep apnea or snoring. Has never had a formal sleep study. May benefit from this in the outpatient setting. Denies shortness of breath. Does not use oxygen at baseline. Discharge Exam .General: NAD, VS as above, sitting up in the chair, pleasant Resp: normal respiratory effort, lungs clear to auscultation CV: RRR, no murmur, Abd: normal bowel sounds, non tender, no hepatosplenomegaly Extremities: Moves all extremities, justin hose in place. left hip dressing c/d/i Neuro: A&O x3, Skin: intact, no lesions noted Discharge Plan Discharge Items Patient Disposition: Home - Home Health Services Reason For Visit: FALL, L HIP PAIN Discharge Diagnosis: Left hip status post open reduction and internal fixation Condition on Discharge: Good Activity: Per Instructions section Lifting: Wait until after follow-up appointment Bathing: Keep incision dry Sexual Activity: Wait until after follow-up appointment Exercise/Sports: Wait until after follow-up appointment Driving/Machine Use: No driving until cleared by Dr. Hansen Weightbearing: Full weightbearing Non-emergency contact: Surgeon Call non-emergency contact if: you have any medication questions, your pain is not controlled, your temperature is above 101, your wound has increased redness, your wound has increased drainage and your wound pain has increased Follow-up/Referrals: Pro,Kyle Kothari MD [Primary Care Provider] - Brisa Lagunas PA-C [Physician Wire Bound Box Machine Operator] - 08/08/24 11:15 am Diet: Regular Addtl Attending Provider Instructions: Mr. Patel, You were hospitalized after a fall resulting in a hip fracture. This was repaired by Dr. Hansen and you have done quite well. Home health will be coming to your house to assist, the first visit is schedule for Sunday. Your potassium was 4.3 on 07/25, but the chronically low potassium is likely attributed to the hydrochlorothiazide use. You can discuss this with your PCP in the future. protonix added for 4 weeks while aspirin is doubled. Instructions from orthopedics are below. Please follow up with you PCP in on week. Activity: You can do normal everyday activities as your body allows. Take rest breaks if you feel tired. Do not overexert. Stop activity if you have pain, shortness of breath or feel dizzy. Follow-up appointments: Make an appointment with your primary care physician within one week of discharge. A copy of this summary will be sent to them. Every time you see your primary care physician, or any other doctor, bring your medication list, and a list of questions. CONTACT YOUR PRIMARY CARE PROVIDER if you experience any of the following: Shortness of breath or difficulty breathing Fevers or chills Feeling tired with normal activity or experiencing dizziness or fainting Difficulty following your treatment plan, or difficulty taking medications CALL 911 OR GO TO THE EMERGENCY DEPARTMENT if you experience any of the following: Severe abdominal pain or nausea/vomiting Severe chest pain, or chest pain that radiates (moves) to your jaw or arm Sudden, severe shortness of breath or difficulty breathing Thank you for allowing us to participate in your care. Addtl Table Runner Provider Instructions: Weightbearing as tolerated with walker No hip precautions needed Ice to surgical site Patient can shower. do not submerge under water continue aspirin 81 mg twice daily for 4 weeks (07/25 - 08/23/2024) Use oxycodone 1 to 2 tablets every 6 hours as needed for severe pain. Use Tylenol 650 mg every 6 hours as needed for mild pain. Home PT exercises following protocol Knee high TEDs bilaterally for 4 weeks 2 week office follow up appointment is scheduled, listed in discharge tab Call [facility] at [phone] with any questions or concerns DIET: * Resume previous diet. MEDICATIONS: * Please take your prescriptions as instructed at your pre-op appointment and/or see medication discharge instructions listed above. * If concerns develop, call your physician's office at . SPECIAL CARE INSTRUCTIONS: * Ice/Elevate as instructed. * Keep dressing clean, dry, intact. * Your surgical extremity may be discolored due to prepping agents used on the skin. A bluish-green tint is a normal variant and should not cause alarm. Call your doctor at [phone] if: * Temperature above 101 degrees * Pain not relieved by pain medicine ordered * There is increased drainage or redness from any incision * You have any unanswered questions, problems or concerns. FOLLOW UP VISIT: * If not already scheduled, please call the office at to schedule a follow-up appointment. Pending Studies at Discharge: No Stand-Alone Forms: My [facility], Smoking Cessation Medications and DC Order Prescriptions: New oxycodone 5 mg tablet 5 mg PO Q4H PRN (Reason: pain) Qty: 15 0RF Rx Instructions: initial script aspirin 81 mg Tablet,Delayed Release (Dr/Ec) 81 mg PO BID 28 Days Qty: 56 0RF pantoprazole [Protonix] 40 mg tablet,delayed release (DR/EC) 40 mg PO DAILY 28 Days Qty: 28 0RF Continued clopidogrel [Plavix] 75 mg tablet 75 mg PO DAILY Qty: 90 3RF hydrochlorothiazide 25 mg tablet 25 mg PO DAILY Qty: 90 3RF potassium citrate 10 mEq (1,080 mg) tablet extended release 10 meq PO DAILY Qty: 90 3RF coal tar 2 % ointment 1 applic topical TID famotidine 20 mg tablet 20 mg PO BID cholecalciferol (vitamin D3) 50 mcg (2,000 unit) capsule 50 mcg PO DAILY Qty: 30 0RF cyanocobalamin (vitamin B-12) 1,000 mcg capsule 1,000 mcg PO DAILY Qty: 30 0RF levothyroxine 75 mcg tablet 75 mcg PO DAILY 90 Days Qty: 90 3RF vitamin E 400 unit Capsule 400 unit PO DAILY Discharge Orders: Discharge Order (Routine); Ordered 07/26/24 Ordered By: Kristine Bailon/Other Patient Handouts: Femur ORIF Admission Data Admit Date/Time: 07/24/24 12:56 Attending Provider: Dionicio Bundy Admit Provider: Gautam Licona Primary Care Provider: Kyle Clemens Other Providers: Gautam Licona; Alvaro Hansen; [facility] Fax Other Interventions: Discharge Summary Assessment (RN) Last Done: 07/26/24 11:31 Hospital Stay Data Consultations 07/24/24 11:45 ED Decision to Admit Stat 07/24/24 12:03 Consult Orthopedic Surgery Routine Procedures Performed Operation Date: 07/24/24 08:20 Actual Procedures p Open reduction internal fixation left hip(Left) - Alvaro Marley Hansen MD Diagnostic Imagining Performed Hip X-Ray 07/24/24 00:00 FL hip LT 2-3V CLINICAL HISTORY: LEFT HIP TECHNIQUE: 2 views were obtained with the C-arm in the OR with the above procedure. Total fluoroscopy time was 43.9 seconds. Radiation dose was 20 point mGy. Comparison: Comparison is made to hip radiograph 07/24/2024 FINDINGS/IMPRESSION: Intraoperative images were obtained of left hip pinning and cannulated screw placement. Please correlate with intraoperative fluoroscopy and operative report. ACT 112: Negative or not required by law. Electronically signed by: Juan Hernandez M.D. 07/25/2024 7:42 AM Hip/Pelvis X-Ray 07/24/24 10:47 XR hip LT 2V w pelvis HISTORY: 88 years-old Male l hip pain cant walk s/p fall acute left hip pain status post fall COMPARISON: CT abdomen and pelvis 01/26/2024 TECHNIQUE: AP view of the pelvis with 2 views of the left hip FINDINGS: Demineralized appearance of the bones. Moderate osteoarthritis of the hips. Brachytherapy seeds of the prostate. Pelvic basin phleboliths. There is an acute impacted transcervical/basicervical left femoral neck fracture without significant displacement. No dislocation. Mild lateral hip soft tissue swelling. IMPRESSION: Acute and impacted left femoral neck fracture. ACT 112: Negative or not required by law. The above report was generated using voice recognition software. It may contain grammatical, syntax or spelling errors. Electronically signed by: Talib Linares M.D. 07/24/2024 11:29 AM Hip X-Ray 07/24/24 19:31 Exam(s): XR LEFT HIP EXAM: XR Left Hip , 2 Views CLINICAL HISTORY: Reason for exam: Post-Operative implant position. TECHNIQUE: Two views of the left hip COMPARISON: No relevant prior studies available. FINDINGS: Bones/joints: There are postoperative changes involving the proximal femur. No acute fracture. No dislocation. Soft tissues: There is subcutaneous emphysema. IMPRESSION: Postoperative changes. Subcutaneous emphysema. Electronically signed by: Dalton Cintron MD 07/25/24 01:55 AM Pending Results Patient Have Any Pending Studies at Discharge: No Discharge Instructions Given to Patient (Per Discharging Provider) Mr. Patel, You were hospitalized after a fall resulting in a hip fracture. This was repaired by Dr. Hansen and you have done quite well. Home health will be coming to your house to assist, the first visit is schedule for Sunday. Your potassium was 4.3 on 07/25, but the chronically low potassium is likely attributed to the hydrochlorothiazide use. You can discuss this with your PCP in the future. protonix added for 4 weeks while aspirin is doubled. Instructions from orthopedics are below. Please follow up with you PCP in on week. Activity: You can do normal everyday activities as your body allows. Take rest breaks if you feel tired. Do not overexert. Stop activity if you have pain, shortness of breath or feel dizzy. Follow-up appointments: Make an appointment with your primary care physician within one week of discharge. A copy of this summary will be sent to them. Every time you see your primary care physician, or any other doctor, bring your medication list, and a list of questions. CONTACT YOUR PRIMARY CARE PROVIDER if you experience any of the following: Shortness of breath or difficulty breathing Fevers or chills Feeling tired with normal activity or experiencing dizziness or fainting Difficulty following your treatment plan, or difficulty taking medications CALL 911 OR GO TO THE EMERGENCY DEPARTMENT if you experience any of the following: Severe abdominal pain or nausea/vomiting Severe chest pain, or chest pain that radiates (moves) to your jaw or arm Sudden, severe shortness of breath or difficulty breathing Thank you for allowing us to participate in your care. Total Time Total Time Spent Total Time Spent (In Minutes): Time spent day of discharge 40 minutes including direct patient care, medication reconciliation, documentation, review of labs and images, and coordination of care. Coding Level of Care Code 34459 INP/OBS DISCH >30 MIN Diagnoses Hip fracture S72.009A Hypokalemia E87.6 History of CVA (cerebrovascular accident) Z86.73 Elevated alkaline phosphatase level R74.8
== END 2024-07-26 13:40 | disposition home health service (06) | DRG 482 ==
LOC: ED 10:16 → SUATTDRO 12:56 → EDINP 12:56 → 3N 13:52

== ENCOUNTER 2025-01-19 15:09 | Inpatient (IN) ==
--- NOTE | 2025-01-19 15:20 | Emergency Department Note ---
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 The patient had a hip fracture in July and was waiting on repeat surgical intervention. The patient states that he called orthopedics and they were unable to get him in any sooner for surgery. His pain is getting progressively worse each day. He is having trouble ambulating and his is concerned he will fall. His has noticed increased redness and swelling around the surgical site and is concerned for possible infection. No discharge from the area of redness. No fevers. He denies any chest pain or shortness of breath. Denies any abdominal pain, nausea, or vomiting. No new falls since 01/10/25 as described below. He is on Plavix for a history of stroke. I reviewed the patient's last orthopedic office visit note from [facility] on 01/12/2025. The patient had a left hip ORIF on 07/06/[address] Hansen. He has had progressively worsening left hip pain and difficulty with ambulation since September. He has been having to use his wheelchair more than the walker due to trouble with ambulation. The patient then fell backwards due to loss of balance on 01/10/2025 and thinks he may have fallen onto his left side. X-rays of the left hip at orthopedics on 01/12/2025 show nonunion of the femoral neck fracture and failed hardware with fracture screw. Leg length shortening by about 2 inches. The recommendation was to remain in a wheelchair and stay off of the hip is much as possible prior to surgery. Surgical plan by Dr. Mccormick per the office visit note "requires hardware removal, cemented total hip replacement with femoral stem, and probable acetabular cup based on 4- month history of nonweightbearing." He is scheduled for surgery 02/17/25. The patient states that they could not get him in any sooner. However, after discussion with the on-call orthopedic doctor, he needs to be medically cleared before they can try moving up his surgery. The patient saw Dr. Torres of cardiology today and echo is pending. REVIEW OF SYSTEMS: See HPI for pertinent positives and pertinent negatives. ALLERGIES: Beta blockers, Lipitor MEDICATIONS: See below PAST MEDICAL HISTORY: See below PHYSICAL EXAM: VITALS: Vitals are noted on the nurse's note and reviewed by myself. GENERAL: The patient is wincing in pain with any attempt of moving the left hip. Non toxic, in no acute distress, non-diaphoretic. SKIN: The patient has a healing incision over the left hip without evidence for wound dehiscence or discharge. No fluctuance or induration. There is mild surrounding erythema. The left lower extremity is edematous throughout including around his ankles and calf. No obvious cording felt. Capillary refill <2 sec. EYES: PERRLA. EOMI. Conjunctivae without injection, sclerae without icterus. NOSE: Patent without discharge. MOUTH: Mucous membranes moist. Uvula midline. Airway patent. NECK: Supple without nuchal rigidity. HEART: Regular rate and rhythm without murmurs gallops or rubs. LUNGS: Clear to auscultation bilaterally without wheezes, rales or rhonchi. No retractions or accessory muscle use. ABDOMEN: Positive bowel sounds x 4. Normal tympanic percussion. Soft, nontender to palpation. No masses or hepatosplenomegaly. Abebe sign negative. No CVA tenderness. No guarding, rigidity, or rebound tenderness. No focal RLQ or LLQ tenderness. MUSCULOSKELETAL: The left leg is shortened compared to the right. He has significant difficulty trying to do range of motion of the left hip due to pain and immobility. The patient is tender to palpation maximally over the lateral and medial aspect of the left hip. Normal sensation to light and sharp touch of the left lower extremity. Dorsalis pedis and posterior tibial pulses 2+. NEURO: Patient was alert and oriented. No focal neurological deficits. DIFFERENTIAL DIAGNOSIS: Differential diagnosis includes fracture, subluxation, dislocation, contusion, ligamentous injury, neurovascular, compartment syndrome, rhabdomyolysis, DVT, SVT, cellulitis, abscess, septic arthritis, osteomyelitis, ambulatory dysfunction, as well as other pathologies. ED COURSE AND MEDICAL DECISION MAKING: HISTORY FROM INDEPENDENT HISTORIAN: Additional history obtained from the patient's . MEDICATIONS GIVEN: 250 mL normal saline solution bolus, morphine 4 mg IV and Zofran 4 mg IV. Tylenol 1000 mg IV. Tramadol 50 mg p.o. Ancef 2 g IV. MONITOR: Continuous night monitor: Order was placed for continuous night monitor. Patient was placed on the night monitor and continuous pulse ox. Patient was noted to be in normal sinus rhythm at an initial rate of 90 bpm per my interpretation. EKG: EKG was interpreted by myself as sinus rhythm at 81 bpm with no acute ST or T wave changes or concerns for STEMI. INTERPRETATION OF LABS: I interpreted the labs with full lab results as below in the lab section of this note. Laboratory results pertinent to the emergent complaint are discussed in the MDM section below. The patient was advised to follow up with their PCP and/or specialist(s) for further outpatient monitoring and management of any abnormal results. INTERPRETATION OF IMAGING: Imaging studies were interpreted by myself and read by radiology as per the imaging section of this note. The patient was advised to follow up with their PCP and/or specialist(s) for further outpatient management of any non-emergent abnormal findings. Chest x-ray negative for acute cardiopulmonary etiology. Venous Doppler of the left lower extremity shows a DVT in the left calf within one of the [address] scan of the left hip with and without contrast shows interval displacement of the prior left femoral neck fracture with interval partial outward migration of the prior fixing hip screws with lowermost screw. There is marked intra and periarticular soft tissue and muscular thickening with fluid streaks and small locules noted at the iliopsoas muscle. Scattered intramuscular hyperdense streaks are also noted suggesting hematomas. Findings are likely hemarthrosis with surrounding intramuscular contusions and hematomas. Superadded infection cannot be ruled out and should be laboratory correlated. Stable large iliopsoas intramuscular lipoma. EXTERNAL RECORDS REVIEWED: I reviewed the patient's outpatient orthopedic office visit note as summarized above. CHRONIC MEDICAL/SOCIAL CONDITIONS AFFECTING CARE: On Plavix, myelodysplastic syndrome. CONSULTATIONS: Dr. Weinberg of [facility]. On-call hospitalist. MDM SUMMARY: I examined the patient. The patient sustained a left hip fracture in July 2020 for and is status post ORIF on 07/06/[address] Hansen. The patient was having progressively worsening pain and difficulty with ambulation since September. He then fell on 01/10/2025 injuring his left hip again. He saw [facility] orth[facility] on 01/12/2025 with an x-ray that showed nonunion of the femoral neck fracture and failed hardware with fracture screw and leg length shortening by about 2 inches. The patient is scheduled for revisional surgery on 02/17/2025. However, the patient states that the pain is becoming unbearable at home and he is having difficulty with ambulation and his is concerned that he will fall. His is also concerned because there is increased redness and swelling around the incision site of his left hip and also swelling down his left leg. On exam, the patient does have swelling of the left lower extremity compared to the right. There is mild erythema surrounding the incision site of the left hip. However, no evidence for abscess or discharge at this time and no evidence for warmth. The patient has not had any fevers. The patient's left leg is shortened compared to the right and he is in significant pain with any attempt at range of motion of the left hip. The patient has been following up with [facility] for his left hip. I contacted [facility] before the end of the business day. I spoke with Dr. Weinberg of [facility] in regards to the patient. He stated that the patient's surgery was so far out because the patient still needed to be medically cleared including his outpatient echo. He stated that the patient would need to be fully medically cleared before they can discuss moving up his surgery date. He stated that we could attempt to discharge the patient home on stronger pain medications if the patient felt he would be able to manage at home. However, the patient and his do not feel that he can manage safely at home anymore due to his decreased ambulation, difficulty transferring positions, and severe pain. I discussed with Dr. Weinberg that I would be obtaining an ultrasound and CT scan of the hip to rule out blood clot and infection based on his exam. He stated that if the patient would be admitted medically for these findings, orthopedics could be consulted in the morning for further evaluation. An IV lock was placed and labs were drawn. The patient was given morphine 4 mg IV, Zofran 4 mg IV, and Tylenol 1000 mg IV. He was given 250 mL normal saline solution bolus. He was then given tramadol 50 mg p.o. for additional pain relief. White blood cell count normal at 7.32. Hemoglobin stable at 11.8. Platelet count normal at 253. Coags are normal. BUN stable at 36 and alk phos stable at 295. CMP otherwise without concerning abnormalities. High- sensitivity troponin normal. Procalcitonin normal. ESR elevated at 56 and CRP 2.31. Urinalysis without evidence for UTI. Blood cultures are pending. Chest x-ray negative for acute cardiopulmonary etiology. CT scan of the left hip with and without contrast shows interval displacement of the prior left femoral neck fracture with interval partial outward migration of the prior fixing hip screws with lowermost screw. There is marked intra and periarticular soft tissue and muscular thickening with fluid streaks and small locules noted at the iliopsoas muscle. Scattered intramuscular hyperdense streaks are also noted suggesting hematomas. Findings are likely hemarthrosis with surrounding intramuscular contusions and hematomas. Superadded infection cannot be ruled out and should be laboratory correlated. Stable large iliopsoas intramuscular lipoma. Venous Doppler of the left lower extremity shows a DVT in the left calf within one of the 2 posterior tibial veins. Will hold off on starting anticoagulation in the ER due to the patient's Plavix use as well as the CT scan findings with the hematomas and hemarthrosis. Treatment of DVT will be deferred to the hospitalist. I have a low suspicion for infection at this time given the patient's history, exam, normal white blood cell count, normal procalcitonin, and lack of fever. However, the patient's is concerned for developing infection due to the patient's history of myelodysplastic syndrome. Therefore, blood cultures were drawn and the patient was given Ancef 2 g IV. Sed rate and CRP were ordered and are still pending. I had a meaningful discussion about this patient with Dr. Warren who agrees with my assessment and the treatment plan. The patient is having difficulty ambulating at home and his is having trouble taking care of him at home. He is also having increased pain from his left hip at home and does not feel that he can wait until surgery. He was also found to have the DVT in the left lower extremity on imaging as well as the findings on the CT scan. Therefore, we feel the patient requires admission for further management of his symptoms. I spoke with the on-call hospitalist who agreed to admit the patient for further evaluation and treatment. The patient was admitted in stable condition. 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 (Acute) Left hip pain (Acute) CKD stage 3a, GFR 45-59 ml/min Pain of right hip Tear of right gluteus medius tendon Dyslipidemia Fatigue Basal cell carcinoma of face (Acute) Nocturia (Acute) Nodular prostate with urinary obstruction (Acute) Urinary stream slowing (Acute) Hematuria DVT prophylaxis Possible urinary tract infection BPH (benign prostatic hyperplasia) (Chronic) Prostate cancer (Chronic 12/04/16) Psoriasis (Chronic) Medical History Hypokalemia Benign prostatic hyperplasia with urinary obstruction Encounter for pre-operative examination Acute hypokalemia Fall Closed hip fracture Elevated alkaline phosphatase level Anemia Hypothyroidism Prostate cancer Chronic kidney disease (CKD), stage III (moderate) HTN (hypertension) History of CVA (cerebrovascular accident) GERD (gastroesophageal reflux disease) MDS (myelodysplastic syndrome), low grade Surgical History Status post open reduction and internal fixation (ORIF) of fracture S/P TURP S/P Mohs surgery for basal cell carcinoma H/O hernia repair S/P tonsillectomy and adenoidectomy Family History Father Myocardial infarction Heart disease Sister Heart disease Grandfather (Paternal) Prostate cancer Other Hypertension Stroke Denies family history of Ovarian cancer Breast cancer Colorectal cancer Social History Smoking Status: Never smoker Second Hand Exposure: No; Do You Dip or Chew Tobacco: No; Hx Alcohol Use: No Hx Substance Use: No Preferred Language: Malay 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: Effective 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 Beliefs That Will Affect Care: None marital status: Current Living Situation: Spouse current occupational status: retired How many Children do You have: 0 Feels Safe at Home: Yes Childhood Exposure to Second-Hand Smoke: No Diet: regular during the past year weight has: remained stable Dental Care, Regularly: Yes Physical Activity Frequency: Daily Physical Activity Frequency Comment: walking Seatbelt Use: always Sunscreen Use: No Assistive Devices: Walker Allergies Allergies Allergy/AdvReac Type Severity Reaction Status Date / Time Beta-Blockers Allergy Unknown LOW HEART Verified 01/19/25 18:08 (Beta-Adrenergic Bloc RATE "FELT LOUSY" atorvastatin [From Lipitor] AdvReac Abdominal Verified 01/19/25 18:08 Pain Home Meds Home Medications Medication Instructions Recorded Confirmed vitamin E 268 mg (400 unit) capsule 400 unit PO QAM 01/14/20 01/19/25 coal tar 2 % topical ointment 1 applic topical TID 11/09/22 01/19/25 famotidine 20 mg tablet 20 mg PO BID 11/09/22 01/19/25 cholecalciferol (vitamin D3) 50 50 mcg PO QAM 08/20/24 01/19/25 mcg (2,000 unit) capsule clopidogrel 75 mg tablet (Plavix) 75 mg PO QAM 01/19/25 01/19/25 cyanocobalamin (vitamin B-12) 1,000 mcg PO QAM 01/19/25 01/19/25 1,000 mcg capsule levothyroxine 75 mcg tablet 75 mcg PO HS 01/19/25 01/19/25 spironolactone 25 mg tablet 25 mg PO QAM 01/19/25 01/19/25 tramadol 50 mg tablet 50 mg PO Q4 PRN Pain 01/19/25 01/19/25 Results & Data (ED) Vital Signs Vital Signs - 24 hr 01/19/25 15:13 01/19/25 15:54 01/19/25 15:57 Temperature 36.9 C Temperature Source Temporal Artery Scan Pulse Rate 86 75 Pulse Rate [Apical] Pulse Rhythm Regular Pulse Rhythm [Apical] Pulse Strength [Apical] Respiratory Rate 19 19 Respiratory Effort / Characteristics Non-Labored Spontaneous Respiratory Depth Normal Respiratory Pattern Blood Pressure 113/72 122/78 Blood Pressure [Right Arm] Blood Pressure Mean 85 91 Blood Pressure Mean [Right Arm] Blood Pressure Position [Right Arm] Pulse Oximetry 97 97 Oxygen Delivery Method Room Air Room Air Sepsis Recent Fever Within 48 Hours No Sepsis New/Unexplained Change in Mental Status N/A Sepsis Action Taken by Nursing No Action Required 01/19/25 16:00 01/19/25 16:02 01/19/25 17:54 Temperature Temperature Source Pulse Rate 75 92 H Pulse Rate [Apical] 78 Pulse Rhythm Pulse Rhythm [Apical] Regular Pulse Strength [Apical] Respiratory Rate 18 16 Respiratory Effort / Characteristics Non-Labored Respiratory Depth Normal Respiratory Pattern Regular Blood Pressure 133/67 Blood Pressure [Right Arm] 122/78 Blood Pressure Mean 89 Blood Pressure Mean [Right Arm] 92 Blood Pressure Position [Right Arm] Pulse Oximetry 95 96 Oxygen Delivery Method Room Air Room Air Sepsis Recent Fever Within 48 Hours Sepsis New/Unexplained Change in Mental Status Sepsis Action Taken by Nursing 01/19/25 20:00 01/19/25 20:03 Temperature Temperature Source Pulse Rate 74 Pulse Rate [Apical] 83 Pulse Rhythm Pulse Rhythm [Apical] Regular Pulse Strength [Apical] Normal Respiratory Rate 17 Respiratory Effort / Characteristics Non-Labored Spontaneous Respiratory Depth Normal Respiratory Pattern Regular Blood Pressure Blood Pressure [Right Arm] 127/75 Blood Pressure Mean Blood Pressure Mean [Right Arm] 92 Blood Pressure Position [Right Arm] Lying Pulse Oximetry 96 Oxygen Delivery Method Room Air Sepsis Recent Fever Within 48 Hours Sepsis New/Unexplained Change in Mental Status Sepsis Action Taken by Nursing Laboratory Data 01/19/25 16:00 01/19/25 16:00 Lab Results 01/19/25 01/19/25 01/19/25 Range/Units 16:00 19:51 20:00 WBC 7.32 (4.8-10.8) K/ul RBC 3.28 L (4.70-6.10) M/uL Hgb 11.8 L (14.0-18.0) g/dl Hct 34.5 L (42.0-52.0) % MCV 105.2 H (80.0-100.0) fL MCH 36.0 H (25.0-34.0) pg MCHC 34.2 (32.0-36.0) g/dL RDW Std Deviation 45.8 (36.4-46.3) fL RDW Coeff of Alyssa 11.8 (11.5-14.5) % Plt Count 253 (130-400) K/uL MPV 10.1 (9.4-12.4) fL Immature Gran % (Auto) 0.1 % Neut % (Auto) 78.6 % Lymph % (Auto) 7.7 % [place]corn % (Auto) 11.3 % Eos % (Auto) 1.8 % Baso % (Auto) 0.5 % Neut # (Auto) 5.75 (1.40-6.50) K/uL Lymph # (Auto) 0.56 L (1.20-3.40) K/uL [place] # (Auto) 0.83 H (0.11-0.59) K/uL Eos # (Auto) 0.13 (0.00-0.50) K/uL Baso # (Auto) 0.04 (0.00-0.20) K/uL Immature Gran # (Auto) 0.01 (0.01-0.20) K/uL ESR 56 H (0-20) mm/hr PT 10.3 (9.0-12.0) Seconds INR 0.9 (0.9-1.1) APTT 31 (21-31) Seconds PTT Ratio 1.2 Sodium 139 (136-145) mmol/L Potassium 3.7 (3.5-5.1) mmol/L Chloride 105 (98-107) mmol/L Carbon Dioxide 26 (21-32) mmol/L Anion Gap 8 (3-11) BUN 36 H (6-23) mg/dl Creatinine 1.22 (0.6-1.4) mg/dl Est Cr Clr Drug Dosing Not Reportable eGFR 57.02 BUN/Creatinine Ratio 29.5 H (10-20) Glucose 89 (70-99(Fasting)) mg/dl Calcium 9.3 (8.6-10.3) mg/dl Total Bilirubin 0.5 (0.2-1.0) mg/dl AST 23 (13-39) U/L ALT 24 (7-52) U/L Alkaline Phosphatase 295 H (34-104) U/L Troponin I High Sens 8.8 (0-20) pg/ml C-Reactive Protein 2.31 H (0-0.5) mg/dl Total Protein 6.4 (6.0-8.3) gm/dl Albumin 3.5 (3.4-5.0) gm/dl Globulin 2.9 (2.5-4.0) gm/dl Albumin/Globulin Ratio 1.2 (0.9-2) Lipase 5 L (11-82) U/L Procalcitonin 0.04 (0-0.5) ng/ml Urine Color Yellow Urine Appearance Clear (Clear) Urine pH 5.5 (4.5-7.5) Ur Specific [place] 1.043 H (1.000-1.030) Urine Protein Negative (Negative) Urine Glucose (UA) Negative (Negative) Urine Ketones Negative (Negative) Urine Blood Negative (Negative) Urine Nitrite Negative (Negative) Urine Bilirubin Negative (Negative) Urine Urobilinogen Negative (Negative) Ur Leukocyte Esterase Negative (Negative) Urine Comment Administered Medications Discontinued Medications Sodium Chloride (Nss) 250 mls @ 999 mls/hr IV .Q16M ONE Stop: 01/19/25 15:51 Last Infusion: 01/19/25 16:49 Dose: Infused Documented By: Admin: 01/19/25 15:58 Dose: 999 mls/hr Documented By: DILLAN Acetaminophen (Ofirmev) 1,000 mg in 100 mls @ 400 mls/hr IV NOW STA Stop: 01/19/25 18:01 Last Infusion: 01/19/25 18:10 Dose: Infused Documented By: Admin: 01/19/25 17:53 Dose: 400 mls/hr Documented By: DILLAN Cefazolin Sodium (Ancef 2000mg) 2,000 mg in 15 mls @ 3.75 mls/min IV NOW STA Stop: 01/19/25 19:54 Last Admin: 01/19/25 20:25 Dose: 3.75 mls/min Documented By: KAMALJIT Ioversol (Optiray 320 100ml) 93 ml IV ONCE ONE Stop: 01/19/25 17:41 Last Admin: 01/19/25 17:41 Dose: 93 ml Documented By: ANGELITA Morphine Sulfate (Morphine Sulfate 4 Mg/Ml 1 Ml Carp\\Vial) 4 mg IV NOW STA Stop: 01/19/25 15:37 Last Admin: 01/19/25 15:59 Dose: 4 mg Documented By: DILLAN Ondansetron HCl (Ondansetron Inj 2 Mg/Ml 2 Ml Vial) 4 mg IV NOW STA Stop: 01/19/25 15:37 Last Admin: 01/19/25 15:59 Dose: 4 mg Documented By: DILLAN Tramadol HCl (Tramadol Hcl 50 Mg Tablet) 50 mg PO NOW STA Stop: 01/19/25 21:13 Last Admin: 01/19/25 21:17 Dose: 50 mg Documented By: KAMALJIT Imaging Data Radiologist's Impression: Chest X-Ray 01/19/25 15:35 XR chest 1V portable CLINICAL HISTORY: Chest pain, nonspecific COMPARISON STUDY: 01/14/2020 FINDINGS: Stable mild cardiomegaly without pulmonary vascular congestion. No effusion, consolidation, or pneumothorax. IMPRESSION: No acute findings. ACT 112: Negative or not required by law. Electronically signed by: Dewayne France M.D. 01/19/2025 3:51 PM Venous Doppler Study 01/19/25 15:35 Clinical History: Pain and swelling Technique: Venous ultrasound evaluation was performed utilizing grayscale, color Doppler and wave form evaluation. Images were also obtained with and without compression Findings: The common femoral, superficial femoral, and popliteal veins demonstrate normal anechoic lumens with full compressibility. 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 There is apparent thrombus within 1 of the 2 posterior tibial veins Impression: Apparent DVT in the left calf ACT 112: Positive. There are findings on this exam that require communication between the performing entity and the patient following Patient Test Result Information Act ([place] ACT 112) guidelines. Electronically signed by Dean Valdez 01-19-2025 4:[address] 01/19/25 15:53 EXAM: CT hip LT wo/w con CLINICAL HISTORY: Eval anatomy fxr for surgery eval for infection. TECHNIQUE: A CT scan of the left hip joint was performed without and with 93ml Opitray-320mg/ml IV contrast. Coronal and sagittal reconstructive images were also obtained. One of the following dose reduction techniques was utilized for this exam: Automated exposure control, adjustment of the mA and/or kV according to patient size, and use of iterative reconstruction. COMPARISON: Prior CT dated 11/03/2024, CR 01/12/2025 was also reviewed. FINDINGS: Bones: Interval displacement of the prior left femoral neck fracture. Interval partial outward migration of the prior fixing hip screws with lowermost screw. No dislocation. No lytic, or sclerotic lesions. No evidence of avascular necrosis of the femoral heads. Joints: Normal joint space of the hip joint. Moderate joint effusion. Soft Tissues: [id number] Marked intra/OBX.[id number] soft tissue and muscular thickening with fluid streaks and small locules noted at the iliopsoas muscle (new on interval). 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 Vascular Structures: Normal opacification of the visualized arteries and veins. No evidence of aneurysm, thrombosis, or significant vascular abnormalities. IMPRESSION: 1. Interval displacement of the prior left femoral neck fracture. Interval partial outward migration of the prior fixing hip screws with lowermost screw. 2. Marked intra and periarticular soft tissue and muscular thickening with fluid streaks and small locules noted at the iliopsoas muscle (new on interval). Scattered intramuscular hyperdense streaks are also noticed suggesting hematomas. Findings likely denote hemarthrosis with surrounding intramuscular contusions and hematomas. Superadded infection can`t be ruled out and should be laboratory correlated. 3. Stable large iliopsoas intramuscular lipoma. 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, Hemarthrosis involving hip joint, Acute deep vein thrombosis (DVT) of left lower extremity Patient Disposition: Admitted As Inpatient Condition: Fair Forms Stand Alone Forms: [facility] [employer] Prescriptions Prescriptions: No Action coal tar 2 % ointment 1 applic topical TID Rx Instructions: HAS BEEN USING BID famotidine 20 mg tablet 20 mg PO BID cholecalciferol (vitamin D3) 50 mcg (2,000 unit) capsule 50 mcg PO QAM vitamin E 400 unit Capsule 400 unit PO QAM tramadol 50 mg tablet 50 mg PO Q4 PRN (Reason: Pain) spironolactone 25 mg tablet 25 mg PO QAM levothyroxine 75 mcg tablet 75 mcg PO HS clopidogrel [Plavix] 75 mg tablet 75 mg PO QAM cyanocobalamin (vitamin B-12) 1,000 mcg capsule 1,000 mcg PO QAM Referrals Referrals: Kyle Clemens MD [Primary Care Provider] - Discharge Problem: Hemarthrosis involving hip joint Qualifiers: Laterality: left Qualified Code(s): M25.052 - Hemarthrosis, left hip Acute deep vein thrombosis (DVT) of left lower extremity Qualifiers: Affected thrombotic vein of extremity: tibial Qualified Code(s): I82.442 - Acute embolism and thrombosis of left tibial vein
--- NOTE | 2025-01-19 15:52 | XRay Report ---
XR chest 1V portable CLINICAL HISTORY: Chest pain, nonspecific COMPARISON STUDY: 01/14/2020 FINDINGS: Stable mild cardiomegaly without pulmonary vascular congestion. No effusion, consolidation, or pneumothorax. IMPRESSION: No acute findings. ACT 112: Negative or not required by law. Electronically signed by: Dewayne France M.D. 01/19/2025 3:51 PM
[2025-01-19] MEDS: SODIUM CHLORIDE 0.9% 250 ML IV ONE (15:58)
[2025-01-19] MEDS: MoRPHine SULFATE 4 MG/ML 1 ML CARP\\VIAL IV STA (15:59)
[2025-01-19] MEDS: ONDANSETRON INJ 2 MG/ML 2 ML VIAL IV STA (15:59)
[2025-01-19 16:12] LABS: Basophils # (auto) 0.04 K/uL (0.00-0.20); Basophils % (auto) 0.5 %; Eosinophils # (auto) 0.13 K/uL (0.00-0.50); Eosinophils % (auto) 1.8 %; Hematocrit (blood only) 34.5 % (42.0-52.0); Hemoglobin 11.8 g/dl (14.0-18.0); Immature Granulocytes # (auto) 0.01 K/uL (0.01-0.20); Immature Granulocytes % (auto) 0.1 %; Lymphocytes # (auto) 0.56 K/uL (1.20-3.40); Lymphocytes % (auto) 7.7 %; Mean Corpuscular Hgb Conc 34.2 g/dL (32.0-36.0); Mean Corpuscular Volume 105.2 fL (80.0-100.0); Mean Platelet Volume 10.1 fL (9.4-12.4); Monocytes # (auto) 0.83 K/uL (0.11-0.59); Monocytes % (auto) 11.3 %; Neutrophils # (auto) 5.75 K/uL (1.40-6.50); Neutrophils % (auto) 78.6 %; Platelet Count 253 K/uL (130-400); RDW Coefficient of Variation 11.8 % (11.5-14.5); RDW Standard Deviation 45.8 fL (36.4-46.3); Red Blood Count 3.28 M/uL (4.70-6.10); White Blood Count 7.32 K/ul (4.8-10.8)
[2025-01-19 16:32] LABS: Alanine Aminotransferase 24 U/L (7-52); Albumin Globulin Ratio 1.2 (0.9-2); Albumin Level 3.5 gm/dl (3.4-5.0); Alkaline Phosphatase 295 U/L (34-104); Anion Gap 8 (3-11); Aspartate Aminotransferase 23 U/L (13-39); BUN Creatinine Ratio 29.5 (10-20); Bilirubin,Total 0.5 mg/dl (0.2-1.0); Blood Urea Nitrogen 36 mg/dl (6-23); Calcium 9.3 mg/dl (8.6-10.3); Carbon Dioxide 26 mmol/L (21-32); Chloride 105 mmol/L (98-107); Globulin 2.9 gm/dl (2.5-4.0); Glucose 89 mg/dl (70-99(Fasting)); Lipase 5 U/L (11-82); Potassium 3.7 mmol/L (3.5-5.1); Sodium 139 mmol/L (136-145); Total Protein 6.4 gm/dl (6.0-8.3)
[2025-01-19 16:39] LABS: Troponin I High Sensitivity 8.8 pg/ml (0-20)
[2025-01-19 16:42] LABS: INR 0.9 (0.9-1.1); Partial Thromboplastin Ratio 1.2; Partial Thromboplastin Time 31 Seconds (21-31); Prothrombin Time 10.3 Seconds (9.0-12.0)
--- NOTE | 2025-01-19 16:57 | Ultrasound Report ---
Clinical History: Pain and swelling Technique: Venous ultrasound evaluation was performed utilizing grayscale, color Doppler and wave form evaluation. Images were also obtained with and without compression Findings: The common femoral, superficial femoral, and popliteal veins demonstrate normal anechoic lumens with full compressibility. 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 There is apparent thrombus within 1 of the 2 posterior tibial veins Impression: Apparent DVT in the left calf ACT 112: Positive. There are findings on this exam that require communication between the performing entity and the patient following Patient Test Result Information Act ([place] ACT 112) guidelines. Electronically signed by Dean Valdez 01-19-2025 4:57 PM
[2025-01-19] MEDS: OPTIRAY 320 100ml IV ONE (17:41)
[2025-01-19] MEDS: ACETAMINOPHEN 1,000 MG/100 ML VIAL IV STA (17:53)
--- NOTE | 2025-01-19 19:40 | Emergency Department Note ---
ED Visit Note I was consulted by the Advanced Practice Provider. I approved the management plan and take responsibility for the patient management. This includes the aspects of: -History/Physical -MDM -I independently interpreted the following studies:Studies and results .
--- NOTE | 2025-01-19 19:43 | CT Scan Report ---
EXAM: CT hip LT wo/w con CLINICAL HISTORY: Eval anatomy fxr for surgery eval for infection. TECHNIQUE: A CT scan of the left hip joint was performed without and with 93ml Opitray-320mg/ml IV contrast. Coronal and sagittal reconstructive images were also obtained. One of the following dose reduction techniques was utilized for this exam: Automated exposure control, adjustment of the mA and/or kV according to patient size, and use of iterative reconstruction. COMPARISON: Prior CT dated 11/03/2024, CR 01/12/2025 was also reviewed. FINDINGS: Bones: Interval displacement of the prior left femoral neck fracture. Interval partial outward migration of the prior fixing hip screws with lowermost screw. No dislocation. No lytic, or sclerotic lesions. No evidence of avascular necrosis of the femoral heads. Joints: Normal joint space of the hip joint. Moderate joint effusion. Soft Tissues: [id number].5.1.1 Marked intra/OBX.5.1.1OBX.5.1.2periarticular soft tissue and muscular thickening with fluid streaks and small locules noted at the iliopsoas muscle (new on interval). 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 Vascular Structures: Normal opacification of the visualized arteries and veins. No evidence of aneurysm, thrombosis, or significant vascular abnormalities. IMPRESSION: 1. Interval displacement of the prior left femoral neck fracture. Interval partial outward migration of the prior fixing hip screws with lowermost screw. 2. Marked intra and periarticular soft tissue and muscular thickening with fluid streaks and small locules noted at the iliopsoas muscle (new on interval). Scattered intramuscular hyperdense streaks are also noticed suggesting hematomas. Findings likely denote hemarthrosis with surrounding intramuscular contusions and hematomas. Superadded infection can`t be ruled out and should be laboratory correlated. 3. Stable large iliopsoas intramuscular lipoma. Electronically signed by Juan C Newsome 01-19-2025 7:43 PM
[2025-01-19 20:20] LABS: Appearance Urine Clear (Clear); Bilirubin Urine Negative (Negative); Blood Urine Negative (Negative); Color Urine Yellow; Glucose Urine UA Negative (Negative); Ketones Urine Negative (Negative); Leukocyte Esterase Urine Negative (Negative); Nitrite Urine Negative (Negative); Protein Urine Negative (Negative); Specific Gravity Urine 1.043 (1.000-1.030); Urobilinogen Urine Negative (Negative); pH Urine 5.5 (4.5-7.5)
[2025-01-19] MEDS: ceFAZolin 2000MG 2,000 MG/15 ML SYR IV STA (20:25)
[2025-01-19] MEDS: traMADol HCL 50 MG TABLET PO STA (21:17)
[2025-01-19 21:32] LABS: C Reactive Protein 2.31 mg/dl (0-0.5)
--- NOTE | 2025-01-19 22:12 | History & Physical Report ---
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 Patient had a fall resulting in hip fracture requiring left ORIF 07/24/2024. Since then patient has had worsening pain and difficulty ambulating since September 2024. Patient had a fall 01/10 and x-ray outpatient with his orthopedic surgeon 01/12 which showed displacement of screws. Patient presented today due to concern for worsening ambulation, poor appetite, swelling of the lump around incision, and left lower extremity swelling for several days. Patient was found to have a left tibial DVT and hip CT showed no hemarthrosis with surrounding intramuscular contusions and hematomas is being admitted on IV heparin for DVT, close monitoring of hematomas, and hopeful surgical fixation of displaced ORIF. #left tibial DVT suspect 2/2 decrease in ambulation. Left venous Doppler showed small tibial DVT. Will start on standard heparin drip, no bolus given potential surgical management and hematomas noted below Would recommend treatment with heparin for several days prior to surgical management, however risk of deterioration due to decrease in ambulation is high while DVT is rather small and distal - low concern for PE at time of admission, denies dyspnea, chest pain, VSS - monitor on telemetry #left ORIF screw displacement/ambulatory dysfunction/hematoma ORIF 07/24/2024, found to be displaced 01/12/2025. Patient with worsening pain and decreased ambulation since September. hip CT showed likely hemarthrosis, contusions, hematomas of left lower extremity. Infection cannot be ruled out, however given no leukocytosis, Pro-Wild negative, VSS and afebrilewill defer further antibiotic treatment (treated with Ancef x 1 in ED). ESR 56, CRP 2.31. Concern for deterioration with decrease in ambulation, consider fixation during this admission (scheduled for procedure 02/17/[address] Mccormick) - revised cardiac risks index 1 - Dr. Mccormick with [facility] consulted - holding Plavix with heparin and potential surgical management - Tylenol and morphine as needed for pain control Lidoderm patch as needed - trend CBC if patient becomes febrile, or white count develops consider restarting antibiotics - blood cultures ordered in ED, follow - warm compresses for hematoma - H&H stable at time of admission, trend q6h #history of [id number], without residual deficits Holding Plavix as above #MDSCBC WNL #BPHstable, bladder scan as needed #GERDcontinue famotidine #Hypothyroidismcontinue levothyroxine #HTNcontinue spironolactone #stage III CKDrenal function stable VTE ppx: heparin drip Dispo: med/telemetry Admission and Anticipated Discharge Date Admission Date: 01/19/25 History of Present Illness Chief Complaint: hip pain Primary Care Provider: Kyle Clemens MD Patient is an 81 male with past medical history of MDS, hypothyroidism, GERD, HLD, CVA in 2018 on Plavix, prostate CA, BPH, stage III CKD, left inguinal lipoma. Patient had a fall resulting in hip fracture requiring left ORIF 07/24/2024. Since then patient has had worsening pain and difficulty ambulating since September 2024. Patient had a fall 01/10 and x-ray outpatient with his orthopedic surgeon 01/12 which showed displacement of screws. Patient presented today due to concern for worsening ambulation, poor appetite, swelling of the lump around incision, and left lower extremity swelling for several days. Patient was found to have a left tibial DVT and hip CT showed no hemarthrosis with surrounding intramuscular contusions and hematomas is being admitted on IV heparin for DVT, close monitoring of hematomas, and hopeful surgical fixation of displaced ORIF. Patient seen at bedside with his present. 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 He stated that since September he has had worsening ambulation and went from using a cane, tall walker, to now mainly a wheelchair. He also has had worsening pain of his left hip. He stated he fell 01/10 due to being imbalanced and had x-rays with orthopedics which showed displaced screws, he was scheduled for surgical repair 02/17/[address] Jean-Claude Burrell. Patient stated for the past few days he has had poor appetite, his noticed a lump around his incision which has been spreading, and lower extremity edema which has been present for months however worsening for the past few days. He stated he has always had lower extremity swelling which he pertain to his lipoma. He denies any fevers, no leukocytosis however he notes he has MDS and typically has leukopenia. Denies any chest pain, shortness of breath. He denies any alcohol or nicotine use. He does not use any oxygen at baseline. His pain is well- controlled at bedside after 4 mg IV morphine in the ED and his home tramadol. stay for his evening medications. He wishes to be full code however within reasonable approach, would not want prolonged CPR. Discussed with patient and his at bedside that there is low concern for infection given previous surgical site without any erythema or swelling, no erythema or warmth to his left upper extremity. Suspect that the inflammation is likely hematomas and contusions after the fall. He is agreeable to heparin and hopeful for surgical fixation during this admission. Allergies Allergy/AdvReac Type Severity Reaction Status Date / Time Beta-Blockers Allergy Unknown LOW HEART Verified 01/19/25 18:08 (Beta-Adrenergic Bloc RATE "FELT LOUSY" atorvastatin [From Lipitor] AdvReac Abdominal Verified 01/19/25 18:08 Pain Home Medications Medication Instructions Recorded Confirmed Type vitamin E 268 mg (400 unit) capsule 400 unit PO QAM 01/14/20 01/19/25 History coal tar 2 % topical ointment 1 applic topical TID 11/09/22 01/19/25 History famotidine 20 mg tablet 20 mg PO BID 11/09/22 01/19/25 History cholecalciferol (vitamin D3) 50 50 mcg PO QAM 08/20/24 01/19/25 History mcg (2,000 unit) capsule clopidogrel 75 mg tablet (Plavix) 75 mg PO QAM 01/19/25 01/19/25 History cyanocobalamin (vitamin B-12) 1,000 mcg PO QAM 01/19/25 01/19/25 History 1,000 mcg capsule levothyroxine 75 mcg tablet 75 mcg PO HS 01/19/25 01/19/25 History spironolactone 25 mg tablet 25 mg PO QAM 01/19/25 01/19/25 History tramadol 50 mg tablet 50 mg PO Q4 PRN Pain 01/19/25 01/19/25 History Past Med/Surg History Problem List (Updated 01/19/25 @ 22:42 by Ciera Rios PA-C) Hematoma of left lower extremity Acute deep vein thrombosis (DVT) of left lower extremity (Acute) Hemarthrosis involving hip joint (Acute) 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 (Acute) Left hip pain (Acute) CKD stage 3a, GFR 45-59 ml/min Pain of right hip Tear of right gluteus medius tendon Dyslipidemia Fatigue Basal cell carcinoma of face (Acute) Nocturia (Acute) Nodular prostate with urinary obstruction (Acute) Urinary stream slowing (Acute) Hematuria DVT prophylaxis Possible urinary tract infection BPH (benign prostatic hyperplasia) (Chronic) Prostate cancer (Chronic 12/04/16) Psoriasis (Chronic) Medical History Hypokalemia Benign prostatic hyperplasia with urinary obstruction Encounter for pre-operative examination Acute hypokalemia Fall Closed hip fracture Elevated alkaline phosphatase level Anemia Hypothyroidism Prostate cancer Chronic kidney disease (CKD), stage III (moderate) HTN (hypertension) History of CVA (cerebrovascular accident) GERD (gastroesophageal reflux disease) MDS (myelodysplastic syndrome), low grade Surgical History Status post open reduction and internal fixation (ORIF) of fracture S/P TURP S/P Mohs surgery for basal cell carcinoma H/O hernia repair S/P tonsillectomy and adenoidectomy Family History Father Myocardial infarction Heart disease Sister Heart disease Grandfather (Paternal) Prostate cancer Other Hypertension Stroke Denies family history of Ovarian cancer Breast cancer Colorectal cancer Social History Smoking Status: Never smoker Second Hand Exposure: No; Do You Dip or Chew Tobacco: No; Hx Alcohol Use: No Hx Substance Use: No Preferred Language: Cymraes 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 Ability: Effective [employer] Required: No Beliefs That Will Affect Care: None marital status: Current Living Situation: Spouse current occupational status: retired How many Children do You have: 0 Other Information That Helps Us Care for You: No Feels Safe at Home: Yes Safety Concerns: Feels Safe At This Time Childhood Exposure to Second-Hand Smoke: No Diet: regular during the past year weight has: remained stable Dental Care, Regularly: Yes Physical Activity Frequency: Daily Physical Activity Frequency Comment: walking Seatbelt Use: always Sunscreen Use: No Assistive Devices: Glasses, Hearing Aid - Bilateral, Walker and Wheelchair Review of Systems Review of Systems: see HPI Physical Exam Physical Exam: The patient is awake, alert and oriented 3, well developed and well nourished, normocephalic and atraumatic, in no acute distress. Non-toxic appearing. HEENT- EOMI, mucous membranes moist. Hearing grossly intact. Heart-normal S1 and S2. No murmurs, rubs or gallops. Lungs-clear bilaterally, no respiratory distress, no accessory muscle use. Abdomen-normal bowel sounds and soft. No ascites noted. Non-tender. Extremities- no clubbing, cyanosis, or edema. Left lateral hip surgical wound without surrounding erythema or inflammation, mild tenderness to palpation of hematomas. No erythema or warmth noted to left lower extremity. Mild +1 pitting edema to left lower extremity. Psychiatric-normal affect. Results & Data Results & Data Vital Signs (Past 12 Hours) Vital Signs Temp Pulse Pulse Resp BP BP Pulse Ox 01/19/25 20:03 83 17 127/75 96 01/19/25 20:00 74 01/19/25 17:54 92 H 16 133/67 96 01/19/25 16:02 75 01/19/25 16:00 78 18 122/78 95 01/19/25 15:57 122/78 01/19/25 15:54 75 19 97 01/19/25 15:13 36.9 C 86 19 113/72 97 O2 Del Method 01/19/25 20:03 Room Air 01/19/25 20:00 01/19/25 17:54 Room Air 01/19/25 16:02 01/19/25 16:00 Room Air 01/19/25 15:57 01/19/25 15:54 Room Air 01/19/25 15:13 Room Air Laboratory Results Reviewed CBC, CMP, PT/INR, ESR, troponin, CRP, procalcitonin, UA Diagnostic Findings reviewed head CT, left venous Doppler study, CXR Medications Administered EDmorphine 4 Mg IV, Zofran 4 Mg IV, 250 mL NSS bolus, Tylenol 1G IV, Ancef 2G IV, home tramadol ECG Additional Comments: Sinus rhythm with first-degree AV block, rate 81 QTc 446 Code Status & VTE Plan Code Status full code VTE Prophylaxis Plan VTE Prophylaxis will be ordered: Yes Supervising Physician Co-Signing Physician Notes I personally saw and examined the patient. I independently reviewed the labs, EKG, imaging, problem list, medication list, past medical history and family history. I verified all taylor points and agree with Ciera Rios PA-C with the following exceptions and/or additions: 89 year old male presents to the ER due to left hip pain. Outpatient XR shows fracture around the prior nails with shortening and he is unable to weight bear on this therefore adivsed to come to the ER by his orthopedic sugeon. O/E HS RRR, no murmurs, Chest CTAB, Ando SNT, cap refil left toes < 2seconds A/P Left hip fracture - unclear plan at time of admission but recommend treating DVT for 24 hours initially therefore no need to keep NPO after midnight. Awaiting plan from his orthopedic surgeon Dr Mccormick in the morning. Acute DVT - this is small and I don't think treatment for this should delay his operation in any measurable timescale. 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
[2025-01-19] MEDS: HEPARIN 25000 UNIT/500 ML D5W 25,000 UNITS/500 ML BAG IV SCH (22:39)
[2025-01-19] MEDS: Heparin IV Adult Wt-Based Standard *NO* INITIAL Bolus Protocol IV STA (22:45)
[2025-01-19] MEDS: MoRPHine SULFATE 2 MG/ML CARP IV STA (23:43)
[2025-01-20] MEDS ORDERED: ACETAMINOPHEN 325 MG TAB PO PRN (01:02)
[2025-01-20] MEDS ORDERED: MELATONIN 3 MG TAB PO PRN (01:02)
[2025-01-20] MEDS ORDERED: ONDANSETRON INJ 2 MG/ML 2 ML VIAL IV PRN (01:02)
[2025-01-20] MEDS: LEVOTHYROXINE SODIUM 75 MCG TABLET PO SCH (02:54)
[2025-01-20] MEDS: FAMOTIDINE 20 MG TAB PO SCH (02:54)
--- NOTE | 2025-01-20 06:41 | Orthopedic Consultation ---
Date of Consultation January 20, 2025 Orthopedic Consult Patient known to me from office visit last week. Previously had open reduction internal fixation of femoral neck fracture by Dr. Hansen. Unfortunately patient has had multiple falls and is injured himself and is displaced the fracture and has had hardware failure. This point in time he has significant pain and deformity. His leg is shortened. He has been worked up by Dr. Villegas and has cleared him for surgery with elevated risk of cardiac event being somewhere around 5 to 7%. His workup here reveals a small calf DVT and has been placed on some heparin. This needs to be stopped [address] scan reveals acetabular to be relatively well-preserved with no penetration of hardware into the joint. At this point in time patient needs to be prepared for cemented bipolar hip replacement with hardware removal. Calcar replacements need to be on standby. Trochanteric fixation needs to be on standby. Will need to have [employer] rep to get the previous hardware out need to have appropriate adult reconstructive representation present. This was discussed with my PA. Formal consult will be also generated. At this point I will need to be n.p.o. after midnight will need appropriate preoperative consent and skin preparation with wipes need to verify that all hardware will be available for tomorrow. Placed on schedule to follow my elective cases tomorrow.
[2025-01-20 06:51] LABS: Basophils # (auto) 0.05 K/uL (0.00-0.20); Basophils % (auto) 0.7 %; Eosinophils # (auto) 0.16 K/uL (0.00-0.50); Eosinophils % (auto) 2.4 %; Hematocrit (blood only) 34.1 % (42.0-52.0); Hemoglobin 11.7 g/dl (14.0-18.0); Immature Granulocytes # (auto) 0.03 K/uL (0.01-0.20); Immature Granulocytes % (auto) 0.4 %; Lymphocytes # (auto) 0.55 K/uL (1.20-3.40); Lymphocytes % (auto) 8.2 %; Mean Corpuscular Hemoglobin 36.1 pg (25.0-34.0); Mean Corpuscular Hgb Conc 34.3 g/dL (32.0-36.0); Mean Corpuscular Volume 105.2 fL (80.0-100.0); Mean Platelet Volume 10.1 fL (9.4-12.4); Neutrophils # (auto) 5.08 K/uL (1.40-6.50); Neutrophils % (auto) 76.3 %; Platelet Count 240 K/uL (130-400); RDW Coefficient of Variation 11.7 % (11.5-14.5); RDW Standard Deviation 45.2 fL (36.4-46.3); Red Blood Count 3.24 M/uL (4.70-6.10); White Blood Count 6.67 K/ul (4.8-10.8)
[2025-01-20 07:13] LABS: Albumin Globulin Ratio 1.3 (0.9-2); Albumin Level 3.5 gm/dl (3.4-5.0); BUN Creatinine Ratio 23.1 (10-20); Bilirubin,Total 0.7 mg/dl (0.2-1.0); Calcium 9.4 mg/dl (8.6-10.3); Creatinine Clr Calc Pharmacy 39.5 ml/min; Globulin 2.8 gm/dl (2.5-4.0); Magnesium 1.8 mg/dl (1.7-2.4); Potassium 3.7 mmol/L (3.5-5.1); Total Protein 6.3 gm/dl (6.0-8.3)
[2025-01-20 07:42] LABS: ANTI-Xa, UFH(UnfractionatedHep 0.89 IU/ml (0.3-0.7)
[2025-01-20] MEDS: MoRPHine SULFATE 4 MG/ML 1 ML CARP\\VIAL IV PRN (09:34)
--- NOTE | 2025-01-20 10:41 | Hospitalist Progress Note ---
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 Patient had a fall resulting in hip fracture requiring left ORIF 07/24/2024. Since then patient has had worsening pain and difficulty ambulating since September 2024. Patient had a fall 01/10 and x-ray outpatient with his orthopedic surgeon 01/12 which showed displacement of screws. Patient presented today due to concern for worsening ambulation, poor appetite, swelling of the lump around incision, and left lower extremity swelling for several days. Patient was found to have a left tibial DVT and hip CT showed hemarthrosis with surrounding intramuscular contusions and hematomas is being admitted on IV heparin for DVT, close monitoring of hematomas, and surgical fixation of displaced ORIF. #left tibial DVT suspect 2/2 decrease in ambulation. Left venous Doppler showed small tibial DVT. Continue heparin infusion: Discussed with orthopedic surgeon Dr. Mccormick: I spoke to him via [facility] and he has recommended holding heparin infusion at 2 AM, 8 hours prior to surgery. His team has placed hold parameters for heparin at this point - Will need orthopedic recommendations postoperatively regarding resuming heparin #left ORIF screw displacement/ambulatory dysfunction/hematoma ORIF 07/24/2024, found to be displaced 01/12/2025. Patient with worsening pain and decreased ambulation since September. hip CT showed likely hemarthrosis, contusions, hematomas of left lower extremity. Infection cannot be ruled out, however given no leukocytosis, Pro-Wild negative, VSS and afebrilewill defer further antibiotic treatment (treated with Ancef x 1 in ED). ESR 56, CRP 2.31. Concern for deterioration with decrease in ambulation, consider fixation during this admission (scheduled for procedure 02/17/[address] Mccormick) - revised cardiac risks index 1 - Dr. Mccormick with [facility] saw the patient and have scheduled him for surgery on 01/21/2025 - holding Plavix - Tylenol and morphine as needed for pain control Lidoderm patch as needed - H&H is stable - Blood culture sent from ED: Results pending - Patient is afebrile, UA is negative, chest x-ray is negative, white count is normal: Hold off on antibiotics at this point and follow-up blood culture report #history of CVA #Essential hypertension Outpatient csr Dr. Villegas Patient was seen by Dr. Villegas for cardiac optimization for surgery as outpatient on 01/19/2025 as per -Orthopedic team has ordered 2D echo prior to surgery: Results pending In 2018 Holding Plavix for orthopedic surgery scheduled on 01/21/2025 - Continue spironolactone, monitor vital signs #MDS - Monitor CBC #GERD continue famotidine #Hypothyroidism continue levothyroxine #stage III CKD renal function stable and at baseline - Avoid nephrotoxic agents including NSAIDs - Monitor renal function and electrolytes CODE STATUS: Full code DVT prophylaxis: Patient on heparin infusion Disposition: Unclear at this time, will depend on postop course, postop PT/OT recommendations Care plan discussed with patient, nursing staff and updated at bedside Admission and Anticipated Discharge Date Admission Date: January 19, 2025 Subjective Patient seen and examined H&P reviewed Labs reviewed Radiology reviewed Telemetry reviewed: Shows sinus rhythm at bedside Patient states 4 mg of IV morphine has helped with the pain which is under better control Patient denies any chest pain or shortness of breath. Appetite has been down for over a week Denies any nausea, vomiting or abdominal pain Denies any fever or chills Patient lives at home with his . 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6 C 76 18 137/76 96 01/19/25 23:10 77 16 123/77 97 01/19/25 22:44 88 19 127/68 97 O2 Del Method 01/20/25 08:21 01/20/25 07:52 Room Air 01/20/25 03:56 Room Air 01/20/25 01:00 Room Air 01/20/25 01:00 01/20/25 01:00 Room Air 01/19/25 23:10 Room Air 01/19/25 22:44 Room Air Laboratory Results 01/19/25 21:23 Aerobic Blood Culture - Pending Blood Anaerobic Blood Culture - Pending 01/19/25 20:19 Aerobic Blood Culture - Pending Blood Anaerobic Blood Culture - Pending 01/20/25 01/20/25 01/19/25 08:45 06:14 20:00 WBC 6.67 RBC 3.24 L Hgb 11.7 L Hct 34.1 L MCV 105.2 H MCH 36.1 H MCHC 34.3 RDW Std Deviation 45.2 RDW Coeff of Alyssa 11.7 Plt Count 240 MPV 10.1 Immature Gran % (Auto) 0.4 Neut % (Auto) 76.3 Lymph % (Auto) 8.2 Robertson % (Auto) 12.0 Eos % (Auto) 2.4 Baso % (Auto) 0.7 Neut # (Auto) 5.08 Lymph # (Auto) 0.55 L Robertson # (Auto) 0.80 H Eos # (Auto) 0.16 Baso # (Auto) 0.05 Immature Gran # (Auto) 0.03 ESR PT INR APTT PTT Ratio Heparin Anti-Xa, Unfract 0.89 H* Sodium 138 Potassium 3.7 Chloride 104 Carbon Dioxide 26 Anion Gap 8 BUN 28 H Creatinine 1.21 Est Cr Clr Drug Dosing 39.5 eGFR 57.59 BUN/Creatinine Ratio 23.1 H Glucose 102 H Calcium 9.4 Magnesium 1.8 Total Bilirubin 0.7 AST 20 ALT 18 Alkaline Phosphatase 266 H Troponin I High Sens C-Reactive Protein Total Protein 6.3 Albumin 3.5 Globulin 2.8 Albumin/Globulin Ratio 1.3 Lipase Procalcitonin Urine Color Yellow Urine Appearance Clear Urine pH 5.5 Ur Specific [place] 1.043 H Urine Protein Negative Urine Glucose (UA) Negative Urine Ketones Negative Urine Blood Negative Urine Nitrite Negative Urine Bilirubin Negative Urine Urobilinogen Negative Ur Leukocyte Esterase Negative Urine Comment Blood Type O Positive Antibody Screen NEGATIVE 01/19/25 01/19/25 19:51 16:00 WBC 7.32 RBC 3.28 L Hgb 11.8 L Hct 34.5 L MCV 105.2 H MCH 36.0 H MCHC 34.2 RDW Std Deviation 45.8 RDW Coeff of Alyssa 11.8 Plt Count 253 MPV 10.1 Immature Gran % (Auto) 0.1 Neut % (Auto) 78.6 Lymph % (Auto) 7.7 Robertson % (Auto) 11.3 Eos % (Auto) 1.8 Baso % (Auto) 0.5 Neut # (Auto) 5.75 Lymph # (Auto) 0.56 L Robertson # (Auto) 0.83 H Eos # (Auto) 0.13 Baso # (Auto) 0.04 Immature Gran # (Auto) 0.01 ESR 56 H PT 10.3 INR 0.9 APTT 31 PTT Ratio 1.2 Heparin Anti-Xa, Unfract Sodium 139 Potassium 3.7 Chloride 105 Carbon Dioxide 26 Anion Gap 8 BUN 36 H Creatinine 1.22 Est Cr Clr Drug Dosing Not Reportable eGFR 57.02 BUN/Creatinine Ratio 29.5 H Glucose 89 Calcium 9.3 Magnesium Total Bilirubin 0.5 AST 23 ALT 24 Alkaline Phosphatase 295 H Troponin I High Sens 8.8 C-Reactive Protein 2.31 H Total Protein 6.4 Albumin 3.5 Globulin 2.9 Albumin/Globulin Ratio 1.2 Lipase 5 L Procalcitonin 0.04 Urine Color Urine Appearance Urine pH Ur Specific [place] Urine Protein Urine Glucose (UA) Urine Ketones Urine Blood Urine Nitrite Urine Bilirubin Urine Urobilinogen Ur Leukocyte Esterase Urine Comment Blood Type Antibody Screen Diagnostic Findings Chest X-Ray 01/19/25 15:35 XR chest 1V portable CLINICAL HISTORY: Chest pain, nonspecific COMPARISON STUDY: 01/14/2020 FINDINGS: Stable mild cardiomegaly without pulmonary vascular congestion. No effusion, consolidation, or pneumothorax. IMPRESSION: No acute findings. ACT 112: Negative or not required by law. Electronically signed by: Dewayne France M.D. 01/19/2025 3:51 PM Venous Doppler Study 01/19/25 15:35 Clinical History: Pain and swelling Technique: Venous ultrasound evaluation was performed utilizing grayscale, color Doppler and wave form evaluation. Images were also obtained with and without compression Findings: The common femoral, superficial femoral, and popliteal veins demonstrate normal anechoic lumens with full compressibility. 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 There is apparent thrombus within 1 of the 2 posterior tibial veins Impression: Apparent DVT in the left calf ACT 112: Positive. There are findings on this exam that require communication between the performing entity and the patient following Patient Test Result Information Act ([place] ACT 112) guidelines. Electronically signed by Dean Valdez 01-19-2025 4:[address] 01/19/25 15:53 EXAM: CT hip LT wo/w con CLINICAL HISTORY: Eval anatomy fxr for surgery eval for infection. TECHNIQUE: A CT scan of the left hip joint was performed without and with 93ml Opitray-320mg/ml IV contrast. Coronal and sagittal reconstructive images were also obtained. One of the following dose reduction techniques was utilized for this exam: Automated exposure control, adjustment of the mA and/or kV according to patient size, and use of iterative reconstruction. COMPARISON: Prior CT dated 11/03/2024, CR 01/12/2025 was also reviewed. FINDINGS: Bones: Interval displacement of the prior left femoral neck fracture. Interval partial outward migration of the prior fixing hip screws with lowermost screw. No dislocation. No lytic, or sclerotic lesions. No evidence of avascular necrosis of the femoral heads. Joints: Normal joint space of the hip joint. Moderate joint effusion. Soft Tissues: [id number] Marked intra/OBX.[id number].5.1.2periarticular soft tissue and muscular thickening with fluid streaks and small locules noted at the iliopsoas muscle (new on interval). 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 Vascular Structures: Normal opacification of the visualized arteries and veins. No evidence of aneurysm, thrombosis, or significant vascular abnormalities. IMPRESSION: 1. Interval displacement of the prior left femoral neck fracture. Interval partial outward migration of the prior fixing hip screws with lowermost screw. 2. Marked intra and periarticular soft tissue and muscular thickening with fluid streaks and small locules noted at the iliopsoas muscle (new on interval). Scattered intramuscular hyperdense streaks are also noticed suggesting hematomas. Findings likely denote hemarthrosis with surrounding intramuscular contusions and hematomas. Superadded infection can`t be ruled out and should be laboratory correlated. 3. Stable large iliopsoas intramuscular lipoma. 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
--- NOTE | 2025-01-20 11:36 | Orthopedic Consultation ---
Date of Consultation January 20, 2025 Patient seen and examined. All studies have been reviewed. Medical decision making is 100% mine. She he has been evaluated by cardiology. Awaiting echo. High risk patient with complex problem. Will require hardware removal which would complicate the procedure may require calcar replacement. Will attempt to salvage acetabulum since there is no major destruction noted on the CT scan. He also had no major arthritic complaints prefracture of his femoral neck. Additionally, he has not been ambulating for some time so his bone will be quite soft on the acetabular side so I do not feel that reaming would be appropriate at this point in time. His femoral stem will need to be cemented. Will try to salvage his trochanter and prevent any type of metal fixation for that. All risks and benefits described. They wish to proceed with surgery. 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 Mccormick this morning. Plan will be for left hip hardware removal, left cemented bipolar hip versus cemented bipolar calcar replacement with Dr. Mccormick on 01/21/2025. Risks and benefits of surgery reviewed with patient. Consent for surgery was reviewed in detail with patient, form signed. Available on chart. We have coordinated with approprate reps for hardward removal and hardware placement. Cardiac echo ordered for today to complete preoperative cardiac workup Preop orders have been placed. Bedrest Heparin will be held tonight in preparation for surgery. N.p.o. after midnight Ice to left hip for pain (2) Acute deep vein thrombosis (DVT) of left lower extremity: Hold heparin tonight, resume after surgery (3) Hemarthrosis involving hip joint: Warm or cool compresses to hip, whichever is more helpful. 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 Hansen, who presented to the emergency department yesterday with progressive left hip pain, swelling, immobility, decreased p.o. intake. Patient has been experiencing progressively worsening left hip pain and difficulty with ambulation since September. He then had a fall potentially onto the left side on 01/10/2025 and underwent x-rays in our orthopedic office on 2024 which showed a nonunion of the femoral neck fracture and failed hardware with screw fracture. Surgery was planned for February, but patient did not feel that he could wait that long. In the emergency department, the patient had labs drawn, blood cultures, EKG obtained, chest x-ray. CT scan of the left hip showed displacement of the prior fracture with hardware disruption. Suspected hemarthrosis with surrounding suspected contusions and hematomas. Patient also underwent left lower extremity Doppler showing a DVT in the left calf and one of the 2 posterior tibial veins. Heparin drip was initiated by the hospitalist. He was given Ancef due to possible infection however this was felt to be less likely. Patient was subsequently admitted by the hospitalist team due to the above findings and plan for more urgent surgery given his decline. Patient has been following with cardiology on an outpatient basis for cardiac clearance for this upcoming surgery. He was preliminary cleared for surgery with an intermediate risk of cardiac complications, 4 to 5%. An echocardiogram had been ordered, but stress testing was not felt to be indicated. Allergies Allergy/AdvReac Type Severity Reaction Status Date / Time Beta-Blockers Allergy Unknown LOW HEART Verified 01/19/25 18:08 (Beta-Adrenergic Bloc RATE "FELT LOUSY" atorvastatin [From Lipitor] AdvReac Abdominal Verified 01/19/25 18:08 Pain Home Medications Medication Instructions Recorded Confirmed Type vitamin E 268 mg (400 unit) capsule 400 unit PO QAM 01/14/20 01/19/25 History coal tar 2 % topical ointment 1 applic topical TID 11/09/22 01/19/25 History famotidine 20 mg tablet 20 mg PO BID 11/09/22 01/19/25 History cholecalciferol (vitamin D3) 50 50 mcg PO QAM 08/20/24 01/19/25 History mcg (2,000 unit) capsule clopidogrel 75 mg tablet (Plavix) 75 mg PO QAM 01/19/25 01/19/25 History cyanocobalamin (vitamin B-12) 1,000 mcg PO QAM 01/19/25 01/19/25 History 1,000 mcg capsule levothyroxine 75 mcg tablet 75 mcg PO HS 01/19/25 01/19/25 History spironolactone 25 mg tablet 25 mg PO QAM 01/19/25 01/19/25 History tramadol 50 mg tablet 50 mg PO Q4 PRN Pain 01/19/25 01/19/25 History Patient History Medical History Hypokalemia Benign prostatic hyperplasia with urinary obstruction Encounter for pre-operative examination Acute hypokalemia Fall Closed hip fracture Elevated alkaline phosphatase level Anemia Hypothyroidism Prostate cancer Chronic kidney disease (CKD), stage III (moderate) HTN (hypertension) 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 GERD (gastroesophageal reflux disease) MDS (myelodysplastic syndrome), low grade Surgical History Status post open reduction and internal fixation (ORIF) of fracture S/P TURP S/P Mohs surgery for basal cell carcinoma H/O hernia repair S/P tonsillectomy and adenoidectomy Family History Father Myocardial infarction Heart disease Sister Heart disease Grandfather (Paternal) Prostate cancer Other Hypertension Stroke Denies family history of Ovarian cancer Breast cancer Colorectal cancer Social History Smoking Status: Never smoker Second Hand Exposure: No; Do You Dip or Chew Tobacco: No; Hx Alcohol Use: No Hx Substance Use: No Preferred Language: Mohawk 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 Ability: Effective Gas Analyst Required: No Beliefs That Will Affect Care: None marital status: Current Living Situation: Spouse current occupational status: retired How many Children do You have: 0 Other Information That Helps Us Care for You: No Feels Safe at Home: Yes Safety Concerns: Feels Safe At This Time Childhood Exposure to Second-Hand Smoke: No Diet: regular during the past year weight has: remained stable Dental Care, Regularly: Yes Physical Activity Frequency: Daily Physical Activity Frequency Comment: walking Seatbelt Use: always Sunscreen Use: No Assistive Devices: Glasses, Hearing Aid - Bilateral, Walker and Wheelchair Physical Exam Constitutional: Laying in bed. at the bedside initially appears very uncomfortable. Pain improves after nursing administers pain medication. Patient able to converse more easily after pain medication. Cardiovascular: Left PT pulse 2+ Musculoskeletal: Left lower extremity: Holding left hip and knee in flexion. Unwilling to move the left lower extremity due to pain. Mild soft tissue swelling in the left hip region with no erythema or induration. There is tenderness in this area to palpation. Surgical incision appears to be well-healed with no surrounding erythema or dehiscence. No drainage. Left leg does appear to be somewhat shortened compared to contralateral however difficult to assess due to patient positioning. Strength 5/5 with left ankle plantarflexion, dorsiflexion, eversion. Skin: [place], warm, dry Neurologic: No sensory deficits in left lower extremity to light touch L3-S1 distribution Results & Data Vital Signs (Past 12 Hours) Vital Signs Temp Pulse Pulse Resp BP Pulse Ox O2 Del Method 01/20/25 11:20 97.9 F 77 17 135/77 97 Room Air 01/20/25 08:21 80 01/20/25 07:52 97.7 F 88 17 160/81 H 95 Room Air 01/20/25 03:56 98.1 F 79 20 136/75 93 Room Air 01/20/25 01:00 Room Air 01/20/25 01:00 78 01/20/25 01:00 97.9 F 76 18 137/76 96 Room Air Laboratory Results 01/19/25 21:23 Aerobic Blood Culture - Pending Blood Anaerobic Blood Culture - Pending 01/19/25 20:19 Aerobic Blood Culture - Pending Blood Anaerobic Blood Culture - Pending 01/20/25 01/20/25 01/19/25 08:45 06:14 20:00 WBC 6.67 RBC 3.24 L Hgb 11.7 L Hct 34.1 L MCV 105.2 H MCH 36.1 H MCHC 34.3 RDW Std Deviation 45.2 RDW Coeff of Alyssa 11.7 Plt Count 240 MPV 10.1 Immature Gran % (Auto) 0.4 Neut % (Auto) 76.3 Lymph % (Auto) 8.2 [place] % (Auto) 12.0 Eos % (Auto) 2.4 Baso % (Auto) 0.7 Neut # (Auto) 5.08 Lymph # (Auto) 0.55 L [place] # (Auto) 0.80 H Eos # (Auto) 0.16 Baso # (Auto) 0.05 Immature Gran # (Auto) 0.03 ESR PT INR APTT PTT Ratio Heparin Anti-Xa, Unfract 0.89 H* Sodium 138 Potassium 3.7 Chloride 104 Carbon Dioxide 26 Anion Gap 8 BUN 28 H Creatinine 1.21 Est Cr Clr Drug Dosing 39.5 eGFR 57.59 BUN/Creatinine Ratio 23.1 H Glucose 102 H Calcium 9.4 Magnesium 1.8 Total Bilirubin 0.7 AST 20 ALT 18 Alkaline Phosphatase 266 H Troponin I High Sens C-Reactive Protein Total Protein 6.3 Albumin 3.5 Globulin 2.8 Albumin/Globulin Ratio 1.3 Lipase Procalcitonin Urine Color Yellow Urine Appearance Clear Urine pH 5.5 Ur Specific [place] 1.043 H Urine Protein Negative Urine Glucose (UA) Negative Urine Ketones Negative Urine Blood Negative Urine Nitrite Negative Urine Bilirubin Negative Urine Urobilinogen Negative Ur Leukocyte Esterase Negative Urine Comment Blood Type O Positive Antibody Screen NEGATIVE 01/19/25 01/19/25 19:51 16:00 WBC 7.32 RBC 3.28 L Hgb 11.8 L Hct 34.5 L MCV 105.2 H MCH 36.0 H MCHC 34.2 RDW Std Deviation 45.8 RDW Coeff of Alyssa 11.8 Plt Count 253 MPV 10.1 Immature Gran % (Auto) 0.1 Neut % (Auto) 78.6 Lymph % (Auto) 7.7 [place] % (Auto) 11.3 Eos % (Auto) 1.8 Baso % (Auto) 0.5 Neut # (Auto) 5.75 Lymph # (Auto) 0.56 L [place] # (Auto) 0.83 H Eos # (Auto) 0.13 Baso # (Auto) 0.04 Immature Gran # (Auto) 0.01 ESR 56 H PT 10.3 INR 0.9 APTT 31 PTT Ratio 1.2 Heparin Anti-Xa, Unfract Sodium 139 Potassium 3.7 Chloride 105 Carbon Dioxide 26 Anion Gap 8 BUN 36 H Creatinine 1.22 Est Cr Clr Drug Dosing Not Reportable eGFR 57.02 BUN/Creatinine Ratio 29.5 H Glucose 89 Calcium 9.3 Magnesium Total Bilirubin 0.5 AST 23 ALT 24 Alkaline Phosphatase 295 H Troponin I High Sens 8.8 C-Reactive Protein 2.31 H Total Protein 6.4 Albumin 3.5 Globulin 2.9 Albumin/Globulin Ratio 1.2 Lipase 5 L Procalcitonin 0.04 Urine Color Urine Appearance Urine pH Ur Specific [place] Urine Protein Urine Glucose (UA) Urine Ketones Urine Blood Urine Nitrite Urine Bilirubin Urine Urobilinogen Ur Leukocyte Esterase Urine Comment Blood Type Antibody Screen Diagnostic Findings Chest X-Ray 01/19/25 15:35 XR chest 1V portable CLINICAL HISTORY: Chest pain, nonspecific COMPARISON STUDY: 01/14/2020 FINDINGS: Stable mild cardiomegaly without pulmonary vascular congestion. No effusion, consolidation, or pneumothorax. IMPRESSION: No acute findings. ACT 112: Negative or not required by law. Electronically signed by: Dewayne France M.D. 01/19/2025 3:51 PM Venous Doppler Study 01/19/25 15:35 Clinical History: Pain and swelling Technique: Venous ultrasound evaluation was performed utilizing grayscale, color Doppler and wave form evaluation. Images were also obtained with and without compression Findings: The common femoral, superficial femoral, and popliteal veins demonstrate normal anechoic lumens with full compressibility. 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 There is apparent thrombus within 1 of the 2 posterior tibial veins Impression: Apparent DVT in the left calf ACT 112: Positive. There are findings on this exam that require communication between the performing entity and the patient following Patient Test Result Information Act ([place] ACT 112) guidelines. Electronically signed by Dean Valdez 01-19-2025 4:[address] 01/19/25 15:53 EXAM: CT hip LT wo/w con CLINICAL HISTORY: Eval anatomy fxr for surgery eval for infection. TECHNIQUE: A CT scan of the left hip joint was performed without and with 93ml Opitray-320mg/ml IV contrast. Coronal and sagittal reconstructive images were also obtained. One of the following dose reduction techniques was utilized for this exam: Automated exposure control, adjustment of the mA and/or kV according to patient size, and use of iterative reconstruction. COMPARISON: Prior CT dated 11/03/2024, CR 01/12/2025 was also reviewed. FINDINGS: Bones: Interval displacement of the prior left femoral neck fracture. Interval partial outward migration of the prior fixing hip screws with lowermost screw. No dislocation. No lytic, or sclerotic lesions. No evidence of avascular necrosis of the femoral heads. Joints: Normal joint space of the hip joint. Moderate joint effusion. Soft Tissues: [id number] Marked intra/OBX.5.1.1OBX.5.1.2periarticular soft tissue and muscular thickening with fluid streaks and small locules noted at the iliopsoas muscle (new on interval). 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 Vascular Structures: Normal opacification of the visualized arteries and veins. No evidence of aneurysm, thrombosis, or significant vascular abnormalities. IMPRESSION: 1. Interval displacement of the prior left femoral neck fracture. Interval partial outward migration of the prior fixing hip screws with lowermost screw. 2. Marked intra and periarticular soft tissue and muscular thickening with fluid streaks and small locules noted at the iliopsoas muscle (new on interval). Scattered intramuscular hyperdense streaks are also noticed suggesting hematomas. Findings likely denote hemarthrosis with surrounding intramuscular contusions and hematomas. Superadded infection can`t be ruled out and should be laboratory correlated. 3. Stable large iliopsoas intramuscular lipoma. Electronically signed by Juan C Newsome 01-19-2025 7:43 PM (2) Acute deep vein thrombosis (DVT) of left lower extremity Affected thrombotic vein of extremity: tibial Qualified Code(s): I82.442 - Acute embolism and thrombosis of left tibial vein (3) Hemarthrosis involving hip joint Laterality: left Qualified Code(s): M25.052 - Hemarthrosis, left hip
[2025-01-20] MEDS: SPIRONOLACTONE 25 MG TAB PO SCH (13:04)
[2025-01-20] MEDS: DOCUSATE SODIUM 100 MG CAP PO PRN (13:04)
--- NOTE | 2025-01-20 13:19 | Anesthesiology Consultation ---
Date of Service January 20, 2025 Assessment & Plan (1) Encounter for pre-operative examination: Chart Review Chart Review: Acceptable Risk for Surgery (due to plavix / heparin etc pt will need to be done under [place] - tolerated in July) History Surgery Operation Date: 01/21/25 10:40 Proposed Procedures p Left Hip Hardware Removal, Left Cemented Bipolar Hip Versus Cemented Bioplar Calcar Replacement - Myron Mccormick MD Height/Weight Height: 5 ft 7 in Weight: 77.2 kg Allergies Allergy/AdvReac Type Severity Reaction Status Date / Time Beta-Blockers Allergy Unknown LOW HEART Verified 01/19/25 18:08 (Beta-Adrenergic Bloc RATE "FELT LOUSY" atorvastatin [From Lipitor] AdvReac Abdominal Verified 01/19/25 18:08 Pain Medications Home Medications Medication Instructions Recorded Confirmed Last Taken vitamin E 268 mg (400 unit) capsule 400 unit PO QAM 01/14/20 01/19/25 01/19/25 coal tar 2 % topical ointment 1 applic topical TID 11/09/22 01/19/25 01/19/25 famotidine 20 mg tablet 20 mg PO BID 11/09/22 01/19/25 01/19/25 AM DOSE cholecalciferol (vitamin D3) 50 50 mcg PO QAM 08/20/24 01/19/25 01/19/25 mcg (2,000 unit) capsule clopidogrel 75 mg tablet (Plavix) 75 mg PO QAM 01/19/25 01/19/25 01/19/25 cyanocobalamin (vitamin B-12) 1,000 mcg PO QAM 01/19/25 01/19/25 01/19/25 1,000 mcg capsule levothyroxine 75 mcg tablet 75 mcg PO HS 01/19/25 01/19/25 01/18/25 spironolactone 25 mg tablet 25 mg PO QAM 01/19/25 01/19/25 01/19/25 tramadol 50 mg tablet 50 mg PO Q4 PRN Pain 01/19/25 01/19/25 Unknown Active Medications Generic Name Dose Route Start Last Admin Trade Name Freq PRN Reason Stop Dose Admin Docusate Sodium 100 mg 01/20/25 01:02 01/20/25 13:04 Docusate Sodium 100 Mg Cap PO 02/19/25 01:01 100 mg BID PRN Administration Constipation Famotidine 20 mg 01/20/25 01:02 01/20/25 13:03 Famotidine 20 Mg Tab PO 02/19/25 01:01 20 mg BID NICK Administration Heparin Sodium/Dextrose 25,000 units in 500 mls @ 0 mls/hr 01/19/25 22:30 01/20/25 07:55 Heparin 88609 Unit/500 Ml D5w IV 02/18/25 22:29 0 units/hr .Q0M NICK 0 mls/hr Titration Protocol 0 UNITS/HR Levothyroxine Sodium 75 mcg 01/20/25 01:02 01/20/25 02:54 Levothyroxine Sodium 75 Mcg Tablet PO 02/19/25 01:01 75 mcg HS NICK Administration Morphine Sulfate 4 mg 01/20/25 01:02 01/20/25 09:34 Morphine Sulfate 4 Mg/Ml 1 Ml Carp\\Vial IV 02/03/25 01:01 4 mg Q6H PRN Administration Severe Pain (Scale 7, 8, 9,10) Spironolactone 25 mg 01/20/25 09:00 01/20/25 13:04 Spironolactone 25 Mg Tab PO 02/19/25 08:59 25 mg QAM NICK Administration Past Medical History Medical History (Updated 01/20/25 @ 13:18 by Tom Aguilar MD) Hypokalemia Benign prostatic hyperplasia with urinary obstruction Acute hypokalemia Fall Closed hip fracture Elevated alkaline phosphatase level Anemia Hypothyroidism Prostate cancer Chronic kidney disease (CKD), stage III (moderate) HTN (hypertension) 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 GERD (gastroesophageal reflux disease) MDS (myelodysplastic syndrome), low grade Past Family History Family History Father Myocardial infarction Heart disease Sister Heart disease Grandfather (Paternal) Prostate cancer Other Hypertension Stroke Denies family history of Ovarian cancer Breast cancer Colorectal cancer Past Surgical History Surgical History Status post open reduction and internal fixation (ORIF) of fracture S/P TURP S/P Mohs surgery for basal cell carcinoma H/O hernia repair S/P tonsillectomy and adenoidectomy Social History Smoking Status: Never smoker Do You Dip or Chew Tobacco: No Hx Alcohol Use: No alcohol intake frequency: holidays/special occasions only Hx Substance Use: No substance use type: does not use Physical Exam Vital Signs Last Vital Signs Temp 36.6 C 01/20/25 11:20 Pulse 77 01/20/25 11:20 Resp 17 01/20/25 11:20 BP 135/77 01/20/25 11:20 Pulse Ox 97 01/20/25 11:20 O2 Del Method Room Air 01/20/25 11:20 Testing Laboratory Results 01/20/25 06:14 01/20/25 06:14 PT 10.3 Seconds (9.0-12.0) 01/19/25 16:00 INR 0.9 (0.9-1.1) 01/19/25 16:00 APTT 31 Seconds (21-31) 01/19/25 16:00 Urine Color Yellow 01/19/25 20:00 Urine Appearance Clear (Clear) 01/19/25 20:00 Urine pH 5.5 (4.5-7.5) 01/19/25 20:00 Ur Specific [place] 1.043 (1.000-1.030) H 01/19/25 20:00 Urine Protein Negative (Negative) 01/19/25 20:00 Urine Glucose (UA) Negative (Negative) 01/19/25 20:00 Urine Ketones Negative (Negative) 01/19/25 20:00 Urine Nitrite Negative (Negative) 01/19/25 20:00 Ur Leukocyte Esterase Negative (Negative) 01/19/25 20:00 Blood Type O Positive 01/20/25 08:45 Antibody Screen NEGATIVE 01/20/25 08:45 Electrocardiogram Date: 01/19/25 Findings: + NSR @ (81 1st degree AV block) Echocardiogram Date: 01/16/20 LV Function: normal Valvular Disease: + no significant valvular disease Stress Test Type: DSE Findings: + WNL
--- NOTE | 2025-01-20 14:40 | Orthopedic Progress Note ---
Date of Service January 20, 2025 Assessment & Plan Admission and Anticipated Discharge Date Admission Date: January 19, 2025 Orthopedic Progress Note Patient presently lying in bed comfortably. Getting his echo. Examination of his incision area again remains clean and dry. He is being prepared for revision surgery tomorrow. Emphasized the need to remove the broken hardware and to replace the proximal femur with a cemented stem possibly calcar replacing depending on the amount of comminution. Risks as noted in the consent particularly instability and infection emphasized. Anesthesia consult placed so they review him in advance.
[2025-01-20] MEDS: LIDOCAINE 5% 1 PATCH TD SCH (15:10)
--- NOTE | 2025-01-20 21:39 | XCELERA ---
[id number]
--- NOTE | 2025-01-21 05:21 | History & Physical Bridge Note ---
Date of Service January 21, 2025 History & Physical Bridge Note I have examined the patient, reviewed the History & Physical and in the interval since the performance of the History & Physical I have noted the following changes of clinical significance: consent and site verified.no changes noted
--- NOTE | 2025-01-21 06:11 | Electrocardiogram Report ---
Test Reason : Blood Pressure : */* mmHG Vent. Rate : 81 BPM Atrial Rate : 81 BPM P-R Int : 214 ms QRS Dur : 96 ms QT Int : 384 ms P-R-T Axes : 17 -48 20 degrees QTcB Int : 446 ms Poor data quality, interpretation may be adversely affected Sinus rhythm with 1st degree A-V block Left axis deviation Abnormal ECG When compared with ECG of 24-Jul-2024 12:50, Incomplete right bundle branch block is no longer Present Criteria for Septal infarct are no longer Present Confirmed by Sarabjit Yepez ([id number]) on 01/21/2025 6:11:07 AM Referred By: REFERRED SELF Confirmed By: Sarabjit Yepez
[2025-01-21 06:35] LABS: Basophils # (auto) 0.04 K/uL (0.00-0.20); Basophils % (auto) 0.5 %; Eosinophils # (auto) 0.03 K/uL (0.00-0.50); Eosinophils % (auto) 0.4 %; Hematocrit (blood only) 33.6 % (42.0-52.0); Hemoglobin 11.8 g/dl (14.0-18.0); Immature Granulocytes # (auto) 0.03 K/uL (0.01-0.20); Immature Granulocytes % (auto) 0.4 %; Lymphocytes # (auto) 0.65 K/uL (1.20-3.40); Mean Corpuscular Hemoglobin 35.6 pg (25.0-34.0); Mean Corpuscular Hgb Conc 35.1 g/dL (32.0-36.0); Mean Corpuscular Volume 101.5 fL (80.0-100.0); Monocytes # (auto) 1.19 K/uL (0.11-0.59); Monocytes % (auto) 14.6 %; Neutrophils # (auto) 6.23 K/uL (1.40-6.50); Neutrophils % (auto) 76.1 %; Platelet Count 264 K/uL (130-400); RDW Coefficient of Variation 11.5 % (11.5-14.5); RDW Standard Deviation 43.4 fL (36.4-46.3); Red Blood Count 3.31 M/uL (4.70-6.10); White Blood Count 8.17 K/ul (4.8-10.8)
[2025-01-21] MEDS ORDERED: BUPIVACAINE 0.5 % 5 MG/1 ML PF 10ML VIAL ONE (07:33)
--- NOTE | 2025-01-21 09:28 | Orthopedic Progress Note ---
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 Mccormick. Labs and vitals remain stable. Confirmed heparin was held at 2 AM last night. He is NPO. Asked nursing to apply CHG wipes as ordered. Cardiac echo from yesterday demonstrates no significant changes from 2020. Patient has been cleared for surgery by anesthesia. Antiplatelet and anticoagulation will need to be resumed after surgery per Dr. Mccormick. (2) Acute deep vein thrombosis (DVT) of left lower extremity: (3) Hemarthrosis involving hip joint: Plan: Warm or cool compresses to hip, whichever is more helpful. Admission and Anticipated Discharge Date Admission Date: January 19, 2025 Toy Wilson is seen sitting upright in a chair this morning. His is at the bedside. He states that his pain is better controlled. Was not able to sleep a whole lot last night, states that he is having a little bit of confusion, but otherwise has been resting more comfortably. He has not had breakfast this morning. Physical Exam Constitutional: Sitting upright in chair. Resting comfortably. Much improved from yesterday. Cardiovascular: Left PT pulse 2+ Musculoskeletal: Left lower extremity: Left hip with no skin color changes or significant swelling. Surgical scar remains intact with no dehiscence. Strength 5/5 with ankle plantarflexion, dorsiflexion, eversion. No edema in bilateral lower extremities. No tenderness in bilateral calves. Neurologic: No sensory deficits left lower extremity to light touch L3-S1 distribution Results & Data Vital Signs (Past 12 Hours) Vital Signs Temp Pulse Pulse Resp BP BP Pulse Ox 01/21/25 08:06 98.4 F 84 16 136/70 95 01/21/25 07:20 82 01/21/25 03:36 98.1 F 87 20 143/73 H 94 01/20/25 23:23 98.4 F 85 20 127/73 94 01/20/25 22:07 85 O2 Del Method 01/21/25 08:06 Room Air 01/21/25 07:20 01/21/25 03:36 Room Air 01/20/25 23:23 Room Air 01/20/25 22:07 Laboratory Results 01/19/25 21:23 Aerobic Blood Culture - Preliminary Blood No growth in Aerobic bottle after 24 hours. Anaerobic Blood Culture - Final 01/19/25 20:19 Aerobic Blood Culture - Preliminary Blood No growth in Aerobic bottle after 24 hours. Anaerobic Blood Culture - Preliminary No growth in Anaerobic bottle after 24 hours. 01/21/25 01/20/25 01/20/25 05:46 14:02 08:45 WBC 8.17 RBC 3.31 L Hgb 11.8 L Hct 33.6 L MCV 101.5 H MCH 35.6 H MCHC 35.1 RDW Std Deviation 43.4 RDW Coeff of Alyssa 11.5 Plt Count 264 MPV 10.0 Immature Gran % (Auto) 0.4 Neut % (Auto) 76.1 Lymph % (Auto) 8.0 Armstrong % (Auto) 14.6 Eos % (Auto) 0.4 Baso % (Auto) 0.5 Neut # (Auto) 6.23 Lymph # (Auto) 0.65 L Armstrong # (Auto) 1.19 H Eos # (Auto) 0.03 Baso # (Auto) 0.04 Immature Gran # (Auto) 0.03 Heparin Anti-Xa, Unfract 0.70 Blood Type O Positive Antibody Screen NEGATIVE Diagnostic Findings Transthoracic echocardiogram obtained 01/20/2025: Interpretation summary 1. Normal left ventricular size and systolic function. EF 60 to 65%. No regional wall motion abnormalities. No left ventricular hypertrophy. 2. Moderate mitral annular calcification. 3. Top normal estimated right ventricular systolic pressure. 4. No significant change from prior study on 01/16/2020. (2) Acute deep vein thrombosis (DVT) of left lower extremity Affected thrombotic vein of extremity: tibial Qualified Code(s): I82.442 - Acute embolism and thrombosis of left tibial vein (3) Hemarthrosis involving hip joint Laterality: left Qualified Code(s): M25.052 - Hemarthrosis, left hip
[2025-01-21] MEDS ORDERED: ONDANSETRON INJ 2 MG/ML 2 ML VIAL ONE (09:36)
[2025-01-21] MEDS ORDERED: PROPOFOL IV EMULSION 10 MG/ML 20 ML VIAL IV ONE (09:36)
[2025-01-21] MEDS ORDERED: DEXAMETHASONE SOD INJ 4 MG/ML VIAL ONE (09:36)
[2025-01-21] MEDS ORDERED: LIDOCAINE 2% 2 ML VIAL/AMP(20MG/ML) INFIL ONE ×2 (09:36→09:37)
[2025-01-21] MEDS ORDERED: fentaNYL citrate PF 100 MCG/2 ML VIAL ONE ×2 (09:37→12:16)
[2025-01-21] MEDS ORDERED: ROCURONIUM BROMIDE 10 MG/ML 5 ML VIAL IV ONE ×2 (09:37→12:15)
[2025-01-21] MEDS ORDERED: MIDAZOLAM HCL 1 MG/ML 2ML VIAL ONE (09:37)
[2025-01-21] MEDS ORDERED: ePHEDrine sulfate 50 MG/ML AMP ONE (09:45)
[2025-01-21] MEDS: LACTATED RINGER'S 1,000 ML IV SCH (10:10)
[2025-01-21] MEDS ORDERED: ALBUMIN HUMAN 5% 12.5 GM/250 ML VIAL IV ONE (11:41)
[2025-01-21] MEDS: ceFAZolin 2000MG 2,000 MG/15 ML SYR IV SCH ×2 (11:50→18:52)
[2025-01-21] MEDS: TRANEXAMIC ACID / 0.7% NACL 1,000 MG/100 ML BAG IV SCH ×2 (12:35)
[2025-01-21] MEDS ORDERED: SUGAMMADEX SODIUM 200 MG/2 ML VIAL IV ONE (12:53)
[2025-01-21] MEDS: ORTHO JOINT ANESTHETIC ONE (13:27)
[2025-01-21] MEDS: VANCOMYCIN HCL 1000MG/20ML VIAL ONE ×2 (13:27)
--- NOTE | 2025-01-21 14:07 | Post Operative Brief Note ---
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
--- NOTE | 2025-01-21 14:08 | Operative Report ---
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 Specimens Bone pathology Description of Procedure See other report I attest to the content of the Intraoperative Record and any orders documented therein. Any exceptions are noted below.
[2025-01-21] MEDS ORDERED: VANCOMYCIN CONSULT ACTIVE PRN (14:10)
--- NOTE | 2025-01-21 14:10 | Operative Report ---
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 He was placed in the right lateral decubitus position. Left lower extremity was pr epped and draped in the usual sterile fashion. Surgical timeout was performed. Patient underwent a left hip removal of hardware with cemented bipolar hemiarthroplasty. Please see Dr. Mccormick's operative report for full details. I was present and assisted with patient positioning, positioning, soft tissue retraction, hemostasis, hardware implantation, wound closure, postoperative dressing placement. The patient was awakened and taken to the recovery room in stable condition. I attest to the content of the Intraoperative Record and any orders documented therein. Any exceptions are noted below.
--- NOTE | 2025-01-21 14:14 | Operative Report ---
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 Procedure: [] Conversion of failed internal fixation with fractured hardware and femoral nonunion to cemented bipolar endoprosthesis left hip Surgeon: [] Jace Climatology Teacher: [] Hubert Estimated Blood Loss: [] 200 Findings: [] Femoral nonunion failed hardware leg shortening 4 inches Specimens: [] None Description of Procedure: [] After the patient was appropriate endophyte site verified consent verified antibiotics confirmed as being given the patient was placed in the right lateral decubitus position on the left lower extremity prepped and draped use routine fashion. The old incision was not included in the posterior approach to the hip. Full-thickness flaps raised. Incision was appropriate length to deal with the retraction of the limb and the deformity. Once down to the fascia this was incised. Some retained fluid was evacuated it was just serosanguineous it did not look infected. The hardware was then dissected underneath the subvastus lateralis area and removed in 1 piece. The fractured screw was loose that was able to be removed without drilling. This area was then irrigated. Attention was then turned towards the femur proximally. Needed to be extensively released to get it to retract down. This included releasing the iliopsoas and the capsule anteriorly as well as posteriorly off the femur. The femoral neck was then resected. The head that was retained in the acetabulum had to be removed piecemeal as there was no real bone left to get a corkscrew in there. It was finally removed the ligamentum teres was resected. The wound was irrigated the labrum and the acetabulum relatively healthy. The stem was sized to 48. The femur was then prepared with 1 revision femoral cut and then broached up to a 10 and then a 7 stem cemented into position with the restrictor placed at 14 cm. Care was taken to pack the holes that were there from the hardware. After 15 minutes the cement cured and then a trial reduction was carried out with a 28+3 head in the 48 bipolar. The leg lengths were relatively good within a centimeter the hip was stable to flexion beyond 100 degrees internal rotation 25 degrees. Extension was stable. Prior to. Putting the permanent implant send trial reductions were carried out and it was noted that the +3 was going to get better length and 0. All the other implants remain the same. The wound was then soaked in TXA and then irrigated with Betadine and Pulsavac and then closed in layers using #2 Vicryl 2-0 Vicryl and stainless steel clips. Appropriate dressing applied the patient transferred recovery room. The was contacted. We returned to the floor on the telemetry to the telemedicine unit with hospitalist admission. The need to have his hematocrit checked to see if he needs any transfusion. He does have a heart history. He is on antiplatelet drugs. He will be placed back on anticoagulation. He can be started on Eliquis tomorrow when he is 24 hours postop so sometime tomorrow afternoon after 1400. Summary of implants left bipolar stem Lorenza 7 standard echo ECHO 9 mm centralizer 48 bipolar with a 28+3 head. Attestation: I attest to the content of the Intraoperative Record and any orders documented therein. Any exceptions are noted below.
--- NOTE | 2025-01-21 14:26 | XRay Report ---
XR pelvis 1-2V routine CLINICAL HISTORY: S/P Bipolar hip replacement COMPARISON: 01/12/2025 FINDINGS: Left hip prosthesis shows no hardware complication. There is expected soft tissue gas. Ski n drea are present. IMPRESSION: Unremarkable postoperative exam. ACT 112: Negative or not required by law. Electronically signed by: Dewayne France M.D. 01/21/2025 2:25 PM
--- NOTE | 2025-01-21 14:51 | Orthopedic Progress Note ---
Date of Service January 21, 2025 Assessment & Plan Admission and Anticipated Discharge Date Admission Date: January 19, 2025 Orthopedic Progress Note Postop check status post conversion of femoral neck nonunion with broken hardware to a bipolar cemented endoprosthesis. Patient is doing well and recovering. He denies chest pain shortness of breath fever chills nausea vomiting headache. Vital signs are stable he is afebrile. Neurovascular check femoral sciatic nerve is normal. Wound dressing clean dry and intact. Postop x-rays look excellent. Assessment overall doing well at this point I am not 3 institute Eliquis for DVT PE prophylaxis starting 24 hours postop. Would not start heparin until at least 12 hours postop and prefer not to start it at all and to start the Eliquis 24 hours postop. Should be able to get up and walk on his leg with a walker with appropriate PT and OT support starting tomorrow. Medical management for his blood work etc. per hospitalist group. Would suggest that he get transferred to a rehab facility as this will require him some time to get used to getting back on his feet. Suggest case management to get involved early.
--- NOTE | 2025-01-21 14:58 | Anesthesiology Progress Note ---
Date of Service January 21, 2025 Anesthesia Post Procedure Vital Signs Vital Signs: Temp Pulse Pulse Pulse Resp BP BP 01/21/25 14:35 36.4 C L 81 18 112/60 01/21/25 14:25 79 18 129/68 01/21/25 14:15 77 18 123/61 01/21/25 14:08 36.4 C L 79 16 109/57 L 01/21/25 10:00 36.6 C 87 82 18 145/72 H 01/21/25 08:06 36.9 C 84 16 136/70 01/21/25 08:00 01/21/25 07:20 82 01/21/25 03:36 36.7 C 87 20 143/73 H 01/20/25 23:23 36.9 C 85 20 127/73 01/20/25 22:07 85 01/20/25 21:00 01/20/25 19:52 36.8 C 89 18 121/71 01/20/25 18:45 79 01/20/25 15:10 36.5 C 75 18 103/55 L Pulse Ox O2 Del Method O2 Flow Rate 01/21/25 14:35 95 Room Air 01/21/25 14:25 100 Oxymask 3 01/21/25 14:15 100 Oxymask 6 01/21/25 14:08 100 Oxymask 8 01/21/25 10:00 100 Room Air 01/21/25 08:06 95 Room Air 01/21/25 08:00 Room Air 01/21/25 07:20 01/21/25 03:36 94 Room Air 01/20/25 23:23 94 Room Air 01/20/25 22:07 01/20/25 21:00 Room Air 01/20/25 19:52 96 Room Air 01/20/25 18:45 01/20/25 15:10 96 Room Air Transfer of Care Handoff Completed per policy Notes Mental Status: alert / awake / arousable Patient Amnestic to Procedure: Yes Nausea / Vomiting: adequately controlled Pain: adequately controlled Airway Patency, RR, SpO2: stable & adequate BP & HR: stable & adequate Hydration State: stable & adequate Anesthetic Complications: no major complications apparent
[2025-01-21] MEDS: ROPIVACAINE 0.5% HCL/PF 246 MG, Ketorolac (*for OR use only*) 30 MG, EPINEPHrine 30MG/3... INFIL SCH (15:30)
--- NOTE | 2025-01-21 15:51 | Hospitalist Progress Note ---
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 Patient had a fall resulting in hip fracture requiring left ORIF 07/24/2024. Since then patient has had worsening pain and difficulty ambulating since September 2024. Patient had a fall 01/10 and x-ray outpatient with his orthopedic surgeon 01/12 which showed displacement of screws. Patient presented today due to concern for worsening ambulation, poor appetite, swelling of the lump around incision, and left lower extremity swelling for several days. Patient was found to have a left tibial DVT and hip CT showed hemarthrosis with surrounding intramuscular contusions and hematomas is being admitted on IV heparin for DVT, close monitoring of hematomas, and surgical fixation of displaced ORIF. #left tibial DVT suspect 2/2 decrease in ambulation. Left venous Doppler showed small tibial DVT. Continue heparin infusion: - Will need orthopedic recommendations postoperatively regarding resuming heparin #left ORIF screw displacement/ambulatory dysfunction/hematoma ORIF 07/24/2024, found to be displaced 01/12/2025. Patient with worsening pain and decreased ambulation since September. hip CT showed likely hemarthrosis, contusions, hematomas of left lower extremity. -He is now status post conversion of femoral neck nonunion with broken hardware to a bipolar cemented endoprosthesis -He is stable postsurgery -Pain is under control -Appreciate orthopedics -Physical therapy #Essential hypertension Blood pressures under good control Continue home medications. #MDS - Monitor CBC #GERD continue famotidine #Hypothyroidism continue levothyroxine #stage III CKD renal function stable and at baseline - Avoid nephrotoxic agents including NSAIDs - Monitor renal function and electrolytes #history of CVA CODE STATUS: Full code DVT prophylaxis: Patient on heparin infusion Disposition: Unclear at this time, will depend on postop course, postop PT/OT recommendations Admission and Anticipated Discharge Date Admission Date: January 19, 2025 Subjective Patient seen and examined, at the bedside Review of Systems Review of Systems: All systems reviewed are negative, apart from the ones contained in the history. Physical Exam Physical Exam: The patient is awake, alert and oriented 3, well developed and well nourished, normocephalic and atraumatic, lying in bed and in no acute distress. HEENT--PERRL, EOMI, mucous membranes and oropharynx mildly dry Neck--supple. No JVD. No bruits. Thyroid normal, trachea midline, no adenopathy. Heart--normal S1 and S2. No murmurs, rubs or gallops. Lungs--clear bilaterally, no respiratory distress, no accessory muscle use. Abdomen--normal bowel sounds and soft. Extremities--no cyanosis or clubbing. No edema. Dermatologic--normal skin turgor, normal color, no abnormal lymph nodes, no rash. Neurologic--cranial nerves II through XII grossly intact. Rheumatologic--normal range of motion. Psychiatric--normal affect. Results & Data Results & Data Vital Signs (Past 12 Hours) Vital Signs Temp Pulse Pulse Pulse Resp BP BP 01/21/25 15:44 85 01/21/25 15:26 97.7 F 85 20 127/67 01/21/25 15:00 97.3 F L 83 18 109/66 01/21/25 14:35 97.5 F L 81 18 112/60 01/21/25 14:25 79 18 129/68 01/21/25 14:15 77 18 123/61 01/21/25 14:08 97.5 F L 79 16 109/57 L 01/21/25 10:00 97.9 F 87 82 18 145/72 H 01/21/25 08:06 98.4 F 84 16 136/70 01/21/25 08:00 01/21/25 07:20 82 Pulse Ox O2 Del Method O2 Flow Rate 01/21/25 15:44 01/21/25 15:26 95 Room Air 01/21/25 15:00 94 Room Air 01/21/25 14:35 95 Room Air 01/21/25 14:25 100 Oxymask 3 01/21/25 14:15 100 Oxymask 6 01/21/25 14:08 100 Oxymask 8 01/21/25 10:00 100 Room Air 01/21/25 08:06 95 Room Air 01/21/25 08:00 Room Air 01/21/25 07:20 PG Care Time/CCT Total # of Minutes Spent Total Time Spent with Patient: Total time spent is greater than 50% in coordination of care (as documented) at patient's floor/unit and/or counseling patient: Coding Level of Care Code 45380 SUB INP/OBS CARE 2/35MIN Diagnoses Acute deep vein thrombosis (DVT) of left lower extremity I82.442 Affected thrombotic vein of extremity: tibial 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
[2025-01-21] MEDS: VANCOMYCIN HCL 1,750 MG in SODIUM CHLORIDE 0.9% 500 ML IV ONE (16:01)
[2025-01-21] MEDS: MELATONIN 3 MG TAB PO SCH (21:22)
[2025-01-22] MEDS: MoRPHine SULFATE 2 MG/ML CARP IV PRN (02:29)
[2025-01-22 06:22] LABS: BUN Creatinine Ratio 21.7 (10-20); Calcium 8.7 mg/dl (8.6-10.3); Creatinine Clr Calc Pharmacy 33.4 ml/min
[2025-01-22 06:55] LABS: Basophils # (auto) 0.03 K/uL (0.00-0.20); Basophils % (auto) 0.2 %; Hematocrit (blood only) 25.9 % (42.0-52.0); Hemoglobin 8.8 g/dl (14.0-18.0); Immature Granulocytes # (auto) 0.06 K/uL (0.01-0.20); Immature Granulocytes % (auto) 0.5 %; Lymphocytes # (auto) 0.45 K/uL (1.20-3.40); Lymphocytes % (auto) 3.6 %; Mean Corpuscular Hemoglobin 35.9 pg (25.0-34.0); Mean Corpuscular Volume 105.7 fL (80.0-100.0); Mean Platelet Volume 10.4 fL (9.4-12.4); Monocytes % (auto) 10.3 %; Neutrophils # (auto) 10.79 K/uL (1.40-6.50); Neutrophils % (auto) 85.4 %; Platelet Count 203 K/uL (130-400); RDW Coefficient of Variation 11.7 % (11.5-14.5); RDW Standard Deviation 44.8 fL (36.4-46.3); Red Blood Count 2.45 M/uL (4.70-6.10); White Blood Count 12.63 K/ul (4.8-10.8)
--- NOTE | 2025-01-22 06:59 | Orthopedic Progress Note ---
Date of Service January 22, 2025 Assessment & Plan Admission and Anticipated Discharge Date Admission Date: January 19, 2025 Orthopedic Progress Note Postop day #1 status postconversion of a femoral neck nonunion and hardware failure to cemented bipolar implant. Had a rough night. Got confused. Had elements that on and off preop. Took off his monitors. Vital signs are stable but a little bit tachycardic. He is not febrile. Neurovascular check femoral sciatic nerve is normal. Hip is located. Wound dressing clean dry and intact. He is a little bit rambunctious in the bed. Hematocrit is at 25. Will likely need transfusion but leave that up to hospitalist. Can initiate Eliquis this afternoon at roughly noon. Assessment physically doing reasonably well hematocrit drop secondary to surgical procedure and hemodilution with fluid. Transfusion at this point in time as high probability would not leave it up to hospitalist. Will need to adjust medications to minimize any type of mental challenge and helpful hopefully decrease his confusion. Suggest knee immobilizer as well as the abduction brace so that he does not inadvertently Hyperflex and internally rotate his hip. That will lead to potential dislocation. Can be up to full weightbearing as tolerated with PT OT.
--- NOTE | 2025-01-22 08:22 | CT Scan Report ---
CT SCAN OF THE BRAIN WITHOUT IV CONTRAST CLINICAL HISTORY: Confusion. Fall. COMPARISON STUDY: MRI of the brain October 26, 2017. Head CT January 26, 2024. TECHNIQUE: Unenhanced axial CT scan of the brain was performed from the vertex to the skull base. A dose lowering technique was utilized adhering to the principles of ALARA. CT DOSE: 703.85 mGy.cm FINDINGS: Brain parenchyma: No acute intracranial hemorrhage, midline shift or mass effect is present. Hi-whi te matter differentiation is preserved. There are no extra-axial fluid collections. There are no find ings to suggest acute dural sinus thrombosis or acute territorial infarct. An old right frontal lobe infarct is unchanged. White matter hypodensities are similar to prior exam and favor small vessel dis ease. Ventricles, sulci, cisterns: There is no hydrocephalus. The basal cisterns are patent. Calvarium: There are no calvarial fractures. Sinuses and mastoids: The visualized paranasal sinuses are clear. The mastoid air cells are well pneu matized. Orbits: The bony orbits are grossly intact. IMPRESSION: 1. No acute intracranial findings. No change in appearance of brain. 2. No calvarial fractures. ACT 112: Negative or not required by law. Electronically signed by: Arpit Whipple M.D. 01/22/2025 8:20 AM
[2025-01-22] MEDS: APIXABAN 5 MG TABLET PO SCH (08:39)
[2025-01-22] MEDS: dexAMETHasone 10 MG in SYRINGE 0 ML IV SCH (08:39)
[2025-01-22] MEDS ORDERED: APIXABAN 2.5 MG TAB PO SCH (09:00)
[2025-01-22] MEDS: DOCUSATE SODIUM/SENNA 50/8.6MG TAB PO SCH (09:03)
[2025-01-22] MEDS: POLYETHYLENE (MIRALAX) 17 GM PACK PO SCH (09:04)
[2025-01-22] MEDS: MAGNESIUM OXIDE 400 MG TAB PO SCH (09:04)
[2025-01-22] MEDS: ACETAMINOPHEN 500 MG TAB PO PRN (10:04)
[2025-01-22 10:35] LABS: Prealbumin 16.8 mg/dl (20-40)
--- NOTE | 2025-01-22 10:58 | Hospitalist Progress Note ---
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 Patient had a fall resulting in hip fracture requiring left ORIF 07/24/2024. Since then patient has had worsening pain and difficulty ambulating since September 2024. Patient had a fall 01/10 and x-ray outpatient with his orthopedic surgeon 01/12 which showed displacement of screws. Patient presented today due to concern for worsening ambulation, poor appetite, swelling of the lump around incision, and left lower extremity swelling for several days. Patient was found to have a left tibial DVT and hip CT showed hemarthrosis with surrounding intramuscular contusions and hematomas is being admitted on IV heparin for DVT, close monitoring of hematomas, and surgical fixation of displaced ORIF. #left tibial DVT suspect 2/2 decrease in ambulation. Left venous Doppler showed small tibial DVT. Was on heparin infusion: - Transitioned to Eliquis 10mg BID for 7 days and then 5mg BID #left ORIF screw displacement/ambulatory dysfunction/hematoma ORIF 07/24/2024, found to be displaced 01/12/2025. Patient with worsening pain and decreased ambulation since September. hip CT showed likely hemarthrosis, contusions, hematomas of left lower extremity. -He is now status post conversion of femoral neck nonunion with broken hardware to a bipolar cemented endoprosthesis -He is stable postsurgery -Pain is under control -Appreciate orthopedics -Physical therapy Acute encephalopathy Most likely hospital delirium, also worsened by the effects of anasthesia His mentation waxes and wanes CT head did not show any acute pathology continue to re orient, windows and blinds down during the day #Essential hypertension Blood pressures under good control Continue home medications. #MDS - Monitor CBC #GERD continue famotidine #Hypothyroidism continue levothyroxine #stage III CKD renal function stable and at baseline - Avoid nephrotoxic agents including NSAIDs - Monitor renal function and electrolytes #history of CVA CODE STATUS: Full code DVT prophylaxis: Patient on heparin infusion Disposition: PT/OT recommendations pending, will need rehab Admission and Anticipated Discharge Date Admission Date: January 19, 2025 Subjective Patient seen and examined, at the bedside Review of Systems Review of Systems: All systems reviewed are negative, apart from the ones contained in the history. Physical Exam Physical Exam: The patient is awake, alert and oriented 3, well developed and well nourished, normocephalic and atraumatic, lying in bed and in no acute distress. HEENT--PERRL, EOMI, mucous membranes and oropharynx mildly dry Neck--supple. No JVD. No bruits. Thyroid normal, trachea midline, no adenopathy. Heart--normal S1 and S2. No murmurs, rubs or gallops. Lungs--clear bilaterally, no respiratory distress, no accessory muscle use. Abdomen--normal bowel sounds and soft. Extremities--no cyanosis or clubbing. No edema. Dermatologic--normal skin turgor, normal color, no abnormal lymph nodes, no rash. Neurologic--cranial nerves II through XII grossly intact. Rheumatologic--normal range of motion. Psychiatric--normal affect. Results & Data Results & Data Vital Signs (Past 12 Hours) Vital Signs Temp Pulse Pulse Pulse Resp BP Pulse Ox 01/22/25 07:40 97.9 F 88 18 118/64 93 01/22/25 00:52 103 H 01/21/25 23:32 100 H 01/21/25 23:25 97.7 F 117 H 20 114/63 90 O2 Del Method 01/22/25 07:40 Room Air 01/22/25 00:52 01/21/25 23:32 01/21/25 23:25 Room Air PG Care Time/CCT Total # of Minutes Spent Total Time Spent with Patient: Total time spent is greater than 50% in coordination of care (as documented) at patient's floor/unit and/or counseling patient: Coding Level of Care Code 29787 SUB INP/OBS CARE 2/35MIN Diagnoses Acute deep vein thrombosis (DVT) of left lower extremity I82.442 Affected thrombotic vein of extremity: tibial 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
[2025-01-22] MEDS ORDERED: Nursing to Pharmacy 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 SCH (14:30)
[2025-01-23] MEDS: predniSONE 20 MG TAB PO SCH (07:51)
[2025-01-23 08:27] LABS: Hematocrit (blood only) 23.9 % (42.0-52.0); Hemoglobin 8.1 g/dl (14.0-18.0); Mean Corpuscular Hemoglobin 35.7 pg (25.0-34.0); Mean Corpuscular Hgb Conc 33.9 g/dL (32.0-36.0); Mean Corpuscular Volume 105.3 fL (80.0-100.0); Mean Platelet Volume 10.6 fL (9.4-12.4); Platelet Count 208 K/uL (130-400); RDW Coefficient of Variation 11.9 % (11.5-14.5); RDW Standard Deviation 46.2 fL (36.4-46.3); Red Blood Count 2.27 M/uL (4.70-6.10); White Blood Count 13.72 K/ul (4.8-10.8)
--- NOTE | 2025-01-23 09:59 | Orthopedic Progress Note ---
Date of Service January 23, 2025 Assessment & Plan (1) S/P hip hemiarthroplasty: Plan: Total hip precautions reviewed. Patient will need to be in the knee immobilizer and abduction pillow when in bed or sitting. They may be removed for gait training purposes only. Weightbearing as tolerated on left lower extremity with walker assistance Patient will need PT and OT before being discharged Ice with easy wrap DVT prophylaxis with Eliquis (10 mg BIDx 7 day then 5 mg BID) and teds A new bulky dressing was applied. This may be changed on a daily basis at the snf facility Plan is to discharge to [facility] for snf care and rehab most likely today if a bed is available. Patient will have a 2-week follow-up in our clinic. This has been sent to the scheduling pool and they will contact the patient's with details. With questions contact our clinic at [phone] Admission and Anticipated Discharge Date Admission Date: January 19, 2025 Subjective This 89-year-old male is 2 days status post left hip hardware removal with transition to a hemiarthroplasty for nonunion fracture. Patient's confusion sunshine t he experienced after surgery and yesterday has resolved. His is with him at bedside. She states that he has been cleared for discharge to [facility] once he is medically stable. Patient was evaluated by myself and the hospitalist and advised him to the patient is orthopedically stable for discharge. Currently he denies chest pain, shortness of breath, fever, chills, sweats, nausea, vomiting, diarrhea or difficulty voiding. He has no complaint of numbness or tingling in his left lower extremity. Review of Systems Review of Systems: All systems reviewed & are unremarkable except as noted in Subjective Physical Exam Physical Exam: Left hip: Postoperative dressing was removed. A new dressing was applied consisting of Adaptic gauze, sterile 4 x 4's, ABDs and Medipore tape. Surgical incision site is closed completely with drea intact. There is no active drainage. Patient had difficulty performing active straight leg raise test. He was able to actively dorsi and plantarflex his foot and detect light sensation to touch over the pads of all digits. His peripheral pulses were 2+. He is neurovascularly intact in the left lower extremity. He did experience some slight discomfort with logroll testing. Passive hip flexion to 70 degrees causes no discomfort however he did have some slight tension with very light passive internal and external hip rotation. Results & Data Vital Signs (Past 12 Hours) Vital Signs Temp Pulse Pulse Pulse Resp BP BP 01/23/25 07:24 36.7 C 87 16 119/67 01/23/25 04:00 36.8 C 91 H 18 110/60 01/23/25 03:23 01/23/25 03:22 83 01/22/25 23:10 36.7 C 81 18 99/62 L Pulse Ox O2 Del Method 01/23/25 07:24 95 Room Air 01/23/25 04:00 92 Room Air 01/23/25 03:23 Room Air 01/23/25 03:22 01/22/25 23:10 93 Room Air Diagnostic Findings Laboratory Results WBC 13.72 K/ul (4.8-10.8) H 01/23/25 08:01 RBC 2.27 M/uL (4.70-6.10) L 01/23/25 08:01 Hgb 8.1 g/dl (14.0-18.0) L 01/23/25 08:01 Hct 23.9 % (42.0-52.0) L 01/23/25 08:01 MCV 105.3 fL (80.0-100.0) H 01/23/25 08:01 MCH 35.7 pg (25.0-34.0) H 01/23/25 08:01 MCHC 33.9 g/dL (32.0-36.0) 01/23/25 08:01 RDW Std Deviation 46.2 fL (36.4-46.3) 01/23/25 08:01 RDW Coeff of Alyssa 11.9 % (11.5-14.5) 01/23/25 08:01 Plt Count 208 K/uL (130-400) 01/23/25 08:01 MPV 10.6 fL (9.4-12.4) 01/23/25 08:01 Immature Gran % (Auto) 0.5 % 01/22/25 05:32 Neut % (Auto) 85.4 % 01/22/25 05:32 Lymph % (Auto) 3.6 % 01/22/25 05:32 [place] % (Auto) 10.3 % 01/22/25 05:32 Eos % (Auto) 0.0 % 01/22/25 05:32 Baso % (Auto) 0.2 % 01/22/25 05:32 Neut # (Auto) 10.79 K/uL (1.40-6.50) H 01/22/25 05:32 Lymph # (Auto) 0.45 K/uL (1.20-3.40) L 01/22/25 05:32 [place] # (Auto) 1.30 K/uL (0.11-0.59) H 01/22/25 05:32 Eos # (Auto) 0.00 K/uL (0.00-0.50) 01/22/25 05:32 Baso # (Auto) 0.03 K/uL (0.00-0.20) 01/22/25 05:32 Immature Gran # (Auto) 0.06 K/uL (0.01-0.20) 01/22/25 05:32 ESR 56 mm/hr (0-20) H 01/19/25 16:00 PT 10.3 Seconds (9.0-12.0) 01/19/25 16:00 INR 0.9 (0.9-1.1) 01/19/25 16:00 APTT 31 Seconds (21-31) 01/19/25 16:00 PTT Ratio 1.2 01/19/25 16:00 Heparin Anti-Xa, Unfract 0.70 IU/ml (0.3-0.7) 01/20/25 14:02 Sodium 140 mmol/L (136-145) 01/22/25 05:32 Potassium 4.0 mmol/L (3.5-5.1) 01/22/25 05:32 Chloride 108 mmol/L (98-107) H 01/22/25 05:32 Carbon Dioxide 23 mmol/L (21-32) 01/22/25 05:32 Anion Gap 9 (3-11) 01/22/25 05:32 BUN 31 mg/dl (6-23) H 01/22/25 05:32 Creatinine 1.43 mg/dl (0.6-1.4) H 01/22/25 05:32 Est Cr Clr Drug Dosing 33.4 ml/min 01/22/25 05:32 eGFR 47.13 01/22/25 05:32 BUN/Creatinine Ratio 21.7 (10-20) H 01/22/25 05:32 Glucose 147 mg/dl (70-99(Fasting)) H 01/22/25 05:32 Calcium 8.7 mg/dl (8.6-10.3) 01/22/25 05:32 Magnesium 1.8 mg/dl (1.7-2.4) 01/20/25 06:14 Total Bilirubin 0.7 mg/dl (0.2-1.0) 01/20/25 06:14 AST 20 U/L (13-39) 01/20/25 06:14 ALT 18 U/L (7-52) 01/20/25 06:14 Alkaline Phosphatase 266 U/L (34-104) H 01/20/25 06:14 Troponin I High Sens 8.8 pg/ml (0-20) 01/19/25 16:00 C-Reactive Protein 2.31 mg/dl (0-0.5) H 01/19/25 16:00 Total Protein 6.3 gm/dl (6.0-8.3) 01/20/25 06:14 Albumin 3.5 gm/dl (3.4-5.0) 01/20/25 06:14 Globulin 2.8 gm/dl (2.5-4.0) 01/20/25 06:14 Albumin/Globulin Ratio 1.3 (0.9-2) 01/20/25 06:14 Prealbumin 16.8 mg/dl (20-40) L 01/22/25 05:32 Lipase 5 U/L (11-82) L 01/19/25 16:00 25-OH Vitamin D Total 29.9 ng/ml (30-100) L 01/22/25 05:32 Procalcitonin 0.04 ng/ml (0-0.5) 01/19/25 19:51 Urine Color Yellow 01/19/25 20:00 Urine Appearance Clear (Clear) 01/19/25 20:00 Urine pH 5.5 (4.5-7.5) 01/19/25 20:00 Ur Specific [place] 1.043 (1.000-1.030) H 01/19/25 20:00 Urine Protein Negative (Negative) 01/19/25 20:00 Urine Glucose (UA) Negative (Negative) 01/19/25 20:00 Urine Ketones Negative (Negative) 01/19/25 20:00 Urine Blood Negative (Negative) 01/19/25 20:00 Urine Nitrite Negative (Negative) 01/19/25 20:00 Urine Bilirubin Negative (Negative) 01/19/25 20:00 Urine Urobilinogen Negative (Negative) 01/19/25 20:00 Ur Leukocyte Esterase Negative (Negative) 01/19/25 20:00 Urine Comment 01/19/25 20:00 Blood Type O Positive 01/20/25 08:45 Antibody Screen NEGATIVE 01/20/25 08:45 Impressions Chest X-Ray 01/19/25 15:35 XR chest 1V portable CLINICAL HISTORY: Chest pain, nonspecific COMPARISON STUDY: 01/14/2020 FINDINGS: Stable mild cardiomegaly without pulmonary vascular congestion. No effusion, consolidation, or pneumothorax. IMPRESSION: No acute findings. ACT 112: Negative or not required by law. Electronically signed by: Dewayne France M.D. 01/19/2025 3:51 PM Venous Doppler Study 01/19/25 15:35 Clinical History: Pain and swelling Technique: Venous ultrasound evaluation was performed utilizing grayscale, color Doppler and wave form evaluation. Images were also obtained with and without compression Findings: The common femoral, superficial femoral, and popliteal veins demonstrate normal anechoic lumens with full compressibility. 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 There is apparent thrombus within 1 of the 2 posterior tibial veins Impression: Apparent DVT in the left calf ACT 112: Positive. There are findings on this exam that require communication between the performing entity and the patient following Patient Test Result Information Act ([place] ACT 112) guidelines. Electronically signed by Dean Valdez 01-19-2025 4:[address] 01/19/25 15:53 EXAM: CT hip LT wo/w con CLINICAL HISTORY: Eval anatomy fxr for surgery eval for infection. TECHNIQUE: A CT scan of the left hip joint was performed without and with 93ml Opitray-320mg/ml IV contrast. Coronal and sagittal reconstructive images were also obtained. One of the following dose reduction techniques was utilized for this exam: Automated exposure control, adjustment of the mA and/or kV according to patient size, and use of iterative reconstruction. COMPARISON: Prior CT dated 11/03/2024, CR 01/12/2025 was also reviewed. FINDINGS: Bones: Interval displacement of the prior left femoral neck fracture. Interval partial outward migration of the prior fixing hip screws with lowermost screw. No dislocation. No lytic, or sclerotic lesions. No evidence of avascular necrosis of the femoral heads. Joints: Normal joint space of the hip joint. Moderate joint effusion. Soft Tissues: [id number].5.1.1 Marked intra/OBX.5.1.1OBX.5.1.2periarticular soft tissue and muscular thickening with fluid streaks and small locules noted at the iliopsoas muscle (new on interval). 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 Vascular Structures: Normal opacification of the visualized arteries and veins. No evidence of aneurysm, thrombosis, or significant vascular abnormalities. IMPRESSION: 1. Interval displacement of the prior left femoral neck fracture. Interval partial outward migration of the prior fixing hip screws with lowermost screw. 2. Marked intra and periarticular soft tissue and muscular thickening with fluid streaks and small locules noted at the iliopsoas muscle (new on interval). Scattered intramuscular hyperdense streaks are also noticed suggesting hematomas. Findings likely denote hemarthrosis with surrounding intramuscular contusions and hematomas. Superadded infection can`t be ruled out and should be laboratory correlated. 3. Stable large iliopsoas intramuscular lipoma. Electronically signed by Juan C Newsome 01-19-2025 7:43 PM Pelvis X-Ray 01/21/25 14:08 XR pelvis 1-2V routine CLINICAL HISTORY: S/P Bipolar hip replacement COMPARISON: 01/12/2025 FINDINGS: Left hip prosthesis shows no hardware complication. There is expected soft tissue gas. Skin drea are present. IMPRESSION: Unremarkable postoperative exam. ACT 112: Negative or not required by law. Electronically signed by: Dewayne France M.D. 01/21/2025 2:[address] 01/22/25 06:33 CT SCAN OF THE BRAIN WITHOUT IV CONTRAST CLINICAL HISTORY: Confusion. Fall. COMPARISON STUDY: MRI of the brain October 26, 2017. Head CT January 26, 2024. TECHNIQUE: Unenhanced axial CT scan of the brain was performed from the vertex to the skull base. A dose lowering technique was utilized adhering to the principles of ALARA. CT DOSE: 703.85 mGy.cm FINDINGS: Brain parenchyma: No acute intracranial hemorrhage, midline shift or mass effect is present. Hi-white matter differentiation is preserved. There are no extra- axial fluid collections. There are no findings to suggest acute dural sinus thrombosis or acute territorial infarct. An old right frontal lobe infarct is unchanged. White matter hypodensities are similar to prior exam and favor small vessel disease. Ventricles, sulci, cisterns: There is no hydrocephalus. The basal cisterns are patent. Calvarium: There are no calvarial fractures. Sinuses and mastoids: The visualized paranasal sinuses are clear. The mastoid air cells are well pneumatized. Orbits: The bony orbits are grossly intact. IMPRESSION: 1. No acute intracranial findings. No change in appearance of brain. 2. No calvarial fractures. ACT 112: Negative or not required by law. Electronically signed by: Arpit Whipple M.D. 01/22/2025 8:20 AM
[2025-01-23 10:44] LABS: Appearance Urine Clear (Clear); Bacteria Urine Automated None Seen (None Seen); Bilirubin Urine Negative (Negative); Blood Urine Negative (Negative); Cast Urine Automated 0-2 /lpf (0-2); Color Urine Yellow; Epithelial Cell Urine Auto 0-2 /hpf (0-2); Glucose Urine UA Negative (Negative); Ketones Urine Trace (Negative); Leukocyte Esterase Urine Negative (Negative); Nitrite Urine Negative (Negative); Protein Urine Trace (Negative); RBC Urine Automated 0-2 /hpf (0-2); Specific Gravity Urine 1.024 (1.000-1.030); Urobilinogen Urine Negative (Negative); WBC Urine Automated 0-5 /hpf (0-5); pH Urine 5.5 (4.5-7.5)
--- NOTE | 2025-01-23 10:59 | Hospitalist Progress Note ---
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 Patient had a fall resulting in hip fracture requiring left ORIF 07/24/2024. Since then patient has had worsening pain and difficulty ambulating since September 2024. Patient had a fall 01/10 and x-ray outpatient with his orthopedic surgeon 01/12 which showed displacement of screws. Patient presented today due to concern for worsening ambulation, poor appetite, swelling of the lump around incision, and left lower extremity swelling for several days. Patient was found to have a left tibial DVT and hip CT showed hemarthrosis with surrounding intramuscular contusions and hematomas is being admitted on IV heparin for DVT, close monitoring of hematomas, and surgical fixation of displaced ORIF. #left tibial DVT suspect 2/2 decrease in ambulation. Left venous Doppler showed small tibial DVT. Was on heparin infusion: - Transitioned to Eliquis 10mg BID for 7 days and then 5mg BID #left ORIF screw displacement/ambulatory dysfunction/hematoma ORIF 07/24/2024, found to be displaced 01/12/2025. Patient with worsening pain and decreased ambulation since September. -hip CT showed likely hemarthrosis, contusions, hematomas of left lower extremity. -He is now status post conversion of femoral neck nonunion with broken hardware to a bipolar cemented endoprosthesis -He is stable postsurgery -Pain is under control -Appreciate orthopedics -Physical therapy Acute encephalopathy Most likely hospital delirium, also worsened by the effects of anasthesia His mentation waxes and wanes CT head did not show any acute pathology continue to re orient, windows and blinds down during the day Leucocytosis Most likely from steroids received pre op and post op per orthopedics will rule out infection blood and wound cultures negative will obtain urine cultures #Essential hypertension Blood pressures under good control Continue home medications. #MDS - Monitor CBC #GERD continue famotidine #Hypothyroidism continue levothyroxine #stage III CKD renal function stable and at baseline - Avoid nephrotoxic agents including NSAIDs - Monitor renal function and electrolytes #history of CVA CODE STATUS: Full code DVT prophylaxis: eliquis Disposition: will need rehab Admission and Anticipated Discharge Date Admission Date: January 19, 2025 Subjective patient seen and examined, no new complaints today Review of Systems 2 Review of Systems: All systems reviewed are negative, apart from the ones contained in the history. Physical Exam Physical Exam: The patient is awake, alert and oriented 3, well developed and well nourished, normocephalic and atraumatic, lying in bed and in no acute distress. HEENT--PERRL, EOMI, mucous membranes and oropharynx mildly dry Neck--supple. No JVD. No bruits. Thyroid normal, trachea midline, no adenopathy. Heart--normal S1 and S2. No murmurs, rubs or gallops. Lungs--clear bilaterally, no respiratory distress, no accessory muscle use. Abdomen--normal bowel sounds and soft. Extremities--no cyanosis or clubbing. No edema. Dermatologic--normal skin turgor, normal color, no abnormal lymph nodes, no rash. Neurologic--cranial nerves II through XII grossly intact. Rheumatologic--normal range of motion. Psychiatric--normal affect. Results & Data Results & Data Vital Signs (Past 12 Hours) Vital Signs Temp Pulse Pulse Pulse Resp BP BP 01/23/25 07:24 98.1 F 87 16 119/67 01/23/25 04:00 98.2 F 91 H 18 110/60 01/23/25 03:23 01/23/25 03:22 83 01/22/25 23:10 98.1 F 81 18 99/62 L Pulse Ox O2 Del Method 01/23/25 07:24 95 Room Air 01/23/25 04:00 92 Room Air 01/23/25 03:23 Room Air 01/23/25 03:22 01/22/25 23:10 93 Room Air PG Care Time/CCT Total # of Minutes Spent Total Time Spent with Patient: Total time spent is greater than 50% in coordination of care (as documented) at patient's floor/unit and/or counseling patient: Coding Level of Care Code 71563 SUB INP/OBS CARE 235MIN Diagnoses Acute deep vein thrombosis (DVT) of left lower extremity I82.442 Affected thrombotic vein of extremity: tibial 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
[2025-01-24 06:30] LABS: Hematocrit (blood only) 21.6 % (42.0-52.0); Hemoglobin 7.4 g/dl (14.0-18.0); Mean Corpuscular Hemoglobin 36.1 pg (25.0-34.0); Mean Corpuscular Hgb Conc 34.3 g/dL (32.0-36.0); Mean Corpuscular Volume 105.4 fL (80.0-100.0); Mean Platelet Volume 10.7 fL (9.4-12.4); Platelet Count 213 K/uL (130-400); RDW Coefficient of Variation 11.9 % (11.5-14.5); Red Blood Count 2.05 M/uL (4.70-6.10); White Blood Count 9.71 K/ul (4.8-10.8)
[2025-01-24 06:53] LABS: BUN Creatinine Ratio 33.1 (10-20); Calcium 8.8 mg/dl (8.6-10.3); Potassium 3.9 mmol/L (3.5-5.1)
--- NOTE | 2025-01-24 14:07 | Hospitalist Progress Note ---
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 Patient had a fall resulting in hip fracture requiring left ORIF 07/24/2024. Since then patient has had worsening pain and difficulty ambulating since September 2024. Patient had a fall 01/10 and x-ray outpatient with his orthopedic surgeon 01/12 which showed displacement of screws. Patient presented today due to concern for worsening ambulation, poor appetite, swelling of the lump around incision, and left lower extremity swelling for several days. Patient was found to have a left tibial DVT and hip CT showed hemarthrosis with surrounding intramuscular contusions and hematomas is being admitted on IV heparin for DVT, close monitoring of hematomas, and surgical fixation of displaced ORIF. #left tibial DVT suspect 2/2 decrease in ambulation. Left venous Doppler showed small tibial DVT. Was on heparin infusion: - Transitioned to Eliquis 10mg BID for 7 days (today is day 3) and then 5mg BID #left ORIF screw displacement/ambulatory dysfunction/hematoma ORIF 07/24/2024, found to be displaced 01/12/2025. Patient with worsening pain and decreased ambulation since September. -hip CT showed likely hemarthrosis, contusions, hematomas of left lower extremity. -He is now status post conversion of femoral neck nonunion with broken hardware to a bipolar cemented endoprosthesis -He is stable postsurgery -Pain is under control -Appreciate orthopedics -Physical therapy Acute encephalopathy Most likely hospital delirium, also worsened by the effects of anasthesia His mentation waxes and wanes CT head did not show any acute pathology continue to re orient, windows and blinds down during the day Leucocytosis Most likely from steroids received pre op and post op per orthopedics no evidence of infection blood and wound cultures negative will obtain urine cultures #Essential hypertension Blood pressures under good control Continue home medications. #MDS - Monitor CBC #GERD continue famotidine #Hypothyroidism continue levothyroxine #stage III CKD renal function stable and at baseline - Avoid nephrotoxic agents including NSAIDs - Monitor renal function and electrolytes #history of CVA CODE STATUS: Full code DVT prophylaxis: eliquis Disposition: will need rehab Admission and Anticipated Discharge Date Admission Date: January 19, 2025 Subjective patient seen and examined, no new complaints today, by the bedside, want wound dressing to be more frequent Review of Systems Review of Systems: All systems reviewed are negative, apart from the ones contained in the history. Physical Exam Physical Exam: The patient is awake, alert and oriented 3, well developed and well nourished, normocephalic and atraumatic, lying in bed and in no acute distress. HEENT--PERRL, EOMI, mucous membranes and oropharynx mildly dry Neck--supple. No JVD. No bruits. Thyroid normal, trachea midline, no adenopathy. Heart--normal S1 and S2. No murmurs, rubs or gallops. Lungs--clear bilaterally, no respiratory distress, no accessory muscle use. Abdomen--normal bowel sounds and soft. Extremities--no cyanosis or clubbing. No edema. Dermatologic--normal skin turgor, normal color, no abnormal lymph nodes, no rash. Neurologic--cranial nerves II through XII grossly intact. Rheumatologic--normal range of motion. Psychiatric--normal affect. Results & Data Results & Data Vital Signs (Past 12 Hours) Vital Signs Temp Pulse Pulse Resp BP Pulse Ox O2 Del Method 01/24/25 11:04 98.6 F 71 16 112/66 94 Room Air 01/24/25 07:36 70 01/24/25 03:30 97.7 F 81 16 127/51 L 91 Room Air PG Care Time/CCT Total # of Minutes Spent Total Time Spent with Patient: Total time spent is greater than 50% in coordination of care (as documented) at patient's floor/unit and/or counseling patient: Coding Level of Care Code 48674 SUB INP/OBS CARE 2/35MIN Diagnoses Acute deep vein thrombosis (DVT) of left lower extremity I82.442 Affected thrombotic vein of extremity: tibial 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
--- NOTE | 2025-01-24 20:01 | Orthopedic Progress Note ---
Date of Service January 24, 2025 dressing change only needed prn.please keep pressure applied to it . discussed with on the phone at 750PM tonight . H/H treatment per hospitalist. Assessment & Plan Admission and Anticipated Discharge Date Admission Date: January 19, 2025 Results & Data Vital Signs (Past 12 Hours) Vital Signs Temp Pulse Pulse Resp BP Pulse Ox O2 Del Method 01/24/25 19:43 36.9 C 82 20 113/56 L 95 Room Air 01/24/25 15:50 36.3 C L 79 18 108/58 L 95 Room Air 01/24/25 14:55 87 01/24/25 11:04 37.0 C 71 16 112/66 94 Room Air
[2025-01-24] MEDS: cephALEXin 500 MG CAP PO STA (21:55)
[2025-01-25 08:08] LABS: Hematocrit (blood only) 24.3 % (42.0-52.0); Mean Corpuscular Hemoglobin 35.6 pg (25.0-34.0); Mean Corpuscular Hgb Conc 32.9 g/dL (32.0-36.0); Mean Platelet Volume 10.4 fL (9.4-12.4); Platelet Count 264 K/uL (130-400); RDW Coefficient of Variation 12.1 % (11.5-14.5); RDW Standard Deviation 47.8 fL (36.4-46.3); Red Blood Count 2.25 M/uL (4.70-6.10); White Blood Count 8.08 K/ul (4.8-10.8)
[2025-01-25 08:20] LABS: BUN Creatinine Ratio 33.1 (10-20); Creatinine Clr Calc Pharmacy 42.9 ml/min; Potassium 3.8 mmol/L (3.5-5.1)
[2025-01-25] MEDS: cephALEXin 500 MG CAP PO SCH (08:40)
--- NOTE | 2025-01-25 09:30 | Orthopedic Progress Note ---
Date of Service January 25, 2025 Assessment & Plan Admission and Anticipated Discharge Date Admission Date: January 19, 2025 Orthopedic Progress Note Postop day #4 status post conversion of femoral nonunion with failed hardware to a cemented bipolar femoral endoprosthesis left hip. He is doing well. He was able to do a lap around the entire floyd today. And his pain is markedly improved. He is not taking any real pain medication. He denies any chest pain shortness of breath fever chills nausea vomiting or headache. Vital signs are stable he is afebrile. Neurovascular check from sciatic nerve is within normal limits. Calf nontender. Wound dressing is changed. There are some serous drainage otherwise no real findings. Wound is redressed by myself today. Laboratory work today reveals hematocrit actually increased today up to 24 and change versus 21 change. Assessment overall doing well status post surgery. This pain is much more controlled. He can be ambulatory full weightbearing left lower extremity he can have his knee immobilizer for gait training. The knee immobilizer is only to be on when he is in bed lying flat with the abduction pillow and knee immobilizer or when he sitting in a chair he is going to fall asleep. He can initiate range of motion of his hip starting tomorrow. Potential discharge to rehab/long-term facility tomorrow. Awaiting bed availability.
--- NOTE | 2025-01-25 11:39 | Hospitalist Progress Note ---
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 Patient had a fall resulting in hip fracture requiring left ORIF 07/24/2024. Since then patient has had worsening pain and difficulty ambulating since September 2024. Patient had a fall 01/10 and x-ray outpatient with his orthopedic surgeon 01/12 which showed displacement of screws. Patient presented today due to concern for worsening ambulation, poor appetite, swelling of the lump around incision, and left lower extremity swelling for several days. Patient was found to have a left tibial DVT and hip CT showed hemarthrosis with surrounding intramuscular contusions and hematomas is being admitted on IV heparin for DVT, close monitoring of hematomas, and surgical fixation of displaced ORIF. #left tibial DVT suspect 2/2 decrease in ambulation. Left venous Doppler showed small tibial DVT. Was on heparin infusion: - Transitioned to Eliquis 10mg BID for 7 days (today is day 4) and then 5mg BID #left ORIF screw displacement/ambulatory dysfunction/hematoma ORIF 07/24/2024, found to be displaced 01/12/2025. Patient with worsening pain and decreased ambulation since September. -hip CT showed likely hemarthrosis, contusions, hematomas of left lower extremity. -He is now day 4 status post conversion of femoral neck nonunion with broken hardware to a bipolar cemented endoprosthesis -He is stable postsurgery -Pain is under control -Appreciate orthopedics -Physical therapy Acute encephalopathy Most likely hospital delirium, His mentation waxes and wanes CT head did not show any acute pathology continue to re orient, windows and blinds down during the day Leucocytosis Most likely from steroids received pre op and post op per orthopedics no evidence of infection blood and wound cultures negative now wnl #Essential hypertension Blood pressures under good control Continue home medications. #MDS - Monitor CBC #GERD continue famotidine #Hypothyroidism continue levothyroxine #stage III CKD renal function stable and at baseline - Avoid nephrotoxic agents including NSAIDs - Monitor renal function and electrolytes #history of CVA CODE STATUS: Full code DVT prophylaxis: eliquis Disposition: will need rehab Admission and Anticipated Discharge Date Admission Date: January 19, 2025 Subjective patient seen and examined, no new complaints today, Review of Systems Review of Systems: All systems reviewed are negative, apart from the ones contained in the history. Physical Exam Physical Exam: The patient is awake, alert and oriented 3, well developed and well nourished, normocephalic and atraumatic, lying in bed and in no acute distress. HEENT--PERRL, EOMI, mucous membranes and oropharynx mildly dry Neck--supple. No JVD. No bruits. Thyroid normal, trachea midline, no adenopathy. Heart--normal S1 and S2. No murmurs, rubs or gallops. Lungs--clear bilaterally, no respiratory distress, no accessory muscle use. Abdomen--normal bowel sounds and soft. Extremities--no cyanosis or clubbing. No edema. Dermatologic--normal skin turgor, normal color, no abnormal lymph nodes, no rash. Neurologic--cranial nerves II through XII grossly intact. Rheumatologic--normal range of motion. Psychiatric--normal affect. Results & Data Results & Data Vital Signs (Past 12 Hours) Vital Signs Temp Pulse Pulse Resp BP Pulse Ox O2 Del Method 01/25/25 11:16 98.6 F 71 18 120/64 91 Room Air 01/25/25 07:40 98.2 F 92 H 18 114/61 92 Room Air 01/25/25 07:33 67 01/25/25 03:52 97.9 F 82 20 96 Room Air 01/25/25 00:15 97.9 F 76 20 127/67 95 Room Air PG Care Time/CCT Total # of Minutes Spent Total Time Spent with Patient: Total time spent is greater than 50% in coordination of care (as documented) at patient's floor/unit and/or counseling patient: Coding Level of Care Code 56913 SUB INP/OBS CARE 2/35MIN Diagnoses Acute deep vein thrombosis (DVT) of left lower extremity I82.442 Affected thrombotic vein of extremity: tibial 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
--- NOTE | 2025-01-26 09:31 | Orthopedic Progress Note ---
Date of Service January 26, 2025 Assessment & Plan (1) S/P hip hemiarthroplasty: Plan: Overall the patient is doing well, continue with pain control per primary team Total hip precautions reviewed. Patient will need to be in the knee immobilizer and abduction pillow when in bed or sitting. They may be removed for gait training purposes only. Weightbearing as tolerated on left lower extremity with walker assistance Continue with PT/OT Ice with easy wraps needed DVT prophylaxis with Eliquis (10 mg BIDx 7 day then 5 mg BID) and teds Keflex 500mg QID x 7 days from surgery Prednisone 20mg daily x 7 days from surgery Dressing was left in place today, it was changed yesterday 01/25/2025. Discharged to rehab, case management following Patient will have a 2-week follow-up in our clinic. This Has been scheduled and is in the patient's discharge instructions With questions contact our clinic at [phone] Admission and Anticipated Discharge Date Admission Date: January 19, 2025 Toy Wilson was seen and examined in the room this morning. He was sitting in his chair. He reported he was overall doing well. Pain was controlled if he was just sitting but he does have increased pain when he is moving. He has been able to work with physical therapy and walk using a walker. He did not have therapy at this morning. Denies any numbness or tingling or any calf pain bilaterally. Denies any chest pains or shortness of breath. Review of Systems Review of Systems: Per HPI Physical Exam Physical Exam: Left lower extremity: Patient's dressing is clean, dry and intact. This was left in place today. He has minimal tenderness over his eye. Minimal bruising and swelling is noted. He is able to slightly flex and extend his knee. He has full dorsiflexion plantarflexion of his ankle. 4+ out of 5 strength with resisted dorsiflexion/plantarflexion. Bilateral neuroexam: Sensation intact distally. 2+ dorsal pedal pulse. Calf soft and nontender bilaterally. He is able to tolerate some light gentle passive motion with the hip in abduction and adduction to neutral. Results & Data Vital Signs (Past 12 Hours) Vital Signs Temp Pulse Pulse Resp BP BP Pulse Ox 01/26/25 08:06 36.6 C 71 16 135/70 95 01/26/25 05:47 67 01/26/25 03:51 36.6 C 72 20 151/73 H 96 01/25/25 23:58 36.6 C 71 20 151/75 H 99 01/25/25 22:00 66 O2 Del Method 01/26/25 08:06 Room Air 01/26/25 05:47 01/26/25 03:51 Room Air 01/25/25 23:58 Room Air 01/25/25 22:00
--- NOTE | 2025-01-26 11:49 | Hospitalist Progress Note ---
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 Patient had a fall resulting in hip fracture requiring left ORIF 07/24/2024. Since then patient has had worsening pain and difficulty ambulating since September 2024. Patient had a fall 01/10 and x-ray outpatient with his orthopedic surgeon 01/12 which showed displacement of screws. Patient presented today due to concern for worsening ambulation, poor appetite, swelling of the lump around incision, and left lower extremity swelling for several days. Patient was found to have a left tibial DVT and hip CT showed hemarthrosis with surrounding intramuscular contusions and hematomas is being admitted on IV heparin for DVT, close monitoring of hematomas, and surgical fixation of displaced ORIF. #left tibial DVT suspect 2/2 decrease in ambulation. Left venous Doppler showed small tibial DVT. Was on heparin infusion: - Transitioned to Eliquis 10mg BID for 7 days (today is day 5) and then 5mg BID #left ORIF screw displacement/ambulatory dysfunction/hematoma ORIF 07/24/2024, found to be displaced 01/12/2025. Patient with worsening pain and decreased ambulation since September. -hip CT showed likely hemarthrosis, contusions, hematomas of left lower extremity. -He is now day 5 status post conversion of femoral neck nonunion with broken hardware to a bipolar cemented endoprosthesis -He is stable postsurgery -Pain is under control -Appreciate orthopedics -Physical therapy Acute encephalopathy Most likely hospital delirium, His mentation waxes and wanes CT head did not show any acute pathology continue to re orient, windows and blinds down during the day Leucocytosis Most likely from steroids received pre op and post op per orthopedics no evidence of infection blood and wound cultures negative now wnl #Essential hypertension Blood pressures under good control Continue home medications. #MDS - Monitor CBC #GERD continue famotidine #Hypothyroidism continue levothyroxine #stage III CKD renal function stable and at baseline - Avoid nephrotoxic agents including NSAIDs - Monitor renal function and electrolytes #history of CVA CODE STATUS: Full code DVT prophylaxis: eliquis Disposition: will need rehab, spouse does not want [facility], prefers [facility]. They may not have a bed available till later this week Admission and Anticipated Discharge Date Admission Date: January 19, 2025 Subjective patient seen and examined, sitting up in the chair, spouse by the bedside Review of Systems Review of Systems: All systems reviewed are negative, apart from the ones contained in the history. Physical Exam Physical Exam: The patient is awake, alert and oriented 3, well developed and well nourished, normocephalic and atraumatic, lying in bed and in no acute distress. HEENT--PERRL, EOMI, mucous membranes and oropharynx mildly dry Neck--supple. No JVD. No bruits. Thyroid normal, trachea midline, no adenopathy. Heart--normal S1 and S2. No murmurs, rubs or gallops. Lungs--clear bilaterally, no respiratory distress, no accessory muscle use. Abdomen--normal bowel sounds and soft. Extremities--no cyanosis or clubbing. No edema. Dermatologic--normal skin turgor, normal color, no abnormal lymph nodes, no rash. Neurologic--cranial nerves II through XII grossly intact. Rheumatologic--normal range of motion. Psychiatric--normal affect. Results & Data Results & Data Vital Signs (Past 12 Hours) Vital Signs Temp Pulse Pulse Resp BP BP Pulse Ox 01/26/25 08:06 97.9 F 71 16 135/70 95 01/26/25 05:47 67 01/26/25 03:51 97.9 F 72 20 151/73 H 96 01/25/25 23:58 97.9 F 71 20 151/75 H 99 O2 Del Method 01/26/25 08:06 Room Air 01/26/25 05:47 01/26/25 03:51 Room Air 01/25/25 23:58 Room Air PG Care Time/CCT Total # of Minutes Spent Total Time Spent with Patient: Total time spent is greater than 50% in coordination of care (as documented) at patient's floor/unit and/or counseling patient: Coding Level of Care Code 38588 SUB INP/OBS CARE 235MIN Diagnoses Acute deep vein thrombosis (DVT) of left lower extremity I82.442 Affected thrombotic vein of extremity: tibial 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
--- NOTE | 2025-01-26 18:11 | Orthopedic Progress Note ---
Date of Service January 26, 2025 Assessment & Plan Admission and Anticipated Discharge Date Admission Date: January 19, 2025 Orthopedic Progress Note Patient seen on afternoon rounds sitting up in bed getting ready to get up to go to the bathroom. He states he feels quite comfortable. He notes marked improvement in his overall status. He has been able to walk around the floor. Still has difficulty with remembering some of the precautions and has at times lapses of short-term memory. Denies chest pain shortness of breath fever chills nausea only headache. Vital signs are stable he is afebrile. Neurovascular check femoral sciatic nerve is intact. Left hip dressing clean dry and intact. Calves nontender. Assessment overall doing well continue with present plans continue oral antibiotics for another 8 days. DVT PE prophylaxis to switch from 10 mg twice daily to 5 mg twice daily by Sunday of this week. Expected transfer to [facility] facility with rehab tomorrow. Again decrease Eliquis from 10 mg twice a day to 5 mg twice a day starting Sunday. Continue oral antibiotics for 8 more days.
[2025-01-27 07:41] VITALS: RESP 17; TEMP 98.2; O2SAT 99
[2025-01-27 08:56] LABS: Hematocrit (blood only) 24.6 % (42.0-52.0); Hemoglobin 8.1 g/dl (14.0-18.0); Mean Corpuscular Hemoglobin 35.5 pg (25.0-34.0); Mean Corpuscular Hgb Conc 32.9 g/dL (32.0-36.0); Mean Corpuscular Volume 107.9 fL (80.0-100.0); Mean Platelet Volume 9.9 fL (9.4-12.4); Nucleated RBC # (auto) 0.04 K/uL (0.00-0.12); Nucleated RBC % (auto) 0.5 %; Platelet Count 315 K/uL (130-400); RDW Standard Deviation 46.9 fL (36.4-46.3); Red Blood Count 2.28 M/uL (4.70-6.10); White Blood Count 8.62 K/ul (4.8-10.8)
[2025-01-27 09:00] LABS: Calcium 8.7 mg/dl (8.6-10.3); Potassium 4.4 mmol/L (3.5-5.1)
[2025-01-27 09:06] LABS: BUN Creatinine Ratio 27.7 (10-20); Creatinine Clr Calc Pharmacy 46.1 ml/min
--- NOTE | 2025-01-27 09:28 | Orthopedic Progress Note ---
Date of Service January 27, 2025 Assessment & Plan (1) S/P hip hemiarthroplasty: Plan: Status post conversion of failed internal fixation with fractured hardware in femoral nonunion to cemented bipolar endoprosthesis left hip with Dr. Mccormick on 01/21/2025. Per case management notes, hopeful plan is for patient to be discharged to [facility] today. Dressing was taken down and incision looks great. No dehiscence or evidence of infection. No soft tissue swelling. A new dressing of ABD pads and Medipore tape was applied. Advised patient and his to keep the incision dry until the drea are removed. Dressing can be changed or reinforced as needed. Vitals have remained stable. Hemoglobin stable at 8.1 today. Patient had abduction pillow in place however patient and were educated that he needs to have the knee immobilizer in place when he is in bed or seated. The knee immobilizer can be removed during times of ambulation. Walker at all times when ambulating. Also needs to follow hip precautions. Weightbearing as tolerated on left lower extremity with walker assistance Continue with PT/OT Ice with easy wraps needed Patient to transition to Eliquis 5 mg twice daily starting tomorrow (01/28). Postoperative Keflex 500 mg 4 times daily for another week (last dose 02/03/2025) Prednisone 20mg daily x 7 days from surgery Patient will have a 2-week follow-up in our clinic. This Has been scheduled and is in the patient's discharge instructions With questions contact our clinic at [phone] Admission and Anticipated Discharge Date Admission Date: January 19, 2025 Toy Wilson is seen resting in bed this morning eating breakfast. His is present. He has no complaints. He is hopeful to be discharged from the hospital today. His pain is well-controlled. Denies any numbness or tingling in his legs. No pain in his lower legs. Physical Exam Constitutional: Resting comfortably in bed sitting upright. In no distress. Pleasant. Cardiovascular: Left PT pulse 2+ Musculoskeletal: Left lower extremity: Hip abduction pillow was in place. Hip dressing taken down revealing surgical incision approximated with drea. There is no drainage. Incision is without any dehiscence or surrounding erythema. No soft tissue swelling. Patient able to wiggle all toes. Strength 5/5 with ankle plantarflexion, dorsiflexion, eversion. Neurologic: No sensory deficits to light touch L3-S1 distribution in left lower extremity Results & Data Vital Signs (Past 12 Hours) Vital Signs Temp Pulse Pulse Resp BP BP Pulse Ox 01/27/25 07:40 98.2 F 66 17 144/68 H 99 01/27/25 07:00 64 01/27/25 03:26 97.9 F 68 18 134/64 93 01/26/25 23:20 98.1 F 78 20 124/67 96 01/26/25 21:44 68 O2 Del Method 01/27/25 07:40 Room Air 01/27/25 07:00 01/27/25 03:26 Room Air 01/26/25 23:20 Room Air 01/26/25 21:44 Laboratory Results 01/21/25 12:52 Gram Stain - Final Hip Aerobic and Anaerobic Culture - Final No growth 01/21/25 12:38 Gram Stain - Final Hip,Left Aerobic and Anaerobic Culture - Final No growth 01/27/25 08:25 WBC 8.62 RBC 2.28 L Hgb 8.1 L Hct 24.6 L MCV 107.9 H MCH 35.5 H MCHC 32.9 RDW Std Deviation 46.9 H RDW Coeff of Alyssa 12.0 Plt Count 315 MPV 9.9 Absolute Nucleated RBC 0.04 Nucleated RBC % (auto) 0.5 Sodium 140 Potassium 4.4 Chloride 108 H Carbon Dioxide 26 Anion Gap 6 BUN 31 H Creatinine 1.12 Est Cr Clr Drug Dosing 46.1 eGFR 63.19 BUN/Creatinine Ratio 27.7 H Glucose 98 Calcium 8.7
[2025-01-27 12:24] VITALS: BP 124/67; PULSE 97
--- NOTE | 2025-01-27 13:46 | Discharge Summary ---
Date of Service January 27, 2025 Admission HPI Per Admitting Provider Patient is an 81 male with past medical history of MDS, hypothyroidism, GERD, HLD, CVA in 2018 on Plavix, prostate CA, BPH, stage III CKD, left inguinal lipoma. Patient had a fall resulting in hip fracture requiring left ORIF 07/24/2024. Since then patient has had worsening pain and difficulty ambulating since September 2024. Patient had a fall 01/10 and x-ray outpatient with his orthopedic surgeon 01/12 which showed displacement of screws. Patient presented today due to concern for worsening ambulation, poor appetite, swelling of the lump around incision, and left lower extremity swelling for several days. Liz dickinson was found to have a left tibial DVT and hip CT showed no hemarthrosis with surrounding intramuscular contusions and hematomas is being admitted on IV heparin for DVT, close monitoring of hematoma s, and hopeful surgical fixation of displaced ORIF. Patient seen at bedside with his present. 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 He stated that since September he has had worsening ambulation and went from using a cane, tall walker, to now mainly a wheelchair. He also has had worsening pain of his left hip. He stated he fell 01/10 due to being imbalanced and had x-rays with orthopedics which showed displaced screws, he was scheduled for surgical repair 02/17/[address] Jean-Claude Burrell. Patient stated for the past few days he has had poor appetite, his noticed a lump around his incision which has been spreading, and lower extremity edema which has been present for months however worsening for the past few days. He stated he has always had lower extremity swelling which he pertain to his lipoma. He denies any fevers, no leukocytosis however he notes he has MDS and typically has leukopenia. Denies any chest pain, shortness of breath. He denies any alcohol or nicotine use. He does not use any oxygen at baseline. His pain is well- controlled at bedside after 4 mg IV morphine in the ED and his home tramadol. stay for his evening medications. He wishes to be full code however within reasonable approach, would not want prolonged CPR. Discussed with patient and his at bedside that there is low concern for infection given previous surgical site without any erythema or swelling, no erythema or warmth to his left upper extremity. Suspect that the inflammation is likely hematomas and contusions after the fall. He is agreeable to heparin and hopeful for surgical fixation during this admission. Admission Exam (Per Admitting) Constitutional The patient is awake, alert and oriented 3, well developed and well nourished, normocephalic and atraumatic, lying in bed and in no acute distress. HEENT--PERRL, EOMI, mucous membranes and oropharynx mildly dry Neck--supple. No JVD. No bruits. Thyroid normal, trachea midline, no adenopathy. Heart--normal S1 and S2. No murmurs, rubs or gallops. Lungs--clear bilaterally, no respiratory distress, no accessory muscle use. Abdomen--normal bowel sounds and soft. Extremities--no cyanosis or clubbing. No edema. Dermatologic--normal skin turgor, normal color, no abnormal lymph nodes, no rash. Neurologic--cranial nerves II through XII grossly intact. Rheumatologic--normal range of motion. Psychiatric--normal affect. 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 Patient had a fall resulting in hip fracture requiring left ORIF 07/24/2024. Since then patient has had worsening pain and difficulty ambulating since September 2024. Patient had a fall 01/10 and x-ray outpatient with his orthopedic surgeon 01/12 which showed displacement of screws. Patient presented today due to concern for worsening ambulation, poor appetite, swelling of the lump around incision, and left lower extremity swelling for several days. Patient was found to have a left tibial DVT and hip CT showed hemarthrosis with surrounding intramuscular contusions and hematomas is being admitted on IV heparin for DVT, close monitoring of hematomas, and surgical fixation of displaced ORIF. #left tibial DVT suspect 2/2 decrease in ambulation. Left venous Doppler showed small tibial DVT. Was on heparin infusion: - Transitioned to Eliquis 10mg BID for 7 days (today is day 5) and then 5mg BID #left ORIF screw displacement/ambulatory dysfunction/hematoma ORIF 07/24/2024, found to be displaced 01/12/2025. Patient with worsening pain and decreased ambulation since September. -hip CT showed likely hemarthrosis, contusions, hematomas of left lower extremity. -He is now day 5 status post conversion of femoral neck nonunion with broken hardware to a bipolar cemented endoprosthesis -He is stable postsurgery -Pain is under control -Appreciate orthopedics -Physical therapy Acute encephalopathy Most likely hospital delirium, His mentation waxes and wanes CT head did not show any acute pathology continue to re orient, windows and blinds down during the day Leucocytosis Most likely from steroids received pre op and post op per orthopedics no evidence of infection blood and wound cultures negative now wnl #Essential hypertension Blood pressures under good control Continue home medications. #MDS - Monitor CBC #GERD continue famotidine #Hypothyroidism continue levothyroxine #stage III CKD renal function stable and at baseline - Avoid nephrotoxic agents including NSAIDs - Monitor renal function and electrolytes #history of CVA CODE STATUS: Full code DVT prophylaxis: eliquis Disposition: will need rehab, [facility] not [facility], 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
--- NOTE | 2025-01-28 09:06 | Coding Query ---
CODING QUERY To promote full compliance with coding requirements relating to patient care, provider participation is requested in all cases of health care aide uncertainty. Please assist us with the question(s) below: Coding Question(s): Acute Encephalopathy is documented in the record beginning on the 01/22 Progress Note. The 01/22 Progress Note through the 01/24 Progress Note document, "Acute encephalopathy Most likely hospital delirium, also worsened by the effects of anasthesia His mentation waxes and wanes CT head did not show any acute pathology continue to re orient, windows and blinds down during the day", and then starting with the 01/25 Progress Note, the documentation under Acute Encephalopathy does not document worsened by the effects of anesthesia. Please specify below, in your clinical opinion, regarding the Acute Encephalopathy: ( x) Acute Encephalopathy was likely, in part, due to the effects of anesthesia ( ) Acute Encephalopathy was Not due to the effects of anesthesia Physician's Response(s): Thank you Sienna Barba Principal Diagnosis: "that condition established after study, to be chiefly responsible for occasioning the admission of the patient to the hospital for care." Co-Existing Principal Diagnosis: "when two or more diagnoses equally meet the criteria for principal diagnosis as determined by the circumstances of admission, diagnostic work up, and/or therapy provided, and the Alphabetic Index, Tabular List, or another coding guideline does not provide sequencing direction, any one of the diagnoses may be sequenced first." "When the physician has documented what appears to be a current diagnosis in the body of the record, but has not included the diagnosis in the final diagnostic statement, the physician should be asked whether the diagnosis should be added." (Source Coding Clinic 2 QTR90. p3-4) KAYA
== END 2025-01-27 13:30 | DRG 469 ==
LOC: ED 15:09 → 2N 22:07 → SUATTDRO 22:07 → 2N 23:58

== ENCOUNTER 2025-04-09 12:22 | Inpatient (IN) ==
--- NOTE | 2025-04-09 12:40 | Emergency Department Note ---
Impression & Plan Gross hematuria, Urinary retention, Chronic anticoagulation, Cystitis, radiation ED Provider Note NAME: CHRISTY STOREY AGE: 89 SEX: M : 1935 ARRIVES VIA: Walk-In INFORMANT: Patient, ED PROVIDER(S): Berto Lincoln DO CHIEF COMPLAINT: gross hematuria HPI: This is a 89-year-old male with the PMHx of Remote prostate cancer s/p Lupron and radiation therapy, recent diagnosis of a bladder diverticulum with intermittent gross hematuria, BPH, prior kidney stones, CKD, and prior DVT on prolonged anticoagulation presenting to [facility] for further evaluation of gross hematuria. Patient is accompanied by his who provide additional history. The patient reports that he started with gross hematuria overnight as well as frequency. Patient reports he is now passing blood clots causing severe pain within his urethra. Patient reports some lower quadrant abdominal crampy pain. Patient states that he followed up with urology. He did have an in-office cystoscopy that did not show evidence of malignancy. They deny fever or chills. No cough or congestion. Denies chest pain or palpitations. No shortness of breath. They deny nausea and vomiting. No urinary complaints. No recent changes in bowel movements. Patient denies recent changes in medications or OTC supplements. Patient offers no other complaints, today. ADDITIONAL HISTORY OBTAINED: Per HPI Chronic Medical/Social Conditions Affecting Care: Per HPI PAST MEDICAL HISTORY: See Below PAST SURGICAL HISTORY: See Below FAMILY HISTORY: See Below SOCIAL HISTORY: See Below HOME MEDICATIONS: See Below ALLERGIES: See Below VITALS: See Below PHYSICAL EXAMINATION: GENERAL: Sitting up in bed, alert, well appearing, well nourished, no distress, non-toxic EYE EXAM: normal conjunctiva. [PERRL and EOM's grossly intact.] OROPHARYNX: no exudate, no erythema, lips, buccal mucosa, and tongue normal and mucous membranes are moist NECK: supple, no nuchal rigidity, no adenopathy, non-tender LUNGS: Clear to auscultation. Normal chest wall mechanics HEART: no murmurs, regular rate, regular rhythm ABDOMEN: abdomen soft, non-tender, no masses, no rebound or guarding. BACK: Back is symmetrical on inspection and there is no deformity, no midline tenderness, no CVA tenderness. SKIN: no rashes and no bruising UPPER EXTREMITIES: upper extremities are grossly normal. LOWER EXTREMITIES: No pitting edema. NEURO EXAM: Normal sensorium, GCS 15, normal speech, no gross weakness of arms, no gross weakness of legs. MEDICAL DECISION MAKING: Differential diagnoses includes but not limited to gross hematuria, BPH, radiation cystitis, acute cystitis, complicated UTI, nephrolithiasis, malignancy, coagulopathy In summary, this is a 89 year old male who presented with gross hematuria. Differential as above. Nursing notes and pertinent past medical records reviewed. Vital signs reviewed and the patient is afebrile and hemodynamically stable. History and presentation revealed recent gross hematuria and close follow up with Dr. Sebastian. I reviewed imaging from the patient's prior emergency department visit. The patient had a CT abdomen/pelvis that showed a bladder diverticulum that was concerning for possible malignancy. There was hyperdense material around the diverticulum. Reviewed outpatient documentation by urology. He did follow-up with them on 04/01. Appears the patient had a cystoscopy in the office showing bleeding and possible retained stone within the diverticulum. There were no findings to suggest a malignancy per the urologist. They did decrease his anticoagulation at that visit. Patient is on both Eliquis as well as clopidogrel. Physical examination revealed elderly and chronically ill appearing gentleman. As a result of my initial evaluation, patient now having painful, gross hematuria in the setting of anticoagulation and known bladder diverticulum who follows with urology. Patient does carry prior diagnoses of prostate cancer s/p TURP, Lupron and radiation therapy. Patient likely rebleeding in the setting of anticoagulation and radiation induced cystitis. Will touch base with the urology team prior to urethral catheter placement. Diagnostics interpreted by me include cardiac monitoring as listed below: -Cardiac Monitoring: An order was placed for continuous cardiac monitoring. The monitor shows a rate of 60-80s with regular rhythm. Patient completed laboratory studies and imaging. Results independently interpreted by me are stable anemia. No significant leukocytosis. Stable kidney function and electrolytes. Urinalysis shows pyuria but likely related to all the red blood cells within the urine. There is evidence of contamination as well. No bacteriuria present. Patient managed with IV fluid resuscitation. Patient was given Uro-Jet and Sellers catheter was placed without complication. Significant drainage of dark red to purple output that has been significant. Patient has had minimal clot burden. Etiology of his gross hematuria is thought be largely due to radiation cystitis but cannot ignore his bladder diverticulum that may be the source of his acute bleeding. Do feel the patient is reasonable for observation stay for close observation of his hemoglobin and hemodynamics. May need continuous bladder irrigation. Patient was discussed with the urology team. The urology team is agreeable to see the patient as an inpatient. Discussed with the patient multiple times that we could not take him directly for cystoscopy at this time. Ultimately, the decision was made to admit the patient for gross hematuria in the setting of chronic anticoagulation. I discussed the case with the hospitalist service via telephone/Tiger[employer] and they are agreeable to admit the patient to their services by Dr. Mayers. Based on the above, including the patient's age, coexisting illnesses, labs, imaging, and exam findings the decision to treat as an inpatient. I discussed the patient with the hospitalist team who recommended admission to their services. They received the medications, treatments, interventions indicated above and their condition remained stable. I discussed my findings with the patient and their family and they understand and agree with the treatment plan. All patient / family questions were answered to their satisfaction. Consults/Care Managements Discussions: Per MDM ER treatment provided: See above Procedures:none Critical Care: None The chart was completed utilizing [employer] Speech voice recognition software. Grammatical errors, random word insertions, pronoun errors, and incomplete sentences are an occasional consequence of this system due to software limitations, ambient noise, and hardware issues. Any formal questions or concerns about the content, text, or information contained within the body of this dictation should be directly addressed to the physician for clarification. 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 (Acute) Left hip pain (Acute) CKD stage 3a, GFR 45-59 ml/min Pain of right hip Tear of right gluteus medius tendon Dyslipidemia Fatigue Basal cell carcinoma of face (Acute) Nocturia (Acute) Nodular prostate with urinary obstruction (Acute) Urinary stream slowing (Acute) Hematuria (Acute) DVT prophylaxis Possible urinary tract infection BPH (benign prostatic hyperplasia) (Chronic) Prostate cancer (Chronic 12/04/16) Psoriasis (Chronic) Medical History Hypokalemia Benign prostatic hyperplasia with urinary obstruction Acute hypokalemia Fall Closed hip fracture Elevated alkaline phosphatase level Anemia Hypothyroidism Prostate cancer Chronic kidney disease (CKD), stage III (moderate) HTN (hypertension) 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 GERD (gastroesophageal reflux disease) MDS (myelodysplastic syndrome), low grade Surgical History Status post open reduction and internal fixation (ORIF) of fracture S/P TURP S/P Mohs surgery for basal cell carcinoma H/O hernia repair S/P tonsillectomy and adenoidectomy Family History Father Myocardial infarction Heart disease Sister Heart disease Grandfather (Paternal) Prostate cancer Other Hypertension Stroke Denies family history of Ovarian cancer Breast cancer Colorectal cancer Social History Smoking Status: Never smoker Second Hand Exposure: No; Do You Dip or Chew Tobacco: No; Hx Alcohol Use: Yes Hx Substance Use: No Preferred Language: Serbian 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 Ability: Effective Visual Impairment: No Limitations Hearing Ability: Use of Hearing Aid 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 Required: No Beliefs That Will Affect Care: None marital status: Current Living Situation: Spouse current occupational status: retired How many Children do You have: 0 Feels Safe at Home: Yes Childhood Exposure to Second-Hand Smoke: No Diet: regular during the past year weight has: remained stable Dental Care, Regularly: Yes Physical Activity Frequency: Daily Physical Activity Frequency Comment: walking Seatbelt Use: always Sunscreen Use: No Assistive Devices: Bedside Commode, Walker and Wheelchair Allergies Allergies Allergy/AdvReac Type Severity Reaction Status Date / Time Beta-Blockers Allergy Unknown LOW HEART Verified 04/09/25 14:34 (Beta-Adrenergic Bloc RATE "FELT LOUSY" atorvastatin [From Lipitor] AdvReac Abdominal Verified 04/09/25 14:34 Pain hydroxyzine AdvReac Agitated Verified 04/10/25 09:18 Home Meds Home Medications Medication Instructions Recorded Confirmed vitamin E 268 mg (400 unit) capsule 400 unit PO QAM 01/14/20 04/09/25 coal tar 2 % topical ointment 1 applic topical TID 11/09/22 04/09/25 famotidine 20 mg tablet 20 mg PO BID 11/09/22 04/09/25 cholecalciferol (vitamin D3) 50 100 mcg PO QAM 08/20/24 04/09/25 mcg (2,000 unit) capsule clopidogrel 75 mg tablet (Plavix) 75 mg PO QAM 01/19/25 04/09/25 cyanocobalamin (vitamin B-12) 1,000 mcg PO QAM 01/19/25 04/09/25 1,000 mcg capsule levothyroxine 75 mcg tablet 75 mcg PO HS 01/19/25 04/09/25 spironolactone 25 mg tablet 25 mg PO QAM 01/19/25 04/09/25 docusate sodium 100 mg capsule 100 mg PO DAILY PRN Constipation 02/11/25 04/09/25 (Colace) acetaminophen 650 mg 1,300 mg PO HS 04/09/25 04/09/25 tablet,extended release apixaban 2.5 mg tablet (Eliquis) 2.5 mg PO BID 04/09/25 04/09/25 diphenhydramine HCl 25 mg capsule 25 mg PO HS PRN Sleep 04/09/25 04/09/25 (Benadryl) multivitamin 1 tab PO QAM 04/09/25 04/09/25 Results & Data (ED) Vital Signs Vital Signs - 24 hr 04/09/25 12:23 04/09/25 12:28 Temperature 36.4 C L Temperature Source Temporal Artery Scan Pulse Rate 84 Pulse Rate [Left] 66 Pulse Rhythm Regular Pulse Strength Normal Respiratory Rate 20 20 Respiratory Effort / Characteristics Non-Labored Spontaneous Respiratory Depth Normal Blood Pressure 105/65 Blood Pressure Mean 78 Blood Pressure Position Sitting Pulse Oximetry 98 98 Oxygen Delivery Method Room Air Room Air Sepsis Recent Fever Within 48 Hours No Sepsis New/Unexplained Change in Mental Status N/A Sepsis Action Taken by Nursing No Action Required Laboratory Data 04/10/25 05:22 04/10/25 05:22 Lab Results 04/09/25 04/09/25 Range/Units 12:58 13:59 WBC 8.52 (4.8-10.8) K/ul RBC 3.16 L (4.70-6.10) M/uL Hgb 11.2 L (14.0-18.0) g/dl Hct 33.0 L (42.0-52.0) % MCV 104.4 H (80.0-100.0) fL MCH 35.4 H (25.0-34.0) pg MCHC 33.9 (32.0-36.0) g/dL RDW Std Deviation 51.2 H (36.4-46.3) fL RDW Coeff of Alyssa 13.0 (11.5-14.5) % Plt Count 261 (130-400) K/uL MPV 10.5 (9.4-12.4) fL Immature Gran % (Auto) 0.4 % Neut % (Auto) 82.7 % Lymph % (Auto) 6.1 % [place]erry % (Auto) 9.6 % Eos % (Auto) 0.8 % Baso % (Auto) 0.4 % Neut # (Auto) 7.05 H (1.40-6.50) K/uL Lymph # (Auto) 0.52 L (1.20-3.40) K/uL Ferry # (Auto) 0.82 H (0.11-0.59) K/uL Eos # (Auto) 0.07 (0.00-0.50) K/uL Baso # (Auto) 0.03 (0.00-0.20) K/uL Immature Gran # (Auto) 0.03 (0.01-0.20) K/uL PT 10.5 (9.0-12.0) Seconds INR 1.0 (0.9-1.1) APTT 31 (21-31) Seconds PTT Ratio 1.2 Sodium 140 (136-145) mmol/L Potassium 4.3 (3.5-5.1) mmol/L Chloride 108 H (98-107) mmol/L Carbon Dioxide 25 (21-32) mmol/L Anion Gap 7 (3-11) BUN 33 H (6-23) mg/dl Creatinine 1.34 (0.6-1.4) mg/dl Est Cr Clr Drug Dosing Not Reportable eGFR 50.95 BUN/Creatinine Ratio 24.6 H (10-20) Glucose 130 H (70-99(Fasting)) mg/dl Calcium 9.4 (8.6-10.3) mg/dl Total Bilirubin 0.6 (0.2-1.0) mg/dl AST 18 (13-39) U/L ALT 12 (7-52) U/L Alkaline Phosphatase 197 H (34-104) U/L Total Protein 6.5 (6.0-8.3) gm/dl Albumin 3.7 (3.4-5.0) gm/dl Globulin 2.8 (2.5-4.0) gm/dl Albumin/Globulin Ratio 1.3 (0.9-2) Urine Color Red Urine Appearance Cloudy A (Clear) Urine pH 7.0 (4.5-7.5) Ur Specific [place] >= 1.030 (1.000-1.030) Urine Protein 3+ H (Negative) Urine Glucose (UA) Negative (Negative) Urine Ketones Negative (Negative) Urine Blood 3+ H (Negative) Urine Nitrite Negative (Negative) Urine Bilirubin Negative (Negative) Urine Urobilinogen Negative (Negative) Ur Leukocyte Esterase Negative (Negative) Urine RBC >20 H (0-2) /hpf Urine WBC >50 H (0-5) /hpf Ur Epithelial Cells 3-5 H (0-2) /hpf Urine Bacteria None Seen (None Seen) Urine Comment Administered Medications Acetaminophen (Acetaminophen 500 Mg Tab) 1,000 mg PO Q8H PRN PRN Reason: Pain or Fever Stop: 05/09/25 19:58 Last Admin: 04/09/25 20:50 Dose: 1,000 mg Documented By: STONE Famotidine (Famotidine 20 Mg Tab) 20 mg PO BID NICK Stop: 05/09/25 20:59 Last Admin: 04/10/25 12:15 Dose: Not Given Documented By: Admin: 04/09/25 20:50 Dose: 20 mg Documented By: STONE Ciprofloxacin (Cipro / D5w) 400 mg in 200 mls @ 100 mls/hr IV PREOP NICK; Protocol Stop: 04/11/25 09:19 Last Infusion: 04/10/25 12:15 Dose: Infused Documented By: Admin: 04/10/25 09:51 Dose: 100 mls/hr Documented By: SD Lactated Ringer's (Lr) 1,000 mls @ 15 mls/hr IV .Q24H NICK Stop: 04/13/25 09:44 Last Infusion: 04/10/25 09:43 Dose: Infused Documented By: Admin: 04/10/25 09:36 Dose: 15 mls/hr Documented By: ALBERTO Levothyroxine Sodium (Levothyroxine Sodium 75 Mcg Tablet) 75 mcg PO HS NICK Stop: 05/09/25 20:59 Last Admin: 04/09/25 20:50 Dose: 75 mcg Documented By: STONE Spironolactone (Spironolactone 25 Mg Tab) 25 mg PO QAM NICK Stop: 05/10/25 08:59 Last Admin: 04/10/25 12:15 Dose: Not Given Documented By: ROBEL Zolpidem Tartrate (Zolpidem Tartrate 5 Mg Tab) 5 mg PO HS PRN PRN Reason: Sleep Stop: 05/09/25 19:57 Last Admin: 04/09/25 22:01 Dose: 5 mg Documented By: STONE Discontinued Medications Parenteral Electrolytes (Plasma-Lyte A Ph 7.4) 500 mls @ 999 mls/hr IV .Q31M ONE Stop: 04/09/25 13:08 Last Infusion: 04/09/25 14:04 Dose: Infused Documented By: Admin: 04/09/25 12:52 Dose: 999 mls/hr Documented By: ALEX Cefazolin Sodium (Ancef 2000mg) 2,000 mg in 15 mls @ 3.75 mls/min IV PREOP ONE; Protocol Stop: 04/10/25 09:15 Last Admin: 04/10/25 12:15 Dose: Not Given Documented By: ROBEL Lidocaine HCl (Lidocaine 2% Jelly 5 Ml Tube) 5 ml EXT NOW ONE Stop: 04/09/25 13:08 Last Admin: 04/09/25 13:25 Dose: 5 ml Documented By: ALEX Oxycodone HCl (Oxycodone Hcl Ir 5 Mg Tab (Immediate Release)) 5 mg PO ONCE ONE Stop: 04/10/25 13:35 Last Admin: 04/10/25 13:43 Dose: 5 mg Documented By: ROBEL Phenazopyridine HCl (Phenazopyridine Hcl 200 Mg Tab) 200 mg PO NOW STA Stop: 04/09/25 20:01 Last Admin: 04/09/25 20:50 Dose: 200 mg Documented By: STONE Phenazopyridine HCl (Phenazopyridine Hcl 200 Mg Tab) 200 mg PO ONCE ONE Stop: 04/10/25 13:15 Last Admin: 04/10/25 13:45 Dose: 200 mg Documented By: ROBEL Discharge Plan Visit Data Chief Complaint: Hematuria Stated Complaint: HEMATURIA WITH CLOTS PAINFUL ED Provider: Berto Lincoln Discharge Problem: Gross hematuria, Urinary retention, Chronic anticoagulation, Cystitis, radiation Patient Disposition: Admitted As Inpatient Condition: Fair Discharge Instructions Interventions: ED Discharge Assessment Last Done: 04/09/25 17:28
[2025-04-09] MEDS: PLASMA-LYTE A 500 ML IV ONE (12:52)
[2025-04-09 13:25] LABS: Hematocrit (blood only) 33.0 % (42.0-52.0); Hemoglobin 11.2 g/dl (14.0-18.0); Immature Granulocytes # (auto) 0.03 K/uL (0.01-0.20); Immature Granulocytes % (auto) 0.4 %; Mean Corpuscular Hemoglobin 35.4 pg (25.0-34.0); Mean Corpuscular Volume 104.4 fL (80.0-100.0); Platelet Count 261 K/uL (130-400); RDW Standard Deviation 51.2 fL (36.4-46.3); Red Blood Count 3.16 M/uL (4.70-6.10); White Blood Count 8.52 K/ul (4.8-10.8)
[2025-04-09] MEDS: LIDOCAINE 2% JELLY 5 ML TUBE EXT ONE (13:25)
[2025-04-09 13:38] LABS: Alanine Aminotransferase 12 U/L (7-52); Albumin Globulin Ratio 1.3 (0.9-2); Alkaline Phosphatase 197 U/L (34-104); Anion Gap 7 (3-11); Bilirubin,Total 0.6 mg/dl (0.2-1.0); Blood Urea Nitrogen 33 mg/dl (6-23); Calcium 9.4 mg/dl (8.6-10.3); Carbon Dioxide 25 mmol/L (21-32); Chloride 108 mmol/L (98-107); Globulin 2.8 gm/dl (2.5-4.0); Glucose 130 mg/dl (70-99(Fasting)); Potassium 4.3 mmol/L (3.5-5.1); Sodium 140 mmol/L (136-145); Total Protein 6.5 gm/dl (6.0-8.3)
[2025-04-09 13:55] LABS: INR 1.0 (0.9-1.1); Partial Thromboplastin Time 31 Seconds (21-31); Prothrombin Time 10.5 Seconds (9.0-12.0)
[2025-04-09 14:18] LABS: Appearance Urine Cloudy (Clear); Glucose Urine UA Negative (Negative)
--- NOTE | 2025-04-09 15:15 | Urology Consultation ---
Date of Consultation April 09, 2025 Assessment & Plan (1) Gross hematuria: Plan 89yo male with a hx of prostate cancer s/p radiation and hx of TURP admitted with gross hematuria. Patient was in the ED approximately 2 weeks ago with hematuria. A CT abdomen pelvis at that time showed a bladder diverticulum with mild asymmetric thickening of the wall and dense material within the diverticulum. He underwent outpatient cystoscopy in urology clinic on 04/01/2025 for evaluation and was found to have clot within the diverticulum and no evidence of tumor. 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 He reports an initial improvement in hematuria until last night when he developed gross hematuria with clots and difficulty/pain with voiding. He is on anticoagulation with Eliquis and Plavix. An 18 Turkish three-way Sellers catheter was placed in the ED by nursing staff. He is being admitted to medicine service. 3-way Sellers catheter is currently intact and draining with hematuria. I manually hand irrigated the catheter at bedside in the ED. The catheter flushed without difficulty and the patient tolerated well. No clots were visualized/removed. Upon completion, the catheter was draining light red urine. Will plan to make NPO at midnight and reassess in the morning for possible OR procedure for cystoscopy, clot evacuation, possible fulguration. Maintain Sellers catheter and monitor output. Okay to hand irrigate as needed for clots/obstruction, retention, suprapubic pain. Continue supportive care. Urology will follow, please contact us with any questions/concerns. Plan/case reviewed with Dr. Interiano. History of Present Illness History of Present Illness 89-year-old male with a history of prostate cancer s/p radiation and hx of TURP who presented to the ED 04/09/25 with gross hematuria. In the ED, he was afebrile and hemodynamically stable. Labs show no leukocytosis, hemoglobin 11.2, normal renal function. Urinalysis showing 3+ blood,>20 RBC,>50 WBC, negative bacteria, negative nitrite. A Sellers catheter was placed by nursing staff in the ED. He is on anticoagulation with Eliquis and Plavix. Patient was recently in the ED on 03/27/2025 secondary to gross hematuria. A CT abdomen pelvis was performed at that time which showed a bladder diverticulum with mild asymmetric thickening of the wall and dense material within the diverticulum. He was discharged home for outpatient follow-up. Patient was seen in urology clinic on 04/01/2025 and a cystoscopy was performed by Dr. Sebastian. Cystoscopy showed some clot within the diverticulum, no evidence of tumor, and may have a small stone in the diverticulum as well but it was difficult to visualize because of the clot. Suspected that he bled from his radiation cystitis and anticoagulation. Plan was for continued observation. He developed worsening hematuria with clots which prompted his arrival in the ED. Patient was seen at bedside in the ED. He is awake and resting in bed on arrival. No acute distress. at bedside. Three-way Sellers catheter intact and draining with hematuria. No bladder pain or discomfort at present. He did have breakfast today. Allergies Allergy/AdvReac Type Severity Reaction Status Date / Time Beta-Blockers Allergy Unknown LOW HEART Verified 04/09/25 14:34 (Beta-Adrenergic Bloc RATE "FELT LOUSY" atorvastatin [From Lipitor] AdvReac Abdominal Verified 04/09/25 14:34 Pain hydroxyzine AdvReac Agitated Uncoded 04/09/25 14:34 Home Medications Medication Instructions Recorded Confirmed Type vitamin E 268 mg (400 unit) capsule 400 unit PO QAM 01/14/20 04/09/25 History coal tar 2 % topical ointment 1 applic topical TID 11/09/22 04/09/25 History famotidine 20 mg tablet 20 mg PO BID 11/09/22 04/09/25 History cholecalciferol (vitamin D3) 50 100 mcg PO QAM 08/20/24 04/09/25 History mcg (2,000 unit) capsule clopidogrel 75 mg tablet (Plavix) 75 mg PO QAM 01/19/25 04/09/25 History cyanocobalamin (vitamin B-12) 1,000 mcg PO QAM 01/19/25 04/09/25 History 1,000 mcg capsule levothyroxine 75 mcg tablet 75 mcg PO HS 01/19/25 04/09/25 History spironolactone 25 mg tablet 25 mg PO QAM 01/19/25 04/09/25 History docusate sodium 100 mg capsule 100 mg PO DAILY PRN Constipation 02/11/25 04/09/25 History (Colace) acetaminophen 650 mg 1,300 mg PO HS 04/09/25 04/09/25 History tablet,extended release apixaban 2.5 mg tablet (Eliquis) 2.5 mg PO BID 04/09/25 04/09/25 History diphenhydramine HCl 25 mg capsule 25 mg PO HS PRN Sleep 04/09/25 04/09/25 History (Benadryl) multivitamin 1 tab PO QAM 04/09/25 04/09/25 History Patient History Medical History Hypokalemia Benign prostatic hyperplasia with urinary obstruction Acute hypokalemia Fall Closed hip fracture Elevated alkaline phosphatase level Anemia Hypothyroidism Prostate cancer Chronic kidney disease (CKD), stage III (moderate) HTN (hypertension) 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 GERD (gastroesophageal reflux disease) MDS (myelodysplastic syndrome), low grade Surgical History Status post open reduction and internal fixation (ORIF) of fracture S/P TURP S/P Mohs surgery for basal cell carcinoma H/O hernia repair S/P tonsillectomy and adenoidectomy Family History Father Myocardial infarction Heart disease Sister Heart disease Grandfather (Paternal) Prostate cancer Other Hypertension Stroke Denies family history of Ovarian cancer Breast cancer Colorectal cancer Social History Smoking Status: Never smoker Second Hand Exposure: No; Do You Dip or Chew Tobacco: No; Hx Alcohol Use: No Hx Substance Use: No Preferred Language: Moroccan 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 Ability: Effective Visual Impairment: No Limitations Hearing Ability: Use of Hearing Aid 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 Required: No Beliefs That Will Affect Care: None marital status: Current Living Situation: Spouse current occupational status: retired How many Children do You have: 0 Feels Safe at Home: Yes Childhood Exposure to Second-Hand Smoke: No Diet: regular during the past year weight has: remained stable Dental Care, Regularly: Yes Physical Activity Frequency: Daily Physical Activity Frequency Comment: walking Seatbelt Use: always Sunscreen Use: No Assistive Devices: Cane, Glasses, Hearing Aid - Bilateral, Walker and Wheelchair Review of Systems Review of Systems: All systems reviewed & are unremarkable except as noted in HPI & below Physical Exam Constitutional: well developed and well nourished; no acute distress Respiratory: normal respiratory effort; no respiratory distress and no labored breathing Musculoskeletal: Head/Neck/Chest: normocephalic Skin: No visible rashes or lesions to exposed skin areas Neurologic: moves all extremities and awake Psychiatric: A+Ox3, euthymic affect Genitourinary: Sellers intact Results & Data Vital Signs (Past 12 Hours) Vital Signs Temp Pulse Pulse Resp BP Pulse Ox O2 Del Method 04/09/25 12:28 36.4 C L 84 20 105/65 98 Room Air 04/09/25 12:23 66 20 98 Room Air PG Care Time/CCT Total # of Minutes Spent Total Time Spent with Patient: Total time spent is greater than 50% in coordination of care (as documented) at patient's floor/unit and/or counseling patient: Coding Level of Care Code 52837 INT INP/OBS CARE 2/55MIN Diagnoses Gross hematuria R31.0
--- NOTE | 2025-04-09 16:08 | History & Physical Report ---
Date of Service April 09, 2025 Assessment & Plan (1) Gross hematuria: (2) S/P hip hemiarthroplasty: (3) Dyslipidemia: Plan #Gross hematuria - urology eval completed, plan to hold off CBI at this time, if clotting off and manual irrigation not working, then will consider CBI - monitor Hgb - no burning with urination and UA without evidence of UTI , so will hold off on abx - monitor Hgb - hold Xarelto and Plavix at this time #HTN - cont spironolactone #Hypothyroidism - cont levothyroxine #DVT ppx: SCDs #Dispo: Admit to tele #Code status: Full code, but he does not want to be prolonged with artificial support History of Present Illness Chief Complaint: Hematuria Primary Care Provider: Kyle Clemens MD 89 yo M with PMHx of prostate ca (2017, follows with Dr. Sebastian), CKD, h/o stroke, h/o DVT, hip fracture coming to [facility] for the evaluation of hematuria. He had similar episode about 2weeks ago. He had cystoscopy with Dr. Sebastian on 04/01/25 which showed some clot within the diverticulum. Everything was fine since then until this morning. He again developed hematuria overnight. He came to the hospital because it started to become more painful and he was passing clots. His last dose of Eliquis was last night and last dose of clopidogrel was yesterday morning. In the ED, he is hemodynamically stable and Hgb is also stable. Allergies Allergy/AdvReac Type Severity Reaction Status Date / Time Beta-Blockers Allergy Unknown LOW HEART Verified 04/09/25 14:34 (Beta-Adrenergic Bloc RATE "FELT LOUSY" atorvastatin [From Lipitor] AdvReac Abdominal Verified 04/09/25 14:34 Pain hydroxyzine AdvReac Agitated Uncoded 04/09/25 14:34 Home Medications Medication Instructions Recorded Confirmed Type vitamin E 268 mg (400 unit) capsule 400 unit PO QAM 01/14/20 04/09/25 History coal tar 2 % topical ointment 1 applic topical TID 11/09/22 04/09/25 History famotidine 20 mg tablet 20 mg PO BID 11/09/22 04/09/25 History cholecalciferol (vitamin D3) 50 100 mcg PO QAM 08/20/24 04/09/25 History mcg (2,000 unit) capsule clopidogrel 75 mg tablet (Plavix) 75 mg PO QAM 01/19/25 04/09/25 History cyanocobalamin (vitamin B-12) 1,000 mcg PO QAM 01/19/25 04/09/25 History 1,000 mcg capsule levothyroxine 75 mcg tablet 75 mcg PO HS 01/19/25 04/09/25 History spironolactone 25 mg tablet 25 mg PO QAM 01/19/25 04/09/25 History docusate sodium 100 mg capsule 100 mg PO DAILY PRN Constipation 02/11/25 04/09/25 History (Colace) acetaminophen 650 mg 1,300 mg PO HS 04/09/25 04/09/25 History tablet,extended release apixaban 2.5 mg tablet (Eliquis) 2.5 mg PO BID 04/09/25 04/09/25 History diphenhydramine HCl 25 mg capsule 25 mg PO HS PRN Sleep 04/09/25 04/09/25 History (Benadryl) multivitamin 1 tab PO QAM 04/09/25 04/09/25 History Past Med/Surg History Problem List (Updated 04/09/25 @ 16:00 by CARTER Posada) Gross hematuria Malaise S/P hip hemiarthroplasty Hematoma of left lower extremity Acute deep vein thrombosis (DVT) of left lower extremity (Acute) Hemarthrosis involving hip joint (Acute) 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 (Acute) Left hip pain (Acute) CKD stage 3a, GFR 45-59 ml/min Pain of right hip Tear of right gluteus medius tendon Dyslipidemia Fatigue Basal cell carcinoma of face (Acute) Nocturia (Acute) Nodular prostate with urinary obstruction (Acute) Urinary stream slowing (Acute) Hematuria (Acute) DVT prophylaxis Possible urinary tract infection BPH (benign prostatic hyperplasia) (Chronic) Prostate cancer (Chronic 12/04/16) Psoriasis (Chronic) Medical History Hypokalemia Benign prostatic hyperplasia with urinary obstruction Acute hypokalemia Fall Closed hip fracture Elevated alkaline phosphatase level Anemia Hypothyroidism Prostate cancer Chronic kidney disease (CKD), stage III (moderate) HTN (hypertension) 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 GERD (gastroesophageal reflux disease) MDS (myelodysplastic syndrome), low grade Surgical History Status post open reduction and internal fixation (ORIF) of fracture S/P TURP S/P Mohs surgery for basal cell carcinoma H/O hernia repair S/P tonsillectomy and adenoidectomy Family History Father Myocardial infarction Heart disease Sister Heart disease Grandfather (Paternal) Prostate cancer Other Hypertension Stroke Denies family history of Ovarian cancer Breast cancer Colorectal cancer Social History Smoking Status: Never smoker Second Hand Exposure: No; Do You Dip or Chew Tobacco: No; Hx Alcohol Use: No Hx Substance Use: No Preferred Language: Honduran 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 Ability: Effective Visual Impairment: No Limitations Hearing Ability: Use of Hearing Aid Press Leader Required: No Beliefs That Will Affect Care: None marital status: Current Living Situation: Spouse current occupational status: retired How many Children do You have: 0 Feels Safe at Home: Yes Childhood Exposure to Second-Hand Smoke: No Diet: regular during the past year weight has: remained stable Dental Care, Regularly: Yes Physical Activity Frequency: Daily Physical Activity Frequency Comment: walking Seatbelt Use: always Sunscreen Use: No Assistive Devices: Cane, Glasses, Hearing Aid - Bilateral, Walker and Wheelchair Review of Systems Review of Systems: Comprehensive ROS completed and is otherwise negative. Physical Exam Physical Exam: Gen: no acute distress, lying in bed comfortable HEENT: NC/AT, MMM Lungs: nonlabored breathing, CTAB CVS: s1s2nl, RRR Abd: nl bowel sounds, soft, NT / ND : + oseguera with hematuria Ext: no edema Neuro: AAOx3 Psych: calm cooperative Results & Data Results & Data Vital Signs (Past 12 Hours) Vital Signs Temp Pulse Pulse Resp BP Pulse Ox O2 Del Method 04/09/25 12:28 36.4 C L 84 20 105/65 98 Room Air 04/09/25 12:23 66 20 98 Room Air PG Care Time/CCT Total # of Minutes Spent Total Time Spent with Patient: Total time spent is greater than 50% in coordination of care (as documented) at patient's floor/unit and/or counseling patient: Coding Level of Care Code 61314 INT INP/OBS CARE MIN Diagnoses Gross hematuria R31.0 S/P hip hemiarthroplasty Z96.649 Dyslipidemia E78.5
[2025-04-09] MEDS: PHENAZOPYRIDINE HCL 200 MG TAB PO STA (20:50)
[2025-04-09] MEDS: ACETAMINOPHEN 500 MG TAB PO PRN (20:50)
[2025-04-09] MEDS: FAMOTIDINE 20 MG TAB PO SCH (20:50)
[2025-04-09] MEDS: LEVOTHYROXINE SODIUM 75 MCG TABLET PO SCH (20:50)
[2025-04-09] MEDS: ZOLPIDEM TARTRATE 5 MG TAB PO PRN (22:01)
[2025-04-10 05:44] LABS: Hematocrit (blood only) 26.5 % (42.0-52.0); Hemoglobin 9.0 g/dl (14.0-18.0); Mean Corpuscular Hemoglobin 35.2 pg (25.0-34.0); Mean Corpuscular Volume 103.5 fL (80.0-100.0); Platelet Count 208 K/uL (130-400); RDW Standard Deviation 48.3 fL (36.4-46.3); Red Blood Count 2.56 M/uL (4.70-6.10); White Blood Count 6.96 K/ul (4.8-10.8)
[2025-04-10 05:59] LABS: Anion Gap 4.0 (3-11); Blood Urea Nitrogen 30.0 mg/dl (6-23); Calcium 8.8 mg/dl (8.6-10.3); Carbon Dioxide 25.0 mmol/L (21-32); Chloride 108.0 mmol/L (98-107); Creatinine Clr Calc Pharmacy 34.8 ml/min; Glucose 105.0 mg/dl (70-99(Fasting)); Magnesium 2.0 mg/dl (1.7-2.4); Potassium 4.2 mmol/L (3.5-5.1); Sodium 137.0 mmol/L (136-145)
--- NOTE | 2025-04-10 09:12 | Urology Progress Note ---
Date of Service April 10, 2025 Assessment & Plan (1) Gross hematuria: (2) Urinary retention: (3) Chronic anticoagulation: Plan 89yo male with a hx of prostate cancer s/p radiation and hx of TURP admitted with gross hematuria. Patient was in the ED approximately 2 weeks ago with hematuria. A CT abdomen pelvis at that time showed a bladder diverticulum with mild asymmetric thickening of the wall and dense material within the diverticulum. He underwent outpatient cystoscopy in urology clinic on 04/01/2025 for evaluation and was found to have clot within the diverticulum and no evidence of tumor. 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 He reports an initial improvement in hematuria until last night when he developed gross hematuria with clots and difficulty/pain with voiding. He is on anticoagulation with Eliquis and Plavix. An 18 [place]ian three-way Sellers catheter was placed in the ED by nursing staff. He is admitted to medicine service. He is afebrile and hemodynamically stable Labs show no leukocytosis, hemoglobin 9.0, creatinine 1.42 Urine culture prelim gram negative bacilli Sellers intact and draining with hematuria Anticoagulation on hold Will plan to proceed to the OR today for cystoscopy, clot evacuation, possible fulguration depending on findings. Risks/benefits to be reviewed with patient by Dr. Interiano. Keep NPO. Will cover with Mimi and Bruce preoperatively. Urology will follow. Attending note: Patient independently assessed, examined, interviewed, and evaluated. Agree with note as above. Patient's vitals and labs were all reviewed. Pertinent values in the HPI and plan section. Imaging was reviewed interpreted by myself. Agree with read. Vitals were reviewed. Discussed findings extensively with patient and family. Reviewed with nurse practitioner as well as consulting physicians/team. Patient's complicated medical and surgical history was reviewed and summarized above. Patient's surgical, medical, social, and family history were all reviewed with pertinent values as above. Discussed patient's current diagnosis as well as concerns and issues. Reviewed different options moving forward. Discussed potential risks and benefits as well as possible options and concerns. Reviewed potential surgical options and interventions. Discussed potential issues and concerns related to intervention. Risk and benefits were discussed extensively with patient and any available family. Discussed potential risks related to anesthesia. Discussed risks of bleeding infection and injury. Reviewed extensively will plan to move forward with intervention due to continued gross hematuria and bother. Did discuss possible need for continuous irrigation or catheter after procedure. Discussed observation. Discussed further evaluation. Risks and benefits discussed at length for procedure. These include bleeding, infection, injury to surrounding tissues or organs, and risks associated with anesthesia. Patient states understanding and agrees to proceed. Will sign consent and schedule. Plan for cystoscopy with clot evacuation and possible fulguration Admission and Anticipated Discharge Date Admission Date: April 09, 2025 Subjective Pt seen at bedside today. Awake and resting in bed on arrival. No acute distres s. Has been NPO. Review of Systems Constitutional: as per Subjective / HPI Genitourinary: + as per Subjective / HPI Physical Exam Constitutional: no acute distress Respiratory: no respiratory distress and no labored breathing Neurologic: moves all extremities and awake Psychiatric: A+Ox3, euthymic affect Genitourinary: Sellers intact Results & Data Vital Signs (Past 12 Hours) Vital Signs Temp Pulse Pulse Resp BP BP Pulse Ox 04/10/25 07:42 72 04/10/25 07:23 37.0 C 93 H 20 116/62 96 04/10/25 03:18 36.3 C L 79 18 105/62 95 04/09/25 22:42 36.5 C 98 H 18 144/78 H 96 04/09/25 21:46 89 O2 Del Method 04/10/25 07:42 04/10/25 07:23 Room Air 04/10/25 03:18 Room Air 04/09/25 22:42 Room Air 04/09/25 21:46 PG Care Time/CCT Total # of Minutes Spent Total Time Spent with Patient: Total time spent is greater than 50% in coordination of care (as documented) at patient's floor/unit and/or counseling patient: Coding Level of Care Code 84756 SUB INP/OBS CARE 3/50MIN Diagnoses Gross hematuria R31.0 Urinary retention R33.9 Chronic anticoagulation Z79.01
[2025-04-10] MEDS ORDERED: ONDANSETRON INJ 2 MG/ML 2 ML VIAL IV PRN (09:22)
[2025-04-10] MEDS ORDERED: ATROPINE SULFATE 0.1 MG/ML 10ML SYR IV PRN (09:22)
[2025-04-10] MEDS ORDERED: HYDROmorphone INJ 1 MG/ML SYRINGE IV PRN (09:22)
--- NOTE | 2025-04-10 09:22 | Anesthesiology Consultation ---
Date of Service April 10, 2025 Assessment & Plan ASA ASA3 Proposed Anesthesia Anesthesia Type: General Risk / Benefits Reviewed With: PT / POA / Parent / Guardian, Accepts Plan and Informed Consent Obtained History Surgery Operation Date: 04/10/25 07:50 Proposed Procedures p Cystoscopy Clot Evacuation Possible Fulguration - Juan David Interiano, DO Height/Weight Height: 5 ft 8 in Weight: 75.3 kg Allergies Allergy/AdvReac Type Severity Reaction Status Date / Time Beta-Blockers Allergy Unknown LOW HEART Verified 04/09/25 14:34 (Beta-Adrenergic Bloc RATE "FELT LOUSY" atorvastatin [From Lipitor] AdvReac Abdominal Verified 04/09/25 14:34 Pain hydroxyzine AdvReac Agitated Verified 04/10/25 09:18 Medications Home Medications Medication Instructions Recorded Confirmed Last Taken vitamin E 268 mg (400 unit) capsule 400 unit PO QAM 01/14/20 04/09/25 04/09/25 coal tar 2 % topical ointment 1 applic topical TID 11/09/22 04/09/25 04/09/25 famotidine 20 mg tablet 20 mg PO BID 11/09/22 04/09/25 04/09/25 cholecalciferol (vitamin D3) 50 100 mcg PO QAM 08/20/24 04/09/25 04/09/25 mcg (2,000 unit) capsule clopidogrel 75 mg tablet (Plavix) 75 mg PO QAM 01/19/25 04/09/25 04/08/25 cyanocobalamin (vitamin B-12) 1,000 mcg PO QAM 01/19/25 04/09/25 04/09/25 1,000 mcg capsule levothyroxine 75 mcg tablet 75 mcg PO 01/19/25 04/09/25 04/08/25 spironolactone 25 mg tablet 25 mg PO QAM 01/19/25 04/09/25 04/09/25 docusate sodium 100 mg capsule 100 mg PO DAILY PRN Constipation 02/11/25 04/09/25 Unknown (Colace) acetaminophen 650 mg 1,300 mg PO HS 04/09/25 04/09/25 04/08/25 tablet,extended release apixaban 2.5 mg tablet (Eliquis) 2.5 mg PO BID 04/09/25 04/09/25 04/08/25 diphenhydramine HCl 25 mg capsule 25 mg PO HS PRN Sleep 04/09/25 04/09/25 Unknown (Benadryl) multivitamin 1 tab PO QAM 04/09/25 04/09/25 04/09/25 Active Medications Generic Name Dose Route Start Last Admin Trade Name Freq PRN Reason Stop Dose Admin Acetaminophen 1,000 mg 04/09/25 19:59 04/09/25 20:50 Acetaminophen 500 Mg Tab PO 05/09/25 19:58 1,000 mg Q8H PRN Administration Pain or Fever Famotidine 20 mg 04/09/25 21:00 04/09/25 20:50 Famotidine 20 Mg Tab PO 05/09/25 20:59 20 mg BID NICK Administration Levothyroxine Sodium 75 mcg 04/09/25 21:00 04/09/25 20:50 Levothyroxine Sodium 75 Mcg Tablet PO 05/09/25 20:59 75 mcg HS NICK Administration Zolpidem Tartrate 5 mg 04/09/25 19:58 04/09/25 22:01 Zolpidem Tartrate 5 Mg Tab PO 05/09/25 19:57 5 mg HS PRN Administration Sleep NPO Date Last Intake of Fluids: 04/09/25 Time Last Intake of Fluids: 23:00 Date Last Intake of Solids: 04/09/25 Time Last Intake of Solids: 23:00 Past Medical History Medical History Hypokalemia Benign prostatic hyperplasia with urinary obstruction Acute hypokalemia Fall Closed hip fracture Elevated alkaline phosphatase level Anemia Hypothyroidism Prostate cancer Chronic kidney disease (CKD), stage III (moderate) HTN (hypertension) 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 GERD (gastroesophageal reflux disease) MDS (myelodysplastic syndrome), low grade Exercise / Class Metabolic Activity II 4-5 Yardwork/Stairs/Walk up hill Past Family History Family History Father Myocardial infarction Heart disease Sister Heart disease Grandfather (Paternal) Prostate cancer Other Hypertension Stroke Denies family history of Ovarian cancer Breast cancer Colorectal cancer Past Surgical History Surgical History Status post open reduction and internal fixation (ORIF) of fracture S/P TURP S/P Mohs surgery for basal cell carcinoma H/O hernia repair S/P tonsillectomy and adenoidectomy Past Anesthesia History No Hx of Anesthesia Complications and No Family Hx of Anesthesia Complications History of PONV No Hx of PONV and No Hx of Motion Sickness Social History Smoking Status: Never smoker Do You Dip or Chew Tobacco: No Hx Alcohol Use: Yes alcohol intake frequency: holidays/special occasions only Hx Substance Use: No substance use type: does not use Review of Systems denies fever/cough/ colds/ chest pain/ SOB/ TRU denies TRU Physical Exam Vital Signs Last Vital Signs Temp 36.4 C L 04/10/25 09:06 Pulse 80 04/10/25 09:06 Resp 20 04/10/25 09:06 BP 116/62 04/10/25 07:23 Pulse Ox 98 04/10/25 09:06 O2 Del Method Room Air 04/10/25 09:06 ENMT Mouth: no TMJ abnormality and no dentition abnormality Thyromental Distance: > or= 3.5 Finger Breadths Mallampati Class: II Neck neck extension not limited Respiratory normal respiratory effort; no respiratory distress Auscultation: lungs clear to auscultation bilaterally Cardiovascular Rate/Rhythm: regular rate and regular rhythm Neurologic moves all extremities Psychiatric Orientation: alert and oriented x 3 Testing Laboratory Results 04/10/25 05:22 04/10/25 05:22 PT 10.5 Seconds (9.0-12.0) 04/09/25 12:58 INR 1.0 (0.9-1.1) 04/09/25 12:58 APTT 31 Seconds (21-31) 04/09/25 12:58 Urine Color Red 04/09/25 13:59 Urine Appearance Cloudy (Clear) A 04/09/25 13:59 Urine pH 7.0 (4.5-7.5) 04/09/25 13:59 Ur Specific [place] >= 1.030 (1.000-1.030) 04/09/25 13:59 Urine Protein 3+ (Negative) H 04/09/25 13:59 Urine Glucose (UA) Negative (Negative) 04/09/25 13:59 Urine Ketones Negative (Negative) 04/09/25 13:59 Urine Nitrite Negative (Negative) 04/09/25 13:59 Ur Leukocyte Esterase Negative (Negative) 04/09/25 13:59 Urine RBC >20 /hpf (0-2) H 04/09/25 13:59 Urine WBC >50 /hpf (0-5) H 04/09/25 13:59 Ur Epithelial Cells 3-5 /hpf (0-2) H 04/09/25 13:59 04/09/25 13:59 Urine Culture - Preliminary Urine,Clean Catch Gram negative bacilli
[2025-04-10] MEDS ORDERED: ONDANSETRON INJ 2 MG/ML 2 ML VIAL ONE (09:31)
[2025-04-10] MEDS ORDERED: PROPOFOL IV EMULSION 10 MG/ML 20 ML VIAL IV ONE (09:31)
[2025-04-10] MEDS ORDERED: LIDOCAINE 2% 2 ML VIAL/AMP(20MG/ML) INFIL ONE (09:31)
[2025-04-10] MEDS: LACTATED RINGER'S 1,000 ML IV SCH (09:36)
[2025-04-10] MEDS: CIPROFLOXACIN / D5W 400 MG/200 ML BAG IV SCH (09:51)
--- NOTE | 2025-04-10 11:21 | Operative Report ---
PG Post Operative Report Pre & Post Diagnosis Pre: Gross Hematuria Post: Same Operation Date: 04/10/25 07:50 <No data on this case meets the specified criteria> I identified the patient and participated in the time-out.: Yes Procedure Cystoscopy with clot evacuation, fulguration of bladder, fulguration of prostate and prostatic varicosities, and difficult catheter placement Transurethral resection of bladder lesion, small Operation Date: 04/10/25 07:50 <No data on this case meets the specified criteria> Surgeon Juan David Interiano, II, DO Batch Unit Treater None Estimated Blood Loss 5 Findings Consistent with Post-Op Diagnosis Large diverticulum with approximately 150 to 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 Significant inflammatory changes/radiation cystitis within the diverticulum. Mild inflammation along the bladder wall Possible squamous metaplasia/keratinized squamous metaplasia along the rim/edge of the diverticulum Small polypoid appearing lesion for squamous metaplasia at the bladder neck at approximately the 5 o'clock position Numerous minor bleeding varicosities within the bladder neck and prostate Specimens Resected Bladder lesions -bladder neck Drains 24 Chilean three-way hematuria catheter placed over wire Anesthesia Type MAC Complications none Disposition Disposition: Recovery Room Indications Patient with bladder lesions and hematuria. History of radiation cystitis. Significant gross hematuria with clot retention. Risks and benefits discussed at length. Description of Procedure Patient was consented and brought back to the operating room. Patient was placed under anesthesia in the supine position and moved to the dorsal lithotomy position. Patient was prepped and draped in the regular sterile fashion. A time out was completed. A 30degree Cystoscope was placed into the bladder and the entire bladder was examined. A moderate amount of clot was noted in the base of the bladder. This immediately needed to be irrigated. Once irrigated clear the entire bladder was better able to visualize. There was a large amount of clot in a diverticulum along the posterior wall/right trigone which appeared to make of the majority of the clot material in the bladder. The diverticulum appeared to be large. Attempts to manipulate the clot out of the diverticulum were unsuccessful. The remainder of the bladder was inspected. The UO's were identified as well as the bladder neck, trigone, dome, and the other important landmarks. There was some minor areas of bleeding along the bladder neck and within the prostatic urethra secondary to large prostatic varicosities. There was signs of mild radiation cystitis throughout the bladder with mild areas of irritation possibly from the catheter possibly from overdistention. No severe bleeding was noted in the bladder and only minor bleeding noted at the bladder neck/prostatic urethra. There was what appeared to be a polypoid/irregular lesion along the bladder neck at approximately the 5 o'clock position it did appear to be possibly squamous metaplasia but also had a somewhat polypoid appearance. Additionally had some debris over top possibly representing a keratinized squamous metaplasia. The large amount of clot in the diverticulum was further assessed. A resection scope was selected in order to irrigate through and try to evacuate the clot material. Additionally the loop was utilized to try to extract the clot material from the diverticulum. With manipulation and thorough irrigation the clot material was able to be irrigated free. Approximately 150 cc of clot material was evacuated from the diverticulum with an additional approximately 50 cc in the base of the bladder. Along the diverticular wall as well as along the rim of the diverticulum os there was some significant areas of inflammation. There was what appeared to be slow active venous bleeding from what appeared to be radiation cystitis in the d iverticulum. Additionally thickened sheetlike areas of lesion were noted along the rim of the diverticulum these did appear to be possibly squamous metaplasia possibly representing keratinezed squamous metaplasia. There did not appear to be active bleeding from these areas there was some mild inflammation around these areas however. The bladder was fully and carefully inspected. The UOs were found to be draining well urine was seen effluxing from both sides without major issue. There was mild to moderate inflammation along the posterior wall likely from the catheter. The lesion at the bladder neck was reinspected. The resection scope with the fine bipolar loop was selected. The entire lesion was assessed. The lesion was resected. The lesion was approximately 1.1 cm in size. Was able to be fully resected. Additionally some of the sheetlike tissue surrounding the lesion was resected with it as well for analysis. The resected tissue was removed and sent for analysis. The resection bed and edges of the resection were fulgurated and the entire area inspected. No significant bleeding was noted. The large varicosities at the bladder neck and prostate were then fulgurated. This controlled all bleeding from the prostatic end. There was a fairly large varicosity along the left lateral lobe of the prostate that did have some more moderate bleeding. This was able to be controlled with cautery. The posterior wall and dome with the areas of irritation were assessed. Some fulguration was completed of some of the more severely inflamed areas. No major bleeding or other issues. Attention then turned to the diverticulum. Due to the location of the lesions along the rim of the diverticulum it was decided to avoid significant resection or manipulation as these did not appear to be actively bleeding and appeared to be possibly inflammatory without significant suspicious features. The multiple areas of bleeding along the base and posterior wall of the diverticulum were also assessed. There was a more notable bleed coming from the small vessels. At this point it was decided to fulgurate and cauterize these vessels using low settings. Care was taken not to damage the diverticulum itself or the surrounding structures. After controlling the bleeding of these multiple areas the entire area was inspected again. All bleeding was controlled. No other major lesions or areas concern. Some mild irrigation was then further completed to clear some of the debris from the fulguration and cauterization. The bladder was inspected a final time. The bladder was emptied. On final inspection there was no sign of active bleeding or major issues. Urine appeared to be clear and draining well from the ureters bilaterally. Due to the location of the diverticulum it was decided to leave the catheter but placed the catheter under wire placement in order to ensure the catheter did not become entrapped in the diverticulum. A wire was placed along the left posterior wall and confirmed to be within the lumen of the bladder and not within the proximity of the diverticulum. The scope was removed. A 24 Chilean three-way catheter hematuria was placed over the wire and confirmed in the bladder with good drainage. No significant hematuria was noted with the catheter. Continuous bladder irrigation was initiated on a slow drip in order to avoid any major issues can likely be weaned off within the next few hours patient remained clear. The patient was cleaned, aroused from anesthesia, and transferred to the pacu in stable condition having tolerated the procedure well with no complications. I was present and participated in all aspects of the procedure. The patient will be monitored in the PACU until transferred. Will monitor while hospitalized. Will likely be able to follow-up with Dr. Sebastian who is established with. No significant or suspicious appearing mass or lesion but will await pathology results. I attest to the content of the Intraoperative Record and any orders documented therein. Any exceptions are noted below.
--- NOTE | 2025-04-10 12:00 | Anesthesiology Progress Note ---
Date of Service April 10, 2025 Anesthesia Post Procedure Vital Signs Vital Signs: Temp Pulse Pulse Pulse Resp BP BP 04/10/25 11:50 83 16 04/10/25 11:41 36.5 C 81 16 04/10/25 11:30 80 14 04/10/25 11:20 84 18 04/10/25 11:10 85 16 04/10/25 11:00 37.1 C 86 18 04/10/25 09:06 36.4 C L 80 20 04/10/25 07:42 72 04/10/25 07:23 37.0 C 93 H 20 116/62 04/10/25 03:18 36.3 C L 79 18 04/09/25 22:42 36.5 C 98 H 18 04/09/25 21:46 89 04/09/25 19:14 37.0 C 88 18 04/09/25 17:51 81 04/09/25 17:31 04/09/25 17:20 82 04/09/25 16:15 74 04/09/25 16:11 74 14 04/09/25 16:10 80 18 114/57 L 04/09/25 12:28 36.4 C L 84 20 105/65 04/09/25 12:23 66 20 BP Pulse Ox O2 Del Method O2 Flow Rate 04/10/25 11:50 124/69 96 Room Air 04/10/25 11:41 114/60 97 Room Air 04/10/25 11:30 124/74 96 Room Air 04/10/25 11:20 133/76 96 Room Air 04/10/25 11:10 131/72 96 Room Air 04/10/25 11:00 125/69 100 Oxymask 5 04/10/25 09:06 108/65 98 Room Air 04/10/25 07:42 04/10/25 07:23 96 Room Air 04/10/25 03:18 105/62 95 Room Air 04/09/25 22:42 144/78 H 96 Room Air 04/09/25 21:46 04/09/25 19:14 118/69 97 Room Air 04/09/25 17:51 04/09/25 17:31 Room Air 04/09/25 17:20 134/71 96 Room Air 04/09/25 16:15 04/09/25 16:11 140/87 96 Room Air 04/09/25 16:10 98 Room Air 04/09/25 12:28 98 Room Air 04/09/25 12:23 98 Room Air Pain Intensity Penis: Pain Intensity: 2 Transfer of Care Handoff Completed per policy Notes Mental Status: alert / awake / arousable and participated in evaluation Patient Amnestic to Procedure: Yes Nausea / Vomiting: adequately controlled Pain: adequately controlled Airway Patency, RR, SpO2: stable & adequate BP & HR: stable & adequate Hydration State: stable & adequate Anesthetic Complications: no major complications apparent and Pt Satisfied with anesthetic care
[2025-04-10] MEDS: SPIRONOLACTONE 25 MG TAB PO SCH (12:15)
[2025-04-10] MEDS: PHENAZOPYRIDINE HCL 200 MG TAB PO ONE (13:45)
[2025-04-10 17:13] LABS: Hematocrit (blood only) 26.1 % (42.0-52.0); Hemoglobin 8.9 g/dl (14.0-18.0)
[2025-04-10 19:39] VITALS: RESP 18
--- NOTE | 2025-04-10 22:01 | Hospitalist Progress Note ---
Date of Service April 10, 2025 Assessment & Plan (1) Gross hematuria: (2) S/P hip hemiarthroplasty: (3) Dyslipidemia: Plan #Gross hematuria - urology eval completed, -CBI -Patient now reporting pain and asking for narcotics, will monitor. -hemoglobin is slightly lower. - hold Xarelto and Plavix at this time #HTN - cont spironolactone #Hypothyroidism - cont levothyroxine #DVT ppx: SCDs #Dispo: Admit to tele #Code status: Full code, but he does not want to be prolonged with artificial support Admission and Anticipated Discharge Date Admission Date: April 09, 2025 Subjective 89 yo male reports no new symptoms. Physical Exam Physical Exam: Gen: no acute distress, lying in bed comfortable HEENT: NC/AT, MMM Lungs: nonlabored breathing, CTAB CVS: s1s2nl, RRR Abd: nl bowel sounds, soft, NT / ND : + oseguera with hematuria Ext: no edema Neuro: AAOx3 Psych: calm cooperative Results & Data Results & Data Vital Signs (Past 12 Hours) Vital Signs Temp Pulse Pulse Resp BP Pulse Ox O2 Del Method 04/10/25 19:39 36.4 C L 87 18 104/66 90 Room Air 04/10/25 16:20 36.4 C L 81 19 99/51 L 96 Room Air 04/10/25 15:05 83 04/10/25 13:40 86 122/66 96 Room Air 04/10/25 13:14 80 123/66 94 Room Air 04/10/25 12:58 84 123/66 94 Room Air 04/10/25 12:50 89 137/75 95 Room Air 04/10/25 12:05 36.6 C 84 137/70 96 Room Air 04/10/25 11:50 83 16 124/69 96 Room Air 04/10/25 11:41 36.5 C 81 16 114/60 97 Room Air 04/10/25 11:30 80 14 124/74 96 Room Air 04/10/25 11:20 84 18 133/76 96 Room Air 04/10/25 11:10 85 16 131/72 96 Room Air 04/10/25 11:00 37.1 C 86 18 125/69 100 Oxymask O2 Flow Rate 04/10/25 19:39 04/10/25 16:20 04/10/25 15:05 04/10/25 13:40 04/10/25 13:14 04/10/25 12:58 04/10/25 12:50 04/10/25 12:05 04/10/25 11:50 04/10/25 11:41 04/10/25 11:30 04/10/25 11:20 04/10/25 11:10 04/10/25 11:00 5 PG Care Time/CCT Total # of Minutes Spent Total Time Spent with Patient: Total time spent is greater than 50% in coordination of care (as documented) at patient's floor/unit and/or counseling patient: Coding Level of Care Code 13582 SUB INP/OBS CARE 3/50MIN Diagnoses Gross hematuria R31.0 S/P hip hemiarthroplasty Z96.649 Dyslipidemia E78.5
[2025-04-10] MEDS: PHENAZOPYRIDINE HCL 200 MG TAB PO STA (22:02)
[2025-04-11] MEDS: MoRPHine SULFATE 2 MG/ML CARP IV STA (04:54)
[2025-04-11 06:26] LABS: Hematocrit (blood only) 24.3 % (42.0-52.0); Hemoglobin 8.2 g/dl (14.0-18.0); Mean Corpuscular Hemoglobin 35.2 pg (25.0-34.0); Mean Corpuscular Volume 104.3 fL (80.0-100.0); Platelet Count 180 K/uL (130-400); RDW Standard Deviation 48.8 fL (36.4-46.3); Red Blood Count 2.33 M/uL (4.70-6.10); White Blood Count 8.83 K/ul (4.8-10.8)
[2025-04-11 06:51] LABS: Anion Gap 6.0 (3-11); Blood Urea Nitrogen 23.0 mg/dl (6-23); Calcium 8.3 mg/dl (8.6-10.3); Carbon Dioxide 24.0 mmol/L (21-32); Chloride 107.0 mmol/L (98-107); Creatinine Clr Calc Pharmacy 38.6 ml/min; Glucose 119.0 mg/dl (70-99(Fasting)); Potassium 4.3 mmol/L (3.5-5.1); Sodium 137.0 mmol/L (136-145)
[2025-04-11] MEDS: POLYETHYLENE (MIRALAX) 17 GM PACK PO SCH (09:36)
[2025-04-11] MEDS: DOCUSATE SODIUM/SENNA 50/8.6MG TAB PO SCH (09:36)
--- NOTE | 2025-04-11 10:13 | Urology Progress Note ---
Date of Service April 11, 2025 Assessment & Plan (1) Cystitis, radiation: Plan: Afebrile hd stable 89M doing well after cysto clot evacuation fulguration resection small bladder lesion. CBI clamped urine clear. - ok to remove catheterif unable to void and in pain please obtain bladder scan, ok to replace catheter for PVR > 400 cc - recommend bowel regimen - If able to void no further planned intervention this admission - await pathology can be discussed as outpatient - ok to continue with pyridium for urine discomfort (2) Gross hematuria: Admission and Anticipated Discharge Date Admission Date: April 09, 2025 Subjective doing well overnight, denies fevers chills nausea or emesis, bothered by catheter, denies BM this admission but notes is still feeling foggy after anesthesia. Eager to have catheter removed. notes baseline urinary urgency but denies difficulty voiding prior to catheter Physical Exam Physical Exam: Gen: NAD Psych: Alert and Oriented Abd: Nontender nondistended : 3 [address] catheter [address] cbi clamped urine clear Results & Data Vital Signs (Past 12 Hours) Vital Signs Temp Pulse Pulse Resp BP Pulse Ox O2 Del Method 04/11/25 08:12 78 04/11/25 03:10 36.6 C 85 18 105/63 93 Room Air 04/10/25 22:40 36.4 C L 82 18 104/62 95 Room Air Laboratory Results labs reviewed PG Care Time/CCT Total # of Minutes Spent Total Time Spent with Patient: Total time spent is greater than 50% in coordination of care (as documented) at patient's floor/unit and/or counseling patient: Coding Level of Care Code 98988 SUB INP/OBS CARE 2/35MIN Diagnoses Cystitis, radiation N30.40 Gross hematuria R31.0
[2025-04-11 14:06] LABS: Hematocrit (blood only) 30.3 % (42.0-52.0); Hemoglobin 9.7 g/dl (14.0-18.0)
--- NOTE | 2025-04-11 22:36 | Hospitalist Progress Note ---
Date of Service April 11, 2025 Assessment & Plan (1) Gross hematuria: (2) S/P hip hemiarthroplasty: (3) Dyslipidemia: Plan #Gross hematuria - urology eval completed, -CBI -Patient now reporting pain and asking for narcotics, will monitor. -hemoglobin has not stabilized yet, will recheck again on 04/12. If hemoglobin does not decrease will discharge. WIll continue to hold xarelto and plavix for the upcoming week - hold Xarelto and Plavix at this time #HTN - cont spironolactone #Hypothyroidism - cont levothyroxine #DVT ppx: SCDs #Dispo: Admit to tele #Code status: Full code, but he does not want to be prolonged with artificial support Admission and Anticipated Discharge Date Admission Date: April 09, 2025 Subjective Patient reports feeling much better after catheter was removed. Patient has no new complaints. Physical Exam Physical Exam: Gen: no acute distress, lying in bed comfortable HEENT: NC/AT, MMM Lungs: nonlabored breathing, CTAB CVS: s1s2nl, RRR Abd: nl bowel sounds, soft, NT / ND : oseguera removed. Ext: no edema Neuro: AAOx3 Psych: calm cooperative Results & Data Results & Data Vital Signs (Past 12 Hours) Vital Signs Temp Pulse Pulse Resp BP Pulse Ox O2 Del Method 04/11/25 19:27 36.9 C 79 18 94/55 L 96 Room Air 04/11/25 16:08 36.5 C 70 18 113/57 L 93 Room Air 04/11/25 15:38 94 H 04/11/25 11:25 36.7 C 69 18 97/59 L 96 Room Air PG Care Time/CCT Total # of Minutes Spent Total Time Spent with Patient: Total time spent is greater than 50% in coordination of care (as documented) at patient's floor/unit and/or counseling patient: Coding Level of Care Code 71578 SUB INP/OBS CARE 3/50MIN Diagnoses Gross hematuria R31.0 S/P hip hemiarthroplasty Z96.649 Dyslipidemia E78.5
[2025-04-11] MEDS: MELATONIN 3 MG TAB PO PRN (23:52)
[2025-04-12 06:08] LABS: Hematocrit (blood only) 25.2 % (42.0-52.0); Hemoglobin 8.3 g/dl (14.0-18.0); Mean Corpuscular Hemoglobin 35.0 pg (25.0-34.0); Mean Corpuscular Volume 106.3 fL (80.0-100.0); Platelet Count 202 K/uL (130-400); RDW Standard Deviation 50.1 fL (36.4-46.3); Red Blood Count 2.37 M/uL (4.70-6.10); White Blood Count 6.74 K/ul (4.8-10.8)
[2025-04-12 06:46] LABS: Anion Gap 5.0 (3-11); Blood Urea Nitrogen 25.0 mg/dl (6-23); Calcium 8.6 mg/dl (8.6-10.3); Carbon Dioxide 26.0 mmol/L (21-32); Chloride 107.0 mmol/L (98-107); Creatinine Clr Calc Pharmacy 41.9 ml/min; Glucose 101.0 mg/dl (70-99(Fasting)); Potassium 4.1 mmol/L (3.5-5.1); Sodium 138.0 mmol/L (136-145)
--- NOTE | 2025-04-12 11:09 | Urology Progress Note ---
Date of Service April 12, 2025 Assessment & Plan (1) Cystitis, radiation: Plan: Afebrile hd stable 89M doing well after cysto clot evacuation fulguration resection small bladder lesion. CBI clamped urine clear. - voiding comfortably - recommend bowel regimen - await pathology can be discussed as outpatient 1-[address] Interiano - esther to continue with pyridium for urine discomfort (2) Gross hematuria: (3) Urinary retention: (4) Chronic anticoagulation: Admission and Anticipated Discharge Date Admission Date: April 09, 2025 Subjective doing well overnight happier catheter is out, FLOR[place] Physical Exam Physical Exam: Gen: NAD Psych: Alert and Oriented Abd: Nontender nondistended : urine in urinal light brown Results & Data Vital Signs (Past 12 Hours) Vital Signs Temp Pulse Resp BP Pulse Ox O2 Del Method 04/12/25 07:26 36.3 C L 71 18 111/65 95 Room Air 04/12/25 02:35 36.4 C L 75 18 106/62 96 Room Air Laboratory Results labs reviewed PG Care Time/CCT Total # of Minutes Spent Total Time Spent with Patient: Total time spent is greater than 50% in coordination of care (as documented) at patient's floor/unit and/or counseling patient: Coding Level of Care Code 57765 SUB INP/OBS CARE 08/30MIN Diagnoses Cystitis, radiation N30.40 Gross hematuria R31.0 Urinary retention R33.9 Chronic anticoagulation Z79.01
[2025-04-12 11:18] VITALS: BP 94/58; TEMP 98.1; O2SAT 98
--- NOTE | 2025-04-12 11:25 | Discharge Summary ---
Discharge Summary Date of Service April 12, 2025 Principal Dx & Hospital Course #1 = Principal Diagnosis (1) Gross hematuria: (2) S/P hip hemiarthroplasty: (3) Dyslipidemia: Plan #Gross hematuria - urology eval completed, -CBI was used to treat this. Patient required narcotics for pain control Once cathter was removed, patient felt symptomatic improvement WIll continue to hold xarelto and plavix for the upcoming week #HTN - cont spironolactone #Hypothyroidism - cont levothyroxine Admission HPI Per Admitting Provider 89 yo M with PMHx of prostate ca (2017, follows with Dr. Sebastian), CKD, h/o stroke, h/o DVT, hip fracture coming to [facility] for the evaluation of hematuria. He had similar episode about 2weeks ago. He had cystoscopy with Dr. Sebastian on 04/01/25 which showed some clot within the diverticulum. Everything was fine since then until this morning. He again developed hematuria overnight. He came to the hospital because it started to become more painful and he was passing clots. His last dose of Eliquis was last night and last dose of clopidogrel was yesterday morning. In the ED, he is hemodynamically stable and Hgb is also stable. Discharge Exam Gen: no acute distress, lying in bed comfortable HEENT: NC/AT, MMM Lungs: nonlabored breathing, CTAB CVS: s1s2nl, RRR Abd: nl bowel sounds, soft, NT / ND : oseguera removed. Ext: no edema Neuro: AAOx3 Psych: calm cooperative Discharge Plan Discharge Items Patient Disposition: Home - Self-Care Reason For Visit: HEMATURIA Discharge Diagnosis: hematuria Condition on Discharge: Fair Activity: Resume your previous activity Non-emergency contact: Primary Care Provider Call non-emergency contact if: you have any medication questions Follow-up/Referrals: Kyle Clemens MD [Primary Care Provider] - 04/20/25 10:30 am Diet: Heart Healthy Addtl Attending Provider Instructions: We will continue to hold your blood thinners until you see your PCP. Will recommend a close followup within the next week or two. Will also recommend a followup with Urology also within 1 or 2 weeks. If they do not call you by Sunday, please call them at [phone]. I will also prescribe you a medication called pyridium bu only for 3 doses, take as needed for penile pain. This may turn your urine orange. Pending Studies at Discharge: No Stand-Alone Forms: My [facility] [employer], Smoking Cessation Medications and DC Order Prescriptions: New phenazopyridine [Pyridium] 200 mg tablet 200 mg PO Q8H PRN (Reason: penile pain when urinating) Qty: 3 0RF Continued coal tar 2 % ointment 1 applic topical TID Rx Instructions: HAS BEEN USING BID famotidine 20 mg tablet 20 mg PO BID cholecalciferol (vitamin D3) 50 mcg (2,000 unit) capsule 100 mcg PO QAM docusate sodium [Colace] 100 mg capsule 100 mg PO DAILY PRN (Reason: Constipation) vitamin E 400 unit Capsule 400 unit PO QAM multivitamin Tablet 1 tab PO QAM acetaminophen 650 mg Tablet Extended Release 1,300 mg PO HS diphenhydramine HCl [Benadryl] 25 mg Capsule 25 mg PO HS PRN (Reason: Sleep) spironolactone 25 mg tablet 25 mg PO QAM levothyroxine 75 mcg tablet 75 mcg PO HS cyanocobalamin (vitamin B-12) 1,000 mcg capsule 1,000 mcg PO QAM Held Eliquis 2.5 mg Tablet 2.5 mg PO BID Hold Instructions: Provider's Order Until seen by PCP clopidogrel [Plavix] 75 mg tablet 75 mg PO QAM Hold Instructions: Provider's Order Until seen by PCP. Discharge Orders: Discharge Order (Routine); Ordered 04/12/25 Ordered By: Davis Bailon/Other Patient Handouts: ED Urinary Retention, Male, ED Cystitis Male Ch Admission Data Admit Date/Time: 04/09/25 15:36 Attending Provider: Davis Rios Admit Provider: Shira Mayers Primary Care Provider: Kyle Celmens Other Providers: Juan David Interiano Other Interventions: Discharge Summary Assessment (RN) Last Done: 04/12/25 11:42 Hospital Stay Data Consultations 04/09/25 14:04 ED Decision to Admit Stat 04/09/25 14:42 ED Decision to Admit Stat 04/09/25 15:14 Consult Urology Routine Procedures Performed Operation Date: 04/10/25 07:50 Actual Procedures p clot evacuation,TURBT small bladder tumor, fulguration of prostate and bladder - Juan David H. Interiano, DO s Cystoscopy - Juan David Interiano, DO Pending Results Patient Have Any Pending Studies at Discharge: No Discharge Instructions Given to Patient (Per Discharging Provider) We will continue to hold your blood thinners until you see your PCP. Will recommend a close followup within the next week or two. Will also recommend a followup with Urology also within 1 or 2 weeks. If they do not call you by Sunday, please call them at [phone]. I will also prescribe you a medication called pyridium bu only for 3 doses, take as needed for penile pain. This may turn your urine orange. Total Time Total Time Spent Total Time Spent (In Minutes): 32 Coding Level of Care Code 77144 INP/OBS DISCH >30 MIN Diagnoses Gross hematuria R31.0 S/P hip hemiarthroplasty Z96.649 Dyslipidemia E78.5
[2025-04-12 11:43] VITALS: PULSE 71
--- NOTE | 2025-04-14 06:20 | Coding Query ---
PATHOLOGY To promote full compliance with coding requirements relating to patient care, physician participation is requested in all cases of sandwich counter attendant uncertainty. Please assist us with the question(s) below: Please review the 04/10/25 Pathology report and please document any relevant diagnosis(es) below: Diagnosis(es): UCC with Squamous Differentiation. Thank you Sienna KIRKPATRICK
--- NOTE | 2025-04-14 11:49 | Coding Query ---
CODING QUERY To promote full compliance with coding requirements relating to patient care, provider participation is requested in all cases of painting and coating worker uncertainty. Please assist us with the question(s) below: Coding Question(s): Your answer on the previous query regarding the Pathology Report and relevant findings is greatly appreciated. You had answered with Diagnosis of, "UCC with Squamous Differentiation". UCC, unfortunately, is not a valid abbreviation that can be used to code. Please specify below the meaning of UCC: ( X ) UCC stands for a specified diagnosis. Please specify - Urothelial Cell Carcinoma ( ) UCC is of unknown meaning Physician's Response(s): Thank you Sienna Barba Principal Diagnosis: "that condition established after study, to be chiefly responsible for occasioning the admission of the patient to the hospital for care." Co-Existing Principal Diagnosis: "when two or more diagnoses equally meet the criteria for principal diagnosis as determined by the circumstances of admission, diagnostic work up, and/or therapy provided, and the Alphabetic Index, Tabular List, or another coding guideline does not provide sequencing direction, any one of the diagnoses may be sequenced first." "When the physician has documented what appears to be a current diagnosis in the body of the record, but has not included the diagnosis in the final diagnostic statement, the physician should be asked whether the diagnosis should be added." (Source Coding [facility] 2 QTR90. p3-4) KAYA
--- NOTE | 2025-04-15 06:22 | Coding Query ---
CODING QUERY To promote full compliance with coding requirements relating to patient care, provider participation is requested in all cases of physician coder uncertainty. Please assist us with the question(s) below: Coding Question(s): Gross Hematuria is documented. 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 ( ) Other: Please Specify ( ) Unknown Physician's Response(s): Thank you Sienna Barba Principal Diagnosis: "that condition established after study, to be chiefly responsible for occasioning the admission of the patient to the hospital for care." Co-Existing Principal Diagnosis: "when two or more diagnoses equally meet the criteria for principal diagnosis as determined by the circumstances of admission, diagnostic work up, and/or therapy provided, and the Alphabetic Index, Tabular List, or another coding guideline does not provide sequencing direction, any one of the diagnoses may be sequenced first." "When the physician has documented what appears to be a current diagnosis in the body of the record, but has not included the diagnosis in the final diagnostic statement, the physician should be asked whether the diagnosis should be added." ([facility] 2 QTR90. p3-4) KAYA
== END 2025-04-12 13:58 | disposition home or self-care (01) | DRG 669 ==
LOC: ED 12:22 → SUATTDRO 15:36 → 4W 15:36